=== PATIENT | male | born 1990 | race Caucasian/White ===

== ENCOUNTER 2020-09-28 12:54 | Outpatient (RCR) | payer MEDICAID, SELFPAY ==
--- NOTE | ~2020-09-28 | XR_ITS ---
EXAMINATION: XR CHEST CLINICAL INFORMATION: Preprocedure COMPARISON: Previous chest x-ray January 2021 TECHNIQUE: 2 views of the chest were obtained. FINDINGS: The cardiac and mediastinal contours are stable. There are median sternotomy wires. There are surgical clips in the left lower back/cervicothoracic inlet region. The lungs are clear. There is no pleural effusion or pneumothorax. There is a thoracic scoliosis convex to the left the upper thoracic spine convex to the right and lower thoracic spine. XR/XR chest 2V IMPRESSION: No evidence for acute disease in the chest. Scoliosis and postsurgical changes similar to previous exam.
[2021-06-29 10:41] LABS: MANUAL DIFF FLAG NO
[2021-06-29 10:48] LABS: Basophils Percent Auto 0.4 % (0-2); Eosinophils Absolute Auto 0.2 X10*3/uL (0.0-0.4); Eosinophils Percent Auto 3.9 % (0-4); Hematocrit 42.9 % (42-52); Hemoglobin 13.8 g/dl (14.0-18.0); Imm Gran Abs Auto 0.02 X10*3/uL (0.00-0.03); Imm Gran Pct Auto 0.4 % (0.0-0.4); Lymphocytes Absolute Auto 1.8 X10*3/uL (1.2-4.9); Lymphocytes Percent Auto 36.9 % (20-40); Mean Corpuscular HGB Conc 32.2 g/dl (31.0-36.0); Mean Corpuscular Hemoglobin 29.6 pg (27.0-33.0); Mean Corpuscular Volume 91.9 fL (80-98); Mean Platelet Volume 9.7 fL (9.4-12.4); Monocytes Absolute Auto 0.3 X10*3/uL (0.1-1.2); Monocytes Percent Auto 6.4 % (2-11); Neutrophils Absolute Auto 2.5 X10*3/uL (2.0-8.3); Platelet Count 247 X10*3/uL (160-400); Red Blood Count 4.67 X10*6/uL (4.60-5.80); Red Cell Distribution Width 14.6 % (11.0-16.0); White Blood Count 4.8 X10*3/uL (4.8-10.8)
[2021-06-29 11:09] LABS: Anion Gap 11 (12-20); Blood Urea Nitrogen 12 mg/dL (9-16); C Reactive Protein 0.95 mg/dL (< or = 0.50); Calcium 10.3 mg/dL (8.4-10.2); Carbon Dioxide 31 mmol/L (22-29); Chloride 103 mmol/L (96-108); Estimated Glomerular Filt Rate > 60; Glucose Random 87 mg/dL (60-115); Sodium 140 mmol/L (135-145)
[2021-06-29 11:31] LABS: Erythrocyte Sedimentation Rate 7 MM/HR (0-15)
== END 2021-09-12 15:00 | disposition home or self-care (01) ==
LOC: HO.WCC 12:54
PROVIDERS: PCP Family Medicine; Visit Provider Surgery
DX: L89.323 Pressure ulcer of left buttock, stage 3 (principal); M86.68 Other chronic osteomyelitis, other site; G82.22 Paraplegia, incomplete; I10 Essential (primary) hypertension; Z79.899 Other long term (current) drug therapy; Z87.891 Personal history of nicotine dependence
CPT/HCPCS: 11042; 11043; 17250; 36415; 71046; 80048; 84134; 85025; 85652; 86140; 97605; 99183; 99211; 99212; 99213

== ENCOUNTER 2020-11-21 14:15 | Emergency (ER) | payer MEDICAID, SELFPAY ==
[2020-11-21 14:19] VITALS: BP 191/94; BP 222/128; PULSE 55; PULSE 74; RESP 18; TEMP 36.6; O2SAT 100; O2SAT 98; BMI 55.2
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
[2020-11-21 15:21] LABS: Basophils Percent Auto 0.4 % (0-2); Eosinophils Absolute Auto 0.1 X10*3/uL (0.0-0.4); Eosinophils Percent Auto 1.9 % (0-4); Hematocrit 44.7 % (42-52); Hemoglobin 14.4 g/dl (14.0-18.0); Imm Gran Abs Auto 0.03 X10*3/uL (0.00-0.03); Imm Gran Pct Auto 0.4 % (0.0-0.4); Lymphocytes Absolute Auto 1.6 X10*3/uL (1.2-4.9); Lymphocytes Percent Auto 23.4 % (20-40); MANUAL DIFF FLAG NO; Mean Corpuscular HGB Conc 32.2 g/dl (31.0-36.0); Mean Corpuscular Hemoglobin 30.3 pg (27.0-33.0); Mean Corpuscular Volume 94.1 fL (80-98); Mean Platelet Volume 9.3 fL (9.4-12.4); Monocytes Absolute Auto 0.3 X10*3/uL (0.1-1.2); Monocytes Percent Auto 4.7 % (2-11); Neutrophils Absolute Auto 4.8 X10*3/uL (2.0-8.3); Neutrophils Percent Auto 69.2 % (45-73); Platelet Count 290 X10*3/uL (160-400); Red Blood Count 4.75 X10*6/uL (4.60-5.80); Red Cell Distribution Width 12.6 % (11.0-16.0); White Blood Count 6.9 X10*3/uL (4.8-10.8)
[2020-11-21 15:27] LABS: INTERNATIONAL NORM RATIO 1.2 (0.9-1.1); Prothrombin Time 13.7 SEC (10.8-13.0)
[2020-11-21 15:47] LABS: Anion Gap 16 (12-20); Blood Urea Nitrogen 11 mg/dL (9-16); Calcium 9.6 mg/dL (8.4-10.2); Carbon Dioxide 29 mmol/L (22-29); Chloride 101 mmol/L (96-108); Creatinine Clr Calc Pharmacy 199.3; Estimated Glomerular Filt Rate > 60; Glucose Random 112 mg/dL (60-115); Sodium 142 mmol/L (135-145)
[2020-11-21 16:14] VITALS: BP 142/76; PULSE 48; RESP 17; TEMP 36.9; O2SAT 100
--- NOTE | 2020-11-21 17:16 | PC.NURSE ---
4000 ml of serous sang urine emptied
--- NOTE | 2020-11-21 18:30 | PC.NURSE ---
4000ml urinary output of serous sang urine
[2020-11-21 18:59] VITALS: BP 133/80; PULSE 56
--- NOTE | 2020-11-21 22:07 | PC.NURSE ---
patient to be discharged after last urinary output of 3750ml clear. upon switching to leg bag noticed blood in urine again. Provider made aware. cbi to continue
[2020-11-22] VITALS: BP 154/78; PULSE 58; RESP 16; O2SAT 98
== END 2020-11-22 01:28 | disposition home or self-care (01) ==
PROVIDERS: Nurse Practitioner Family; Emergency Provider Emergency Medicine; PCP Family Medicine
DX: R31.0 Gross hematuria (principal)
CPT/HCPCS: 36415; 80048; 85025; 85610; 99284

== ENCOUNTER 2021-01-19 17:28 | Inpatient (IN) | payer MEDICAID, SELFPAY ==
[2021-01-19] VITALS (7 sets, daily range): BP systolic 89–206; BP diastolic 50–131; PULSE 60–119; RESP 16–18; TEMP 36.6–37.1; O2SAT 94–100; BMI 27.8
--- NOTE | ~2021-01-19 | NM_ITS ---
Lexiscan Myocardial perfusion study Indication: NSTEMI, assess for coronary disease and ischemia Technique: The patient was brought in for a Lexiscan perfusion study on 01/22/2021 and was injected 0.4 mg of Lexiscan intravenously. Within a minute of this injection 25 mCi of sestamibi was given intravenously. Images were obtained using the SPECT gamma camera interlaced with the gating device. Images were obtained in supine position. Resting perfusion study was performed on 01/23/2021. Patient was administered 25 mCi of sestamibi intravenously at rest. Images were then obtained in supine position. Total DLP 76mGy-cm. Images were processed with the software and compared side to side in short axis, horizontal long axis and vertical long axis views. Findings: Raw acquisition was reviewed. The stress perfusion study showed mildly diminished tracer uptake in the mid anterior wall. There is also diminished tracer uptake in the basal to mid inferior wall. With CT attenuation correction, the anterior wall uptake appears significantly worse than the uncorrected acquisition. Inferior wall uptake appears slightly better but there is still a residual deficit in the basal inferior wall. The gated study shows normal LV systolic function with calculated LVEF of 59%. LV cavity is normal in size. The gated study shows diminished contractility in the basal inferior wall. Resting study shows no significant perfusion abnormality. Gating at rest reveals normal wall motion with ejection fraction at 56%. The findings are consistent with reversible perfusion defects in the basal to mid inferior wall; reversible perfusion defect in the mid anterior wall. NM/NM caitlyn perf SPECT rest & str Impression: 1. Myocardial perfusion imaging study shows ischemia in the basal to mid inferior wall and mid anterior wall. 2. Gated LVEF is 59% during stress and 56% during rest. 3. Transient ischemic dilatation not present. EKG component of the test reported separately.
--- NOTE | ~2021-01-19 | CT_ITS ---
EXAMINATION: CT HEAD WITHOUT CONTRAST CLINICAL INFORMATION: Headache. Hypertensive COMPARISON: Brain MRI 07/28/2018 TECHNIQUE: Contiguous axial imaging was performed from the skull base to vertex without intravenous administration of contrast. This CT examination was performed using dose optimization techniques as appropriate, variously including the following: *Automated exposure control *Adjustment of mA and/or kV according to patient size (this includes techniques or standardized protocols for targeted exams where dose is matched to indication/reason for exam; i.e. extremities or head) *Use of iterative reconstruction technique DLP: 699 mGy-cm FINDINGS: Chronic encephalomalacia of the left frontal operculum and left posterior parietal lobe. Asymmetric left-sided volume loss with prominence of the sulci and ex vacuo dilatation of the left lateral ventricle, also unchanged. No evidence of acute intracranial hemorrhage or extra-axial fluid collection. No acute territorial infarction. No evidence of mass lesion, mass effect or midline shift. The basal cisterns are patent. The calvarium is intact. Partial opacification of the left frontal sinus. Fluid within the sphenoid sinus with an air-fluid level. Mastoid air cells are well aerated as far as they are visualized. Middle ear cavities are clear. CT/CT head/brain wo con IMPRESSION: 1. No evidence of acute intracranial abnormality. 2. Paranasal sinus disease.
--- NOTE | ~2021-01-19 | CT_ITS ---
EXAMINATION: CT ABDOMEN AND PELVIS WITHOUT CONTRAST CLINICAL INFORMATION: Hematuria COMPARISON: 03/11/2020 TECHNIQUE: Multidetector volumetric imaging was performed from the superior aspect of the liver through the pubic symphysis. Sagittal and coronal reformatted images were obtained on the technologist's workstation. This CT examination was performed using dose optimization techniques as appropriate, variously including the following: *Automated exposure control *Adjustment of mA and/or kV according to patient size (this includes techniques or standardized protocols for targeted exams where dose is matched to indication/reason for exam; i.e. extremities or head) *Use of iterative reconstruction technique DLP: 603 mGy-cm FINDINGS: LUNG BASES: Groundglass opacities are seen in the right middle lobe. The visualized cardiac structures are unremarkable. LIVER, GALLBLADDER, AND BILIARY TREE: The liver is normal in size, shape, and attenuation. No focal hepatic lesion or biliary ductal dilatation is present. The gallbladder is unremarkable with no evidence of radiopaque gallstones, gallbladder wall thickening, or obvious pericholecystic inflammatory changes. PANCREAS: Unremarkable. SPLEEN: Unremarkable. ADRENAL GLANDS: Unremarkable. KIDNEYS AND URETERS: The kidneys are normal in size, shape, and attenuation. No hydronephrosis, hydroureter, or calculi seen. No perinephric stranding. BLADDER: There is a Alas catheter in the bladder lumen. The bladder is decompressed. There is the appearance of wall thickening of the bladder with adjacent inflammation. GASTROINTESTINAL TRACT: The small and large bowel are unremarkable. The appendix is unremarkable. ABDOMINAL WALL: No significant hernia is appreciated. LYMPH NODES: Normal. VASCULAR: Unremarkable. PELVIC VISCERA: The prostate and seminal vesicles are unremarkable. OSSEOUS STRUCTURES: No acute or suspicious osseous abnormality. Endplate osteophytes are seen at L4 and L5. There are advanced degenerative changes of both hips with significant joint space narrowing with osteophyte formation. Likely chronic healed fractures of the proximal femora. CT/CT abdomen pelvis wo con IMPRESSION: 1. Alas catheter in the bladder. Circumferential wall thickening with adjacent inflammation. Correlate for cystitis. 2. Groundglass opacities are seen in the right middle lobe. This could be infectious or inflammatory. Aspiration possible. 3. Advanced degenerative changes of both hips.
--- NOTE | ~2021-01-19 | XR_ITS ---
EXAMINATION: XR CHEST CLINICAL INFORMATION: CHF COMPARISON: 03/11/2020 TECHNIQUE: Frontal view of the chest was obtained. FINDINGS: Aside from scoliosis and median sternotomy and surgical clips at the base of the left neck, no significant abnormality is noted involving the heart, lungs, mediastinum, bony thorax or soft tissues. Some minimal atelectasis is present at the right lung base. XR/XR chest 1V IMPRESSION: No acute intrathoracic disease.
--- NOTE | 2021-01-19 17:56 | ECG_ITS ---
Test Reason : CHEST FLOYD Blood Pressure : / mmHG Vent. Rate : 108 BPM Atrial Rate : 108 BPM P-R Int : 126 ms QRS Dur : 080 ms QT Int : 300 ms P-R-T Axes : 066 087 065 degrees QTc Int : 402 ms Sinus tachycardia Left atrial enlargement Nonspecific ST-T changes Abnormal ECG When compared with ECG of 11-MAR-2020 21:25, Vent. rate has increased BY [address]-T changes are present. Referred By: Boyd Chiu Electronically Signed By:Jayson Wiseman
[2021-01-19] MEDS: Nitroglycerin 2 % Oint 1 GM Packet 1 INCH TRANSDERMA (18:13)
[2021-01-19] MEDS: LORazepam 2 MG/ML VIAL 1 MG IVPUSH (18:13)
[2021-01-19] MEDS: Lidocaine HCl 2 % Urojet 10 ML JEL.PF.APP TOPICAL (18:14)
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
[2021-01-19] MEDS: Morphine Sulfate 4 MG/ML CARTRIDGE IVPUSH (19:20)
--- NOTE | 2021-01-19 19:21 | ED.GENADULT ---
HPI - General Adult General Chief complaint: General Medical Stated complaint: blood catheter Time Seen by Provider: 01/19/21 17:53 Source: patient and EMS Mode of arrival: EMS History of Present Illness Onset (ago): hour(s) Related Data Allergies Allergy/AdvReac Type Severity Reaction Status Date / Time peanut [PEANUT] Allergy Severe ANAPHYLAXIS Unverified 08/17/20 15:52 latex [LATEX] Allergy Unknown HIVES Unverified 08/17/20 15:52 sulfamethoxazole Allergy Unknown HIVES Unverified 08/17/20 15:52 [From BACTRIM] trimethoprim [From BACTRIM] Allergy Unknown HIVES Unverified 08/17/20 15:52 SEAFOOD Allergy Unknown HIVES Uncoded 08/17/20 15:52 Review of Systems Review of Systems: Constitutional: No Fever, No Chills Eyes: No Eye Pain, No Vision Changes or loss Cardiovascular: +Chest Pain, + SOB, + Palpitations Respiratory: No Cough, No Sputum Gastrointestinal: + Nausea, No Vomiting, No Diarrhea, No Constipation, + Abdominal pain Genitourinary: No Dysuria, + Gross Hematuria, No Urinary Incontinence, No Urgency, No Flank Pain, No Urinary Flow Changes, No Hesitancy Musculoskeletal: No joint pain, No Myalgias, No Joint Swelling Skin: No Skin Lesions, No rash Neuro: No Weakness, No Numbness, No Paresthesias, +Headache Yes all other systems are reviewed and are negative [facility] Past Medical History Attestation statement: The following information was validated with the patient. Medical History Seizure UTI (urinary tract infection) Social History Social History Alcohol intake: never Advance Directives: No Advance Directives Information Provided: Yes Physical Exam Vital Signs: Vital Signs: Last Vital Signs Temp 98.6 F 01/19/21 18:06 Pulse 105 H 01/19/21 19:00 Resp 18 01/19/21 19:00 BP 191/127 H 01/19/21 19:00 Pulse Ox 100 01/19/21 19:00 Body Mass Index 27.8 Const: General: cooperative and healthy appearing Orientation/consciousness: patient oriented x3 Limitations: no limitations HENMT: Head: Yes normal to inspection Ears: hearing grossly normal bilaterally General nose exam: Normal external nose present Face and sinus: Yes normal facial exam Eyes: General: appearance normal, both eyes and all related structures EOM: EOMs intact bilaterally Neck: Neck: Yes normal visual inspection Resp: Effort & Inspection: normal respiratory effort Auscultation: clear to auscultation bilaterally Cardio: Rate: regular rate Heart sounds: S1 normal heart sound present and S2 normal heart sound present GI: Inspection: Yes normal to inspection Palpation (GI): Soft to palpation, nontender, no guarding and not rigid : General: Yes no CVA tenderness Back/Spine/Pelvis: Back: no CVA tenderness Skin: Rashes: no rashes Wounds: no wounds Neuro: General: patient oriented x3 Gait exam (Neuro): Normal gait present Extrem: General: Yes normal to inspection Medical Decision Making Lab Data Result diagrams: 01/19/21 19:06 01/19/21 19:06
[2021-01-19 19:22] LABS: Hematocrit 47.8 % (42-52); Mean Corpuscular HGB Conc 31.4 g/dl (31.0-36.0); Mean Corpuscular Hemoglobin 29.4 pg (27.0-33.0); Mean Corpuscular Volume 93.7 fL (80-98); Mean Platelet Volume 11.2 fL (9.4-12.4); Platelet Count 413 X10*3/uL (160-400); Red Cell Distribution Width 13.2 % (11.0-16.0); White Blood Count 16.4 X10*3/uL (4.8-10.8)
[2021-01-19] MEDS: Labetalol HCL 100 MG/20 ML VIAL 10 MG IVPUSH (19:22)
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
[2021-01-19 19:30] LABS: Prothrombin Time 12.3 SEC (10.8-13.0)
[2021-01-19 19:33] LABS: Partial Thromboplastin Time 28.8 SEC (24.1-38.0)
[2021-01-19 19:39] LABS: COVID-19 Test Negative (Negative)
[2021-01-19 19:56] LABS: Alanine Aminotransferase 35 U/L (0-40); Albumin Level 4.3 g/dL (3.5-5.0); Alkaline Phosphatase 116 U/L (39-117); Anion Gap 23 (12-20); Aspartate Amino Transferase 48 U/L (5-37); Bilirubin Direct 0.2 mg/dL (0.0-0.5); Bilirubin Total 0.5 mg/dL (0.0-1.0); Blood Urea Nitrogen 13 mg/dL (9-16); Calcium 9.4 mg/dL (8.4-10.2); Carbon Dioxide 18 mmol/L (22-29); Chloride 104 mmol/L (96-108); Creatinine Clr Calc Pharmacy 115.9; Estimated Glomerular Filt Rate > 60; Glucose Random 152 mg/dL (60-115); Magnesium 1.9 mg/dL (1.6-2.6); Potassium 3.9 mmol/L (3.3-5.1); Sodium 141 mmol/L (135-145); Total Protein 8.5 g/dL (6.5-8.0)
[2021-01-19 19:59] LABS: Atypical Lymph Absolute Manual 2.1 x10*3/uL; Atypical Lymphs Percent Manual 13 % (0-6); Eosinophils Absolute Manual 0.3 X10*3/UL (0.0-0.8); Eosinophils Percent Manual 2 % (0-4); Lymphocytes Absolute Manual 3.4 X10*3/uL (0.6-4.8); Lymphocytes Percent Manual 21 % (20-40); Monocytes Absolute Manual 0.3 X10*3/uL (0.0-1.2); Monocytes Percent Manual 2 % (2-11); Neutrophils Percent Manual 62 % (45-73)
[2021-01-19 20:00] LABS: Large Platelet PRESENT; Platelet Estimate SLIGHTLY INCREASED (NORMAL); Platelet Morphology Comment NOTED; RBC Morphology NORMAL
[2021-01-19 20:01] LABS: Band Neutrophils Percent 0 % (3-5); Neutrophils Absolute Manual 10.2 X10*3/uL (2.2-7.9)
[2021-01-19 20:15] LABS: Troponin-I High Sensitivity 48.2 ng/L (<3.5-35.0)
[2021-01-19 21:10] LABS: Glucose Urine UA 100 MG/DL (NEG); Leukocyte Esterase Urine 2+ (NEG); Nitrite Urine POS (NEG); UACC Culture Trigger YES; Urine Blood 3+ (NEG); Urine Ketones 15 MG/DL (NEG); Urine Protein 3+ MG/DL (NEG-TRACE)
[2021-01-19 21:22] LABS: Appearance Urine TURBID; Color Urine RED
[2021-01-19 21:23] LABS: Bacteria Urine TRACE /LPF; RBC Urine TNTC /HPF (0)
[2021-01-19] MEDS: Albuterol Sulfate 90 MCG 8 GM INHALER 4 PUFF INHALE (21:28)
--- NOTE | 2021-01-19 23:22 | PC.NURSE ---
Patient having s/s of autonomic dysreflexia estevez catheter had to be flushed several times in order to alleviate clots. flushing light pink at this time bp is soft but stable patient is tachycardic denies any pain or discomfort awaiting bed placement. lung sounds are clear skin ispink warm and dry.
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
[2021-01-20] VITALS (8 sets, daily range): BP systolic 78–99; BP diastolic 38–61; PULSE 85–110; RESP 15–19; TEMP 36.4; O2SAT 99–100
--- NOTE | 2021-01-20 | ECG_ITS ---
Test Reason : REPEAT Blood Pressure : / mmHG Vent. Rate : 104 BPM Atrial Rate : 104 BPM P-R Int : 130 ms QRS Dur : 090 ms QT Int : 352 ms P-R-T Axes : 056 085 088 degrees QTc Int : 462 ms Sinus tachycardia Early repolarization Borderline ECG When compared with ECG of 19-JAN-2021 19:03, ST elevation now present in Inferior leads QT has lengthened Referred By: Yaya Negron Electronically Signed By:Jayson Wiseman
[2021-01-20] MEDS: cefTRIAXone sodium 1 GM in 0.9 % Sodium Chloride 50 ML IV ×2 (00:15→22:11)
[2021-01-20] MEDS: 0.9 % Sodium Chloride 1,000 ML 999 ML IVCONT (00:17)
[2021-01-20 01:42] LABS: Lactic Acid 2.3 mmol/L (0.5-2.0)
[2021-01-20 01:53] LABS: Troponin-I High Sensitivity 1105.2 ng/L (<3.5-35.0)
[2021-01-20 03:21] LABS: Reflex Lactate? Lactic Acid Added
[2021-01-20] MEDS: 0.9 % Sodium Chloride 1,000 ML 50 ML IVCONT (03:54)
[2021-01-20] MEDS: 0.9 % Sodium Chloride Flush 3 ML SYRINGE IVFLUSH ×2 (04:04→07:30)
--- NOTE | 2021-01-20 04:06 | PC.NURSE ---
PT HAS WOUND VAC TO LEFT BUTTOCK, NEEDED ROUND ADHESIVE PAS WITH TUBING REPLACED, CAME OFF DURING EMS TRANSFER. PT'S OWN WOUND VAC NOW ATTACHED AND OPERATING. COLLECTION CONTAINER HAS SOLID MATERIAL, NEEDS TO BE LOOKED AT ONCE ON FLOOR.
[2021-01-20 04:37] LABS: ~Lactic Acid-LAB USE ONLY 2.6 mmol/L (0.5-2.0)
[2021-01-20 05:53] LABS: Reflex Lactate? 2 Y
[2021-01-20 06:48] LABS: ~Lactic Acid-LAB USE ONLY 2.9 mmol/L (0.5-2.0)
[2021-01-20 07:13] LABS: MANUAL DIFF FLAG NO
[2021-01-20 07:25] LABS: Basophils Absolute Auto 0.1 X10*3/uL (0.0-0.2); Basophils Percent Auto 0.4 % (0-2); Eosinophils Absolute Auto 0.1 X10*3/uL (0.0-0.4); Eosinophils Percent Auto 0.6 % (0-4); Hematocrit 40.4 % (42-52); Hemoglobin 12.8 g/dl (14.0-18.0); Imm Gran Abs Auto 0.04 X10*3/uL (0.00-0.03); Imm Gran Pct Auto 0.3 % (0.0-0.4); Lymphocytes Absolute Auto 2.4 X10*3/uL (1.2-4.9); Lymphocytes Percent Auto 17.3 % (20-40); Mean Corpuscular HGB Conc 31.7 g/dl (31.0-36.0); Mean Corpuscular Hemoglobin 29.2 pg (27.0-33.0); Mean Corpuscular Volume 92.2 fL (80-98); Mean Platelet Volume 10.6 fL (9.4-12.4); Monocytes Absolute Auto 0.9 X10*3/uL (0.1-1.2); Monocytes Percent Auto 6.4 % (2-11); Neutrophils Absolute Auto 10.2 X10*3/uL (2.0-8.3); Platelet Count 296 X10*3/uL (160-400); Red Blood Count 4.38 X10*6/uL (4.60-5.80); Red Cell Distribution Width 13.4 % (11.0-16.0); White Blood Count 13.6 X10*3/uL (4.8-10.8)
--- NOTE | 2021-01-20 07:30 | PC.NURSE ---
pt resting comfortably in bed on cellphone. no distress noted. vss. ivf infusing. cbi continues- light pink urine noted.
[2021-01-20 07:49] LABS: Anion Gap 16 (12-20); Blood Urea Nitrogen 14 mg/dL (9-16); Calcium 8.7 mg/dL (8.4-10.2); Carbon Dioxide 24 mmol/L (22-29); Chloride 103 mmol/L (96-108); Creatinine Clr Calc Pharmacy 151.8; Estimated Glomerular Filt Rate > 60; Glucose Random 94 mg/dL (60-115); Potassium 5.2 mmol/L (3.3-5.1); Sodium 138 mmol/L (135-145)
[2021-01-20] MEDS: Omeprazole 20 MG CAPSULE.DR PO (08:26)
[2021-01-20] MEDS: Gabapentin 600 MG TABLET PO ×3 (08:26→20:53)
[2021-01-20] MEDS: Baclofen 20 MG TABLET PO ×3 (08:26→20:57)
[2021-01-20] MEDS: Multivitamin TABLET 1 TAB PO (08:26)
[2021-01-20] MEDS: Docusate Sodium 100 MG CAPSULE PO ×2 (08:26→20:53)
[2021-01-20] MEDS: Gabapentin 100 MG CAPSULE PO ×3 (08:27→20:53)
--- NOTE | 2021-01-20 10:00 | CA_ITS ---
Transthoracic Echocardiogram Patient (Last, First, Middle): Anatoly Corbett, Gender: Male Date of : 1990 Age: 30 Procedure Date: 01/20/2021 Procedure Type: Transthoracic Echocardiogram Location: ER Height: 170.18 cm Weight: 80.29 kg BSA: 1.92 m2 Heart Rate: bpm BP: 117 / 75 mmHg Geophysical Party Chief: Referring MD: Yaya Negron MD Symptoms: high trop Study Quality: Fair ECG Rhythm: Sinus Conclusions: - Limited echo. Normal LVEF. - The inferoseptal wall, the basal anteroseptal, and mid anteroseptal segments are hypokinetic. - The basal inferior segment is akinetic. Findings Left Ventricle Normal left ventricular size, thickness, and systolic function. The visually estimated ejection fraction is between 55-60%. There is evidence of regional wall motion abnormalities. Diastolic function is indeterminate on the basis of available data. Wall Motion Rest Echo Findings The inferoseptal wall, the basal anteroseptal, and mid anteroseptal segments are hypokinetic. The basal inferior segment is akinetic. Right Ventricle Normal right ventricular cavity size and systolic function. Great Vessels All visible segments of the aorta are normal in size. Venous The inferior vena cava is collapsed, consistent with reduced intravascular volume. Pericardium/Pleural There is no evidence of pericardial effusion. Measurements 2D Systolic Function EF 4C: 69.50 >55% EF 2C: 60.60 >55% EF BiP: 64.50 >55% Updated in Other Vendor System with Status of Final Jayson Wiseman MD electronically signed on 01/20/2021 1:30:01 PM with status of Final
--- NOTE | 2021-01-20 10:11 | PC.NURSE ---
echo at bedside
--- NOTE | 2021-01-20 10:38 | HO.PM.IMPN ---
Subjective Subjective Date of Service: 01/20/21 Interval History: seen and examined htis AM in the ED reports no complaints -- no abdominal pain ROS General - no fevers or chills Cardiovascular - no chest pain Respiratory - no shortness of breath or cough Abdominal- no abdominal pain, nausea, vomiting, diarrhea - no hematuria Physical Exam Vital Signs: Vital Signs: Last Vital Signs Temp 97.9 F 01/19/21 20:06 Pulse 98 01/20/21 07:23 Resp 18 01/20/21 07:23 BP 84/43 L 01/20/21 05:55 Pulse Ox 100 01/20/21 07:23 Body Mass Index 27.8 Const: Other: General - no acute distress, appears comfortable Cardiovascular - regular rate and rhythm, S1-S2 Lungs - normal respiratory effort, clear to auscultation bilaterally, no wheezing Abdomen - soft, nontender, no rebound or guarding Extremities - no edema bilaterally Neuro - awake and alert - estevez with clear urine Objective Data Current Medications Generic Name Dose Route Start Last Admin Trade Name Huy PRN Reason Stop Dose Admin Acetaminophen 650 mg 01/19/21 23:43 Acetaminophen 325 Mg Tablet PO Q6H PRN Pain, Mild (Pain Scale 1-3) Baclofen 20 mg 01/20/21 09:00 01/20/21 08:26 Baclofen 20 Mg Tablet PO 20 mg TID JCARLOS Administration Docusate Sodium 100 mg 01/20/21 09:00 01/20/21 08:26 Docusate Sodium 100 Mg Capsule PO 100 mg BID JCARLOS Administration Gabapentin 100 mg 01/20/21 09:00 01/20/21 08:27 Gabapentin 100 Mg Capsule PO 100 mg TID JCARLOS Administration Gabapentin 600 mg 01/20/21 09:00 01/20/21 08:26 Gabapentin 600 Mg Tablet PO 600 mg TID JCARLOS Administration Sodium Chloride 1,000 mls @ 50 mls/hr 01/19/21 23:45 01/20/21 03:54 Ns IVCONT 50 mls/hr .Q20H JCARLOS Administration Ceftriaxone Sodium 1 gm/ 50 mls @ 100 mls/hr 01/20/21 22:00 Sodium Chloride IV Q24H JCARLOS Multivitamins/Vitamin C 1 tab 01/20/21 09:00 01/20/21 08:26 Multivitamin Tablet PO 1 tab DAILY JCARLOS Administration Omeprazole 20 mg 01/20/21 09:00 01/20/21 08:26 Omeprazole 20 Mg Capsule. PO 20 mg DAILY JCARLOS Administration Senna 17.2 mg 01/19/21 23:43 Sennosides 8.6 Mg Tablet PO BEDTIME PRN Constipation Sodium Chloride 3 ml 01/20/21 00:00 01/20/21 07:30 0.9 % Sodium Chloride Flush 3 Ml Syringe IVFLUSH 3 ml QSHIFT JCARLOS Administration Labs CBC & Chem 7: 01/20/21 06:42 01/20/21 06:42 Assessment and Plan (1) Schuyler hematuria: Status: Acute Assessment and Plan: This is a 30 yo paraplegic male who presented to the hospital after schuyler hematuria after catheter change. He was noted to have significant HTN and subsequent profoundly hypotensive in the ED. He was also noted to have elevation in HS trop-I 1. Schuyler Hemturia after catheter change at home appears to be resolving turn CBI off and monitor Urology consulted 2. Possible UTI empiric rocephin f/u c&s 3. NSTEMI HS trop-I down trending suspected type 2 Cardiology consulted 4. Dysautonomia gentle hydration monitor Full Code DVT pptx, mechanical
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
--- NOTE | 2021-01-20 11:23 | PC.NURSE ---
nitropaste removed from ruq. site cleaned.
--- NOTE | 2021-01-20 13:54 | PC.NURSE ---
pt ate lunch, resting in bed. ivf changed from ns to lr per md request. urine remains clear yellow/pink. pt aware of plan of care and denied having any questions.
[2021-01-20] MEDS: Lactated Ringers 1,000 ML 999 ML IVCONT (13:55)
[2021-01-20] MEDS: Lactated Ringers 1,000 ML 100 ML IVCONT ×2 (15:19→23:56)
[2021-01-21] VITALS: BP 121/53; PULSE 97; RESP 18; TEMP 36.7; O2SAT 98
--- NOTE | 2021-01-21 | CA_ITS ---
Acquisition Time: 2021-01-22 11:41:00 Total Exercise Time: 00:02:00 Test Indications: HIGH TROPONINS Medications: SEE CHART Protocol: LEXISCAN Max HR: 141 BPM 75% of Pred: 188 BPM Max BP: 112/076 mmHG Max Work Load: 1.0 METS Pharm test using Lexiscan while lying and moving hi s L arm. Pt tolerated well. Denies any anginal sx. HR up to 130. Reversed with Aminophyline 75 mg IV. Nuclear images to follow. Normotensive response to follow. Test reviewed with Dr. Willett. Referred By: Boyd Chiu Overread By: Shalonda Malhotra
--- NOTE | 2021-01-21 | ECG_ITS ---
Test Reason : CHEST PAIN Blood Pressure : / mmHG Vent. Rate : 087 BPM Atrial Rate : 087 BPM P-R Int : 110 ms QRS Dur : 074 ms QT Int : 388 ms P-R-T Axes : 023 087 088 degrees QTc Int : 466 ms Sinus rhythm with short DC Nonspecific ST abnormality Abnormal ECG No previous ECGs available Referred By: Boyd Chiu Electronically Signed By:ANGEL DE LA CRUZ MD
[2021-01-21 03:47] VITALS: BP 129/52; PULSE 106; RESP 18; TEMP 37.1; O2SAT 100
--- NOTE | 2021-01-21 06:07 | ECG_ITS ---
Test Reason : chest pain Blood Pressure : / mmHG Vent. Rate : 093 BPM Atrial Rate : 093 BPM P-R Int : 128 ms QRS Dur : 072 ms QT Int : 374 ms P-R-T Axes : 051 089 089 degrees QTc Int : 465 ms Normal sinus rhythm T wave inversions in the V1 and V2. Abnormal ECG When compared to the previous EKG of T wave inversions in V1 and V2 are present. These are nonspecifc changes. Referred By: Boyd Chiu Electronically Signed By:Jayson Wiseman
--- NOTE | 2021-01-21 06:26 | PC.NURSE ---
Pt. c/o chest pain at 6:15, an EKG was performed with results of normal sinus rhythm/normal ECG. Dr. Negron was informed and he ordered Trops.
--- NOTE | 2021-01-21 06:26 | PM.EVENT ---
Event Note Date of Service: 01/21/21 Event Note: Chest pain: At around 6:30 a.m. patient complained of chest pain. EKG nonischemic. Sent troponins. Will pass on to the morning team for follow-up.
[2021-01-21 07:13] LABS: Hematocrit 33.7 % (42-52); Hemoglobin 10.6 g/dl (14.0-18.0); Mean Corpuscular HGB Conc 31.5 g/dl (31.0-36.0); Mean Corpuscular Hemoglobin 29.2 pg (27.0-33.0); Mean Corpuscular Volume 92.8 fL (80-98); Mean Platelet Volume 10.9 fL (9.4-12.4); Platelet Count 196 X10*3/uL (160-400); Red Blood Count 3.63 X10*6/uL (4.60-5.80); Red Cell Distribution Width 13.6 % (11.0-16.0); White Blood Count 5.3 X10*3/uL (4.8-10.8)
[2021-01-21 07:42] VITALS: BP 114/70; PULSE 95; RESP 18; TEMP 36.8; O2SAT 97
[2021-01-21 07:44] LABS: Anion Gap 10 (12-20); Blood Urea Nitrogen 11 mg/dL (9-16); Calcium 8.2 mg/dL (8.4-10.2); Carbon Dioxide 28 mmol/L (22-29); Chloride 109 mmol/L (96-108); Creatinine Clr Calc Pharmacy 151.8; Estimated Glomerular Filt Rate > 60; Glucose Random 112 mg/dL (60-115); Potassium 4.2 mmol/L (3.3-5.1); Sodium 143 mmol/L (135-145)
[2021-01-21] MEDS: Aspirin 81 MG TAB.CHEW PO (08:05)
[2021-01-21] MEDS: Gabapentin 600 MG TABLET PO ×3 (08:05→21:49)
[2021-01-21] MEDS: Gabapentin 100 MG CAPSULE PO ×3 (08:05→21:50)
[2021-01-21] MEDS: Omeprazole 20 MG CAPSULE.DR PO (08:06)
[2021-01-21] MEDS: Docusate Sodium 100 MG CAPSULE PO ×2 (08:06→21:49)
[2021-01-21] MEDS: Baclofen 20 MG TABLET PO ×3 (08:06→21:49)
[2021-01-21] MEDS: Multivitamin TABLET 1 TAB PO (08:06)
[2021-01-21 08:28] LABS: Troponin-I High Sensitivity 258.7 ng/L (<3.5-35.0)
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
--- NOTE | 2021-01-21 10:56 | P.PNIM_ITS ---
Subjective Subjective Date of Service: 01/21/21 Interval History: seen and examined this AM had a brief episode of CP this AM around 6-630; Reports only lasted a few seconds and felt like a pulled muscle. now back to baseline ROS General - no fevers or chills Cardiovascular - no chest pain Respiratory - no shortness of breath or cough Abdominal- no abdominal pain, nausea, vomiting, diarrhea - no hematuria Physical Exam Vital Signs: Vital Signs: Last Vital Signs Temp 98.3 F 01/21/21 07:42 Pulse 95 01/21/21 07:42 Resp 18 01/21/21 07:42 BP 114/70 01/21/21 07:42 Pulse Ox 97 01/21/21 07:42 Body Mass Index 27.8 Const: Other: General - no acute distress, appears comfortable Cardiovascular - regular rate and rhythm, S1-S2 Lungs - normal respiratory effort, clear to auscultation bilaterally, no wheezing Abdomen - soft, nontender, no rebound or guarding Extremities - no edema bilaterally Neuro - awake and alert - estevez with clear urine Objective Data Current Medications Generic Name Dose Route Start Last Admin Trade Name Freq PRN Reason Stop Dose Admin Acetaminophen 650 mg 01/19/21 23:43 Acetaminophen 325 Mg Tablet PO Q6H PRN Pain, Mild (Pain Scale 1-3) Aspirin 81 mg 01/21/21 09:00 01/21/21 08:05 Aspirin 81 Mg Tab.Chew PO 81 mg DAILY JCARLOS Administration Baclofen 20 mg 01/20/21 09:00 01/21/21 08:06 Baclofen 20 Mg Tablet PO 20 mg TID JCARLOS Administration Docusate Sodium 100 mg 01/20/21 09:00 01/21/21 08:06 Docusate Sodium 100 Mg Capsule PO 100 mg BID JCARLOS Administration Gabapentin 100 mg 01/20/21 09:00 01/21/21 08:05 Gabapentin 100 Mg Capsule PO 100 mg TID JCARLOS Administration Gabapentin 600 mg 01/20/21 09:00 01/21/21 08:05 Gabapentin 600 Mg Tablet PO 600 mg TID JCARLOS Administration Ceftriaxone Sodium 1 gm/ 50 mls @ 100 mls/hr 01/20/21 22:00 01/20/21 22:41 Sodium Chloride IV Infused Q24H JCARLOS Infusion Multivitamins/Vitamin C 1 tab 01/20/21 09:00 01/21/21 08:06 Multivitamin Tablet PO 1 tab DAILY JCARLOS Administration Omeprazole 20 mg 01/20/21 09:00 01/21/21 08:06 Omeprazole 20 Mg Capsule. PO 20 mg DAILY [facility] Administration Senna 17.2 mg 01/19/21 23:43 Sennosides 8.6 Mg Tablet PO BEDTIME PRN Constipation Sodium Chloride 3 ml 01/20/21 00:00 01/21/21 08:07 0.9 % Sodium Chloride Flush 3 Ml Syringe IVFLUSH Not Given QSHIFT [facility] Labs CBC & Chem 7: 01/21/21 05:44 01/21/21 05:44 Microbiology Microbiology Results: Microbiology 01/20/21 00:09 Blood - Venous Blood Culture - Preliminary No growth after 24 hours. 01/20/21 00:09 Blood - Venous Blood Culture - Preliminary No growth after 24 hours. 01/19/21 21:24 Urine clean catch - Clean Catch Midstream Urine Culture - Preliminary Culture too young to evaluate. Assessment and Plan (1) Schuyler hematuria: Status: Acute Assessment and Plan: This is a 30 yo paraplegic male who presented to the hospital after schuyler hematuria after catheter change. He was noted to have significant HTN and subsequent profoundly hypotensive in the ED. He was also noted to have elevation in HS trop-I 1. NSTEMI type 2 HS trop-I down trending Echo done -- see formal results plan for inpatient stress test Asa 81mg Cardiology on board 2. Schuyler Hemturia leading to acute blood loss anemia after catheter change at home resolved monitor h/h 3. Possible UTI rocephin day #3 c&s pending 4. Dysautonomia gentle hydration monitor Full Code DVT pptx, mechanical due to acute blood loss
[2021-01-21 12:00] VITALS: BP 89/48; PULSE 118; RESP 18; TEMP 37.2; O2SAT 99
--- NOTE | 2021-01-21 12:43 | P.PNCA_ITS ---
Subjective Subjective Date of Service: 01/21/21 Interval history: He had mild left-sided muscular chest pain which is reproducible. Troponin levels are coming down. Review of Systems Review of Systems Atypical chest pain Yes all other systems are reviewed and are negative Physical Exam Vital Signs: Last Vital Signs Temp 98.3 F 01/21/21 07:42 Pulse 95 01/21/21 07:42 Resp 18 01/21/21 07:42 BP 114/70 01/21/21 07:42 Pulse Ox 97 01/21/21 07:42 Body Mass Index 27.8 GENERAL APPEARANCE: in no acute distress, well developed, well nourished. HEENT: unremarkable. HEAD: normocephalic, atraumatic. NECK/THYROID: no carotid bruit, no jugular venous distention. SKIN: no suspicious lesions, warm and dry. HEART: no murmurs, regular rate, regular tachycardia. LUNGS: clear to auscultation bilaterally. ABDOMEN: normal, bowel sounds present, soft, nontender, nondistended. EXTREMITIES: no clubbing, cyanosis, or edema. PERIPHERAL PULSES: equal. NEUROLOGIC: paraplegic. PSYCH: mood/affect full range Results Labs and Meds Result diagrams: 01/21/21 05:44 01/21/21 05:44 Lab results: Laboratory Results - last 24 hr 01/21/21 01/21/21 01/21/21 05:44 05:44 05:44 WBC 5.3 RBC 3.63 L Hgb 10.6 L Hct 33.7 L MCV 92.8 MCH 29.2 MCHC 31.5 RDW 13.6 Plt Count 196 D MPV 10.9 Absolute Nucleated RBC 0.000 Nucleated RBC % (auto) 0.0 Sodium 143 Potassium 4.2 Chloride 109 H Carbon Dioxide 28 Anion Gap 10 L BUN 11 Creatinine 0.71 Estim Creat Clear Calc 151.8 Estimated GFR > 60 Random Glucose 112 Calcium 8.2 L Troponin I High Sens 258.7 H D Progress Note: A&P Assessment and plan (1) Elevated troponin: Status: Acute (2) Thee hematuria: Status: Acute Assessment and Plan: Pleasant 30 year gentleman with background history of paraplegia and dysautonomia. He presented with hematuria and urinary retention with significantly elevated blood pressures. He has lost couple of gm of hemoglobin and was significantly hypertensive when he was admitted. He ruled in for NSTEMI. EKG showed nonspecific changes initially but reverted back to early repolarization which is his baseline ECG change. His echocardiogram is showing some septal wall motion abnormality as well as some concern for basal inferior wall motion abnormality. I think we should pursue a Lexiscan on him tomorrow. Continue baby aspirin. If any concerns for hematuria again then we can discuss stopping aspirin. He was not given heparin because of significant hematuria. I think the troponin e levation is likely type 2 event but we need to understand the cause for wall motion abnormality on his echocardiography. Thank you for allowing me to participate in the care of your patient. Please f eel free to contact me if you have any questions. Fall Risk Details Current Medications: Current Medications Generic Name Dose Route Start Last Admin Trade Name Freq PRN Reason Stop Dose Admin Acetaminophen 650 mg 01/19/21 23:43 Acetaminophen 325 Mg Tablet PO Q6H PRN Pain, Mild (Pain Scale 1-3) Aspirin 81 mg 01/21/21 09:00 01/21/21 08:05 Aspirin 81 Mg Tab.Chew PO 81 mg DAILY JCARLOS Administration Baclofen 20 mg 01/20/21 09:00 01/21/21 08:06 Baclofen 20 Mg Tablet PO 20 mg TID JACRLOS Administration Docusate Sodium 100 mg 01/20/21 09:00 01/21/21 08:06 Docusate Sodium 100 Mg Capsule PO 100 mg BID JCARLOS Administration Gabapentin 100 mg 01/20/21 09:00 01/21/21 08:05 Gabapentin 100 Mg Capsule PO 100 mg TID JCARLOS Administration Gabapentin 600 mg 01/20/21 09:00 01/21/21 08:05 Gabapentin 600 Mg Tablet PO 600 mg TID JCARLOS Administration Ceftriaxone Sodium 1 gm/ 50 mls @ 100 mls/hr 01/20/21 22:00 01/20/21 22:41 Sodium Chloride IV Infused Q24H JCARLOS Infusion Multivitamins/Vitamin C 1 tab 01/20/21 09:00 01/21/21 08:06 Multivitamin Tablet PO 1 tab DAILY JCARLOS Administration Omeprazole 20 mg 01/20/21 09:00 01/21/21 08:06 Omeprazole 20 Mg Capsule.Dr PO 20 mg DAILY JCARLOS Administration Senna 17.2 mg 01/19/21 23:43 Sennosides 8.6 Mg Tablet PO BEDTIME PRN Constipation Sodium Chloride 3 ml 01/20/21 00:00 01/21/21 08:07 0.9 % Sodium Chloride Flush 3 Ml Syringe IVFLUSH Not Given QSHIFT JCARLOS Time Spent With Patient Time: Total time spent is greater than 50% in coordination of care (as documented) at patient's floor/unit and/or counseling patient: Time with patient: less than 15 minutes
--- NOTE | 2021-01-21 13:02 | PC.NURSE ---
pt reporting CP. Pt had episode of CP early this am that had subsided. described as soreness localized to front L chest. soreness is not worsened or lessened with movement or breath. BP 88/49, HR 110. Updated MD. Will cont to monitor and assess.
[2021-01-21] MEDS: 0.9 % Sodium Chloride Flush 3 ML SYRINGE IVFLUSH (15:23)
[2021-01-21 15:35] VITALS: BP 120/57; PULSE 85; RESP 14; TEMP 37; O2SAT 97
[2021-01-21 19:50] VITALS: BP 106/56; PULSE 90; RESP 16; TEMP 36.2; O2SAT 98
[2021-01-21] MEDS: cefTRIAXone sodium 1 GM in 0.9 % Sodium Chloride 50 ML IV (21:50)
[2021-01-22] VITALS (8 sets, daily range): BP systolic 90–113; BP diastolic 50–65; PULSE 71–95; RESP 16–20; TEMP 36.1–37.1; O2SAT 99–100; BMI 27.8
[2021-01-22] MEDS: 0.9 % Sodium Chloride Flush 3 ML SYRINGE IVFLUSH ×3 (00:30→16:10)
[2021-01-22] MEDS: Baclofen 20 MG TABLET PO ×3 (07:52→20:15)
[2021-01-22] MEDS: Omeprazole 20 MG CAPSULE.DR PO (07:52)
[2021-01-22] MEDS: Gabapentin 100 MG CAPSULE PO ×3 (07:52→20:15)
[2021-01-22] MEDS: Multivitamin TABLET 1 TAB PO (07:52)
[2021-01-22] MEDS: Docusate Sodium 100 MG CAPSULE PO ×2 (07:52→20:15)
[2021-01-22] MEDS: Aspirin 81 MG TAB.CHEW PO (07:52)
[2021-01-22] MEDS: Gabapentin 600 MG TABLET PO ×3 (07:53→20:15)
--- NOTE | 2021-01-22 11:15 | P.PNCA_ITS ---
Subjective Subjective Date of Service: 01/22/21 Principal diagnosis: Elevated troponin Interval history: Patient currently not having any chest pain or shortness of b reath. To undergo stress test today. Blood pressure is on the lower side today. He says that this is his usual. Review of Systems Cardiovascular: Denies chest pain, Denies lightheadedness and Denies dyspnea Respiratory: Denies dyspnea Gastrointestinal: Reports no additional gastrointestinal complaints Reports system reviewed and no additional complaints, except as documented Hematologic/Lymphatic: Reports no additional hematologic/lymphatic complaints Physical Exam Vital Signs: Last Vital Signs Temp 98 F 01/22/21 07:04 Pulse 95 01/22/21 07:04 Resp 18 01/22/21 07:04 BP 92/58 L 01/22/21 07:04 Pulse Ox 100 01/22/21 07:04 Body Mass Index 27.8 Const General: cooperative, comfortable, alert and awake Nutritional Appearance: thin Orientation/consciousness: patient oriented x3 Neck Neck: Yes trachea midline, Yes supple and Yes no JVD Chest Chest palpation & inspection: normal inspection of the chest Resp Effort & Inspection: normal respiratory effort Auscultation: clear to auscultation bilaterally Cardio Jugular venous distension: no JVD Palpation: normal PMI Rate: regular rate Rhythm: regular rhythm GI Auscultation: normal bowel sounds Neuro General: patient oriented x3 Psych Appearance: grossly normal Results Labs and Meds Result diagrams: 01/21/21 05:44 01/21/21 05:44 Progress Note: A&P Assessment and plan (1) NSTEMI (non-ST elevated myocardial infarction): Status: Acute Assessment and Plan: NSTEMI most likely related to acute hypertension. However he does have wall motion abnormality in deep T-wave inversion in septal leads. Septal ischemia needs to be ruled out. To undergo myocardial perfusion imaging today. Further treatment based on the findings of myocardial perfusion imaging. Continue low- dose aspirin therapy. Avoid IV heparin. Low blood pressure today would avoid beta-blockers. Consider statin therapy. (2) Dysautonomia: Status: Acute Assessment and Plan: Dysautonomia most likely due to spinal injury. Significantly elevated blood pressure is known to happen inpatient paraplegia with bladder distension. Blood pressure is now better controlled and on the lower side. Avoid any anti hypertensive medications. Increase fluid intake is recommended. Fall Risk Details Current Medications: Current Medications Generic Name Dose Route Start Last Admin Trade Name Freq PRN Reason Stop Dose Admin Acetaminophen 650 mg 01/19/21 23:43 Acetaminophen 325 Mg Tablet PO Q6H PRN Pain, Mild (Pain Scale 1-3) Aspirin 81 mg 01/21/21 09:00 01/22/21 07:52 Aspirin 81 Mg Tab.Chew PO 81 mg DAILY JCARLOS Administration Baclofen 20 mg 01/20/21 09:00 01/22/21 07:52 Baclofen 20 Mg Tablet PO 20 mg TID JCARLOS Administration Docusate Sodium 100 mg 01/20/21 09:00 01/22/21 07:52 Docusate Sodium 100 Mg Capsule PO 100 mg BID JCARLOS Administration Gabapentin 100 mg 01/20/21 09:00 01/22/21 07:52 Gabapentin 100 Mg Capsule PO 100 mg TID JCARLOS Administration Gabapentin 600 mg 01/20/21 09:00 01/22/21 07:53 Gabapentin 600 Mg Tablet PO 600 mg TID JCARLOS Administration Ceftriaxone Sodium 1 gm/ 50 mls @ 100 mls/hr 01/20/21 22:00 01/21/21 22:52 Sodium Chloride IV Infused Q24H JCARLOS Infusion Multivitamins/Vitamin C 1 tab 01/20/21 09:00 01/22/21 07:52 Multivitamin Tablet PO 1 tab DAILY JCARLOS Administration Omeprazole 20 mg 01/20/21 09:00 01/22/21 07:52 Omeprazole 20 Mg Capsule.Dr PO 20 mg DAILY JCARLOS Administration Senna 17.2 mg 01/19/21 23:43 Sennosides 8.6 Mg Tablet PO BEDTIME PRN Constipation Sodium Chloride 3 ml 01/20/21 00:00 01/22/21 07:52 0.9 % Sodium Chloride Flush 3 Ml Syringe IVFLUSH 3 ml QSHIFT JCARLOS Administration Time Spent With Patient Time: Total time spent is greater than 50% in coordination of care (as documented) at patient's floor/unit and/or counseling patient: Time with patient: 25 - 35 minutes
--- NOTE | 2021-01-22 11:57 | MHC.CM.PN ---
per multi dis rounds dc expected for pt on pt to resume pre exisiting servceis thru rehana
--- NOTE | 2021-01-22 12:00 | HO.PM.IMPN ---
Subjective Subjective Date of Service: 01/22/21 Interval History: seen and examined this AM no further cp ROS General - no fevers or chills Cardiovascular - no chest pain Respiratory - no shortness of breath or cough Abdominal- no abdominal pain, nausea, vomiting, diarrhea - no hematuria Physical Exam Vital Signs: Vital Signs: Last Vital Signs Temp 97 F 01/22/21 11:46 Pulse 84 01/22/21 11:46 Resp 20 01/22/21 11:46 BP 96/58 L 01/22/21 11:50 Pulse Ox 99 01/22/21 11:46 Body Mass Index 27.8 Const: Other: General - no acute distress, appears comfortable Cardiovascular - regular rate and rhythm, S1-S2 Lungs - normal respiratory effort, clear to auscultation bilaterally, no wheezing Abdomen - soft, nontender, no rebound or guarding Extremities - no edema bilaterally Neuro - awake and alert - estevez with clear urine Objective Data Current Medications Generic Name Dose Route Start Last Admin Trade Name Freq PRN Reason Stop Dose Admin Acetaminophen 650 mg 01/19/21 23:43 Acetaminophen 325 Mg Tablet PO Q6H PRN Pain, Mild (Pain Scale 1-3) Aspirin 81 mg 01/21/21 09:00 01/22/21 07:52 Aspirin 81 Mg Tab.Chew PO 81 mg DAILY JCARLOS Administration Baclofen 20 mg 01/20/21 09:00 01/22/21 07:52 Baclofen 20 Mg Tablet PO 20 mg TID JCARLOS Administration Docusate Sodium 100 mg 01/20/21 09:00 01/22/21 07:52 Docusate Sodium 100 Mg Capsule PO 100 mg BID JCARLOS Administration Gabapentin 100 mg 01/20/21 09:00 01/22/21 07:52 Gabapentin 100 Mg Capsule PO 100 mg TID JCARLOS Administration Gabapentin 600 mg 01/20/21 09:00 01/22/21 07:53 Gabapentin 600 Mg Tablet PO 600 mg TID JCARLOS Administration Ceftriaxone Sodium 1 gm/ 50 mls @ 100 mls/hr 01/20/21 22:00 01/21/21 22:52 Sodium Chloride IV Infused Q24H JCARLOS Infusion Multivitamins/Vitamin C 1 tab 01/20/21 09:00 01/22/21 07:52 Multivitamin Tablet PO 1 tab DAILY JCARLOS Administration Omeprazole 20 mg 01/20/21 09:00 01/22/21 07:52 Omeprazole 20 Mg Capsule. PO 20 mg DAILY [facility] Administration Senna 17.2 mg 01/19/21 23:43 Sennosides 8.6 Mg Tablet PO BEDTIME PRN Constipation Sodium Chloride 3 ml 01/20/21 00:00 01/22/21 07:52 0.9 % Sodium Chloride Flush 3 Ml Syringe IVFLUSH 3 ml QSHIFT [facility] Administration Labs CBC & Chem 7: 01/21/21 05:44 01/21/21 05:44 Microbiology Microbiology Results: Microbiology 01/20/21 00:09 Blood - Venous Blood Culture - Preliminary No growth after 48 hours. 01/20/21 00:09 Blood - Venous Blood Culture - Preliminary No growth after 48 hours. 01/19/21 21:24 Urine clean catch - Clean Catch Midstream Urine Culture - Final Assessment and Plan (1) Schuyler hematuria: Status: Acute Assessment and Plan: This is a 30 yo paraplegic male who presented to the hospital after schuyler hematuria after catheter change. He was noted to have significant HTN and subsequent profoundly hypotensive in the ED. He was also noted to have elevation in HS trop-I 1. NSTEMI type 2 HS trop-I down trending Echo done -- see formal results stress test today -- further mgmt pending results Asa 81mg Cardiology on board, recs appreciated 2. Schuyler Hemturia leading to acute blood loss anemia after catheter change at home resolved monitor h/h 3. UTI ruled out cultures contaminated d/c antibiotics and observe 4. Dysautonomia bp soft, but no symptoms oral hydration Full Code DVT pptx, mechanical due to acute blood loss
--- NOTE | 2021-01-22 12:15 | MHC.CLN ---
RE: CONSULT RECOMMEND ADDING JOON TO [facility]
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
[2021-01-23] MEDS: 0.9 % Sodium Chloride Flush 3 ML SYRINGE IVFLUSH ×2 (00:51→09:09)
[2021-01-23 03:44] VITALS: BP 117/66; PULSE 73; RESP 18; TEMP 36.1; O2SAT 100
[2021-01-23 07:10] VITALS: BP 110/54; PULSE 74; RESP 20; TEMP 36.1; O2SAT 100
[2021-01-23] MEDS: Gabapentin 600 MG TABLET PO ×2 (09:09→14:51)
[2021-01-23] MEDS: Docusate Sodium 100 MG CAPSULE PO (09:09)
[2021-01-23] MEDS: Gabapentin 100 MG CAPSULE PO ×2 (09:09→14:51)
[2021-01-23] MEDS: Aspirin 81 MG TAB.CHEW PO (09:09)
[2021-01-23] MEDS: Multivitamin TABLET 1 TAB PO (09:09)
[2021-01-23] MEDS: Baclofen 20 MG TABLET PO ×2 (09:09→14:51)
[2021-01-23] MEDS: Omeprazole 20 MG CAPSULE.DR PO (09:09)
--- NOTE | 2021-01-23 10:40 | P.PNCA_ITS ---
Subjective Subjective Date of Service: 01/23/21 Principal diagnosis: Elevated troponin Interval history: No chest pain. Blood pressure remains on the low side. No e levated blood pressure. Denies any other complaints. Underwent myocardial perfusion imaging with resting perfusion today, awaiting results Review of Systems Cardiovascular: Denies no additional cardiovascular complaints Respiratory: Denies no additional respiratory complaints Gastrointestinal: Denies no additional gastrointestinal complaints Denies system reviewed and no additional complaints, except as documented Endocrine: Denies no additional endocrine complaints Physical Exam Vital Signs: Last Vital Signs Temp 97 F 01/23/21 07:10 Pulse 74 01/23/21 07:10 Resp 20 01/23/21 07:10 BP 110/54 L 01/23/21 07:10 Pulse Ox 100 01/23/21 07:10 Body Mass Index 27.8 Const General: cooperative, comfortable, no acute distress, alert and awake Orientation/consciousness: patient oriented x3 Neck Neck: Yes trachea midline, Yes supple and Yes no JVD Resp Effort & Inspection: normal respiratory effort Auscultation: clear to auscultation bilaterally Cardio Jugular venous distension: no JVD Palpation: normal PMI Rate: regular rate Rhythm: regular rhythm Heart sounds: S1 normal heart sound present and S2 normal heart sound present Skin General skin exam: no rashes or lesions noted Neuro General: patient oriented x3 Extrem General: Yes no clubbing, cyanosis or edema Results Labs and Meds Result diagrams: 01/21/21 05:44 01/21/21 05:44 Progress Note: A&P Assessment and plan (1) NSTEMI (non-ST elevated myocardial infarction): Status: Acute Assessment and Plan: NSTEMI related to acute hypertension. Wall motion abnormality in EKG changes unusual. Continue aspirin therapy. Will await nuclear results to further guide treatment. If this is within normal limits, will pursue medical therapy. This may represents most likely a variant of takotsubo cardiomyopathy although extremely unusual. (2) Dysautonomia: Status: Acute Assessment and Plan: Dysautonomia related to paraplegia with acute hypertension related to bladder distention which is reported for patient's. Currently blood pressure mostly on the lower side with no labile blood pressure noted. Will continue to monitor. No antihypertensive therapy at this time. Increase fluid intake is recommended. Thank you for allowing us to partake in his care Fall Risk Details Current Medications: Current Medications Generic Name Dose Route Start Last Admin Trade Name Freq PRN Reason Stop Dose Admin Acetaminophen 650 mg 01/19/21 23:43 Acetaminophen 325 Mg Tablet PO Q6H PRN Pain, Mild (Pain Scale 1-3) Aspirin 81 mg 01/21/21 09:00 01/23/21 09:09 Aspirin 81 Mg Tab.Chew PO 81 mg DAILY JCARLOS Administration Baclofen 20 mg 01/20/21 09:00 01/23/21 09:09 Baclofen 20 Mg Tablet PO 20 mg TID JCARLOS Administration Docusate Sodium 100 mg 01/20/21 09:00 01/23/21 09:09 Docusate Sodium 100 Mg Capsule PO 100 mg BID JCARLOS Administration Gabapentin 100 mg 01/20/21 09:00 01/23/21 09:09 Gabapentin 100 Mg Capsule PO 100 mg TID JCARLOS Administration Gabapentin 600 mg 01/20/21 09:00 01/23/21 09:09 Gabapentin 600 Mg Tablet PO 600 mg TID JCARLOS Administration Multivitamins/Vitamin C 1 tab 01/20/21 09:00 01/23/21 09:09 Multivitamin Tablet PO 1 tab DAILY JCARLOS Administration Omeprazole 20 mg 01/20/21 09:00 01/23/21 09:09 Omeprazole 20 Mg Capsule.Dr PO 20 mg DAILY JCARLOS Administration Senna 17.2 mg 01/19/21 23:43 Sennosides 8.6 Mg Tablet PO BEDTIME PRN Constipation Sodium Chloride 3 ml 01/20/21 00:00 01/23/21 09:09 0.9 % Sodium Chloride Flush 3 Ml Syringe IVFLUSH 3 ml QSHIFT JCARLOS Administration Time Spent With Patient Time: Total time spent is greater than 50% in coordination of care (as documented) at patient's floor/unit and/or counseling patient: Time with patient: 25 - 35 minutes Procedures Date of Service Date of Service: 01/23/21
[2021-01-23 11:06] VITALS: BP 136/92; PULSE 62; RESP 20; TEMP 36.6; O2SAT 100
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
--- NOTE | 2021-01-23 13:42 | P.DS_ITS ---
DS: Providers Provider Date of Service: 01/23/21 Date of admission: 01/19/21 23:42 Primary care physician: [facility] Consults: 01/19/21 23:43 Consult to Urology Stat Consulting Provider: Yusuf Torres Reason for consultation: hematuria 01/19/21 23:58 Consult to Cardiology Stat Consulting Provider: Jayson Wiseman Reason for consultation: high troponin 01/22/21 09:32 Consult to Wound Care Provider Routine Consulting Provider: [facility] Reason for consultation: wound vac from home, needs change DS: Diagnosis Discharge Diagnosis (1) NSTEMI (non-ST elevated myocardial infarction): Status: Acute (2) Dysautonomia: Status: Acute DS: Medications Discharge Medications Home Medications: Home Medications Medication Instructions Recorded Confirmed baclofen 1 tab PO TID 01/20/21 01/20/21 docusate sodium [DOK] 1 cap PO BID 01/20/21 01/20/21 gabapentin 1 cap PO TID 01/20/21 01/20/21 gabapentin 1 tab PO TID 01/20/21 01/20/21 ibuprofen PRN 01/20/21 multivitamin 1 tab PO DAILY 01/20/21 01/20/21 omeprazole 1 cap PO DAILY 01/20/21 01/20/21 Previous Rx's Medication Instructions Recorded aspirin 81 mg PO DAILY 30 Days #30 tab 01/23/21 atorvastatin 80 mg PO DAILY 30 Days #30 tab 01/23/21 DS: Summary Hospital Course Hospital Course: Patient presented with schuyler hematuria and urinary retention after a Estevez catheter change. He was noted to have significantly elevated blood pressures with readings over 200. Workup in the emergency room revealed elevated high sensitivity troponin. The case was discussed with Cardiology at the time and this elevated troponin was felt to be secondary to uncontrolled blood pressure. His troponins were checked serially and were down trending. He also did have some EKG changes. But no active chest pain. He underwent further cardiac workup to include 2D echo which showed some regional wall motion abnormalities. Subsequently he underwent an inpatient stress test which was positive and so he will be transferred to [facility] for cardiac catheterization. No heparin gtt was recommended by cardiology. Cardiology was obviously on the case and recommended aspirin and statin. Beta- blockers were avoided as the patient had severe dysautonomia with his blood pressures down to the 80s. In regards to his hematuria, this was secondary to a traumatic Estevez catheter exchange and quickly resolved. He did have some drop in H&H but he has remained hemodynamically stable. 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 Wound Care saw the patient on 01/23/2021 and the VAC was changed. Recommendation is to change q72 hours (next due 01/24/2021) Time Spent with Patient Time attestation: Total time spent providing and/or coordinating discharge services: Discharge coordination time: Greater than 30 minutes Physical Exam Vital Signs: Vital Signs: Last Vital Signs Temp 97.9 F 01/23/21 11:06 Pulse 62 01/23/21 11:06 Resp 20 01/23/21 11:06 BP 136/92 H 01/23/21 11:06 Pulse Ox 100 01/23/21 11:06 Body Mass Index 27.8 Const: Other: General - no acute distress, appears comfortable Cardiovascular - regular rate and rhythm, S1-S2 Lungs - normal respiratory effort, clear to auscultation bilaterally, no wheezing Abdomen - soft, nontender, no rebound or guarding Extremities - no edema bilaterally Neuro - awake and alert - estevez with clear urine Skin: Other: DS: Data Data Completed and Pending Labs on day of discharge: Preliminary micro results at discharge 01/20/21 00:09 Blood Culture - Preliminary Blood - Venous No growth after 48 hours. 01/20/21 00:09 Blood Culture - Preliminary Blood - Venous No growth after 48 hours. Discharge Plan Discharge Patient Disposition: [facility] Referrals: [facility] [Outside] Center,[facility] [Primary Care Provider] - Discharge Medications: New atorvastatin 80 mg Tablet 80 mg PO DAILY 30 Days Qty: 30 RF: 0 aspirin 81 mg Tablet,Chewable 81 mg PO DAILY 30 Days Qty: 30 RF: 0 Continued multivitamin Tablet 1 tab PO DAILY RF: 0 gabapentin 600 mg tablet 1 tab PO TID RF: 0 baclofen 20 mg tablet 1 tab PO TID RF: 0 docusate sodium [DOK] 100 mg capsule 1 cap PO BID RF: 0 omeprazole 20 mg capsule,delayed release(DR/EC) 1 cap PO DAILY RF: 0 gabapentin 100 mg capsule 1 cap PO TID RF: 0 ibuprofen tablet PRN (Reason: Pain) RF: 0 Discharge Orders: Discharge Order (Routine); Ordered 01/23/21 Ordered By: Boyd Chiu Diet: advance to usual diet Activity on Discharge: As tolerated Stand Alone Forms: Patient Portal Discharge page Care Plan Goals: To stay healthy and out of the hospital. Health Concerns: NSTEMI Hematuria Plan of Treatment: You are being transferred to [facility] for further management for your heart condition.
[2021-01-23] MEDS: Atorvastatin Calcium 80 MG TABLET PO (14:51)
== END 2021-01-23 15:30 | disposition short-term general hospital (02) | DRG 199 ==
LOC: HO.ED 01-20 00:21 → HO.EDOVER 01-20 02:39 → HO.IMC 01-20 18:18
PROVIDERS: Emergency Medicine; Physician Assistant; Admitting Provider Hospitalist; Emergency Provider Internal Medicine; PCP Family Medicine; Visit Provider Family Medicine
DX: I16.0 Hypertensive urgency (principal); I21.A1 Myocardial infarction type 2; L89.323 Pressure ulcer of left buttock, stage 3; I95.9 Hypotension, unspecified; G82.20 Paraplegia, unspecified; D62 Acute posthemorrhagic anemia; G90.1 Familial dysautonomia [Riley-Day]; R31.0 Gross hematuria; T14.8XXS Other injury of unspecified body region, sequela; W34.00XS Accidental discharge from unspecified firearms or gun, sequela; I10 Essential (primary) hypertension; R33.9 Retention of urine, unspecified; Z87.891 Personal history of nicotine dependence; Z20.822 Contact with and (suspected) exposure to COVID-19; Z79.1 Long term (current) use of non-steroidal anti-inflammatories (NSAID); Z88.2 Allergy status to sulfonamides; Z79.82 Long term (current) use of aspirin; Z79.899 Other long term (current) drug therapy
CPT/HCPCS: 36415; 70450; 71045; 74176; 78452; 80048; 80076; 81001; 81003; 83605; 83735; 84484; 85007; 85025; 85027; 85610; 85730; 87040; 87086; 87635; 93005; 93017; 93308; 94640; 96361; 96365; 96375; 96376; 99285; 99291; A9500; J0280; J0696; J2060; J2270; J2785

== ENCOUNTER → 2021-02-13 12:59 | Outpatient (BNVA) | payer MEDICAID, SELFPAY | PROVIDERS: PCP Family Medicine; Visit Provider Nurse Practitioner Family | DX: I21.4 Non-ST elevation (NSTEMI) myocardial infarction (principal); G90.1 Familial dysautonomia [Riley-Day]; Z79.899 Other long term (current) drug therapy; Z87.891 Personal history of nicotine dependence | CPT/HCPCS: 99212 ==

== ENCOUNTER 2021-02-17 14:40 | Emergency (ER) | payer MEDICAID, SELFPAY ==
--- NOTE | ~2021-02-17 | CT_ITS ---
EXAMINATION: CT ABDOMEN AND PELVIS WITH CONTRAST CLINICAL INFORMATION: Left flank costovertebral angle tenderness. Chronic Alas catheter. COMPARISON: Most recent CT abdomen/pelvis dated 01/20/2021. TECHNIQUE: Multidetector volumetric images were obtained from the superior aspect of the liver through the pubic symphysis following administration 85 mL of Omnipaque 350 intravenous contrast. Sagittal and coronal reformatted images were obtained on the technologist's workstation. Oral Contrast: No This CT examination was performed using dose optimization techniques as appropriate, variously including the following: *Automated exposure control. *Adjustment of mA and/or kV according to patient size (this includes techniques or standardized protocols for targeted exams where dose is matched to indication/reason for exam; i.e. extremities or head). *Use of iterative reconstruction technique. DLP: 707 mGy-cm FINDINGS: LUNG BASES: The visualized lung bases are unremarkable. LIVER, GALLBLADDER, AND BILIARY TREE: The liver is normal in size, shape, and attenuation. No focal hepatic lesion or biliary ductal dilatation is present. The gallbladder is unremarkable with no evidence of radiopaque gallstones, gallbladder wall thickening, or obvious pericholecystic inflammatory changes. PANCREAS: Unremarkable. SPLEEN: Unremarkable. ADRENAL GLANDS: Unremarkable. KIDNEYS AND URETERS: The kidneys are normal in size, shape, and attenuation. No hydronephrosis, hydroureter, or calculi seen. Left upper pole renal hypodensity, unchanged and likely representing a cyst. Additional subcentimeter bilateral renal hypodensities likely represent tiny cysts. No enhancing renal parenchymal lesion. No perinephric stranding. BLADDER: Partially distended with a Alas catheter in place. Circumferential wall thickening is redemonstrated, which may be due to underdistention. Early cystitis could be considered in the appropriate clinical setting. GASTROINTESTINAL TRACT: No bowel wall thickening or associated inflammatory change. No small or large bowel obstruction. Unremarkable appendix. PERITONEAL CAVITY: No intra-abdominal free air or free fluid. No intra-abdominal mass or organized fluid collection/abscess formation. ABDOMINAL WALL: No significant abdominal wall hernia. Redemonstration of soft tissue ulceration within the left gluteal region with associated stranding and extension to the level of the left ischial tuberosity. Minimal adjacent cortical erosion is unchanged. Findings are consistent with a chronic pressure ulcer with possible associated osteomyelitis. No soft tissue fluid collection or abscess formation. LYMPH NODES: No significant lymphadenopathy. VASCULAR: Unremarkable. PELVIC VISCERA: The prostate and seminal vesicles are unremarkable. OSSEOUS STRUCTURES: Degenerative changes and dystrophic ossification redemonstrated at the hips. CT/CT abdomen pelvis w con IMPRESSION: 1. No hydronephrosis or nephrolithiasis. No perinephric stranding. Bilateral renal hypodensities, likely representing cysts. 2. Partially distended urinary bladder with a Alas catheter in place. Circumferential wall thickening is unchanged, which may be due to underdistention. Cystitis could be considered in the appropriate clinical setting. 3. No intra-abdominal mass, lymphadenopathy, or ascites. 4. Soft tissue ulceration with skin thickening and mild stranding redemonstrated within the left gluteal region extending to the level of the left ischial tuberosity where there is mild cortical erosion. Findings are similar when compared to the prior examination and likely represent a pressure ulcer with possible associated osteomyelitis.
[2021-02-17 14:49] VITALS: BP 100/67; PULSE 115; RESP 18; TEMP 37.2; O2SAT 100; BMI 25.0
[2021-02-17 15:06] LABS: Glucose Urine UA NEG (NEG); Leukocyte Esterase Urine 2+ (NEG); Nitrite Urine POS (NEG); Specific Gravity - Urine >= 1.030 (1.005-1.025); UACC Culture Trigger YES; Urine Blood 3+ (NEG); Urine Ketones 5 MG/DL (NEG); Urine Protein 2+ MG/DL (NEG-TRACE)
[2021-02-17 15:15] LABS: Appearance Urine CLOUDY; Color Urine YELLOW
[2021-02-17 15:25] LABS: Bacteria Urine 3+ /LPF
[2021-02-17] MEDS: 0.9 % Sodium Chloride 1,000 ML 999 ML IVCONT ×2 (16:26→18:23)
[2021-02-17 16:34] LABS: Basophils Percent Auto 0.4 % (0-2); Eosinophils Absolute Auto 0.2 X10*3/uL (0.0-0.4); Eosinophils Percent Auto 2.1 % (0-4); Hematocrit 42.7 % (42-52); Hemoglobin 13.6 g/dl (14.0-18.0); Imm Gran Abs Auto 0.02 X10*3/uL (0.00-0.03); Imm Gran Pct Auto 0.3 % (0.0-0.4); Lymphocytes Absolute Auto 1.7 X10*3/uL (1.2-4.9); Lymphocytes Percent Auto 24.3 % (20-40); MANUAL DIFF FLAG NO; Mean Corpuscular HGB Conc 31.9 g/dl (31.0-36.0); Mean Corpuscular Hemoglobin 29.3 pg (27.0-33.0); Monocytes Absolute Auto 0.5 X10*3/uL (0.1-1.2); Monocytes Percent Auto 7.6 % (2-11); Neutrophils Absolute Auto 4.6 X10*3/uL (2.0-8.3); Neutrophils Percent Auto 65.3 % (45-73); Platelet Count 251 X10*3/uL (160-400); Red Blood Count 4.64 X10*6/uL (4.60-5.80); Red Cell Distribution Width 13.5 % (11.0-16.0); White Blood Count 7.1 X10*3/uL (4.8-10.8)
[2021-02-17 16:54] LABS: Alanine Aminotransferase 18 U/L (0-40); Albumin Level 4.3 g/dL (3.5-5.0); Alkaline Phosphatase 108 U/L (39-117); Anion Gap 12 (12-20); Aspartate Amino Transferase 22 U/L (5-37); Bilirubin Direct 0.2 mg/dL (0.0-0.5); Bilirubin Total 0.5 mg/dL (0.0-1.0); Blood Urea Nitrogen 19 mg/dL (9-16); Calcium 9.4 mg/dL (8.4-10.2); Carbon Dioxide 29 mmol/L (22-29); Chloride 104 mmol/L (96-108); Creatinine Clr Calc Pharmacy 133.9; Estimated Glomerular Filt Rate > 60; Glucose Random 94 mg/dL (60-115); Magnesium 2.1 mg/dL (1.6-2.6); Potassium 4.7 mmol/L (3.3-5.1); Sodium 140 mmol/L (135-145); Total Protein 8.1 g/dL (6.5-8.0)
[2021-02-17 16:55] LABS: INTERNATIONAL NORM RATIO 1.1 (0.9-1.1); Prothrombin Time 13.4 SEC (10.8-13.0)
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
[2021-02-17 17:51] VITALS: BP 109/60; PULSE 99; RESP 18; TEMP 37.1; O2SAT 97
[2021-02-17] MEDS: cefTRIAXone sodium 1 GM in 0.9 % Sodium Chloride 50 ML IV (18:23)
[2021-02-17] MEDS: oxyCODONE HCl Immed Release 5 MG TABLET PO (19:56)
[2021-02-17 20:00] VITALS: BP 134/75; PULSE 81; RESP 16; TEMP 37.1; O2SAT 97
== END 2021-02-17 20:57 | disposition home or self-care (01) ==
PROVIDERS: Physician Assistant Medical; Emergency Provider Emergency Medicine; PCP Family Medicine
DX: N39.0 Urinary tract infection, site not specified (principal); R33.9 Retention of urine, unspecified; R10.32 Left lower quadrant pain; M54.5 Low back pain; Z79.899 Other long term (current) drug therapy
CPT/HCPCS: 36415; 74177; 80048; 80076; 81001; 81003; 83605; 83735; 85025; 85610; 87040; 87086; 87088; 87186; 96360; 96361; 99284; J0696; Q9967

== ENCOUNTER 2021-02-22 13:41 | Outpatient (REF) | payer MEDICAID, SELFPAY ==
--- NOTE | ~2021-02-22 | CT_ITS ---
EXAMINATION: CT CHEST WITHOUT CONTRAST CLINICAL INFORMATION: Ground-glass opacities in right middle lobe on CT abdomen and pelvis exam 01/20/2021 COMPARISON: CT abdomen 01/20/2021 and 02/17/2021 TECHNIQUE: Multidetector volumetric CT imaging of the chest was done. Axial MIP volume rendering provided. Sagittal and coronal reformatted images were obtained. This CT examination was performed using dose optimization techniques as appropriate, variously including the following: *Automated exposure control *Adjustment of mA and/or kV according to patient size (this includes techniques or standardized protocols for targeted exams where dose is matched to indication/reason for exam; i.e. extremities or head) *Use of iterative reconstruction technique DLP: 139 mGy-cm FINDINGS: PHARMACY CLERK: Well-expanded lungs. LUNGS: The lungs are well expanded and clear of acute pneumonic process. Ground-glass opacities seen in the right middle lobe have completely resolved. There are no pulmonary nodules, mass or consolidation. MEDIASTINUM: Thyroid lobes are symmetric and normal. The central trachea and the bronchi are widely patent. There is soft tissue density in the anterior mediastinum likely residual thymus. Heart size and the great vessels are normal caliber. No abnormal mediastinal or hilar lymph nodes seen. PLEURA: There is no pleural effusion. No pleural mass or thickening. AXILLA: No lymphadenopathy. UPPER ABDOMEN: Visualized liver, spleen, pancreas and bilateral adrenal glands are unremarkable. OSSEOUS STRUCTURES: No lytic or sclerotic process seen. There are median sternotomy sutures from previous intervention. CT/CT chest wo con IMPRESSION: No lung nodules are seen. Previous visualized ground-glass opacities on CT abdomen and pelvis exam 01/20/2021 have completely resolved.
== END 2021-02-22 13:42 | disposition home or self-care (01) ==
LOC: HO.CT 13:41
PROVIDERS: PCP Family Medicine; Visit Provider Family Medicine
DX: R91.8 Other nonspecific abnormal finding of lung field (principal)
CPT/HCPCS: 71250

== ENCOUNTER → 2021-02-23 13:52 | Outpatient (BNVA) | payer MEDICAID, SELFPAY | PROVIDERS: Visit Provider Internal Medicine | DX: L89.323 Pressure ulcer of left buttock, stage 3 (principal) | CPT/HCPCS: 99202 ==

== ENCOUNTER 2021-03-14 14:22 | Outpatient (REF) | payer MEDICAID, SELFPAY ==
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
== END 2021-03-14 14:23 | disposition home or self-care (01) ==
LOC: HO.MRI 14:22
PROVIDERS: Visit Provider Family Medicine
DX: L89.324 Pressure ulcer of left buttock, stage 4 (principal)
CPT/HCPCS: 72197; A9585

== ENCOUNTER 2021-03-18 12:32 | Emergency (ER) | payer MEDICAID, SELFPAY ==
--- NOTE | ~2021-03-18 | CT_ITS ---
EXAMINATION: CT ABDOMEN AND PELVIS WITHOUT CONTRAST CLINICAL INFORMATION: Left flank pain. Urinary tract infection. COMPARISON: 02/17/21. . TECHNIQUE: Multidetector volumetric imaging was performed from the superior aspect of the liver through the pubic symphysis. Sagittal and coronal reformatted images were obtained on the technologist's workstation. This CT examination was performed using dose optimization techniques as appropriate, variously including the following: *Automated exposure control *Adjustment of mA and/or kV according to patient size (this includes techniques or standardized protocols for targeted exams where dose is matched to indication/reason for exam; i.e. extremities or head) *Use of iterative reconstruction technique DLP: 507 mGy-cm FINDINGS: LUNG BASES: The visualized lung bases are unremarkable. LIVER, GALLBLADDER, AND BILIARY TREE: The liver is normal in size, shape, and attenuation. No focal hepatic lesion or biliary ductal dilatation is present. The gallbladder is completely contracted and not well assessed. No abnormality is seen. PANCREAS: Unremarkable. SPLEEN: Unremarkable. ADRENAL GLANDS: Unremarkable. KIDNEYS AND URETERS: Assessment of the kidneys was somewhat limited without intravenous contrast. Both kidneys are normal in size and appearance with normal attenuation. No focal abnormality is demonstrated. Small hypodense lesions seen on the prior contrast enhanced study are not visible. There is no hydronephrosis or calculi. No perinephric fat stranding is demonstrated. BLADDER: The bladder is empty with a Alas catheter in place. GASTROINTESTINAL TRACT: The stomach and duodenum are unremarkable. The small bowel mesentery are unremarkable. The colon is unremarkable. There is moderate retained stool. The appendix is normal. ABDOMINAL WALL: No significant hernia is appreciated. LYMPH NODES: Normal. VASCULAR: Unremarkable. PELVIC VISCERA: Unremarkable. OSSEOUS STRUCTURES: There is diffuse osteopenia the pelvis and hips. Severe degenerative changes in both hips with heterotopic soft tissue calcification. Soft tissue induration with mild cortical erosion at the left ischial tuberosity is again demonstrated. Mild degenerative changes in the lower lumbar spine. No suspicious abnormality. CT/CT abdomen pelvis wo con IMPRESSION: 1. Unremarkable appearance of the kidneys. No hydronephrosis or calculi. No focal lesion demonstrated. No perinephric stranding. Small hypoattenuating lesions seen previously on the contrast-enhanced scan are not visible. 2. Soft tissue induration at the left ischial tuberosity with cortical erosion unchanged from previous.
[2021-03-18 12:37] VITALS: BP 126/80; PULSE 85; RESP 16; TEMP 37.4; O2SAT 98; BMI 23.8
[2021-03-18 12:49] LABS: Glucose Urine UA NEG (NEG); Leukocyte Esterase Urine 3+ (NEG); Nitrite Urine POS (NEG); Specific Gravity - Urine 1.025 (1.005-1.025); UACC Culture Trigger YES; Urine Blood 1+ (NEG); Urine Ketones NEG (NEG); Urine Protein TRACE MG/DL (NEG-TRACE)
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
[2021-03-18 12:55] LABS: Appearance Urine HAZY; Color Urine YELLOW
[2021-03-18 13:00] LABS: Bacteria Urine 3+ /LPF
[2021-03-18] MEDS: levoFLOXacin/D5W 750 MG/150 ML PIGGYBACK 100 MG IV (13:50)
[2021-03-18] MEDS: oxyCODONE HCl Immed Release 5 MG TABLET PO (13:55)
[2021-03-18] MEDS: Phenazopyridine HCL 200 MG TABLET PO (13:55)
[2021-03-18 13:57] LABS: MANUAL DIFF FLAG NO
[2021-03-18 13:59] LABS: Basophils Percent Auto 0.6 % (0-2); Eosinophils Absolute Auto 0.1 X10*3/uL (0.0-0.4); Eosinophils Percent Auto 2.9 % (0-4); Hemoglobin 13.1 g/dl (14.0-18.0); Lymphocytes Absolute Auto 1.8 X10*3/uL (1.2-4.9); Lymphocytes Percent Auto 37.7 % (20-40); Mean Corpuscular Hemoglobin 28.9 pg (27.0-33.0); Mean Corpuscular Volume 90.3 fL (80-98); Mean Platelet Volume 10.1 fL (9.4-12.4); Monocytes Absolute Auto 0.4 X10*3/uL (0.1-1.2); Monocytes Percent Auto 7.6 % (2-11); Neutrophils Absolute Auto 2.5 X10*3/uL (2.0-8.3); Neutrophils Percent Auto 51.2 % (45-73); Platelet Count 209 X10*3/uL (160-400); Red Blood Count 4.54 X10*6/uL (4.60-5.80); Red Cell Distribution Width 13.8 % (11.0-16.0); White Blood Count 4.9 X10*3/uL (4.8-10.8)
[2021-03-18 14:16] LABS: Lactic Acid 0.8 mmol/L (0.5-2.0)
[2021-03-18 14:19] LABS: Anion Gap 13 (12-20); Blood Urea Nitrogen 19 mg/dL (9-16); Calcium 9.5 mg/dL (8.4-10.2); Carbon Dioxide 27 mmol/L (22-29); Chloride 106 mmol/L (96-108); Creatinine Clr Calc Pharmacy 133.9; Estimated Glomerular Filt Rate > 60; Glucose Random 88 mg/dL (60-115); Potassium 4.5 mmol/L (3.3-5.1); Sodium 141 mmol/L (135-145)
[2021-03-18 15:50] VITALS: BP 148/90; PULSE 69; RESP 18; TEMP 37.1; O2SAT 100
[2021-03-18 18:12] VITALS: BP 92/57; PULSE 99; RESP 18; TEMP 37.2; O2SAT 98
== END 2021-03-18 18:47 | disposition home or self-care (01) ==
PROVIDERS: Nurse Practitioner Family; Emergency Provider Emergency Medicine; PCP Family Medicine
DX: T83.511A Infection and inflammatory reaction due to indwelling urethral catheter, initial encounter (principal); N30.00 Acute cystitis without hematuria; X58.XXXA Exposure to other specified factors, initial encounter; Z46.6 Encounter for fitting and adjustment of urinary device; G82.20 Paraplegia, unspecified; J45.909 Unspecified asthma, uncomplicated; K21.9 Gastro-esophageal reflux disease without esophagitis; I10 Essential (primary) hypertension
CPT/HCPCS: 36415; 51702; 74176; 80048; 81001; 81003; 83605; 85025; 87040; 87086; 87088; 87186; 96365; 96366; 99284; J1956

== ENCOUNTER → 2021-03-28 14:56 | Outpatient (BNVA) | payer MEDICAID, SELFPAY | PROVIDERS: Visit Provider Internal Medicine | DX: L89.323 Pressure ulcer of left buttock, stage 3 (principal); M86.9 Osteomyelitis, unspecified | CPT/HCPCS: 99202 ==

== ENCOUNTER → 2021-04-11 09:59 | Outpatient (BNVA) | payer MEDICAID, SELFPAY | PROVIDERS: Visit Provider Internal Medicine | DX: M86.9 Osteomyelitis, unspecified (principal) | CPT/HCPCS: 99212 ==

== ENCOUNTER → 2021-05-02 10:08 | Outpatient (BNVA) | payer MEDICAID, SELFPAY | PROVIDERS: Visit Provider Internal Medicine ==

== ENCOUNTER 2021-05-20 14:32 | Emergency (ER) | payer MEDICAID, SELFPAY ==
[2021-05-20 14:44] VITALS: BP 116/70; PULSE 92; O2SAT 99
[2021-05-20 16:27] VITALS: BP 133/83; PULSE 74; RESP 18; TEMP 36.8; O2SAT 100; BMI 25.0
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
[2021-05-20 17:39] VITALS: BP 122/76; PULSE 88; RESP 20; TEMP 36.9; O2SAT 99
[2021-05-20 18:16] LABS: MANUAL DIFF FLAG NO
[2021-05-20 18:18] LABS: Glucose Urine UA NEG (NEG); Leukocyte Esterase Urine 2+ (NEG); Nitrite Urine POS (NEG); PH 6.5 (5.0-8.0); Specific Gravity - Urine 1.015 (1.005-1.025); UACC Culture Trigger YES; Urine Blood 2+ (NEG); Urine Ketones 5 MG/DL (NEG); Urine Protein TRACE MG/DL (NEG-TRACE)
[2021-05-20 18:19] LABS: Basophils Percent Auto 0.3 % (0-2); Eosinophils Absolute Auto 0.2 X10*3/uL (0.0-0.4); Hematocrit 43.1 % (42-52); Hemoglobin 14.4 g/dl (14.0-18.0); Imm Gran Abs Auto 0.02 X10*3/uL (0.00-0.03); Imm Gran Pct Auto 0.3 % (0.0-0.4); Lymphocytes Absolute Auto 1.8 X10*3/uL (1.2-4.9); Lymphocytes Percent Auto 28.7 % (20-40); Mean Corpuscular HGB Conc 33.4 g/dl (31.0-36.0); Mean Corpuscular Hemoglobin 29.1 pg (27.0-33.0); Mean Corpuscular Volume 87.2 fL (80-98); Mean Platelet Volume 9.9 fL (9.4-12.4); Monocytes Absolute Auto 0.4 X10*3/uL (0.1-1.2); Monocytes Percent Auto 6.6 % (2-11); Neutrophils Absolute Auto 3.9 X10*3/uL (2.0-8.3); Neutrophils Percent Auto 61.1 % (45-73); Platelet Count 253 X10*3/uL (160-400); Red Blood Count 4.94 X10*6/uL (4.60-5.80); Red Cell Distribution Width 14.6 % (11.0-16.0); White Blood Count 6.4 X10*3/uL (4.8-10.8)
[2021-05-20 18:20] LABS: Appearance Urine CLOUDY; Color Urine YELLOW
[2021-05-20 18:27] LABS: Bacteria Urine 4+ /LPF; Calcium Oxalate Crystals Urine 1+ /LPF
[2021-05-20 18:46] LABS: Lactic Acid 1.6 mmol/L (0.5-2.0)
[2021-05-20 18:47] LABS: Magnesium 2.1 mg/dL (1.6-2.6)
[2021-05-20 18:48] LABS: Alanine Aminotransferase 13 U/L (0-40); Albumin Level 4.4 g/dL (3.5-5.0); Alkaline Phosphatase 104 U/L (39-117); Anion Gap 15 (12-20); Aspartate Amino Transferase 21 U/L (5-37); Bilirubin Direct 0.2 mg/dL (0.0-0.5); Bilirubin Total 0.4 mg/dL (0.0-1.0); Blood Urea Nitrogen 23 mg/dL (9-16); Calcium 10.1 mg/dL (8.4-10.2); Carbon Dioxide 25 mmol/L (22-29); Chloride 106 mmol/L (96-108); Creatinine Clr Calc Pharmacy 135.8; Estimated Glomerular Filt Rate > 60; Glucose Random 95 mg/dL (60-115); Potassium 4.6 mmol/L (3.3-5.1); Sodium 141 mmol/L (135-145); Total Protein 8.1 g/dL (6.5-8.0)
[2021-05-20] MEDS: 0.9 % Sodium Chloride 1,000 ML 999 ML IVCONT (18:53)
--- NOTE | 2021-05-20 20:13 | PC.NURSE ---
Estevez catheter from home replaced with new 16 nepali estevez catheter. Urine draining into estevez bag. KEVEN Benavidez aware. Plan for IV antibiotics, then discharge home with oral antibiotics. Pt needs ambulance transportation to home due to baseline paralysis. States that he lives in an apartment with his father who helps care for him at home. Pt aware & agrees to plan. Provider notified of needs.
--- NOTE | 2021-05-20 20:15 | PC.NURSE ---
KEVEN Benavidez states that second UACC is not needed at this time.
[2021-05-20 20:25] VITALS: BP 124/67; PULSE 81; RESP 18; TEMP 36.8; O2SAT 99
[2021-05-20] MEDS: Phenazopyridine HCL 100 MG TABLET PO (20:30)
[2021-05-20] MEDS: levoFLOXacin/D5W 750 MG/150 ML PIGGYBACK 100 MG IV (20:30)
== END 2021-05-20 21:34 | disposition home or self-care (01) ==
PROVIDERS: Physician Assistant; Emergency Provider Emergency Medicine; PCP Family Medicine
DX: T83.511A Infection and inflammatory reaction due to indwelling urethral catheter, initial encounter (principal); Y73.1 Therapeutic (nonsurgical) and rehabilitative gastroenterology and urology devices associated with adverse incidents; Y92.9 Unspecified place or not applicable; R33.9 Retention of urine, unspecified; G82.20 Paraplegia, unspecified
CPT/HCPCS: 36415; 80048; 80076; 81001; 81003; 83605; 83735; 85025; 87040; 87086; 96361; 96365; 99284; 99285; J1956

== ENCOUNTER → 2021-06-07 12:56 | Outpatient (REF) | payer MEDICAID, SELFPAY ==
--- NOTE | ~2021-06-07 | XR_ITS ---
EXAMINATION: XR SHOULDER, RIGHT CLINICAL INFORMATION: Pain right AC joint. Paraplegic paraplegic COMPARISON: None TECHNIQUE: Three views of the right shoulder. FINDINGS: The bones and soft tissues are normal. No fracture. Glenohumeral and acromioclavicular alignment is anatomic with normal joint space. No abnormal soft tissue calcifications. XR/XR shoulder RT min 2V IMPRESSION: Unremarkable right shoulder exam.
--- NOTE | 2021-06-07 13:06 | CA_ITS ---
Transthoracic Echocardiogram Patient (Last, First, Middle): Anatoly Corbett, Gender: Male Date of : 1990 Age: 30 Procedure Date: 06/07/2021 Procedure Type: Transthoracic Echocardiogram Location: OP Height: 170.18 cm Weight: 74.84 kg BSA: 1.86 m2 Heart Rate: bpm BP: 106 / 76 mmHg Fishing Tool Operator: TEX Referring MD: Chiquita Hampton [employer] CLEANER[employer] Symptoms: I21.4 - Non-ST elevation (NSTEMI) myocardial infarction Study Quality: Good ECG Rhythm: Sinus tachycardia Conclusions: - LVEF is probably > 50%. Due to limited endocardial definition, difficult to access. - The basal inferior segment is akinetic. Findings Left Ventricle Normal left ventricular cavity size. There is normal left ventricular wall thickness. There is no evidence of regional wall motion abnormalities. Diastolic function is normal for age. LVEF is probably > 50%. Due to limited endocardial definition, difficult to access. Wall Motion Rest Echo Findings The basal inferior segment is akinetic. Prior Study Comparison Changes noted compared to prior study dated: 01/20/2021. Wall motion abnormalities possibly improved, but due to image quality, difficult to compare. Measurements 2D Linear Measurements LVIDd: 4.23 3.9-5.3/4.2-5.9 cm LVIDd Index: 2.27 2.4-3.2/2.2-3.1 cm/m2 LVIDs: 2.70 2.0-3.6 cm LVPWd: 0.60 0.7-1.1 cm 2D Systolic Function EF 4C: 35.70 >55% EF 2C: 55.60 >55% EF BiP: 46.90 >55% Mitral Valve MV Pk E: 0.53 MV PK A: 0.65 MV Decel Time: 141.00 E/A: 0.80 E'Lateral: 10.00 E'Medial: 7.62 E/E' Med: 6.90 E/E' Lat: 5.30 Diastolic Function MV Pk E: 0.53 MV Pk A: 0.65 E/A: 0.80 E'Medial: 7.62 E/E' Med: 6.90 E' Laterial: 10.00 E/E' Lat: 5.30 Updated in Other Vendor System with Status of Final Dereck Willett MD electronically signed on 06/08/2021 12:24:48 PM with status of Final
== END ==
LOC: HO.CARD 12:56
PROVIDERS: PCP Family Medicine; Referring Provider Family Medicine; Visit Provider Nurse Practitioner Family
DX: I21.4 Non-ST elevation (NSTEMI) myocardial infarction (principal); M25.511 Pain in right shoulder
CPT/HCPCS: 73030; 93308

== ENCOUNTER 2021-06-13 13:59 | Emergency (ER) | payer MEDICAID, SELFPAY ==
[2021-06-13 14:09] VITALS: BP 100/70; BP 113/68; PULSE 88; PULSE 91; RESP 16; TEMP 37.3; O2SAT 97; O2SAT 99; BMI 24.5
[2021-06-13 14:23] LABS: Glucose Urine UA NEG (NEG); Leukocyte Esterase Urine 3+ (NEG); Nitrite Urine NEG (NEG); Specific Gravity - Urine 1.025 (1.005-1.025); UACC Culture Trigger YES; Urine Blood 3+ (NEG); Urine Ketones NEG (NEG); Urine Protein 2+ MG/DL (NEG-TRACE)
[2021-06-13 14:24] LABS: Appearance Urine CLOUDY; Color Urine YELLOW
[2021-06-13 14:32] LABS: Amorphous Sediment Urine 1+ /LPF; Bacteria Urine 2+ /LPF; RBC Urine 30-49 /HPF (0); Squamous Epithelial Cell Urine TRACE /LPF; WBC Urine 50-75 /HPF (0-4)
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
[2021-06-13] MEDS: Acetaminophen 325 MG TABLET 650 MG PO (16:02)
[2021-06-13 16:04] VITALS: BP 136/87; PULSE 48; RESP 16; O2SAT 99
[2021-06-13 16:06] LABS: MANUAL DIFF FLAG NO
[2021-06-13 16:08] LABS: Basophils Percent Auto 0.5 % (0-2); Eosinophils Absolute Auto 0.3 X10*3/uL (0.0-0.4); Eosinophils Percent Auto 3.4 % (0-4); Hemoglobin 15.8 g/dl (14.0-18.0); Imm Gran Abs Auto 0.04 X10*3/uL (0.00-0.03); Imm Gran Pct Auto 0.5 % (0.0-0.4); Lymphocytes Absolute Auto 2.5 X10*3/uL (1.2-4.9); Lymphocytes Percent Auto 30.1 % (20-40); Mean Corpuscular HGB Conc 32.2 g/dl (31.0-36.0); Mean Corpuscular Hemoglobin 29.1 pg (27.0-33.0); Mean Corpuscular Volume 90.2 fL (80-98); Mean Platelet Volume 9.5 fL (9.4-12.4); Monocytes Absolute Auto 0.7 X10*3/uL (0.1-1.2); Monocytes Percent Auto 7.9 % (2-11); Neutrophils Absolute Auto 4.9 X10*3/uL (2.0-8.3); Neutrophils Percent Auto 57.6 % (45-73); Platelet Count 292 X10*3/uL (160-400); Red Blood Count 5.43 X10*6/uL (4.60-5.80); Red Cell Distribution Width 14.9 % (11.0-16.0); White Blood Count 8.5 X10*3/uL (4.8-10.8)
[2021-06-13 16:24] LABS: Lactic Acid 1.1 mmol/L (0.5-2.0)
[2021-06-13 16:30] LABS: Alanine Aminotransferase 14 U/L (0-40); Albumin Level 4.3 g/dL (3.5-5.0); Alkaline Phosphatase 98 U/L (39-117); Anion Gap 14 (12-20); Aspartate Amino Transferase 22 U/L (5-37); Bilirubin Direct 0.2 mg/dL (0.0-0.5); Bilirubin Total 0.6 mg/dL (0.0-1.0); Blood Urea Nitrogen 16 mg/dL (9-16); Calcium 10.2 mg/dL (8.4-10.2); Carbon Dioxide 27 mmol/L (22-29); Chloride 106 mmol/L (96-108); Creatinine Clr Calc Pharmacy 115.2; Estimated Glomerular Filt Rate > 60; Glucose Random 86 mg/dL (60-115); Lipase 46 U/L (8-78); Potassium 4.4 mmol/L (3.3-5.1); Sodium 143 mmol/L (135-145); Total Protein 8.2 g/dL (6.5-8.0)
[2021-06-13 17:59] VITALS: BP 95/59; PULSE 88; RESP 18; TEMP 36.7; O2SAT 97
--- NOTE | 2021-06-13 18:18 | PC.NURSE ---
WHITESIDE SUCCESSFULLY PLACED. WAITING ON TRANSPORT HOME VIA [facility].
== END 2021-06-13 18:38 | disposition home or self-care (01) ==
PROVIDERS: Emergency Provider Emergency Medicine; PCP Family Medicine
DX: T83.511A Infection and inflammatory reaction due to indwelling urethral catheter, initial encounter (principal); N34.2 Other urethritis; Y73.8 Miscellaneous gastroenterology and urology devices associated with adverse incidents, not elsewhere classified; Y92.9 Unspecified place or not applicable; Z87.891 Personal history of nicotine dependence; Z79.899 Other long term (current) drug therapy
CPT/HCPCS: 36415; 80048; 80076; 81001; 81003; 83605; 83690; 85025; 87040; 87086; 87088; 87186; 99284

== ENCOUNTER 2021-06-17 13:21 | Inpatient (IN) | payer MEDICAID, SELFPAY ==
[2021-06-17] VITALS (8 sets, daily range): BP systolic 85–110; BP diastolic 45–72; PULSE 65–120; RESP 14–18; TEMP 36.1–36.8; O2SAT 96–99; BMI 24.4
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
[2021-06-17 14:07] LABS: MANUAL DIFF FLAG NO
[2021-06-17 14:08] LABS: Basophils Percent Auto 0.3 % (0-2); Eosinophils Absolute Auto 0.1 X10*3/uL (0.0-0.4); Eosinophils Percent Auto 1.7 % (0-4); Hematocrit 40.4 % (42-52); Hemoglobin 13.1 g/dl (14.0-18.0); Imm Gran Abs Auto 0.02 X10*3/uL (0.00-0.03); Imm Gran Pct Auto 0.3 % (0.0-0.4); Lymphocytes Absolute Auto 1.7 X10*3/uL (1.2-4.9); Lymphocytes Percent Auto 26.3 % (20-40); Mean Corpuscular HGB Conc 32.4 g/dl (31.0-36.0); Mean Corpuscular Hemoglobin 29.2 pg (27.0-33.0); Monocytes Absolute Auto 0.4 X10*3/uL (0.1-1.2); Monocytes Percent Auto 5.5 % (2-11); Neutrophils Absolute Auto 4.3 X10*3/uL (2.0-8.3); Neutrophils Percent Auto 65.9 % (45-73); Platelet Count 256 X10*3/uL (160-400); Red Blood Count 4.49 X10*6/uL (4.60-5.80); Red Cell Distribution Width 14.6 % (11.0-16.0); White Blood Count 6.5 X10*3/uL (4.8-10.8)
[2021-06-17 14:12] LABS: Glucose Urine UA NEG (NEG); Leukocyte Esterase Urine NEG (NEG); Nitrite Urine NEG (NEG); Specific Gravity - Urine >= 1.030 (1.005-1.025); Urine Blood NEG (NEG); Urine Ketones NEG (NEG); Urine Protein 1+ MG/DL (NEG-TRACE)
[2021-06-17 14:16] LABS: Appearance Urine CLEAR; Color Urine DARK YELLOW
[2021-06-17 14:24] LABS: Mucus Urine TRACE /LPF; RBC Urine 0-2 /HPF (0); WBC Urine 0-2 /HPF (0-4)
[2021-06-17 14:25] LABS: Lactic Acid 1.3 mmol/L (0.5-2.0)
[2021-06-17] MEDS: Ertapenem Sodium 1 GM in 0.9 % Sodium Chloride 50 ML IV (14:25)
[2021-06-17] MEDS: 0.9 % Sodium Chloride 1,000 ML 999 ML IVCONT (14:26)
[2021-06-17 14:27] LABS: COVID-19 Test Negative (Negative); IDNOW Serial# 9DD0AD1C
[2021-06-17 14:34] LABS: Alanine Aminotransferase 13 U/L (0-40); Albumin Level 4.2 g/dL (3.5-5.0); Alkaline Phosphatase 83 U/L (39-117); Anion Gap 11 (12-20); Aspartate Amino Transferase 19 U/L (5-37); Bilirubin Direct 0.3 mg/dL (0.0-0.5); Bilirubin Total 0.7 mg/dL (0.0-1.0); Blood Urea Nitrogen 13 mg/dL (9-16); Calcium 9.5 mg/dL (8.4-10.2); Carbon Dioxide 27 mmol/L (22-29); Chloride 108 mmol/L (96-108); Creatinine Clr Calc Pharmacy 111.4; Estimated Glomerular Filt Rate > 60; Glucose Random 116 mg/dL (60-115); Lipase 48 U/L (8-78); Sodium 142 mmol/L (135-145); Total Protein 7.6 g/dL (6.5-8.0)
[2021-06-17] MEDS: Gabapentin 100 MG CAPSULE PO ×2 (14:57→20:51)
[2021-06-17] MEDS: Gabapentin 600 MG TABLET PO ×2 (14:57→20:51)
[2021-06-17] MEDS: Baclofen 20 MG TABLET PO ×2 (14:57→20:51)
[2021-06-17] MEDS: Enoxaparin Sodium 40 MG/0.4 ML SYRINGE SUBCUT (14:58)
[2021-06-17] MEDS: 0.9 % Sodium Chloride Flush 3 ML SYRINGE IVFLUSH ×2 (15:03→20:51)
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
[2021-06-17] MEDS: Lactated Ringers 1,000 ML 999 ML IV ×2 (19:49→21:00)
[2021-06-17] MEDS: Sennosides 8.6 MG TABLET PO (20:51)
[2021-06-17] MEDS: Docusate Sodium 100 MG CAPSULE PO (20:51)
--- NOTE | 2021-06-18 00:25 | PC.NURSE ---
06/17/211999 bp-85/45 p-67. notified.ordered 2 liter LR bolus.bp after boluses 104/68 p-65.pt was asymptomatic.
[2021-06-18 03:30] VITALS: BP 105/62; PULSE 74; RESP 18; TEMP 36.4; O2SAT 98
[2021-06-18] MEDS: Omeprazole 20 MG CAPSULE.DR PO (05:46)
[2021-06-18 07:24] VITALS: BP 105/64; PULSE 78; RESP 17; TEMP 36.1; O2SAT 98
[2021-06-18 07:49] LABS: Hematocrit 35.7 % (42-52); Hemoglobin 11.3 g/dl (14.0-18.0); Mean Corpuscular HGB Conc 31.7 g/dl (31.0-36.0); Mean Corpuscular Volume 91.5 fL (80-98); Mean Platelet Volume 10.2 fL (9.4-12.4); Platelet Count 218 X10*3/uL (160-400); White Blood Count 5.3 X10*3/uL (4.8-10.8)
[2021-06-18 08:11] LABS: Anion Gap 13 (12-20); Blood Urea Nitrogen 12 mg/dL (9-16); Calcium 9.1 mg/dL (8.4-10.2); Carbon Dioxide 25 mmol/L (22-29); Chloride 109 mmol/L (96-108); Creatinine Clr Calc Pharmacy 135.8; Estimated Glomerular Filt Rate > 60; Glucose Random 87 mg/dL (60-115); Potassium 4.4 mmol/L (3.3-5.1); Sodium 143 mmol/L (135-145)
[2021-06-18] MEDS: Baclofen 20 MG TABLET PO ×3 (09:15→20:51)
[2021-06-18] MEDS: Gabapentin 600 MG TABLET PO ×3 (09:15→20:51)
[2021-06-18] MEDS: Docusate Sodium 100 MG CAPSULE PO ×2 (09:15→20:51)
[2021-06-18] MEDS: 0.9 % Sodium Chloride Flush 3 ML SYRINGE IVFLUSH ×3 (09:15→20:52)
[2021-06-18] MEDS: Gabapentin 100 MG CAPSULE PO ×3 (09:16→20:51)
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
[2021-06-18 11:34] VITALS: BP 86/54; PULSE 83; RESP 18; TEMP 36.2; O2SAT 98
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
[2021-06-18] MEDS: Enoxaparin Sodium 40 MG/0.4 ML SYRINGE SUBCUT (14:53)
[2021-06-18 15:06] VITALS: BMI 24.4
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
[2021-06-18 15:35] VITALS: BP 91/64; PULSE 79; RESP 14; TEMP 36.1; O2SAT 98
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
--- NOTE | 2021-06-18 17:08 | PC.NURSE ---
Skin/wound assessment completed today. Patient has a deep stage 3 pressure ulcer on left buttock present on admission. Patient states that he goes to the [facility] wound clinic weekly and dressing is changed every other day. Dressing was changed today, silver alginate tucked into wound with tail left out, EPC cream on periwound covered with foam. No other skin issues found.
[2021-06-18 19:14] VITALS: BP 109/61; PULSE 71; RESP 12; TEMP 36.4; O2SAT 98
[2021-06-18] MEDS: Sennosides 8.6 MG TABLET PO (20:51)
[2021-06-19] VITALS: BP 96/55; PULSE 83; RESP 16; TEMP 36.6; O2SAT 99
[2021-06-19 04:00] VITALS: BP 116/65; PULSE 61; RESP 16; TEMP 36.9; O2SAT 95
[2021-06-19] MEDS: Omeprazole 20 MG CAPSULE.DR PO (05:30)
[2021-06-19 07:28] VITALS: BP 137/87; PULSE 61; RESP 18; TEMP 36.9; O2SAT 98
[2021-06-19] MEDS: Gabapentin 100 MG CAPSULE PO ×3 (09:13→21:39)
[2021-06-19] MEDS: Docusate Sodium 100 MG CAPSULE PO ×2 (09:13→21:39)
[2021-06-19] MEDS: 0.9 % Sodium Chloride Flush 3 ML SYRINGE IVFLUSH ×2 (09:13→15:05)
[2021-06-19] MEDS: Gabapentin 600 MG TABLET PO ×3 (09:13→21:39)
[2021-06-19] MEDS: Baclofen 20 MG TABLET PO ×3 (09:13→21:39)
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
[2021-06-19 11:47] VITALS: BP 96/57; PULSE 95; RESP 17; TEMP 36; O2SAT 99
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
[2021-06-19] MEDS: Enoxaparin Sodium 40 MG/0.4 ML SYRINGE SUBCUT (15:05)
[2021-06-19 15:22] VITALS: BP 123/71; PULSE 88; RESP 14; TEMP 36.1; O2SAT 98
--- NOTE | 2021-06-19 15:24 | MHC.CM.PN ---
CM CONTACTED MICRO D/T FINAL MICROBIOLOGY NOT BEING IN EXPANSE, PER LAB IT WILL BE A FEW MORE HOURS BEFORE FINAL RESULTS IN, CM CONTACTED IR AND FERNANDO REPORTED PT IS ON SCHEDULE FOR TOMORROW 06/20/2021 NICK, CM HAS NOTIFIED HOSPITALIST VIA [facility]. CM CONTACTED ID VIA [employer] AT 11:15AM TO VERIFY LOW LONG PT WILL NEED IV ABX AT HOME AND PER DR TAYLOR PT WILL NEED 10 DAYS OF IV ERTAPENEM AT HOME. PER [facility] THEY WILL NEED FACE TO FACE, WOUND CARE ORDERS AND CATHETER CARE IN D/C SUMMARY. PT'S UROLOGIST IS JIM NIEVES AND MANAGES PT'S CHRONIC WHITESIDE CATHETER.
[2021-06-19 19:20] VITALS: BP 105/62; PULSE 91; RESP 14; TEMP 35.9; O2SAT 98
[2021-06-19] MEDS: Sennosides 8.6 MG TABLET PO (21:39)
[2021-06-20] VITALS: BP 90/50; PULSE 83; RESP 16; TEMP 36.3; O2SAT 95
[2021-06-20] MEDS: 0.9 % Sodium Chloride Flush 3 ML SYRINGE IVFLUSH ×3 (01:19→15:12)
[2021-06-20 04:00] VITALS: BP 100/63; PULSE 77; RESP 16; TEMP 36.6; O2SAT 98
[2021-06-20] MEDS: Omeprazole 20 MG CAPSULE.DR PO (06:17)
[2021-06-20 07:42] VITALS: BP 108/65; PULSE 66; RESP 18; TEMP 36.1; O2SAT 98
[2021-06-20] MEDS: Docusate Sodium 100 MG CAPSULE PO (09:26)
[2021-06-20] MEDS: Gabapentin 100 MG CAPSULE PO ×2 (09:26→15:11)
[2021-06-20] MEDS: Baclofen 20 MG TABLET PO ×2 (09:26→15:11)
[2021-06-20] MEDS: Gabapentin 600 MG TABLET PO ×2 (09:26→15:11)
[2021-06-20 11:24] VITALS: BP 110/65; PULSE 69; RESP 16; TEMP 36.1; O2SAT 98
--- NOTE | 2021-06-20 13:19 | HO.MIDLINE ---
PICC Line Insertion MIDLINE INSERTION Diagnosis: UTI Indication: [facility] IV ANTIBIOTICS Pertinent Labs: REVIEWED Technique: Using sterile technique including cap and mask, glove and drape, the RIGHT arm was prepped and draped in the usual sterile fashion of full barrier technique with CHG. Using ultrasound guidance, BASILIC vein access was obtained IN SINGLE ATTEMPT BY THIS RN. A SINGLE LUMEN, NON-PASV, (20G x 8CM) MIDLINE was positioned. The procedure was performed in S-272. Ultrasound was used to document vein patency and for needle entry. A formal ultrasound picture was recorded. [facility] has released the line for use and it is currently dressed with a StatLock, Tegaderm, and CHG disc. Verification has been performed for blood return and line patency. Arm Circumference: 31 CM Equipment: [employer] POWERGLIDE PRO MIDLINE Catheter Type: SINGLE LUMEN, NON-PASV, (20G x 8CM) Lot #: [id number]
--- NOTE | 2021-06-20 13:41 | MHC.CLN ---
Addendum entered by Laura March, WILL 06/20/21 13:43: WOUND ON LEFT BUTTOCKS IS STAGE III. CONTINUE CURRENT DIET AND SUPPLEMENT. Original Note: FOLLOW UP PATIENT APPEARS TO BE EATING WELL. ORDER IN PLACE FOR JOON TO PROMOTE WOUND HEALING. CONTINUE TO FOLLOW.
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
[2021-06-20] MEDS: Ertapenem Sodium 1 GM in 0.9 % Sodium Chloride 50 ML IV (14:10)
--- NOTE | 2021-06-20 14:37 | MHC.CM.PN ---
PT DISCHARGING HOME W/[facility] AND [facility] FOR IV ABX TX, [facility] RO START CARE 06/21/2021, PER [facility] LIAISON IV MED WILL BE DELIVERED BY END OF DAY TODAY, PT'S TO TRANSPORT.
[2021-06-20 15:02] VITALS: BP 126/73; PULSE 94; RESP 17; TEMP 36.4; O2SAT 97
[2021-06-20] MEDS: Enoxaparin Sodium 40 MG/0.4 ML SYRINGE SUBCUT (15:11)
[2021-06-20] MEDS: Heparin Sodium,Porcine Flush 50 UNITS/5 ML SYRINGE IVFLUSH (15:12)
--- NOTE | 2021-06-22 15:08 | W.MHC.F2F ---
Service Date Service Date: 06/20/21 Encounter Date of encounter: 06/20/21 Reasons for Services Reason for shelter: administration of IV, SQ, or IM injection and medication management Homebound: Leaving the home is medically contraindicated at this time without the asist of a device and/or another person due th the listed conditions above and below. Homebound supporting statement: Homebound due to paraplegic state and therefore needs assistance of another person at all times Certification: Based on the above findings, I certify that this patient is confined to the home and needs intermittent shelter care, physical therapy and/or speech therapy, or continues to need occupational therapy. The patient is under my care, and I have initiated the establishment of the plan of care. The patient will be followed by a physician who will periodically review the plan of care.
== END 2021-06-20 16:38 | disposition home health service (06) | DRG 463 ==
LOC: HO.ED 13:44 → HO.EDOVER 14:37 → HO.S3 14:43
PROVIDERS: Admitting Provider Physician Assistant Medical; Emergency Provider Emergency Medicine; PCP Family Medicine; Visit Provider Internal Medicine
DX: N39.0 Urinary tract infection, site not specified (principal); L89.323 Pressure ulcer of left buttock, stage 3; G82.20 Paraplegia, unspecified; B96.1 Klebsiella pneumoniae [K. pneumoniae] as the cause of diseases classified elsewhere; G90.1 Familial dysautonomia [Riley-Day]; Z96.0 Presence of urogenital implants; Z16.12 Extended spectrum beta lactamase (ESBL) resistance; Z20.822 Contact with and (suspected) exposure to COVID-19; Z87.440 Personal history of urinary (tract) infections; Z88.2 Allergy status to sulfonamides; Z79.1 Long term (current) use of non-steroidal anti-inflammatories (NSAID); Z79.899 Other long term (current) drug therapy
CPT/HCPCS: 36410; 36415; 80048; 80076; 81001; 83605; 83690; 83735; 85025; 85027; 87040; 87635; 99285; J1335; J1642; J1650; J2185

== ENCOUNTER 2021-06-28 10:32 | Outpatient (REF) | payer MEDICAID, SELFPAY ==
[2021-06-28 10:35] LABS: MANUAL DIFF FLAG NO
[2021-06-28 10:41] LABS: Basophils Percent Auto 0.8 % (0-2); Eosinophils Absolute Auto 0.2 X10*3/uL (0.0-0.4); Eosinophils Percent Auto 4.2 % (0-4); Hematocrit 42.5 % (42-52); Hemoglobin 13.6 g/dl (14.0-18.0); Imm Gran Abs Auto 0.02 X10*3/uL (0.00-0.03); Imm Gran Pct Auto 0.4 % (0.0-0.4); Lymphocytes Absolute Auto 1.9 X10*3/uL (1.2-4.9); Lymphocytes Percent Auto 37.2 % (20-40); Mean Corpuscular Hemoglobin 29.2 pg (27.0-33.0); Mean Corpuscular Volume 91.2 fL (80-98); Mean Platelet Volume 9.9 fL (9.4-12.4); Monocytes Absolute Auto 0.4 X10*3/uL (0.1-1.2); Monocytes Percent Auto 7.2 % (2-11); Neutrophils Absolute Auto 2.5 X10*3/uL (2.0-8.3); Neutrophils Percent Auto 50.2 % (45-73); Platelet Count 241 X10*3/uL (160-400); Red Blood Count 4.66 X10*6/uL (4.60-5.80); Red Cell Distribution Width 14.6 % (11.0-16.0)
[2021-06-28 11:25] LABS: Alanine Aminotransferase 50 U/L (0-40); Albumin Level 4.1 g/dL (3.5-5.0); Alkaline Phosphatase 95 U/L (39-117); Anion Gap 15 (12-20); Aspartate Amino Transferase 31 U/L (5-37); Bilirubin Direct 0.3 mg/dL (0.0-0.5); Bilirubin Total 0.8 mg/dL (0.0-1.0); Blood Urea Nitrogen 9 mg/dL (9-16); Calcium 9.9 mg/dL (8.4-10.2); Carbon Dioxide 28 mmol/L (22-29); Chloride 104 mmol/L (96-108); Estimated Glomerular Filt Rate > 60; Glucose Random 79 mg/dL (60-115); Potassium 4.8 mmol/L (3.3-5.1); Sodium 142 mmol/L (135-145); Total Protein 7.6 g/dL (6.5-8.0)
== END 2021-06-28 10:33 | disposition home or self-care (01) ==
LOC: HO.HVNA 10:32
PROVIDERS: Visit Provider Internal Medicine
DX: N39.0 Urinary tract infection, site not specified (principal)
CPT/HCPCS: 36415; 80048; 80076; 85025

== ENCOUNTER → 2021-07-03 14:39 | Outpatient (BNVA) | payer MEDICAID, SELFPAY | PROVIDERS: Visit Provider Internal Medicine | DX: Z16.12 Extended spectrum beta lactamase (ESBL) resistance (principal); A49.8 Other bacterial infections of unspecified site | CPT/HCPCS: 99212 ==

== ENCOUNTER 2021-07-19 15:04 | Outpatient (REF) | payer MEDICAID, SELFPAY ==
[2021-07-19 15:46] LABS: Influenza A PCR NEGATIVE (Negative); Influenza B PCR NEGATIVE (Negative); Resp Syncy Virus RNA Qual PCR NEGATIVE (Negative); SARS COV2 PCR INHOUSE POSITIVE (Negative)
== END 2021-07-19 15:05 | disposition home or self-care (01) ==
LOC: HO.HVNA 15:04
PROVIDERS: Visit Provider Family Medicine
DX: Z20.822 Contact with and (suspected) exposure to COVID-19 (principal); Z16.12 Extended spectrum beta lactamase (ESBL) resistance
CPT/HCPCS: 0241U; 36415

== ENCOUNTER 2021-08-07 12:45 | Emergency (ER) | payer MEDICAID, SELFPAY ==
--- NOTE | ~2021-08-07 | CT_ITS ---
EXAMINATION: CT ABDOMEN AND PELVIS WITH CONTRAST CLINICAL INFORMATION: 30-year-old male with left lower quadrant pain. Question diverticulitis. COMPARISON: CT abdomen pelvis March 18, 2021 TECHNIQUE: Multidetector volumetric images were obtained from the superior aspect of the liver through the pubic symphysis following administration 85 mL of Omnipaque 350 intravenous contrast. Sagittal and coronal reformatted images were obtained on the technologist's workstation. This CT examination was performed using dose optimization techniques as appropriate, variously including the following: *Automated exposure control *Adjustment of mA and/or kV according to patient size (this includes techniques or standardized protocols for targeted exams where dose is matched to indication/reason for exam; i.e. extremities or head) *Use of iterative reconstruction technique DLP: 640 mGy-cm FINDINGS: Visualized lung bases demonstrate mild dependent atelectasis. The liver demonstrates normal size, contour and attenuation. The gallbladder is normal in appearance. The pancreas, spleen and adrenal glands are unremarkable. Symmetrically enhancing kidneys. No hydronephrosis bilaterally. A few subcentimeter hypodensities within the left kidney are too small to accurately characterize. Normal caliber loops of small and large bowel. Normal appendix. Normal caliber abdominal aorta. No retroperitoneal lymphadenopathy. The bladder is decompressed around a Alas catheter and therefore not accurately evaluated. The prostate gland is not enlarged. No gross free pelvic fluid. No inguinal lymphadenopathy. Diffuse osteopenia with degenerative changes and heterotopic soft tissue calcifications again noted. CT/CT abdomen pelvis w con IMPRESSION: No CT evidence for acute abnormality within the abdomen or pelvis.
[2021-08-07 13:09] VITALS: BP 91/56; BP 93/61; PULSE 100; PULSE 96; RESP 18; TEMP 37.2; O2SAT 96; O2SAT 98; BMI 25.0
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
[2021-08-07 14:00] VITALS: BP 97/62; PULSE 68; RESP 16; O2SAT 98
[2021-08-07] MEDS: Ketorolac Tromethamine 15 MG/ML VIAL 30 MG IVPUSH (15:00)
[2021-08-07 15:03] LABS: MANUAL DIFF FLAG NO
[2021-08-07 15:04] LABS: Basophils Percent Auto 0.5 % (0-2); Eosinophils Absolute Auto 0.1 X10*3/uL (0.0-0.4); Eosinophils Percent Auto 1.5 % (0-4); Hematocrit 38.7 % (42-52); Hemoglobin 12.9 g/dl (14.0-18.0); Imm Gran Abs Auto 0.02 X10*3/uL (0.00-0.03); Imm Gran Pct Auto 0.3 % (0.0-0.4); Lymphocytes Absolute Auto 2.1 X10*3/uL (1.2-4.9); Lymphocytes Percent Auto 33.4 % (20-40); Mean Corpuscular HGB Conc 33.3 g/dl (31.0-36.0); Mean Corpuscular Hemoglobin 30.2 pg (27.0-33.0); Mean Corpuscular Volume 90.6 fL (80-98); Monocytes Absolute Auto 0.5 X10*3/uL (0.1-1.2); Monocytes Percent Auto 8.3 % (2-11); Neutrophils Absolute Auto 3.4 X10*3/uL (2.0-8.3); Platelet Count 251 X10*3/uL (160-400); Red Blood Count 4.27 X10*6/uL (4.60-5.80); Red Cell Distribution Width 14.1 % (11.0-16.0); White Blood Count 6.1 X10*3/uL (4.8-10.8)
[2021-08-07 15:06] LABS: Glucose Urine UA NEG (NEG); Leukocyte Esterase Urine NEG (NEG); Nitrite Urine NEG (NEG); PH 6.5 (5.0-8.0); Urine Blood NEG (NEG); Urine Ketones NEG (NEG); Urine Protein TRACE MG/DL (NEG-TRACE)
[2021-08-07 15:07] LABS: Appearance Urine CLEAR; Color Urine YELLOW
[2021-08-07 15:09] LABS: INTERNATIONAL NORM RATIO 1.1 (0.9-1.1); Prothrombin Time 12.1 SEC (9.9-13.0)
[2021-08-07 15:12] LABS: Partial Thromboplastin Time 33.5 SEC (24.1-38.0)
[2021-08-07 15:27] LABS: Alanine Aminotransferase 25 U/L (0-40); Albumin Level 4.1 g/dL (3.5-5.0); Alkaline Phosphatase 72 U/L (39-117); Anion Gap 11 (12-20); Aspartate Amino Transferase 27 U/L (5-37); Bilirubin Total 0.5 mg/dL (0.0-1.0); Blood Urea Nitrogen 10 mg/dL (9-16); Calcium 9.3 mg/dL (8.4-10.2); Carbon Dioxide 26 mmol/L (22-29); Chloride 107 mmol/L (96-108); Creatinine Clr Calc Pharmacy 139.6; Estimated Glomerular Filt Rate > 60; Glucose Random 104 mg/dL (60-115); Potassium 4.4 mmol/L (3.3-5.1); Sodium 140 mmol/L (135-145); Total Protein 7.6 g/dL (6.5-8.0)
[2021-08-07 16:00] VITALS: BP 123/78; PULSE 72; RESP 16; TEMP 36.8; O2SAT 98
[2021-08-07] MEDS: iohexoL 350 MG/ML 100 ML INFUS..BTL IV (16:36)
[2021-08-07 18:33] VITALS: BP 112/70; PULSE 76; RESP 18; TEMP 37.1; O2SAT 98
--- NOTE | 2021-08-07 18:50 | PC.NURSE ---
estevez cath easily changed. pt awaits transport home.
[2021-08-07] MEDS: Ketorolac Tromethamine 15 MG/ML VIAL IVPUSH (20:06)
--- NOTE | 2021-08-07 20:08 | PC.NURSE ---
pt medicated as per emar for abd pain. iv removed. EMS here for transport home. pt denies any other complaints and left ED in NAD.
== END 2021-08-07 20:10 | disposition home or self-care (01) ==
PROVIDERS: Physician Assistant; Emergency Provider Emergency Medicine
DX: R10.9 Unspecified abdominal pain (principal); Z46.6 Encounter for fitting and adjustment of urinary device; G82.20 Paraplegia, unspecified; Z96.0 Presence of urogenital implants
CPT/HCPCS: 36415; 51702; 74177; 80053; 81003; 85025; 85610; 85730; 96374; 96376; 99284; 99285; J1885; Q9967

== ENCOUNTER 2021-08-31 10:12 | Observation (INO) | payer MEDICAID, SELFPAY ==
[2021-08-31 10:18] VITALS: BP 118/64; PULSE 60
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
[2021-08-31 10:20] VITALS: BP 95/49; PULSE 100; RESP 19; TEMP 36.6; O2SAT 98; BMI 24.4
[2021-08-31 10:51] LABS: MANUAL DIFF FLAG NO
[2021-08-31 10:53] LABS: Appearance Urine HAZY; Color Urine YELLOW; Glucose Urine UA NEG (NEG); Leukocyte Esterase Urine 1+ (NEG); Nitrite Urine POS (NEG); Specific Gravity - Urine 1.025 (1.005-1.025); UACC Culture Trigger YES; Urine Blood 1+ (NEG); Urine Ketones 5 MG/DL (NEG); Urine Protein 1+ MG/DL (NEG-TRACE)
[2021-08-31] MEDS: oxyCODONE HCl Immed Release 5 MG TABLET PO (10:53)
[2021-08-31] MEDS: Ertapenem Sodium 1 GM in 0.9 % Sodium Chloride 50 ML IV (10:53)
[2021-08-31 10:57] LABS: Basophils Percent Auto 0.5 % (0-2); Eosinophils Absolute Auto 0.1 X10*3/uL (0.0-0.4); Eosinophils Percent Auto 2.1 % (0-4); Hematocrit 40.8 % (42-52); Hemoglobin 13.3 g/dl (14.0-18.0); Imm Gran Abs Auto 0.02 X10*3/uL (0.00-0.03); Imm Gran Pct Auto 0.4 % (0.0-0.4); Lymphocytes Percent Auto 35.9 % (20-40); Mean Corpuscular HGB Conc 32.6 g/dl (31.0-36.0); Mean Corpuscular Hemoglobin 29.8 pg (27.0-33.0); Mean Corpuscular Volume 91.3 fL (80-98); Mean Platelet Volume 10.1 fL (9.4-12.4); Monocytes Absolute Auto 0.4 X10*3/uL (0.1-1.2); Monocytes Percent Auto 6.2 % (2-11); Neutrophils Absolute Auto 3.1 X10*3/uL (2.0-8.3); Neutrophils Percent Auto 54.9 % (45-73); Platelet Count 242 X10*3/uL (160-400); Red Blood Count 4.47 X10*6/uL (4.60-5.80); Red Cell Distribution Width 13.9 % (11.0-16.0); White Blood Count 5.7 X10*3/uL (4.8-10.8)
[2021-08-31] MEDS: 0.9 % Sodium Chloride 1,000 ML 999 ML IVCONT (10:57)
[2021-08-31] MEDS: 0.9 % Sodium Chloride 1,000 ML 999 ML IV (10:59)
[2021-08-31 11:00] LABS: Amorphous Sediment Urine 2+ /LPF; Bacteria Urine 2+ /LPF; Calcium Oxalate Crystals Urine 2+ /LPF; WBC Urine 30-49 /HPF (0-4)
[2021-08-31 11:10] LABS: Alanine Aminotransferase 35 U/L (0-40); Albumin Level 4.3 g/dL (3.5-5.0); Alkaline Phosphatase 88 U/L (39-117); Anion Gap 10 (12-20); Aspartate Amino Transferase 26 U/L (5-37); Bilirubin Direct 0.2 mg/dL (0.0-0.5); Bilirubin Total 0.6 mg/dL (0.0-1.0); Blood Urea Nitrogen 20 mg/dL (9-16); COVID-19 Test Negative (Negative); Calcium 9.7 mg/dL (8.4-10.2); Carbon Dioxide 28 mmol/L (22-29); Chloride 107 mmol/L (96-108); Creatinine Clr Calc Pharmacy 125.5; Estimated Glomerular Filt Rate > 60; Glucose Random 93 mg/dL (60-115); IDNOW Serial# 08D9AD1C; Potassium 4.4 mmol/L (3.3-5.1); Sodium 141 mmol/L (135-145); Total Protein 7.8 g/dL (6.5-8.0)
[2021-08-31 13:29] VITALS: BP 90/42; PULSE 74; RESP 17; TEMP 36.6; O2SAT 97
--- NOTE | 2021-08-31 13:32 | PC.NURSE ---
hospitalist at bedside, md aware of bp, pt denies dizziness
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
[2021-08-31] MEDS: Gabapentin 100 MG CAPSULE PO ×2 (14:50→19:51)
[2021-08-31] MEDS: Baclofen 20 MG TABLET PO ×2 (14:50→19:51)
[2021-08-31] MEDS: Gabapentin 600 MG TABLET PO ×2 (14:50→19:50)
[2021-08-31] MEDS: Enoxaparin Sodium 40 MG/0.4 ML SYRINGE SUBCUT (14:51)
[2021-08-31] MEDS: 0.9 % Sodium Chloride Flush 3 ML SYRINGE IVFLUSH ×2 (14:54→22:15)
[2021-08-31 16:00] VITALS: BP 109/59; PULSE 92; RESP 18; TEMP 36.4; O2SAT 98
[2021-08-31] MEDS: Docusate Sodium 100 MG CAPSULE PO (19:51)
[2021-08-31 20:00] VITALS: BP 109/61; PULSE 71; RESP 19; TEMP 37.2; O2SAT 98
[2021-09-01] VITALS: BP 120/59; PULSE 88; RESP 19; TEMP 36.3; O2SAT 99
[2021-09-01 04:00] VITALS: BP 120/60; PULSE 77; RESP 19; TEMP 36.5; O2SAT 99
[2021-09-01] MEDS: Omeprazole 20 MG CAPSULE.DR PO (05:42)
[2021-09-01] MEDS: oxyCODONE HCl Immed Release 5 MG TABLET PO (05:44)
[2021-09-01 06:08] LABS: Hematocrit 37.8 % (42-52); Hemoglobin 12.4 g/dl (14.0-18.0); Mean Corpuscular HGB Conc 32.8 g/dl (31.0-36.0); Mean Corpuscular Hemoglobin 30.4 pg (27.0-33.0); Mean Corpuscular Volume 92.6 fL (80-98); Mean Platelet Volume 9.9 fL (9.4-12.4); Platelet Count 217 X10*3/uL (160-400); Red Blood Count 4.08 X10*6/uL (4.60-5.80); White Blood Count 5.1 X10*3/uL (4.8-10.8)
[2021-09-01 06:40] LABS: Anion Gap 9 (12-20); Blood Urea Nitrogen 14 mg/dL (9-16); Calcium 9.2 mg/dL (8.4-10.2); Carbon Dioxide 30 mmol/L (22-29); Chloride 110 mmol/L (96-108); Creatinine Clr Calc Pharmacy 125.5; Estimated Glomerular Filt Rate > 60; Glucose Fasting 93 mg/dL (60-99); Potassium 4.8 mmol/L (3.3-5.1); Sodium 144 mmol/L (135-145)
[2021-09-01 08:00] VITALS: BP 126/71; PULSE 65; RESP 18; TEMP 36.3; O2SAT 97
--- NOTE | 2021-09-01 08:27 | P.PNIM_ITS ---
Subjective Subjective Date of Service: 09/01/21 Interval History: cc: dysuria dysuria improved, still with some leg burning Cardiovascular Cardiovascular: Reports no additional cardiovascular complaints Respiratory Respiratory: Reports no additional respiratory complaints Physical Exam Vital Signs: Vital Signs: Last Vital Signs Temp 97.4 F 09/01/21 08:00 Pulse 65 09/01/21 08:00 Resp 18 09/01/21 08:00 BP 126/71 09/01/21 08:00 Pulse Ox 97 09/01/21 08:00 Body Mass Index 24.4 General: AO X 3, no acute distress Resp: CTA bilateral, no accessory muscles used CVS: S1,S2,RRR GI: soft, non tender, non distended : estevez in place, urine clear-light yellow Neuro: paraplegia Psych: appropriate affect, appropriate insight Objective Data Active Medications Acetaminophen (Acetaminophen 325 Mg Tablet) 650 mg PO Q6H PRN PRN Reason: Pain, Mild (Pain Scale 1-3) Baclofen (Baclofen 20 Mg Tablet) 20 mg PO TID [facility] Last Admin: 08/31/21 19:51 Dose: 20 mg Documented by: MARTIN Docusate Sodium (Docusate Sodium 100 Mg Capsule) 100 mg PO BID [facility] Last Admin: 08/31/21 19:51 Dose: 100 mg Documented by: MARTIN Enoxaparin Sodium (Enoxaparin Sodium 40 Mg/0.4 Ml Syringe) 40 mg SUBCUT Q24H [facility] Last Admin: 08/31/21 14:51 Dose: 40 mg Documented by: TALI Gabapentin (Gabapentin 100 Mg Capsule) 100 mg PO TID [facility] Last Admin: 08/31/21 19:51 Dose: 100 mg Documented by: MARTIN Gabapentin (Gabapentin 600 Mg Tablet) 600 mg PO TID [facility] Last Admin: 08/31/21 19:50 Dose: 600 mg Documented by: MARTIN Meropenem 1 gm/ Sodium (Chloride) 100 mls @ 100 mls/hr IV Q8H [facility] Multivitamins/Vitamin C (Multivitamin Tablet) 1 tab PO DAILY [facility] Omeprazole (Omeprazole 20 Mg Capsule.) 20 mg PO DAILY@0630 [facility] Last Admin: 09/01/21 05:42 Dose: 20 mg Documented by: MARTIN Oxycodone HCl (Oxycodone Hcl Immed Release 5 Mg Tablet) 5 mg PO Q6H PRN PRN Reason: Pain, Moderate (Pain Scale 4-6 Last Admin: 09/01/21 05:44 Dose: 5 mg Documented by: MARTIN Pharmacy Consult (Consult Rx Perform Med Rec) 1 each MISCELLANE ONCE PRN PRN Reason: Consult order Sodium Chloride (0.9 % Sodium Chloride Flush 3 Ml Syringe) 3 ml IVFLUSH QSHIFT [facility] Last Admin: 08/31/21 22:15 Dose: 3 ml Documented by: MARTIN Labs CBC & Chem 7: 09/01/21 05:42 09/01/21 05:42 Labs: Laboratory Results - last 24 hr 08/31/21 08/31/21 08/31/21 10:45 10:45 10:45 MCV 91.3 MCH 29.8 MCHC 32.6 RDW 13.9 Plt Count 242 MPV 10.1 Immature Gran % (Auto) 0.4 Neut % (Auto) 54.9 Lymph % (Auto) 35.9 [place] % (Auto) 6.2 Eos % (Auto) 2.1 Baso % (Auto) 0.5 Lymph # (Auto) 2.0 [place] # (Auto) 0.4 Eos # (Auto) 0.1 Baso # (Auto) 0.0 Abs Immat Gran (auto) 0.02 Absolute Neuts (auto) 3.1 Absolute Nucleated RBC 0.000 Nucleated RBC % (auto) 0.0 Anion Gap 10 L Estim Creat Clear Calc 125.5 Estimated GFR > 60 Random Glucose 93 Fasting Glucose Lactic Acid 1.0 Calcium 9.7 Magnesium 2.0 Total Bilirubin 0.6 Direct Bilirubin 0.2 AST 26 ALT 35 Alkaline Phosphatase 88 D Total Protein 7.8 Albumin 4.3 Urine Color Urine Appearance Urine pH Ur Specific [place] Urine Protein Urine Glucose (UA) Urine Ketones Urine Blood Urine Nitrite Ur Leukocyte Esterase Urine RBC Urine WBC Ur Squamous Epith Cells Calcium Oxalate Crystal Amorphous Sediment Urine Bacteria COVID-19 (ELISABETH) COVID-19 Clin Com 08/31/21 08/31/21 09/01/21 10:45 10:45 05:42 MCV 92.6 MCH 30.4 MCHC 32.8 RDW 14.0 Plt Count 217 MPV 9.9 Immature Gran % (Auto) Neut % (Auto) Lymph % (Auto) [place] % (Auto) Eos % (Auto) Baso % (Auto) Lymph # (Auto) [place] # (Auto) Eos # (Auto) Baso # (Auto) Abs Immat Gran (auto) Absolute Neuts (auto) Absolute Nucleated RBC 0.000 Nucleated RBC % (auto) 0.0 Anion Gap Estim Creat Clear Calc Estimated GFR Random Glucose Fasting Glucose Lactic Acid Calcium Magnesium Total Bilirubin Direct Bilirubin AST ALT Alkaline Phosphatase Total Protein Albumin Urine Color YELLOW Urine Appearance HAZY Urine pH 6.0 Ur Specific [place] 1.025 Urine Protein 1+ H Urine Glucose (UA) NEG Urine Ketones 5 Urine Blood 1+ H Urine Nitrite POS H Ur Leukocyte Esterase 1+ H Urine RBC 1-4 Urine WBC 30-49 H Ur Squamous Epith Cells NONE Calcium Oxalate Crystal 2+ Amorphous Sediment 2+ Urine Bacteria 2+ COVID-19 (ELISABETH) Negative COVID-19 Clin Com See Note 09/01/21 05:42 MCV MCH MCHC RDW Plt Count MPV Immature Gran % (Auto) Neut % (Auto) Lymph % (Auto) [place] % (Auto) Eos % (Auto) Baso % (Auto) Lymph # (Auto) [place] # (Auto) Eos # (Auto) Baso # (Auto) Abs Immat Gran (auto) Absolute Neuts (auto) Absolute Nucleated RBC Nucleated RBC % (auto) Anion Gap 9 L Estim Creat Clear Calc 125.5 Estimated GFR > 60 Random Glucose Fasting Glucose 93 Lactic Acid Calcium 9.2 Magnesium Total Bilirubin Direct Bilirubin AST ALT Alkaline Phosphatase Total Protein Albumin Urine Color Urine Appearance Urine pH Ur Specific [place] Urine Protein Urine Glucose (UA) Urine Ketones Urine Blood Urine Nitrite Ur Leukocyte Esterase Urine RBC Urine WBC Ur Squamous Epith Cells Calcium Oxalate Crystal Amorphous Sediment Urine Bacteria COVID-19 (ELISABETH) COVID-19 Clin Com Assessment and Plan (1) Acute UTI: Status: Acute Assessment and Plan: 30M presented with dysuria and chills Dysuria and chills Concern for recurrent complicated ESBL urinary tract infection associated with chronic Estevez catheter continue Meropenem Id eval follow up urine culture and blood culture results History of seizure disorder Gabapentin Dysautonomia Blood pressure known to occasionally be on lower side, not due to sepsis, patient asymptomatic, monitor Paraplegia with urinary retention Continue Estevez catheter DVT prophylaxis with Lovenox Quality Stroke Does the patient have a stroke diagnosis?: No VTE Prior VTE?: No VTE Risk Level:: Medical - moderate - high VTE Device Contraindication: Treatment Not Indicated VTE Drug Contraindication: N/A - Med Ordered
[2021-09-01] MEDS: Gabapentin 600 MG TABLET PO ×3 (08:36→21:15)
[2021-09-01] MEDS: Baclofen 20 MG TABLET PO ×3 (08:36→21:15)
[2021-09-01] MEDS: Docusate Sodium 100 MG CAPSULE PO ×2 (08:36→21:15)
[2021-09-01] MEDS: Multivitamin TABLET 1 TAB PO (08:36)
[2021-09-01] MEDS: Gabapentin 100 MG CAPSULE PO ×3 (08:37→21:15)
[2021-09-01] MEDS: 0.9 % Sodium Chloride Flush 3 ML SYRINGE IVFLUSH ×2 (08:39→16:00)
[2021-09-01 12:00] VITALS: BP 114/63; PULSE 73; RESP 16; TEMP 36.4; O2SAT 98
[2021-09-01] MEDS: Enoxaparin Sodium 40 MG/0.4 ML SYRINGE SUBCUT (14:38)
[2021-09-01 15:20] VITALS: BP 143/87; PULSE 68; RESP 17; TEMP 36.4; O2SAT 98
--- NOTE | 2021-09-01 15:48 | MHC.CM.PN ---
CM MET WITH PT WHO REPORTS HE LIVES ALONE PT HAS MORNING AND EVENING RESPIRATORY THERAPIST SERVICES AND IS ACTIVE WITH [facility] PT USES A WHEELCHAIR FOR MOBILITY PT CONFIRMS HIS PCP IS RAMIREZ THURSTON PT DOES NOT HAVE A HCP AND DECLINES TO COMPLETE ONE CURRENT DC PLAN IS HOME WITH RESUMPTION OF SERVICES PT WILL NEED BLS TRANSPORT
[2021-09-01 20:00] VITALS: BP 107/59; PULSE 68; RESP 18; TEMP 36.5; O2SAT 98
[2021-09-02] VITALS: BP 98/64; PULSE 75; RESP 18; TEMP 36.3; O2SAT 98
[2021-09-02] MEDS: 0.9 % Sodium Chloride Flush 3 ML SYRINGE IVFLUSH ×4 (00:12→20:12)
[2021-09-02 04:00] VITALS: BP 131/76; PULSE 71; RESP 18; TEMP 36.3; O2SAT 98
[2021-09-02] MEDS: Omeprazole 20 MG CAPSULE.DR PO (06:09)
[2021-09-02] MEDS: Gabapentin 100 MG CAPSULE PO ×3 (07:42→20:12)
[2021-09-02] MEDS: Docusate Sodium 100 MG CAPSULE PO ×2 (07:42→20:11)
[2021-09-02] MEDS: Baclofen 20 MG TABLET PO ×3 (07:42→20:11)
[2021-09-02] MEDS: Multivitamin TABLET 1 TAB PO (07:42)
[2021-09-02] MEDS: Gabapentin 600 MG TABLET PO ×3 (07:42→20:12)
[2021-09-02 07:51] VITALS: BP 133/80; PULSE 68; RESP 18; TEMP 36.3; O2SAT 97
--- NOTE | 2021-09-02 10:08 | HO.PM.IMPN ---
Subjective Subjective Date of Service: 09/02/21 Interval History: cc: dysuria had some penile swelling yesterday, seems to have resolved Cardiovascular Cardiovascular: Reports no additional cardiovascular complaints Respiratory Respiratory: Reports no additional respiratory complaints Physical Exam Vital Signs: Vital Signs: Last Vital Signs Temp 97.4 F 09/02/21 07:51 Pulse 68 09/02/21 07:51 Resp 18 09/02/21 07:51 BP 133/80 09/02/21 07:51 Pulse Ox 97 09/02/21 07:51 Body Mass Index 24.4 General: AO X 3, no acute distress Resp:? CTA bilateral, no accessory muscles used CVS: S1,S2,RRR GI: soft, non tender, non distended : estevez in place, urine clear-light yellow Neuro:? paraplegia Psych: appropriate affect, appropriate insight? Objective Data Active Medications Acetaminophen (Acetaminophen 325 Mg Tablet) 650 mg PO Q6H PRN PRN Reason: Pain, Mild (Pain Scale 1-3) Baclofen (Baclofen 20 Mg Tablet) 20 mg PO TID [facility] Last Admin: 09/02/21 07:42 Dose: 20 mg Documented by: KLEVER Docusate Sodium (Docusate Sodium 100 Mg Capsule) 100 mg PO BID [facility] Last Admin: 09/02/21 07:42 Dose: 100 mg Documented by: KLEVER Enoxaparin Sodium (Enoxaparin Sodium 40 Mg/0.4 Ml Syringe) 40 mg SUBCUT Q24H [facility] Last Admin: 09/01/21 14:38 Dose: 40 mg Documented by: KLEVER Gabapentin (Gabapentin 100 Mg Capsule) 100 mg PO TID [facility] Last Admin: 09/02/21 07:42 Dose: 100 mg Documented by: KLEVER Gabapentin (Gabapentin 600 Mg Tablet) 600 mg PO TID [facility] Last Admin: 09/02/21 07:42 Dose: 600 mg Documented by: KLEVER Meropenem 1 gm/ Sodium (Chloride) 100 mls @ 100 mls/hr IV Q8H [facility] Last Infusion: 09/02/21 06:11 Dose: 0 mls/hr Documented by: JAIRO Multivitamins/Vitamin C (Multivitamin Tablet) 1 tab PO DAILY [facility] Last Admin: 09/02/21 07:42 Dose: 1 tab Documented by: KLEVER Omeprazole (Omeprazole 20 Mg Capsule.Dr) 20 mg PO DAILY@0630 [facility] Last Admin: 09/02/21 06:09 Dose: 20 mg Documented by: JAIRO Oxycodone HCl (Oxycodone Hcl Immed Release 5 Mg Tablet) 5 mg PO Q6H PRN PRN Reason: Pain, Moderate (Pain Scale 4-6 Last Admin: 09/01/21 05:44 Dose: 5 mg Documented by: MARTIN Pharmacy Consult (Consult Rx Perform Med Rec) 1 each MISCELLANE ONCE PRN PRN Reason: Consult order Sodium Chloride (0.9 % Sodium Chloride Flush 3 Ml Syringe) 3 ml IVFLUSH QSHIFT [facility] Last Admin: 09/02/21 06:10 Dose: 3 ml Documented by: JAIRO Labs CBC & Chem 7: 09/01/21 05:42 09/01/21 05:42 Microbiology Microbiology Results: Microbiology 08/31/21 Unknown Urine Culture - Final Urine Catheterized - Estevez Catheter 08/31/21 10:46 Blood Culture - Preliminary Blood - Venous No growth after 24 hours. 08/31/21 10:46 Blood Culture - Preliminary Blood - Venous No growth after 24 hours. 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
[2021-09-02 11:47] VITALS: BP 121/76; PULSE 70; RESP 18; TEMP 36.5; O2SAT 99
[2021-09-02] MEDS: Enoxaparin Sodium 40 MG/0.4 ML SYRINGE SUBCUT (12:36)
[2021-09-02 16:00] VITALS: BP 140/90; PULSE 70; RESP 18; TEMP 36.5; O2SAT 100
[2021-09-02 19:43] VITALS: BP 114/65; PULSE 68; RESP 18; TEMP 36.3; O2SAT 99
[2021-09-03] VITALS: BP 114/73; PULSE 70; RESP 16; TEMP 36.3; O2SAT 99
[2021-09-03 04:00] VITALS: BP 133/77; PULSE 62; RESP 16; TEMP 36.1; O2SAT 98
[2021-09-03] MEDS: Omeprazole 20 MG CAPSULE.DR PO (05:06)
[2021-09-03 07:59] VITALS: BP 123/69; PULSE 59; RESP 16; TEMP 36.3; O2SAT 98
[2021-09-03] MEDS: Docusate Sodium 100 MG CAPSULE PO (10:34)
[2021-09-03] MEDS: Multivitamin TABLET 1 TAB PO (10:34)
[2021-09-03] MEDS: Gabapentin 600 MG TABLET PO (10:34)
[2021-09-03] MEDS: Baclofen 20 MG TABLET PO (10:34)
[2021-09-03] MEDS: 0.9 % Sodium Chloride Flush 3 ML SYRINGE IVFLUSH (10:35)
[2021-09-03] MEDS: Gabapentin 100 MG CAPSULE PO (10:35)
--- NOTE | 2021-09-03 11:02 | PM.DS ---
DS: Providers Provider Date of Service: 09/03/21 Date of admission: 08/31/21 13:42 Primary care physician: Trudy Sams MD Consults: 08/31/21 10:39 Consult to Infectious Diseases Routine Consulting Provider: Lizeth Bains Reason for consultation: ESBL kleb oxytoca Has provider been notified: No 08/31/21 13:41 Consult to Infectious Diseases Routine Consulting Provider: Lizeth Bains Reason for consultation: dysuria, chronic estevez, history of esbl DS: Diagnosis Discharge Diagnosis (1) Acute UTI: Status: Acute DS: Summary Hospital Course Hospital Course: Patient was observed for treatment of presumed ESBL UTI. He was given IV meropenem. urine culture grew mixed francine. He was seen by infectious disease recommended fosfomycin 3 g x1. Patient did not develop any signs of sepsis and will be discharged home. Time Spent with Patient Time attestation: Total time spent providing and/or coordinating discharge services: Discharge coordination time: Greater than 30 minutes Quality: Stroke Does the patient have a stroke diagnosis?: No Physical Exam Vital Signs: Vital Signs: Last Vital Signs Temp 97.4 F 09/03/21 07:59 Pulse 59 09/03/21 07:59 Resp 16 09/03/21 07:59 BP 123/69 09/03/21 07:59 Pulse Ox 98 09/03/21 07:59 Body Mass Index 24.4 General: AO X 3, no acute distress Resp:? CTA bilateral, no accessory muscles used CVS: S1,S2,RRR GI: soft, non tender, non distended : estevez in place, urine clear-light yellow Neuro:? paraplegia Psych: appropriate affect, appropriate insight? DS: Data Data Completed and Pending Completed studies during hospitalization [Text1]: Procedures Change Pressure Dressing on Back (01/19/21) Insertion of Infusion Device into Right Basilic Vein, Percutaneous Approach (06/17/21) Labs on day of discharge: Preliminary micro results at discharge 08/31/21 10:46 Blood Culture - Preliminary Blood - Venous No growth after 48 hours. 08/31/21 10:46 Blood Culture - Preliminary Blood - Venous No growth after 48 hours. Discharge Plan Discharge Patient Disposition: Home, Self-Care Discharge Diagnosis: uti Referrals: Ramesh SCOTT [Outside] - 1 Week Trudy Sams MD [Primary Care Provider] - 1 Week Discharge Medications: New fosfomycin tromethamine 3 gram packet 1 packet PO ONCE 1 Days Qty: 1 RF: 0 Continued multivitamin Tablet 1 tab PO DAILY RF: 0 gabapentin 600 mg tablet 1 tab PO TID RF: 0 baclofen 20 mg tablet 1 tab PO TID RF: 0 docusate sodium [DOK] 100 mg capsule 1 cap PO BID RF: 0 omeprazole 20 mg capsule,delayed release(DR/EC) 1 cap PO DAILY RF: 0 gabapentin 100 mg capsule 1 cap PO TID RF: 0 Discharge Orders: Discharge Order (Routine); Ordered 09/03/21 Ordered By: Benedicto Childers Diet: advance to usual diet Activity on Discharge: As tolerated Stand Alone Forms: Patient Portal Discharge page Care Plan Goals: Recovery Health Concerns: UTI Plan of Treatment: One dose of fosfomycin Assessment: See above
[2021-09-03 11:10] VITALS: BMI 24.4
--- NOTE | 2021-09-03 11:38 | MHC.CLN ---
NUTRITION CONSULT PATIENT WITH STAGE II WOUND TO BUTTOCK. STATED THAT HAS HAD FOR ONE YEAR AND GOES TO WOUND CLINIC. TAKES JOON BID (160 KCAL, 5 GRAMS PROTEIN) AT HOME TO PROMOTE WOUND HEALING. EATS FOODS HIGHER IN PROTEIN AT HOME AND IS AWARE OF INCREASED PROTEIN NEEDS FOR WOUND HEALING. EATING WELL. CONTINUE REGULAR DIET WITH JOON BID.
[2021-09-03 11:54] VITALS: BP 141/77; PULSE 70; RESP 17; TEMP 36.4; O2SAT 98
--- NOTE | 2021-09-03 13:08 | MHC.CM.PN ---
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 CM CONTACTED PT'S PHARMACY ON FILE TO VERIFY THEY CAN GET MEDICATION DELIVERED FOR TOMORROW 09/04/21, PER [facility] PRESS OPERATOR THEY CAN ORDER AND HAVE MED DELIVERED, THEY ALSO REQUESTED NO SUBSTITUTIONS ALOWED TO SCRIPT WHICH WAS DONE BY HOSPITALIST AND REFAXED TO PHARMACY.
== END 2021-09-03 13:51 | disposition home or self-care (01) ==
LOC: HO.ED 12:30 → HO.EDOVER 15:35 → HO.S3 15:36
PROVIDERS: Admitting Provider Internal Medicine; Emergency Provider Emergency Medicine; PCP Family Medicine; Visit Provider Internal Medicine
DX: N39.0 Urinary tract infection, site not specified (principal); R30.0 Dysuria; B96.1 Klebsiella pneumoniae [K. pneumoniae] as the cause of diseases classified elsewhere; Z16.12 Extended spectrum beta lactamase (ESBL) resistance; G90.1 Familial dysautonomia [Riley-Day]; G82.20 Paraplegia, unspecified; R56.9 Unspecified convulsions; S30.850D Superficial foreign body of lower back and pelvis, subsequent encounter; W34.00XD Accidental discharge from unspecified firearms or gun, subsequent encounter; M86.9 Osteomyelitis, unspecified; Z87.891 Personal history of nicotine dependence; Z20.822 Contact with and (suspected) exposure to COVID-19; Z96.0 Presence of urogenital implants; Z95.828 Presence of other vascular implants and grafts; Z88.2 Allergy status to sulfonamides; Z88.1 Allergy status to other antibiotic agents; Z91.040 Latex allergy status; Z91.010 Allergy to peanuts; Z91.013 Allergy to seafood; Z79.899 Other long term (current) drug therapy
CPT/HCPCS: 36415; 80048; 80076; 81001; 83605; 83735; 85025; 85027; 87040; 87086; 87635; 96361; 96365; 96367; 96372; 99218; 99225; 99285; J1335; J1650; J2185

== ENCOUNTER 2021-09-06 15:25 | Emergency (ER) | payer MEDICAID, SELFPAY ==
[2021-09-06 15:35] VITALS: BP 112/55; BP 116/70; PULSE 98; RESP 16; TEMP 36.6; O2SAT 98; BMI 25.3
--- NOTE | 2021-09-06 16:16 | ECG_ITS ---
Test Reason : CHEST PAIN Blood Pressure : / mmHG Vent. Rate : 045 BPM Atrial Rate : 045 BPM P-R Int : 126 ms QRS Dur : 076 ms QT Int : 462 ms P-R-T Axes : 008 088 081 degrees QTc Int : [address] elevation, consider early repolarization, pericarditis, or injury Nonspecific ST abnormality Abnormal ECG When compared with ECG of 21-JAN-2021 19:36, Vent. rate has decreased BY 42 BPM QT has shortened Referred By: Bianca Gabriel Electronically Signed By:ALIA BLACKMON MD
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
[2021-09-06 18:00] VITALS: BP 131/81; PULSE 73; RESP 14; TEMP 35.9; O2SAT 99
[2021-09-06] MEDS: Ondansetron ODT 4 MG TAB.RAPDIS TRANSLINGU (20:35)
== END 2021-09-06 23:02 | disposition home or self-care (01) ==
PROVIDERS: Emergency Provider Emergency Medicine; PCP Family Medicine
DX: Z46.6 Encounter for fitting and adjustment of urinary device (principal); G82.20 Paraplegia, unspecified; I25.2 Old myocardial infarction
CPT/HCPCS: 51798; 93005; 99283; 99285

== ENCOUNTER → 2021-09-26 12:38 | Outpatient (BNVA) | payer MEDICAID, SELFPAY | PROVIDERS: PCP Family Medicine; Referring Provider Family Medicine; Visit Provider Nurse Practitioner Family | DX: I21.4 Non-ST elevation (NSTEMI) myocardial infarction (principal); G90.1 Familial dysautonomia [Riley-Day] | CPT/HCPCS: 93005; 99212 ==

== ENCOUNTER 2021-10-18 12:36 | Emergency (ER) | payer MEDICAID, SELFPAY ==
--- NOTE | ~2021-10-18 | XR_ITS ---
EXAMINATION: XR CHEST CLINICAL INFORMATION: Chest tightness. COMPARISON: Chest 06/29/2021 TECHNIQUE: 2 views of the chest were obtained. FINDINGS: The lungs are hyperinflated but clear of acute process. The heart size and pulmonary vascularity is normal. There is mild scoliosis upper dorsal spine. There are median sternotomy sutures from previous intervention. No bony abnormality seen XR/XR chest 2V IMPRESSION: Hyperinflated lungs without acute process.
--- NOTE | ~2021-10-18 | CT_ITS ---
EXAMINATION: CT CHEST WITH IV CONTRAST CT ABDOMEN AND PELVIS WITH IV CONTRAST CLINICAL INFORMATION: Chest tightness. Abdominal pain. COMPARISON: CT abdomen from 08/07/2021. Chest CT from 02/22/2021. TECHNIQUE: Multidetector CT imaging examination of the chest, abdomen and pelvis was performed with intravenous administration of 85 mL Omnipaque 350. Axial images are displayed at 0.6 mm and 5 mm slice thickness. Oral contrast was given. Coronal and sagittal reformatted images were generated at the technologist's workstation and submitted for review. This CT examination was performed using dose optimization techniques as appropriate, variously including the following: *Automated exposure control *Adjustment of mA and/or kV according to patient size (this includes techniques or standardized protocols for targeted exams where dose is matched to indication/reason for exam; i.e. extremities or head) *Use of iterative reconstruction technique DLP: 928 mGy-cm FINDINGS: CHEST - LUNGS AND PLEURA: Trachea and central airways are widely patent and normal in caliber. Bronchial paz are minimally thickened in both lungs. No bronchiectasis. No interstitial disease. No consolidation, pleural effusion or pneumothorax. An old 0.2 cm calcified nodule is present in the right lung apex. No suspicious lung nodule or mass. MEDIASTINUM/LOWER NECK: The heart size is normal. No pericardial effusion. Thoracic aorta is normal in caliber; no aneurysm or dissection. Pulmonary arteries are normal in size. No evidence of embolic filling defects in the central vessels. Note that the contrast bolus was not given to optimize opacification of the pulmonary arteries. The esophagus and thyroid gland are unremarkable. No mediastinal mass. LYMPHATICS: No pathologic sized axillary, hilar or mediastinal lymph nodes. CHEST WALL/BONES: No chest wall mass. Sternotomy is healed. There is levoscoliosis of the cervical and upper thoracic spine. Thoracic vertebra have well preserved height and alignment. No suspicious bone lesions. ABDOMEN AND PELVIS - HEPATOBILIARY: Liver has normal size, contour and attenuation. Gallbladder is unremarkable. No intrahepatic or extrahepatic bile duct dilatation. PANCREAS: No edema, mass or pancreatic ductal dilatation. SPLEEN: Normal size and attenuation. ADRENAL GLANDS: Normal. KIDNEYS AND URETERS: Kidneys are normal in size and enhance symmetrically. No nephrolithiasis, hydronephrosis or perinephric edema. There are a few simple renal cysts, largest of the left upper pole 0.9 cm. Renal imaging follow-up is not recommended for simple cysts. The ureters are unremarkable. BOWEL AND PERITONEUM: No dilated loops of bowel. The appendix is normal. No overt bowel wall thickening. No mesenteric fat stranding, ascites or pneumoperitoneum. ABDOMINAL WALL: Unremarkable. VESSELS: Abdominal aorta is normal in caliber and its branches are widely patent. LYMPH NODES: No pathologic sized lymph nodes in the abdomen or pelvis. No inguinal lymphadenopathy. BLADDER AND PELVIC VISCERA: Urinary bladder wall appears to be chronically, mildly thickened. Previously, the patient has had a Alas catheter on CT exams from 01/20/2021 and, 03/18/2021 and 08/07/2021. No bladder calculi. Prostate gland is grossly unremarkable. No pelvic free fluid. MUSCULOSKELETAL: No suspicious bone lesions. Chronic, severe osteoarthritis of the hips. There are old foci of heterotopic ossification at the left hip. CT/CT abdomen pelvis w con IMPRESSION: * Chest: No significant findings. No evidence of pneumonia, edema or pleural effusion. * Abdomen and pelvis: There appears to be chronic, mild thickening of the urinary bladder wall without bladder calculi. Previously, the patient has had a Alas catheter. No acute findings in the upper urinary tracts. No renal calculi.
[2021-10-18 13:44] VITALS: BP 109/64; BP 95/62; PULSE 102; PULSE 105; RESP 16; TEMP 36.8; O2SAT 100; O2SAT 97; BMI 25.0
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
--- NOTE | 2021-10-18 15:13 | ECG_ITS ---
Test Reason : GENERAL MED Blood Pressure : / mmHG Vent. Rate : 081 BPM Atrial Rate : 081 BPM P-R Int : 138 ms QRS Dur : 084 ms QT Int : 356 ms P-R-T Axes : 041 077 069 degrees QTc Int : 413 ms Normal sinus rhythm ST elevation, consider early repolarization Borderline ECG When compared with ECG of 06-SEP-2021 17:55, Vent. rate has increased BY 36 BPM T wave amplitude has decreased in Inferior leads T wave amplitude has decreased in Lateral leads Referred By: Marya Edmondson Electronically Signed By:ALIA BLACKMON MD
[2021-10-18 16:01] LABS: MANUAL DIFF FLAG NO
[2021-10-18 16:03] LABS: Basophils Percent Auto 0.5 % (0-2); Eosinophils Absolute Auto 0.2 X10*3/uL (0.0-0.4); Eosinophils Percent Auto 2.2 % (0-4); Hematocrit 40.1 % (42.0-52.0); Hemoglobin 13.3 g/dl (14.0-18.0); Imm Gran Abs Auto 0.02 X10*3/uL (0.00-0.03); Imm Gran Pct Auto 0.2 % (0.0-0.4); Lymphocytes Absolute Auto 1.8 X10*3/uL (1.2-4.9); Lymphocytes Percent Auto 21.9 % (20-40); Mean Corpuscular HGB Conc 33.2 g/dl (31.0-36.0); Mean Corpuscular Volume 90.3 fL (80.0-98.0); Monocytes Absolute Auto 0.5 X10*3/uL (0.1-1.2); Monocytes Percent Auto 5.5 % (2-11); Neutrophils Absolute Auto 5.7 x10*3/uL (2.0-8.3); Neutrophils Percent Auto 69.7 % (45-73); Platelet Count 203 X10*3/uL (160-400); Red Blood Count 4.44 X10*6/uL (4.60-5.80); Red Cell Distribution Width 13.7 % (11.0-16.0); White Blood Count 8.1 X10*3/uL (4.8-10.8)
[2021-10-18 16:16] LABS: Lipase 54 U/L (8-78)
[2021-10-18 16:18] LABS: Alanine Aminotransferase 22 U/L (0-40); Albumin Level 4.1 g/dL (3.5-5.0); Alkaline Phosphatase 86 U/L (39-117); Anion Gap 11 (12-20); Aspartate Amino Transferase 21 U/L (5-37); Bilirubin Total 0.7 mg/dL (0.0-1.0); Blood Urea Nitrogen 12 mg/dL (9-16); Calcium 9.3 mg/dL (8.4-10.2); Carbon Dioxide 26 mmol/L (22-29); Chloride 107 mmol/L (96-108); Creatinine Clr Calc Pharmacy 130.9; Estimated Glomerular Filt Rate > 60; Glucose Random 83 mg/dL (60-115); Potassium 4.2 mmol/L (3.3-5.1); Sodium 140 mmol/L (135-145); Total Protein 7.3 g/dL (6.5-8.0)
[2021-10-18 16:20] LABS: Appearance Urine CLEAR; Color Urine YELLOW; Glucose Urine UA NEG (NEG); Leukocyte Esterase Urine 1+ (NEG); Nitrite Urine NEG (NEG); UACC Culture Trigger YES; Urine Blood NEG (NEG); Urine Ketones NEG (NEG); Urine Protein NEG (NEG-TRACE)
[2021-10-18 16:22] LABS: Troponin-I High Sensitivity < 3.5 ng/L (<3.5-35.0)
[2021-10-18 16:32] LABS: RBC Urine 0 /HPF (0)
[2021-10-18] MEDS: iohexoL 350 MG/ML 100 ML INFUS..BTL IV (17:02)
[2021-10-18] MEDS: 0.9 % Sodium Chloride 500 ML IV (17:19)
[2021-10-18 17:21] VITALS: BP 107/62; PULSE 76; RESP 16; O2SAT 98
--- NOTE | 2021-10-18 17:49 | PC.NURSE ---
PT SELF CATHS EVERY 6 HOURS, HERE FOR LOWER LEFT ABD PAIN CT SCAN RESULT PENDING.
[2021-10-18 19:16] VITALS: BP 100/58; PULSE 75; RESP 16; TEMP 36.8; O2SAT 96
== END 2021-10-18 19:56 | disposition home or self-care (01) ==
PROVIDERS: Nurse Practitioner Family; Emergency Provider Emergency Medicine Emergency Medical Services
DX: R10.9 Unspecified abdominal pain (principal); R33.9 Retention of urine, unspecified; R07.89 Other chest pain; G82.20 Paraplegia, unspecified; R10.32 Left lower quadrant pain; Z87.440 Personal history of urinary (tract) infections
CPT/HCPCS: 36415; 51798; 71046; 71260; 74177; 80053; 81001; 83690; 84484; 85025; 87086; 93005; 96360; 99284; Q9967

== ENCOUNTER → 2021-11-28 13:05 | Outpatient (BNVA) | payer MEDICAID, SELFPAY | PROVIDERS: PCP Family Medicine; Referring Provider Family Medicine; Visit Provider Internal Medicine Cardiovascular Disease | DX: G90.1 Familial dysautonomia [Riley-Day] (principal) | CPT/HCPCS: 99212 ==

== ENCOUNTER 2021-12-26 13:41 | Inpatient (IN) | payer MEDICAID, SELFPAY ==
--- NOTE | ~2021-12-26 | XR_ITS ---
EXAMINATION: XR CHEST CLINICAL INFORMATION: Tachycardia COMPARISON: October 18, 2021 TECHNIQUE: AP portable view of the chest was obtained. FINDINGS: No significant abnormality is noted involving the heart, lungs, mediastinum, bony thorax or soft tissues. Status post median sternotomy. Vascular clips are seen about the left upper chest. XR/XR chest 1V IMPRESSION: No acute disease.
[2021-12-26 13:47] VITALS: BP 100/60; PULSE 60
[2021-12-26 13:54] VITALS: BP 72/28; PULSE 125; RESP 18; TEMP 37.2; O2SAT 97; BMI 24.5
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
[2021-12-26 14:23] LABS: Hematocrit 38.5 % (42.0-52.0); Hemoglobin 12.9 g/dl (14.0-18.0); Mean Corpuscular HGB Conc 33.5 g/dl (31.0-36.0); Mean Corpuscular Hemoglobin 30.8 pg (27.0-33.0); Mean Corpuscular Volume 91.9 fL (80.0-98.0); Mean Platelet Volume 9.5 fL (9.4-12.4); Platelet Count 205 X10*3/uL (160-400); Red Blood Count 4.19 X10*6/uL (4.60-5.80); Red Cell Distribution Width 13.4 % (11.0-16.0); White Blood Count 5.8 X10*3/uL (4.8-10.8)
[2021-12-26 14:35] LABS: Lactic Acid 1.9 mmol/L (0.5-2.0)
[2021-12-26 14:40] LABS: Alanine Aminotransferase 14 U/L (0-40); Albumin Level 3.8 g/dL (3.5-5.0); Alkaline Phosphatase 83 U/L (39-117); Anion Gap 10 (12-20); Aspartate Amino Transferase 16 U/L (5-37); Bilirubin Total 0.6 mg/dL (0.0-1.0); Blood Urea Nitrogen 11 mg/dL (9-16); Calcium 9.2 mg/dL (8.4-10.2); Carbon Dioxide 26 mmol/L (22-29); Chloride 107 mmol/L (96-108); Creatinine Clr Calc Pharmacy 80.5; Estimated Glomerular Filt Rate > 60; Glucose Random 102 mg/dL (60-115); Potassium 3.9 mmol/L (3.3-5.1); Sodium 139 mmol/L (135-145); Total Protein 7.1 g/dL (6.5-8.0)
[2021-12-26 14:41] LABS: COVID-19 Test Positive (Negative); IDNOW Serial# 9DD0AD1C
[2021-12-26 14:45] LABS: Troponin-I High Sensitivity 4.8 ng/L (<3.5-35.0)
[2021-12-26 16:24] LABS: Appearance Urine CLEAR; Color Urine STRAW; Glucose Urine UA NEG (NEG); Leukocyte Esterase Urine TRACE (NEG); Nitrite Urine NEG (NEG); PH 6.5 (5.0-8.0); Specific Gravity - Urine <= 1.005 (1.005-1.025); UACC Culture Trigger YES; Urine Blood NEG (NEG); Urine Ketones NEG (NEG); Urine Protein NEG (NEG-TRACE)
[2021-12-26 16:55] VITALS: BP 120/69; PULSE 99; RESP 18; O2SAT 97
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
[2021-12-26 17:09] LABS: Bacteria Urine 1+ /LPF; Squamous Epithelial Cell Urine 1+ /LPF
--- NOTE | 2021-12-26 17:32 | PHA.MEDREC ---
Pharmacy Consult ? Medication Reconciliation Pharmacy has completed the medication reconciliation.
[2021-12-26] MEDS: Heparin Sodium,Porcine 5,000 UNIT/ML VIAL 5000 UNIT SUBCUT (18:20)
[2021-12-26 21:23] VITALS: BP 128/74; PULSE 81; RESP 18; TEMP 37.1; O2SAT 98
[2021-12-26 21:24] VITALS: BP 128/74; PULSE 77; RESP 18; TEMP 37.1; O2SAT 97
[2021-12-26 22:30] VITALS: BMI 24.7
[2021-12-26] MEDS: Acetaminophen 325 MG TABLET 650 MG PO (22:43)
[2021-12-27] VITALS (10 sets, daily range): BP systolic 64–157; BP diastolic 40–93; PULSE 63–120; RESP 15–18; TEMP 36.6–37.6; O2SAT 96–98
[2021-12-27] MEDS: 0.9 % Sodium Chloride Flush 3 ML SYRINGE IVFLUSH ×6 (00:52→16:34)
[2021-12-27] MEDS: Heparin Sodium,Porcine 5,000 UNIT/ML VIAL 5000 UNIT SUBCUT ×2 (05:40→16:34)
[2021-12-27 06:37] LABS: MANUAL DIFF FLAG NO
[2021-12-27 06:46] LABS: Basophils Percent Auto 0.6 % (0-2); Eosinophils Absolute Auto 0.2 X10*3/uL (0.0-0.4); Eosinophils Percent Auto 4.3 % (0-4); Hemoglobin 12.7 g/dl (14.0-18.0); Imm Gran Abs Auto 0.02 X10*3/uL (0.00-0.03); Imm Gran Pct Auto 0.4 % (0.0-0.4); Lymphocytes Absolute Auto 1.3 X10*3/uL (1.2-4.9); Lymphocytes Percent Auto 26.4 % (20-40); Mean Corpuscular HGB Conc 32.6 g/dl (31.0-36.0); Mean Corpuscular Hemoglobin 30.1 pg (27.0-33.0); Mean Corpuscular Volume 92.4 fL (80.0-98.0); Monocytes Absolute Auto 0.6 X10*3/uL (0.1-1.2); Monocytes Percent Auto 11.2 % (2-11); Neutrophils Absolute Auto 2.8 x10*3/uL (2.0-8.3); Neutrophils Percent Auto 57.1 % (45-73); Platelet Count 171 X10*3/uL (160-400); Red Blood Count 4.22 X10*6/uL (4.60-5.80); Red Cell Distribution Width 13.3 % (11.0-16.0); White Blood Count 4.9 X10*3/uL (4.8-10.8)
[2021-12-27 07:02] LABS: Anion Gap 14 (12-20); Blood Urea Nitrogen 9 mg/dL (9-16); Calcium 9.2 mg/dL (8.4-10.2); Carbon Dioxide 22 mmol/L (22-29); Chloride 108 mmol/L (96-108); Creatinine Clr Calc Pharmacy 144.4; Estimated Glomerular Filt Rate > 60; Glucose Random 78 mg/dL (60-115); Potassium 4.1 mmol/L (3.3-5.1); Sodium 140 mmol/L (135-145)
[2021-12-27] MEDS: Multivitamin TABLET 1 TAB PO (08:16)
[2021-12-27] MEDS: Docusate Sodium 100 MG CAPSULE PO (08:17)
[2021-12-27] MEDS: Gabapentin 600 MG TABLET PO ×2 (08:17→16:34)
[2021-12-27] MEDS: Omeprazole 20 MG CAPSULE.DR PO (08:17)
[2021-12-27] MEDS: Gabapentin 100 MG CAPSULE PO ×2 (08:17→16:34)
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
[2021-12-27] MEDS: Baclofen 20 MG TABLET PO ×2 (09:15→16:34)
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
[2021-12-27] MEDS: traMADoL HCL 50 MG TABLET PO (16:41)
--- NOTE | 2021-12-27 21:30 | MHC.PIE ---
Addendum entered by Driss Livingston RN 12/28/21 02:52: Temp checked orally when attempting to recheck manual pressure at approx 2030 - 99.2. BP checked frequently during bolus administration - Patient incont of large amt of urine - full bed change done as well as linen change. external urinary catheter put on patient and secured. BP improved to 84/42 by 2220, then 84/46 @ 2321. Then @ 0130 - 106/62. Patient resting refusing to be placed on side with pillows. Original Note: LOW BP - manual 60's to 70's systolic. Patient asymptomatic. Here for UTI. Dr Sanders made aware - ordered sepsis bolus - order initiated - bolus hung.
[2021-12-27 21:56] LABS: MANUAL DIFF FLAG NO
[2021-12-27 21:58] LABS: Basophils Percent Auto 0.7 % (0-2); Eosinophils Absolute Auto 0.2 X10*3/uL (0.0-0.4); Hematocrit 35.8 % (42.0-52.0); Imm Gran Abs Auto 0.02 X10*3/uL (0.00-0.03); Imm Gran Pct Auto 0.4 % (0.0-0.4); Lymphocytes Absolute Auto 1.1 X10*3/uL (1.2-4.9); Lymphocytes Percent Auto 23.8 % (20-40); Mean Corpuscular HGB Conc 33.5 g/dl (31.0-36.0); Mean Corpuscular Hemoglobin 30.5 pg (27.0-33.0); Mean Corpuscular Volume 91.1 fL (80.0-98.0); Mean Platelet Volume 9.7 fL (9.4-12.4); Monocytes Absolute Auto 0.3 X10*3/uL (0.1-1.2); Monocytes Percent Auto 7.1 % (2-11); Neutrophils Absolute Auto 2.9 x10*3/uL (2.0-8.3); Platelet Count 178 X10*3/uL (160-400); Red Blood Count 3.93 X10*6/uL (4.60-5.80); Red Cell Distribution Width 13.2 % (11.0-16.0); White Blood Count 4.5 X10*3/uL (4.8-10.8)
[2021-12-27 22:13] LABS: Lactic Acid 2.1 mmol/L (0.5-2.0)
[2021-12-27 23:54] LABS: Reflex Lactate? Lactic Acid Added
[2021-12-28] VITALS (7 sets, daily range): BP systolic 85–173; BP diastolic 52–99; PULSE 55–96; RESP 16–18; TEMP 36.8–38.2; O2SAT 97–99
[2021-12-28 00:34] LABS: ~Lactic Acid-LAB USE ONLY 1.3 mmol/L (0.5-2.0)
[2021-12-28] MEDS: 0.9 % Sodium Chloride Flush 3 ML SYRINGE IVFLUSH ×7 (01:40→20:28)
[2021-12-28] MEDS: Omeprazole 20 MG CAPSULE.DR PO (05:54)
[2021-12-28] MEDS: Heparin Sodium,Porcine 5,000 UNIT/ML VIAL 5000 UNIT SUBCUT ×2 (05:54→16:12)
[2021-12-28] MEDS: Multivitamin TABLET 1 TAB PO (09:21)
[2021-12-28] MEDS: Docusate Sodium 100 MG CAPSULE PO ×2 (09:21→20:28)
[2021-12-28] MEDS: Gabapentin 100 MG CAPSULE PO ×3 (09:21→20:28)
[2021-12-28] MEDS: Gabapentin 600 MG TABLET PO ×3 (09:21→20:28)
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
[2021-12-28] MEDS: Baclofen 20 MG TABLET PO (13:07)
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
[2021-12-28] MEDS: Phenazopyridine HCL 100 MG TABLET PO ×2 (14:48→18:18)
--- NOTE | 2021-12-28 15:29 | MHC.CM.PN ---
Male 31 DX Covid No discharge today. Pt is not medically cleared. DP home with resumption of services. He is willing to accept VNA services if ordered.
[2021-12-28] MEDS: Ascorbic Acid 500 MG TABLET PO (16:10)
[2021-12-28] MEDS: bisacodyL 10 MG SUPP.RECT PR (20:28)
[2021-12-28] MEDS: Baclofen 10 MG TABLET PO (20:28)
[2021-12-29 04:00] VITALS: BP 121/65; PULSE 73; RESP 18; TEMP 37.5; O2SAT 98
[2021-12-29] MEDS: Heparin Sodium,Porcine 5,000 UNIT/ML VIAL 5000 UNIT SUBCUT ×2 (04:18→15:28)
[2021-12-29] MEDS: Omeprazole 20 MG CAPSULE.DR PO (05:51)
[2021-12-29 08:00] VITALS: BP 123/72; PULSE 73; RESP 20; TEMP 35.9; O2SAT 98
[2021-12-29] MEDS: 0.9 % Sodium Chloride Flush 3 ML SYRINGE IVFLUSH ×4 (11:04→16:13)
[2021-12-29] MEDS: Phenazopyridine HCL 100 MG TABLET PO ×3 (11:04→18:57)
[2021-12-29] MEDS: Ascorbic Acid 500 MG TABLET PO (11:05)
[2021-12-29] MEDS: Baclofen 10 MG TABLET PO ×3 (11:05→22:58)
[2021-12-29] MEDS: Gabapentin 600 MG TABLET PO ×3 (11:05→22:59)
[2021-12-29] MEDS: Docusate Sodium 100 MG CAPSULE PO ×2 (11:05→22:58)
[2021-12-29] MEDS: Multivitamin TABLET 1 TAB PO (11:05)
[2021-12-29] MEDS: Gabapentin 100 MG CAPSULE PO ×3 (11:05→22:58)
[2021-12-29] MEDS: bisacodyL 10 MG SUPP.RECT PR (11:06)
[2021-12-29 11:54] VITALS: BP 149/87; PULSE 65; RESP 18; TEMP 37.3; O2SAT 99
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
[2021-12-29 15:53] VITALS: BP 126/69; PULSE 93; RESP 18; TEMP 37.1; O2SAT 97
[2021-12-29 20:00] VITALS: BP 129/74; PULSE 72; RESP 18; TEMP 37.2; O2SAT 98
[2021-12-29 23:34] VITALS: BP 149/87; PULSE 80; RESP 20; TEMP 36.5; O2SAT 99
[2021-12-30 04:00] VITALS: BP 136/74; PULSE 73; RESP 20; TEMP 36.9; O2SAT 98
[2021-12-30] MEDS: Omeprazole 20 MG CAPSULE.DR PO (05:05)
[2021-12-30] MEDS: Heparin Sodium,Porcine 5,000 UNIT/ML VIAL 5000 UNIT SUBCUT (05:05)
[2021-12-30 08:00] VITALS: BP 105/65; PULSE 88; RESP 20; TEMP 37.1; O2SAT 97
[2021-12-30] MEDS: traMADoL HCL 50 MG TABLET PO (08:32)
[2021-12-30] MEDS: Baclofen 10 MG TABLET PO (08:33)
[2021-12-30] MEDS: Phenazopyridine HCL 100 MG TABLET PO (08:33)
[2021-12-30] MEDS: Docusate Sodium 100 MG CAPSULE PO (08:33)
[2021-12-30] MEDS: bisacodyL 10 MG SUPP.RECT PR (08:33)
[2021-12-30] MEDS: Ascorbic Acid 500 MG TABLET PO (08:33)
[2021-12-30] MEDS: Gabapentin 100 MG CAPSULE PO (08:33)
[2021-12-30] MEDS: Multivitamin TABLET 1 TAB PO (08:33)
[2021-12-30] MEDS: Gabapentin 600 MG TABLET PO (08:34)
[2021-12-30] MEDS: 0.9 % Sodium Chloride Flush 3 ML SYRINGE IVFLUSH ×2 (08:38)
--- NOTE | 2021-12-30 10:05 | P.DS_ITS ---
DS: Providers Provider Date of Service: 12/30/21 Date of admission: 12/26/21 17:45 Primary care physician: Trudy Sams MD Consults: 12/26/21 16:53 Consult to Infectious Diseases Routine Consulting Provider: Lizeth Bains Reason for consultation: hx esbl uti Has provider been notified: No DS: Diagnosis Discharge Diagnosis (1) Dizziness: Status: Acute (2) Acute UTI: Status: Acute (3) Dysautonomia: Status: Acute DS: Summary Hospital Course Hospital Course: 31-year-old man with a history of paraplegia, dysautonomia and ESBL UTI.? He reports tiredness, dizziness and weakness over the last several days.? He did see his primary care provider and was prescribed nitrofurantoin for UTI.? He reports that his symptoms persisted and decided to come to the ER for further evaluation.? He denied chest pain, shortness breath, nausea, vomiting, diarrhea.? He straight caths at home and has not had any issue although he did report a burning sensation.? He was noted to have tachycardia but no fever, leukocytosis or lactic acidosis.? He did have a blood pressure as low as 72/28 however he was given 30 mL/kg fluid bolus and his blood pressure did respond nicely.? He was also given a dose of meropenem in the ER.? He will be admitted for further management and treatment of urinary tract infection, COVID-19. Hospital course: Patient came to the hospital because of dizziness - which thought to be related to multifactorial issues including COVID, UTI concern and hypotension- patient seems to be improved with supportive care currently denies any dizziness. Further management outpatient . Hypotension: Thought to be related to dysautonomia, use of baclofen- baclofen doses adjusted And hypertension seems to be improved.further management outpatient. Patient also had Urinary infection concern, no sepsis - seen by infectious disease - recommended to continue doxycycline for 7 days. no fevers . patient hx od paraplegia , does self catheterization q.6 hours at home, here voiding? with external catheter??, further management outpatient as per PCP. COVID 19: Seems to be asymptomatic. continue supportive care with Tylenol/? vitamin-C, Further management outpatient. Above management discussed with the patient in detail length she understand and in agreement with the above plan, time spent 50 minutes and 50% time spent on counseling. Significant findings: As above. Procedures performed: None. Treatment and response: As above. Complications: None. Time Spent with Patient Time attestation: Total time spent providing and/or coordinating discharge services: Discharge coordination time: Greater than 30 minutes Quality: Stroke Does the patient have a stroke diagnosis?: No Physical Exam Verdana 4l Vital Signs: Verdana 4d Verdana 4d Vital Signs: Verdana 4d Verdana 4Bd Last Vital Signs Verdana 4d Patrol Agent New 4d Patrol Agent New 4d Temp 98.7 F 12/30/21 08:00 Patrol Agent New 4d Pulse 88 12/30/21 08:00 Patrol Agent New 4d Resp 20 12/30/21 08:00 BP 105/65 12/30/21 08:00 Pulse Ox 97 12/30/21 08:00 BMI result Body Mass Index 24.7 General? no acute distress.? Neck? no JVD. CVS? regular rate rhythm, Respiratory lungs clear to auscultation, no respiratory distress. Gastrointestinal abdomen soft, bowel sounds audible, no guarding , no rigidity. Extremities no edema. Neuro paraplegic, speech clear, alert oriented x3 Skin no rash ?Alas with clear urine DS: Data Data Completed and Pending Completed studies during hospitalization [Text1]: Procedures Change Pressure Dressing on Back (01/19/21) Insertion of Infusion Device into Right Basilic Vein, Percutaneous Approach (06/17/21) Labs on day of discharge: Preliminary micro results at discharge 12/27/21 21:36 Blood Culture - Preliminary Blood - Venous No growth after 48 hours. 12/27/21 21:36 Blood Culture - Preliminary Blood - Venous No growth after 48 hours. 12/26/21 14:26 Blood Culture - Preliminary Blood - Venous No growth after 48 hours. 12/26/21 14:15 Blood Culture - Preliminary Blood - Venous No growth after 48 hours. Discharge Plan Discharge Patient Disposition: Home, Self-Care Discharge Diagnosis: dizziness , urinary infection concern, covid 19. Referrals: Trudy Sams MD [Primary Care Provider] - 1 Week Discharge Medications: New doxycycline hyclate 100 mg Tablet 100 mg PO Q12H Qty: 12 0RF bisacodyl [Gentle Laxative (bisacodyl)] 10 mg Suppository 10 mg MN DAILY Qty: 12 0RF ascorbic acid (vitamin C) [Vitamin C] 500 mg Tablet 500 mg PO DAILY Qty: 30 0RF Continued multivitamin Tablet 1 tab PO DAILY 0RF gabapentin 600 mg tablet 1 tab PO TID 0RF omeprazole 20 mg capsule,delayed release(DR/EC) 1 cap PO DAILY 0RF gabapentin 100 mg capsule 1 cap PO TID 0RF docusate sodium 100 mg capsule 100 mg PO BID 0RF tramadol 50 mg tablet 50 mg PO Q6H PRN (Reason: Pain (Scale Score 4-6)) 0RF Changed baclofen 20 mg tablet 10 mg PO TID Qty: 0 0RF Discharge Orders: Discharge Order (Routine); Ordered 12/30/21 Ordered By: Ryan Urrutia Diet: advance to usual diet Activity on Discharge: As tolerated Stand Alone Forms: Patient Portal Discharge page Care Plan Goals: Patient came to the hospital because of dizziness - which thought to be related to multifactorial issues including COVID, UTI concern and hypotension- patient seems to be improved with supportive care currently denies any dizziness. Further management outpatient . Hypotension: Thought to be related to dysautonomia, use of baclofen- baclofen doses adjusted And hypertension seems to be improved.further management outpatient. Patient also had Urinary infectionconcern- seen by infectious disease - recommended to continue doxycycline for 7 days. does self catheterization q.6 hours at home, here voiding? with external catheter??, further management outpatient as per PCP. COVID 19: Seems to be asymptomatic. Further management outpatient. Health Concerns: as above. Plan of Treatment: as above. Assessment: as above.
--- NOTE | 2021-12-30 10:06 | MHC.CM.PN ---
Patient has been medically cleared for dc to home today, self care.
--- NOTE | 2021-12-30 10:19 | MHC.CM.PN ---
Patient will dc to home today at 1PM, via [facility]; CM has confirmed with Patient's Sister/HCP/HUMAN RESOURCES OPERATIONS DIRECTOR/Cecilia at [phone], that this time works for her.
[2021-12-30 12:00] VITALS: BP 129/76; PULSE 87; RESP 20; TEMP 36.9; O2SAT 96
== END 2021-12-30 14:08 | disposition home or self-care (01) | DRG 463 ==
LOC: HO.ED 14:40 → HO.EDOVER 18:00 → HO.IMC 18:43
PROVIDERS: Internal Medicine; Admitting Provider Nurse Practitioner Acute Care; Emergency Provider Emergency Medicine; PCP Family Medicine; Visit Provider Internal Medicine
DX: N39.0 Urinary tract infection, site not specified (principal); U07.1 COVID-19; G82.20 Paraplegia, unspecified; I95.9 Hypotension, unspecified; K21.9 Gastro-esophageal reflux disease without esophagitis; G90.1 Familial dysautonomia [Riley-Day]; N31.9 Neuromuscular dysfunction of bladder, unspecified; Z87.440 Personal history of urinary (tract) infections; Z79.899 Other long term (current) drug therapy
CPT/HCPCS: 36415; 71045; 80048; 80053; 81001; 83605; 84484; 85025; 85027; 87040; 87086; 87635; 96365; 99285; 99291; 99292; J2185

== ENCOUNTER 2022-01-04 17:09 | Observation (INO) | payer MEDICAID, SELFPAY ==
[2022-01-04] VITALS (8 sets, daily range): BP systolic 59–125; BP diastolic 32–81; PULSE 52–109; RESP 10–21; TEMP 35.9–36.8; O2SAT 95–100; BMI 24.5
--- NOTE | ~2022-01-04 | XR_ITS ---
EXAMINATION: XR CHEST CLINICAL INFORMATION: Shortness of breath. COMPARISON: Chest radiograph dated from 12/26/2021. TECHNIQUE: Frontal view of the chest was obtained. FINDINGS: Normal appearance of the cardiomediastinal silhouette. Sternotomy wires are intact. No focal airspace opacities, pleural effusions or pneumothorax. No acute osseous abnormalities. EKG wires overlie the patient. The visualized upper abdomen is within normal limits. XR/XR chest 1V IMPRESSION: No acute cardiopulmonary findings.
--- NOTE | 2022-01-04 17:38 | ECG_ITS ---
Test Reason : HYPOTENSION/SEPSIS Blood Pressure : / mmHG Vent. Rate : 066 BPM Atrial Rate : 066 BPM P-R Int : 144 ms QRS Dur : 092 ms QT Int : 424 ms P-R-T Axes : 041 085 075 degrees QTc Int : 444 ms Normal sinus rhythm Possible Left atrial enlargement Early repolarization Borderline ECG When compared with ECG of 18-OCT-2021 15:40, No significant change was found Referred By: Gwendolyn Turner Electronically Signed By:CHRISTINA OVERTON
[2022-01-04] MEDS: 0.9 % Sodium Chloride 1,000 ML 999 ML IV ×2 (17:45→18:38)
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
[2022-01-04 18:05] LABS: MANUAL DIFF FLAG NO
[2022-01-04 18:07] LABS: Basophils Absolute Auto 0.1 X10*3/uL (0.0-0.2); Basophils Percent Auto 0.7 % (0-2); Eosinophils Absolute Auto 0.3 X10*3/uL (0.0-0.4); Eosinophils Percent Auto 3.4 % (0-4); Hematocrit 41.3 % (42.0-52.0); Hemoglobin 13.7 g/dl (14.0-18.0); Imm Gran Abs Auto 0.04 X10*3/uL (0.00-0.03); Imm Gran Pct Auto 0.5 % (0.0-0.4); Lymphocytes Absolute Auto 2.3 X10*3/uL (1.2-4.9); Lymphocytes Percent Auto 30.8 % (20-40); Mean Corpuscular HGB Conc 33.2 g/dl (31.0-36.0); Mean Corpuscular Volume 90.6 fL (80.0-98.0); Mean Platelet Volume 9.7 fL (9.4-12.4); Monocytes Absolute Auto 0.5 X10*3/uL (0.1-1.2); Monocytes Percent Auto 6.9 % (2-11); Neutrophils Absolute Auto 4.3 x10*3/uL (2.0-8.3); Neutrophils Percent Auto 57.7 % (45-73); Platelet Count 307 X10*3/uL (160-400); Red Blood Count 4.56 X10*6/uL (4.60-5.80); Red Cell Distribution Width 13.4 % (11.0-16.0); White Blood Count 7.4 X10*3/uL (4.8-10.8)
[2022-01-04 18:16] LABS: Lactic Acid 1.3 mmol/L (0.5-2.0)
--- NOTE | 2022-01-04 18:18 | PC.NURSE ---
Patient A&O x 4,responds appropriately to commands. mm pink and moist, cap refill <3 seconds. Patient placed in trendelenburg.
[2022-01-04 18:26] LABS: Troponin-I High Sensitivity < 3.5 ng/L (<3.5-35.0)
[2022-01-04 18:49] LABS: Anion Gap 9 (12-20); Blood Urea Nitrogen 14 mg/dL (9-16); Calcium 8.9 mg/dL (8.4-10.2); Carbon Dioxide 26 mmol/L (22-29); Chloride 108 mmol/L (96-108); Creatinine Clr Calc Pharmacy 86.1; Estimated Glomerular Filt Rate > 60; Glucose Random 100 mg/dL (60-115); Sodium 139 mmol/L (135-145)
[2022-01-04] MEDS: Ertapenem Sodium 1 GM in 0.9 % Sodium Chloride 50 ML IV (18:53)
[2022-01-04 18:54] LABS: COVID-19 Test Negative (Negative)
--- NOTE | 2022-01-04 18:55 | PC.NURSE ---
pt continues to be axox3. reports feeling slightly better, less weak, HOB now at 15%
[2022-01-04 19:26] LABS: Appearance Urine CLEAR; Color Urine YELLOW; Glucose Urine UA NEG (NEG); Leukocyte Esterase Urine NEG (NEG); Nitrite Urine NEG (NEG); Specific Gravity - Urine <= 1.005 (1.005-1.025); Urine Blood NEG (NEG); Urine Ketones NEG (NEG); Urine Protein NEG (NEG-TRACE)
[2022-01-04 19:37] LABS: Mucus Urine TRACE /LPF; RBC Urine 0-2 /HPF (0); Squamous Epithelial Cell Urine 1+ /LPF; WBC Urine 0-2 /HPF (0-4)
--- NOTE | 2022-01-04 20:33 | PC.NURSE ---
Assumed care of pt at 1900. Pt resting in bed, call light at hand, in NAD, vitals as charted. Awaiting inpatient bed assignment
--- NOTE | 2022-01-04 21:11 | PHA.MEDREC ---
Pharmacy Consult ? Medication Reconciliation Pharmacy has completed the medication reconciliation.
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
[2022-01-05] MEDS: Gabapentin 100 MG CAPSULE PO ×2 (00:10→07:56)
[2022-01-05] MEDS: Gabapentin 600 MG TABLET PO ×2 (00:11→07:56)
[2022-01-05] MEDS: Baclofen 10 MG TABLET PO ×2 (00:11→07:56)
[2022-01-05] MEDS: Sennosides 8.6 MG TABLET 17.2 MG PO (00:11)
[2022-01-05] MEDS: Enoxaparin Sodium 40 MG/0.4 ML SYRINGE SUBCUT (00:12)
[2022-01-05] MEDS: 0.9 % Sodium Chloride 1,000 ML 100 ML IVCONT ×2 (01:35→11:39)
[2022-01-05 01:36] VITALS: BP 132/81; PULSE 61; RESP 12; O2SAT 99
--- NOTE | 2022-01-05 01:38 | PC.NURSE ---
Pt transferred to hospital bed for comfort, vitals as charted, remains attached to manager cardiac. MD Negron notified additional doses of PM meds were needed. Medications administered as charted. Pt denies needs, no pain, call light at hand, encouraged to call for assistance
--- NOTE | 2022-01-05 05:24 | PC.NURSE ---
Report called to tyree RN. Pt to floor in on hospital bed, sent in stable condition w/ all belongings, attached to portable monitor
[2022-01-05 05:46] VITALS: BP 116/58; PULSE 69; RESP 20; TEMP 36; O2SAT 99
[2022-01-05] MEDS: Omeprazole 20 MG CAPSULE.DR PO (06:03)
[2022-01-05 06:20] LABS: MANUAL DIFF FLAG NO
[2022-01-05 06:27] LABS: Basophils Percent Auto 0.4 % (0-2); Eosinophils Absolute Auto 0.3 X10*3/uL (0.0-0.4); Hematocrit 37.4 % (42.0-52.0); Hemoglobin 12.2 g/dl (14.0-18.0); Imm Gran Abs Auto 0.03 X10*3/uL (0.00-0.03); Imm Gran Pct Auto 0.4 % (0.0-0.4); Lymphocytes Percent Auto 44.8 % (20-40); Mean Corpuscular HGB Conc 32.6 g/dl (31.0-36.0); Mean Corpuscular Hemoglobin 30.5 pg (27.0-33.0); Mean Corpuscular Volume 93.5 fL (80.0-98.0); Mean Platelet Volume 9.7 fL (9.4-12.4); Monocytes Absolute Auto 0.5 X10*3/uL (0.1-1.2); Monocytes Percent Auto 6.9 % (2-11); Neutrophils Absolute Auto 2.9 x10*3/uL (2.0-8.3); Neutrophils Percent Auto 43.5 % (45-73); Platelet Count 251 X10*3/uL (160-400); Red Cell Distribution Width 13.4 % (11.0-16.0); White Blood Count 6.7 X10*3/uL (4.8-10.8)
[2022-01-05 06:43] LABS: Anion Gap 9 (12-20); Blood Urea Nitrogen 13 mg/dL (9-16); Calcium 9.3 mg/dL (8.4-10.2); Carbon Dioxide 28 mmol/L (22-29); Chloride 110 mmol/L (96-108); Creatinine Clr Calc Pharmacy 125.9; Estimated Glomerular Filt Rate > 60; Glucose Random 84 mg/dL (60-115); Potassium 4.7 mmol/L (3.3-5.1); Sodium 142 mmol/L (135-145)
[2022-01-05] MEDS: Docusate Sodium 100 MG CAPSULE PO (07:55)
[2022-01-05] MEDS: Ascorbic Acid 500 MG TABLET PO (07:55)
[2022-01-05] MEDS: Multivitamin TABLET 1 TAB PO (07:56)
--- NOTE | 2022-01-05 09:58 | MHC.CM.PN ---
Addendum entered by Eugenie Burch 01/05/22 10:08: HCP ON FILE AND VERIFIED Original Note: PATIENT LIVES ALONE HE RELIES ON A WHEEL CHAIR AND [employer] DAYTIME [id number] AND NIGHT TIME [id number] PATIENT IS NOT COVID-19 VACCINATED (REPORTS HAVING CONTRACTED COVID-19 2X) HIS PCP IS RAMIREZ THURSTON. INFORMATION UPDATED IN ALLSCRIPTS TO CM OFFICE
--- NOTE | 2022-01-05 11:05 | MHC.CM.PN ---
PATIENT TO RETURN HOME TODAY WITH RESUMPTION OF HIS INDEPENDENT [facility] [employer] REQUEST[facility] FOR 1400. RN AWARE OF PLAN.
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
== END 2022-01-05 14:32 | disposition home or self-care (01) ==
LOC: HO.ED 17:43 → HO.EDOVER 23:05 → HO.S3 01-05 04:32
PROVIDERS: Admitting Provider Hospitalist; Emergency Provider Emergency Medicine Emergency Medical Services; PCP Family Medicine; Visit Provider Nurse Practitioner Acute Care
DX: E86.0 Dehydration (principal); I95.9 Hypotension, unspecified; R53.1 Weakness; G82.21 Paraplegia, complete; T14.8XXS Other injury of unspecified body region, sequela; W34.00XS Accidental discharge from unspecified firearms or gun, sequela; G90.1 Familial dysautonomia [Riley-Day]; I21.4 Non-ST elevation (NSTEMI) myocardial infarction; R56.9 Unspecified convulsions; D64.9 Anemia, unspecified; M86.9 Osteomyelitis, unspecified; Z20.822 Contact with and (suspected) exposure to COVID-19; Z87.891 Personal history of nicotine dependence; Z16.12 Extended spectrum beta lactamase (ESBL) resistance; T83.518A Infection and inflammatory reaction due to other urinary catheter, initial encounter; Z96.0 Presence of urogenital implants; Z86.16 Personal history of COVID-19; Z88.2 Allergy status to sulfonamides; Z88.1 Allergy status to other antibiotic agents; Z91.040 Latex allergy status; Z91.010 Allergy to peanuts; Z91.013 Allergy to seafood; Z79.899 Other long term (current) drug therapy
CPT/HCPCS: 36415; 71045; 80048; 81001; 83605; 84484; 85025; 87040; 87635; 93005; 96361; 96365; 96372; 99218; 99285; 99291; J1335; J1650

== ENCOUNTER → 2022-01-15 11:07 | Outpatient (BNVA) | payer MEDICAID, SELFPAY | PROVIDERS: PCP Family Medicine; Referring Provider Family Medicine; Visit Provider Nurse Practitioner Family | DX: K59.09 Other constipation (principal) | CPT/HCPCS: 99202 ==

== ENCOUNTER 2022-01-18 12:20 | Observation (INO) | payer MEDICAID, SELFPAY ==
[2022-01-18] VITALS (13 sets, daily range): BP systolic 88–222; BP diastolic 47–119; PULSE 59–102; RESP 10–24; TEMP 36.4–37; O2SAT 93–99; BMI 26.5
--- NOTE | ~2022-01-18 | CT_ITS ---
EXAMINATION: CT ABDOMEN AND PELVIS WITH CONTRAST CLINICAL INFORMATION: Left lower quadrant abdominal pain. Chills. Dysuria. COMPARISON: 10/18/2021 TECHNIQUE: Multidetector volumetric images were obtained from the superior aspect of the liver through the pubic symphysis following administration 85 mL of Omnipaque 350 intravenous contrast. Sagittal and coronal reformatted images were obtained on the technologist's workstation. Oral contrast: No This CT examination was performed using dose optimization techniques as appropriate, variously including the following: *Automated exposure control *Adjustment of mA and/or kV according to patient size (this includes techniques or standardized protocols for targeted exams where dose is matched to indication/reason for exam; i.e. extremities or head) *Use of iterative reconstruction technique DLP: 564 mGy-cm FINDINGS: LUNG BASES: The visualized lung bases are unremarkable. LIVER, GALLBLADDER, AND BILIARY TREE: The liver is normal in size, shape, and attenuation. No focal hepatic lesion or biliary ductal dilatation is present. The gallbladder is unremarkable with no evidence of radiopaque gallstones, gallbladder wall thickening, or obvious pericholecystic inflammatory changes. PANCREAS: Unremarkable. SPLEEN: Unremarkable. ADRENAL GLANDS: Unremarkable. KIDNEYS AND URETERS: The kidneys are normal in size, shape, and attenuation. No hydronephrosis, hydroureter, or calculi seen. No perinephric stranding. There is a 0.9 cm hypoattenuating structure at the upper pole of the left kidney, too small to fully characterize. BLADDER: Catheter in place. Partially distended with circumferential wall thickening. GASTROINTESTINAL TRACT: The stomach is unremarkable. Normal caliber small bowel. No obstruction. Normal appendix. No colonic wall thickening or inflammatory change. No free air or free fluid. ABDOMINAL WALL: No significant hernia is appreciated. LYMPH NODES: Normal. VASCULAR: Unremarkable. PELVIC VISCERA: The prostate and seminal vesicles are unremarkable. OSSEOUS STRUCTURES: No acute or suspicious osseous abnormality. Degenerative changes of the lower lumbar spine. Advanced degenerative changes at both hips. CT/CT abdomen pelvis w con IMPRESSION: Circumferential bladder wall thickening noted. This could be in part secondary to underdistention, though cystitis is possible. Otherwise no acute findings of the abdomen or pelvis. Fleischner guidelines were followed.
[2022-01-18 13:22] LABS: MANUAL DIFF FLAG NO
[2022-01-18] MEDS: 0.9 % Sodium Chloride 1,000 ML 999 ML IV ×2 (13:22→15:56)
[2022-01-18 13:26] LABS: Basophils Percent Auto 0.5 % (0-2); Eosinophils Absolute Auto 0.1 X10*3/uL (0.0-0.4); Eosinophils Percent Auto 1.9 % (0-4); Hematocrit 40.1 % (42.0-52.0); Hemoglobin 13.4 g/dl (14.0-18.0); Imm Gran Abs Auto 0.02 X10*3/uL (0.00-0.03); Imm Gran Pct Auto 0.3 % (0.0-0.4); Lymphocytes Absolute Auto 1.5 X10*3/uL (1.2-4.9); Lymphocytes Percent Auto 20.5 % (20-40); Mean Corpuscular HGB Conc 33.4 g/dl (31.0-36.0); Mean Corpuscular Hemoglobin 30.6 pg (27.0-33.0); Mean Corpuscular Volume 91.6 fL (80.0-98.0); Mean Platelet Volume 9.8 fL (9.4-12.4); Monocytes Absolute Auto 0.5 X10*3/uL (0.1-1.2); Monocytes Percent Auto 7.2 % (2-11); Neutrophils Absolute Auto 5.2 x10*3/uL (2.0-8.3); Neutrophils Percent Auto 69.6 % (45-73); Platelet Count 271 X10*3/uL (160-400); Red Blood Count 4.38 X10*6/uL (4.60-5.80); Red Cell Distribution Width 13.1 % (11.0-16.0); White Blood Count 7.5 X10*3/uL (4.8-10.8)
--- NOTE | 2022-01-18 13:31 | PC.NURSE ---
when layed flat for straight cath patient began to state he started to get a headache, leg tremors also noted. BP increased to 222/119. Patient sat back up and headache and blood pressure improved.
[2022-01-18 13:38] LABS: COVID-19 Test Negative (Negative)
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
[2022-01-18 13:40] LABS: Alanine Aminotransferase 20 U/L (0-40); Albumin Level 4.2 g/dL (3.5-5.0); Alkaline Phosphatase 96 U/L (39-117); Anion Gap 11 (12-20); Aspartate Amino Transferase 19 U/L (5-37); Bilirubin Direct 0.2 mg/dL (0.0-0.5); Bilirubin Total 0.6 mg/dL (0.0-1.0); Blood Urea Nitrogen 11 mg/dL (9-16); Carbon Dioxide 29 mmol/L (22-29); Chloride 104 mmol/L (96-108); Creatinine Clr Calc Pharmacy 101.8; Estimated Glomerular Filt Rate > 60; Glucose Random 100 mg/dL (60-115); Lipase 41 U/L (8-78); Potassium 3.8 mmol/L (3.3-5.1); Sodium 140 mmol/L (135-145); Total Protein 7.9 g/dL (6.5-8.0)
[2022-01-18 13:53] LABS: Appearance Urine CLOUDY; Color Urine YELLOW; Glucose Urine UA NEG (NEG); Leukocyte Esterase Urine 2+ (NEG); Nitrite Urine POS (NEG); Specific Gravity - Urine 1.025 (1.005-1.025); UACC Culture Trigger YES; Urine Blood TRACE (NEG); Urine Ketones NEG (NEG); Urine Protein 2+ MG/DL (NEG-TRACE)
[2022-01-18 14:12] LABS: Bacteria Urine 2+ /LPF; Squamous Epithelial Cell Urine 2+ /LPF; WBC Urine TNTC /HPF (0-4)
[2022-01-18 14:13] LABS: WBC Clumps Urine NOTED
[2022-01-18] MEDS: iohexoL 350 MG/ML 100 ML INFUS..BTL IV (14:32)
--- NOTE | 2022-01-18 15:45 | PHA.MEDREC ---
Pharmacy Consult ? Medication Reconciliation Pharmacy has completed the medication reconciliation.
[2022-01-18] MEDS: Ertapenem Sodium 1 GM in 0.9 % Sodium Chloride 50 ML IV (15:51)
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
--- NOTE | 2022-01-18 20:54 | PC.NURSE ---
PT found to be wet with urine in bed. This RN noticed that PT was leaking urine around [place] cath. Cath replaced and linens changed prior to PT being transferred to med surg.
[2022-01-18] MEDS: Gabapentin 600 MG TABLET PO (21:20)
[2022-01-18] MEDS: 0.9 % Sodium Chloride Flush 3 ML SYRINGE IVFLUSH (21:20)
[2022-01-18] MEDS: Docusate Sodium 100 MG CAPSULE PO (21:20)
[2022-01-18] MEDS: Baclofen 10 MG TABLET PO (21:20)
[2022-01-18] MEDS: Gabapentin 100 MG CAPSULE PO (21:20)
[2022-01-19] MEDS: traMADoL HCL 50 MG TABLET PO (00:01)
[2022-01-19 03:44] VITALS: BP 113/69; PULSE 64; RESP 17; TEMP 36.9; O2SAT 98
[2022-01-19 05:49] LABS: Hematocrit 37.4 % (42.0-52.0); Hemoglobin 12.2 g/dl (14.0-18.0); Mean Corpuscular HGB Conc 32.6 g/dl (31.0-36.0); Mean Corpuscular Hemoglobin 30.2 pg (27.0-33.0); Mean Corpuscular Volume 92.6 fL (80.0-98.0); Mean Platelet Volume 10.1 fL (9.4-12.4); Platelet Count 201 X10*3/uL (160-400); Red Blood Count 4.04 X10*6/uL (4.60-5.80); Red Cell Distribution Width 13.2 % (11.0-16.0); White Blood Count 5.8 X10*3/uL (4.8-10.8)
[2022-01-19] MEDS: Omeprazole 20 MG CAPSULE.DR PO (05:57)
[2022-01-19 06:03] LABS: Anion Gap 11 (12-20); Blood Urea Nitrogen 7 mg/dL (9-16); Calcium 9.4 mg/dL (8.4-10.2); Carbon Dioxide 27 mmol/L (22-29); Chloride 107 mmol/L (96-108); Creatinine Clr Calc Pharmacy 122.5; Estimated Glomerular Filt Rate > 60; Glucose Fasting 74 mg/dL (60-99); Potassium 4.2 mmol/L (3.3-5.1); Sodium 141 mmol/L (135-145)
[2022-01-19] MEDS: Gabapentin 100 MG CAPSULE PO ×3 (07:29→20:11)
[2022-01-19] MEDS: Gabapentin 600 MG TABLET PO ×3 (07:29→20:11)
[2022-01-19] MEDS: Baclofen 10 MG TABLET PO ×3 (07:29→20:11)
[2022-01-19] MEDS: Docusate Sodium 100 MG CAPSULE PO ×2 (07:29→20:11)
[2022-01-19] MEDS: Multivitamin TABLET 1 TAB PO (07:30)
[2022-01-19] MEDS: 0.9 % Sodium Chloride Flush 3 ML SYRINGE IVFLUSH ×3 (07:30→20:12)
[2022-01-19] MEDS: Ascorbic Acid 500 MG TABLET PO (07:30)
[2022-01-19 07:50] VITALS: BP 130/70; PULSE 65; RESP 18; TEMP 36.4; O2SAT 98
[2022-01-19] MEDS: Enoxaparin Sodium 40 MG/0.4 ML SYRINGE SUBCUT (09:25)
[2022-01-19 11:29] VITALS: BP 93/55; PULSE 93; RESP 18; TEMP 36.4; O2SAT 95
--- NOTE | 2022-01-19 11:44 | HO.PM.IMPN ---
Subjective Subjective Date of Service: 01/19/22 Interval History: cc: leg burning interval history: improved Respiratory Respiratory: Reports no additional respiratory complaints Gastrointestinal Gastrointestinal: Reports no additional gastrointestinal complaints Physical Exam Vital Signs: Vital Signs: Last Vital Signs Temp 97.5 F 01/19/22 11:29 Pulse 93 01/19/22 11:29 Resp 18 01/19/22 11:29 BP 93/55 L 01/19/22 11:29 Pulse Ox 95 01/19/22 11:29 BMI result Body Mass Index 26.5 General: AO X 3, no acute distress Resp: CTA bilateral, no accessory muscles used CVS: S1,S2,RRR GI: soft, non tender, non distended Neuro: paraplegia Psych: appropriate affect, appropriate insight Objective Data Active Medications Ascorbic Acid (Ascorbic Acid 500 Mg Tablet) 500 mg PO DAILY [facility] Last Admin: 01/19/22 07:30 Dose: 500 mg Documented by: FRANSISCA Baclofen (Baclofen 10 Mg Tablet) 10 mg PO TID [facility] Last Admin: 01/19/22 07:29 Dose: 10 mg Documented by: FRANSISCA Docusate Sodium (Docusate Sodium 100 Mg Capsule) 100 mg PO BID [facility] Last Admin: 01/19/22 07:29 Dose: 100 mg Documented by: FRANSISCA Enoxaparin Sodium (Enoxaparin Sodium 40 Mg/0.4 Ml Syringe) 40 mg SUBCUT Q24H [facility] Last Admin: 01/19/22 09:25 Dose: 40 mg Documented by: FRANSISCA Gabapentin (Gabapentin 600 Mg Tablet) 600 mg PO TID [facility] Last Admin: 01/19/22 07:29 Dose: 600 mg Documented by: FRANSISCA Gabapentin (Gabapentin 100 Mg Capsule) 100 mg PO TID [facility] Last Admin: 01/19/22 07:29 Dose: 100 mg Documented by: FRANSISCA Meropenem 1 gm/ Sodium (Chloride) 100 mls @ 200 mls/hr IV Q8H [facility] Last Infusion: 01/19/22 08:11 Dose: 0 mls/hr Documented by: FRANSISCA Multivitamins/Vitamin C (Multivitamin Tablet) 1 tab PO DAILY [facility] Last Admin: 01/19/22 07:30 Dose: 1 tab Documented by: FRANSISCA Omeprazole (Omeprazole 20 Mg Capsule.) 20 mg PO DAILY@0630 [facility] Last Admin: 01/19/22 05:57 Dose: 20 mg Documented by: SUSANNA Pharmacy Consult (Consult Rx Perform Med Rec) 1 each MISCELLANE ONCE PRN PRN Reason: Consult order Sodium Chloride (0.9 % Sodium Chloride Flush 3 Ml Syringe) 3 ml IVFLUSH QSHIFT [facility] Last Admin: 01/19/22 07:30 Dose: 3 ml Documented by: FRANSISCA Tramadol HCl (Tramadol Hcl 50 Mg Tablet) 50 mg PO Q6H PRN PRN Reason: Breakthrough Pain Last Admin: 01/19/22 00:01 Dose: 50 mg Documented by: SUSANNA Labs CBC & Chem 7: 01/19/22 05:24 01/19/22 05:24 Labs: Laboratory Results - last 24 hr 01/18/22 01/18/22 01/18/22 13:15 13:16 13:16 MCV 91.6 MCH 30.6 MCHC 33.4 RDW 13.1 Plt Count 271 MPV 9.8 Immature Gran % (Auto) 0.3 Neut % (Auto) 69.6 Lymph % (Auto) 20.5 [place] % (Auto) 7.2 Eos % (Auto) 1.9 Baso % (Auto) 0.5 Lymph # (Auto) 1.5 [place] # (Auto) 0.5 Eos # (Auto) 0.1 Baso # (Auto) 0.0 Abs Immat Gran (auto) 0.02 Absolute Neuts (auto) 5.2 Absolute Nucleated RBC 0.000 Nucleated RBC % (auto) 0.0 Anion Gap 11 L Estim Creat Clear Calc 101.8 Estimated GFR > 60 Random Glucose 100 Fasting Glucose Lactic Acid 2.0 Calcium 10.0 D Total Bilirubin 0.6 Direct Bilirubin 0.2 AST 19 ALT 20 Alkaline Phosphatase 96 Total Protein 7.9 Albumin 4.2 Lipase 41 Urine Color Urine Appearance Urine pH Ur Specific [place] Urine Protein Urine Glucose (UA) Urine Ketones Urine Blood Urine Nitrite Ur Leukocyte Esterase Urine RBC Urine WBC Urine WBC Clumps Ur Squamous Epith Cells Urine Bacteria COVID-19 (ELISABETH) COVID-19 Clin Com 01/18/22 01/18/22 01/19/22 13:16 13:30 05:24 MCV 92.6 MCH 30.2 MCHC 32.6 RDW 13.2 Plt Count 201 D MPV 10.1 Immature Gran % (Auto) Neut % (Auto) Lymph % (Auto) [place] % (Auto) Eos % (Auto) Baso % (Auto) Lymph # (Auto) [place] # (Auto) Eos # (Auto) Baso # (Auto) Abs Immat Gran (auto) Absolute Neuts (auto) Absolute Nucleated RBC 0.000 Nucleated RBC % (auto) 0.0 Anion Gap Estim Creat Clear Calc Estimated GFR Random Glucose Fasting Glucose Lactic Acid Calcium Total Bilirubin Direct Bilirubin AST ALT Alkaline Phosphatase Total Protein Albumin Lipase Urine Color YELLOW Urine Appearance CLOUDY Urine pH 7.0 Ur Specific [place] 1.025 Urine Protein 2+ H Urine Glucose (UA) NEG Urine Ketones NEG Urine Blood TRACE Urine Nitrite POS H Ur Leukocyte Esterase 2+ H Urine RBC 5-9 H Urine WBC TNTC H Urine WBC Clumps NOTED Ur Squamous Epith Cells 2+ Urine Bacteria 2+ COVID-19 (ELISABETH) Negative COVID-19 Clin Com See Note 01/19/22 05:24 MCV MCH MCHC RDW Plt Count MPV Immature Gran % (Auto) Neut % (Auto) Lymph % (Auto) [place] % (Auto) Eos % (Auto) Baso % (Auto) Lymph # (Auto) [place] # (Auto) Eos # (Auto) Baso # (Auto) Abs Immat Gran (auto) Absolute Neuts (auto) Absolute Nucleated RBC Nucleated RBC % (auto) Anion Gap 11 L Estim Creat Clear Calc 122.5 Estimated GFR > 60 Random Glucose Fasting Glucose 74 Lactic Acid Calcium 9.4 Total Bilirubin Direct Bilirubin AST ALT Alkaline Phosphatase Total Protein Albumin Lipase Urine Color Urine Appearance Urine pH Ur Specific [place] Urine Protein Urine Glucose (UA) Urine Ketones Urine Blood Urine Nitrite Ur Leukocyte Esterase Urine RBC Urine WBC Urine WBC Clumps Ur Squamous Epith Cells Urine Bacteria COVID-19 (ELISABETH) COVID-19 Clin Com Assessment and Plan (1) Dizziness: Status: Acute (2) Acute UTI: Status: Acute (3) Dysautonomia: Status: Acute Plan 31-year-old male presented with leg burning, found to have positive UA UTI in patient with history of ESBL Klebsiella who self catheterizes IV meropenem Follow-up cultures follow up ID [place] fluctuating BPs monitor will tolerate higher BPs to avoid hypotension Paraplegia Self catheterization Baclofen Gabapentin Quality Stroke Does the patient have a stroke diagnosis?: No VTE Prior VTE?: No VTE Risk Level:: Medical - moderate - high VTE Device Contraindication: Treatment Not Indicated VTE Drug Contraindication: N/A - Med Ordered
--- NOTE | 2022-01-19 12:08 | MHC.CM.PN ---
PATIENT LIVES ALONE. HE RELIES ON HIS WHEEL CHAIR FOR MOBILIZATION PCP IS STILL RAMIREZ THURSTON. CASE MANAGEMENT FOLLOWING FOR DC NEEDS.
[2022-01-19 15:47] VITALS: BP 103/62; PULSE 73; RESP 16; TEMP 37; O2SAT 98
[2022-01-19 19:29] VITALS: BP 91/52; PULSE 97; RESP 16; TEMP 36.8; O2SAT 98
[2022-01-19 23:58] VITALS: BP 111/64; PULSE 78; RESP 16; TEMP 36.7; O2SAT 97
[2022-01-20] MEDS: traMADoL HCL 50 MG TABLET PO (00:13)
[2022-01-20 03:52] VITALS: BP 91/55; PULSE 81; RESP 16; TEMP 36.5; O2SAT 97
[2022-01-20] MEDS: Omeprazole 20 MG CAPSULE.DR PO (05:50)
[2022-01-20] MEDS: Multivitamin TABLET 1 TAB PO (07:16)
[2022-01-20] MEDS: Docusate Sodium 100 MG CAPSULE PO (07:16)
[2022-01-20] MEDS: Enoxaparin Sodium 40 MG/0.4 ML SYRINGE SUBCUT (07:16)
[2022-01-20] MEDS: Baclofen 10 MG TABLET PO (07:17)
[2022-01-20] MEDS: Gabapentin 600 MG TABLET PO (07:17)
[2022-01-20] MEDS: Gabapentin 100 MG CAPSULE PO (07:17)
[2022-01-20] MEDS: Ascorbic Acid 500 MG TABLET PO (07:17)
[2022-01-20] MEDS: 0.9 % Sodium Chloride Flush 3 ML SYRINGE IVFLUSH (07:21)
[2022-01-20 07:41] VITALS: BP 108/63; PULSE 74; RESP 17; TEMP 36.3; O2SAT 98
--- NOTE | 2022-01-20 09:28 | PM.DS ---
DS: Providers Provider Date of Service: 01/20/22 Date of admission: 01/18/22 16:34 Primary care physician: Trudy Sams MD Consults: 01/18/22 15:33 Consult to Infectious Diseases Routine Consulting Provider: Lizeth Bains Reason for consultation: MDR 01/18/22 16:33 Consult to Infectious Diseases Routine Consulting Provider: Lizeth Bains Reason for consultation: recurrent UTI, resistent organisms in past, self caths DS: Diagnosis Discharge Diagnosis (1) Dizziness: Status: Acute (2) Acute UTI: Status: Acute (3) Dysautonomia: Status: Acute DS: Summary Hospital Course Hospital Course: patient was amditted for UTI with concern for MDR organisms. he was empirically treated with meropenem. urince culture ended up growing klebsiella sensitive to cephalosporins. he will be discharged on 5 more days ceftin. Time Spent with Patient Time attestation: Total time spent providing and/or coordinating discharge services: Discharge coordination time: Greater than 30 minutes Quality: Stroke Does the patient have a stroke diagnosis?: No Physical Exam Vital Signs: Vital Signs: Last Vital Signs Temp 97.3 F 01/20/22 07:41 Pulse 74 01/20/22 07:41 Resp 17 01/20/22 07:41 BP 108/63 01/20/22 07:41 Pulse Ox 98 01/20/22 07:41 BMI result Body Mass Index 26.5 General: AO X 3, no acute distress Resp:? CTA bilateral, no accessory muscles used CVS: S1,S2,RRR GI: soft, non tender, non distended Neuro:? paraplegia Psych: appropriate affect, appropriate insight? DS: Data Data Completed and Pending Completed studies during hospitalization [Text1]: Procedures Change Pressure Dressing on Back (01/19/21) Insertion of Infusion Device into Right Basilic Vein, Percutaneous Approach (06/17/21) Labs on day of discharge: Preliminary micro results at discharge 01/18/22 14:07 Blood Culture - Preliminary Blood - Venous No growth after 24 hours. 01/18/22 13:15 Blood Culture - Preliminary Blood - Venous No growth after 24 hours. Discharge Plan Discharge Patient Disposition: Home, Self-Care Discharge Diagnosis: uti Referrals: Trudy Sams MD [Primary Care Provider] - 1 Week Discharge Medications: New cefuroxime axetil 500 mg tablet 500 mg PO BID Qty: 10 0RF Continued multivitamin Tablet 1 tab PO DAILY 0RF gabapentin 600 mg tablet 1 tab PO TID 0RF Rx Instructions: take with gabapentin 100 mg omeprazole 20 mg capsule,delayed release(DR/EC) 1 cap PO DAILY 0RF gabapentin 100 mg capsule 1 cap PO TID 0RF docusate sodium 100 mg capsule 100 mg PO BID 0RF ascorbic acid (vitamin C) [Vitamin C] 500 mg Tablet 500 mg PO DAILY Qty: 30 0RF baclofen 10 mg tablet 1 tab PO TID 0RF Discharge Orders: Discharge Order (Routine); Ordered 01/20/22 Ordered By: Benedicto Childers Diet: advance to usual diet Activity on Discharge: As tolerated Stand Alone Forms: Patient Portal Discharge page Care Plan Goals: recovery Health Concerns: uti Plan of Treatment: ceftin 5 more days Assessment: see above
--- NOTE | 2022-01-20 09:58 | MHC.CM.PN ---
Addendum entered by Preethi Singh 01/20/22 10:57: CORRECTION: PT WILL BE TRANSPORTED VIA BLS DUE TO PARAPLEGIA Original Note: PT TO DC HOME TODAY WITH NO SERVICES PT TO SELF ARRANGE TRANSPORT
== END 2022-01-20 11:56 | disposition home or self-care (01) ==
LOC: HO.ED 16:12 → HO.EDOVER 17:03 → HO.S3 19:40
PROVIDERS: Physician Assistant; Admitting Provider Internal Medicine; Emergency Provider Emergency Medicine; PCP Family Medicine; Visit Provider Internal Medicine
DX: E86.0 Dehydration (principal); I95.9 Hypotension, unspecified; N39.0 Urinary tract infection, site not specified; B96.1 Klebsiella pneumoniae [K. pneumoniae] as the cause of diseases classified elsewhere; T83.511A Infection and inflammatory reaction due to indwelling urethral catheter, initial encounter; R42 Dizziness and giddiness; G90.1 Familial dysautonomia [Riley-Day]; R51.9 Headache, unspecified; N48.89 Other specified disorders of penis; N31.2 Flaccid neuropathic bladder, not elsewhere classified; R10.32 Left lower quadrant pain; R68.83 Chills (without fever); R30.0 Dysuria; I21.4 Non-ST elevation (NSTEMI) myocardial infarction; J45.30 Mild persistent asthma, uncomplicated; G82.20 Paraplegia, unspecified; G40.409 Other generalized epilepsy and epileptic syndromes, not intractable, without status epilepticus; Z87.891 Personal history of nicotine dependence; Z20.822 Contact with and (suspected) exposure to COVID-19; Z96.0 Presence of urogenital implants; Z16.12 Extended spectrum beta lactamase (ESBL) resistance; Z91.040 Latex allergy status; Z91.010 Allergy to peanuts; Z91.013 Allergy to seafood; Z88.1 Allergy status to other antibiotic agents; Z88.2 Allergy status to sulfonamides; Z79.899 Other long term (current) drug therapy
CPT/HCPCS: 36415; 74177; 80048; 80076; 81001; 81003; 83605; 83690; 85025; 85027; 87040; 87086; 87088; 87186; 87635; 96361; 96365; 96372; 99218; 99285; J1335; J1650; J2185; Q9967

== ENCOUNTER 2022-03-01 15:31 | Inpatient (IN) | payer MEDICAID, SELFPAY ==
[2022-03-01] VITALS (7 sets, daily range): BP systolic 84–138; BP diastolic 50–87; PULSE 70–124; RESP 16–18; TEMP 36.7–37.1; O2SAT 96–98; BMI 24.5
--- NOTE | ~2022-03-01 | US_ITS ---
EXAMINATION: US RETROPERITONEAL LIMITED (RENAL ONLY) CLINICAL INFORMATION: Urinary tract infection. COMPARISON: CT 01/18/2022 TECHNIQUE: Real-time imaging of the kidneys. FINDINGS: RIGHT KIDNEY: 9.2 x 4.3 x 4.5 cm (SAG x AP x TRV). The kidney is normal in size, contour, and echogenicity. Renal cortical thickness is normal. No calculi or focal parenchymal lesions. No hydronephrosis. LEFT KIDNEY: 9.3 x 5.5 x 4.8 cm (SAG x AP x TRV). The kidney is normal in size, contour, and echogenicity. Renal cortical thickness is normal. Two 4 mm echogenic foci are seen in the left mid kidney although there were no calculi on the recent prior CT scan 01/18/2022. No parenchymal lesions. No hydronephrosis. US/US renal BI IMPRESSION: No hydronephrosis. Two 4 mm echogenic foci are seen in the left mid kidney although there were no calculi on the recent prior CT scan 01/18/2022.
--- NOTE | ~2022-03-01 | CT_ITS ---
EXAMINATION: CT ABDOMEN AND PELVIS WITHOUT CONTRAST CLINICAL INFORMATION: Abdominal pain. COMPARISON: Renal ultrasound done earlier today at 9:[address] abdomen/pelvis dated from 01/18/2022. TECHNIQUE: Multidetector volumetric imaging was performed from the superior aspect of the liver through the pubic symphysis. Sagittal and coronal reformatted images were obtained on the technologist's workstation. This CT examination was performed using dose optimization techniques as appropriate, variously including the following: *Automated exposure control. *Adjustment of mA and/or kV according to patient size (this includes techniques or standardized protocols for targeted exams where dose is matched to indication/reason for exam; i.e. extremities or head). *Use of iterative reconstruction technique. DLP: 75 mGy-cm FINDINGS: LUNG BASES: The visualized lung bases are unremarkable. LIVER, GALLBLADDER, AND BILIARY TREE: The liver is normal in size, shape, and attenuation. No focal hepatic lesion or biliary ductal dilatation is present. The gallbladder is unremarkable with no evidence of radiopaque gallstones, gallbladder wall thickening, or obvious pericholecystic inflammatory changes. PANCREAS: Unremarkable. SPLEEN: Unremarkable. 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 Normal appearance of the adrenal glands. KIDNEYS AND URETERS: The kidneys are normal in size, shape, and attenuation. Aside from a punctate calculus in the upper pole of the right kidney (17:52), no other renal calculi identified. No hydronephrosis or nephrolithiasis. No perinephric stranding. BLADDER: Chronic mild urinary bladder wall thickening. GASTROINTESTINAL TRACT: Nonspecific gastric distention with air-fluid levels and hyperattenuating debris. The small bowel is nondilated. There is a normal appendix. There are no pericolonic inflammatory changes or evidence of bowel obstruction. There is qyvyadui-fj-hjweo stool burden throughout the colon and rectum. ABDOMINAL WALL: No significant hernia. LYMPH NODES: No lymphadenopathy by size criteria. VASCULAR: Unremarkable. PELVIC VISCERA: Unremarkable. OSSEOUS STRUCTURES: No acute or aggressive-appearing osseous abnormalities. Thoracolumbar spondylosis. 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 CT/CT abdomen pelvis wo con IMPRESSION: 1. Large amount of stool burden in the colon and rectum suggesting constipation. 2. Punctate non-obstructive calculus in the upper pole of the right kidney. 3. Chronic mild urinary bladder wall thickening.
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
--- NOTE | 2022-03-01 17:51 | PC.NURSE ---
this nurse has attempted x2 to obtain iv access, charge nurse was notified and we are attempting to gain access. provider is aware pt has not had gotten access as of yet.
[2022-03-01 18:05] LABS: Appearance Urine HAZY; Color Urine DK YELLOW; Glucose Urine UA NEG (NEG); Leukocyte Esterase Urine 2+ (NEG); Nitrite Urine NEG (NEG); PH 6.5 (5.0-8.0); UACC Culture Trigger YES; Urine Blood NEG (NEG); Urine Ketones 15 MG/DL (NEG); Urine Protein 1+ MG/DL (NEG-TRACE)
[2022-03-01 18:08] LABS: MANUAL DIFF FLAG NO
[2022-03-01 18:10] LABS: Basophils Percent Auto 0.5 % (0-2); Eosinophils Absolute Auto 0.1 X10*3/uL (0.0-0.4); Eosinophils Percent Auto 1.9 % (0-4); Hematocrit 39.7 % (42.0-52.0); Hemoglobin 13.4 g/dl (14.0-18.0); Imm Gran Abs Auto 0.01 X10*3/uL (0.00-0.03); Imm Gran Pct Auto 0.2 % (0.0-0.4); Lymphocytes Absolute Auto 1.8 X10*3/uL (1.2-4.9); Lymphocytes Percent Auto 28.5 % (20-40); Mean Corpuscular HGB Conc 33.8 g/dl (31.0-36.0); Mean Corpuscular Hemoglobin 30.4 pg (27.0-33.0); Mean Platelet Volume 9.8 fL (9.4-12.4); Monocytes Absolute Auto 0.4 X10*3/uL (0.1-1.2); Monocytes Percent Auto 5.7 % (2-11); Neutrophils Percent Auto 63.2 % (45-73); Platelet Count 212 X10*3/uL (160-400); Red Blood Count 4.41 X10*6/uL (4.60-5.80); Red Cell Distribution Width 12.8 % (11.0-16.0); White Blood Count 6.3 X10*3/uL (4.8-10.8)
[2022-03-01 18:20] LABS: Lactic Acid 1.6 mmol/L (0.5-2.0)
[2022-03-01 18:24] LABS: Alanine Aminotransferase 18 U/L (0-40); Albumin Level 4.1 g/dL (3.5-5.0); Alkaline Phosphatase 86 U/L (39-117); Anion Gap 12 (12-20); Aspartate Amino Transferase 17 U/L (5-37); Bilirubin Direct 0.2 mg/dL (0.0-0.5); Bilirubin Total 0.4 mg/dL (0.0-1.0); Blood Urea Nitrogen 16 mg/dL (9-16); Calcium 9.6 mg/dL (8.4-10.2); Carbon Dioxide 23 mmol/L (22-29); Chloride 110 mmol/L (96-108); Creatinine Clr Calc Pharmacy 77.3; Estimated Glomerular Filt Rate > 60; Glucose Random 144 mg/dL (60-115); Magnesium 2.3 mg/dL (1.6-2.6); Potassium 4.3 mmol/L (3.3-5.1); Sodium 141 mmol/L (135-145); Total Protein 7.5 g/dL (6.5-8.0)
[2022-03-01 18:36] LABS: Bacteria Urine 3+ /LPF; Squamous Epithelial Cell Urine 1+ /LPF; WBC Urine 30-49 /HPF (0-4)
[2022-03-01] MEDS: Ertapenem Sodium 1 GM in 0.9 % Sodium Chloride 50 ML IV (19:06)
--- NOTE | 2022-03-01 20:11 | PC.NURSE ---
patient currently sleeping, compliance monitor nsr, pts ivf continue to run, call cm within reach, will continue to monitor
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
--- NOTE | 2022-03-01 22:06 | PHA.MEDREC ---
Pharmacy Consult ? Medication Reconciliation Pharmacy has completed the medication reconciliation.
[2022-03-01] MEDS: Dextrose 5 % and 0.9 % NaCl 1,000 ML 100 ML IVCONT (22:23)
[2022-03-01] MEDS: Enoxaparin Sodium 40 MG/0.4 ML SYRINGE SUBCUT (22:24)
[2022-03-01] MEDS: HYDROmorphone HCl 1 MG/ML SYRINGE 0.6 MG IVPUSH (22:45)
--- NOTE | 2022-03-01 22:46 | PC.NURSE ---
patient medicated for pain per order, taken to ct scan
--- NOTE | 2022-03-01 23:16 | PC.NURSE ---
pt to overflow, attempted to give report no answer on overflow
[2022-03-01 23:28] LABS: COVID-19 Test Negative (Negative); IDNOW Serial# 55D5AD1C
--- NOTE | 2022-03-01 23:44 | PC.NURSE ---
PATIENT CAME TO OVER TO ED OVER FLOW ,PATIENT WAS CHANGE INTO HOSPITAL ATTIRE ,VITALS WAS TAKEN AND PATIENT HOOKED UP TO LABORATORY GENETICIST ,PATIENT ON PHONE TALKING TO FAMILY .
[2022-03-02] VITALS (7 sets, daily range): BP systolic 105–137; BP diastolic 76–89; PULSE 44–100; RESP 11–20; TEMP 36.2–37.1; O2SAT 96–99
[2022-03-02] MEDS: Gabapentin 600 MG TABLET PO ×4 (01:15→20:22)
[2022-03-02] MEDS: Gabapentin 100 MG CAPSULE PO ×4 (01:15→20:21)
--- NOTE | 2022-03-02 01:22 | PC.NURSE ---
patient was inconient of large amount of urine ,care was given and bedding was change .
[2022-03-02] MEDS: Baclofen 10 MG TABLET PO ×4 (01:38→20:21)
[2022-03-02 04:35] LABS: CT PCR NOT DETECTED (Not Detect.); NG PCR NOT DETECTED (Not Detect.)
[2022-03-02] MEDS: Omeprazole 20 MG CAPSULE.DR PO (05:57)
[2022-03-02 07:51] LABS: MANUAL DIFF FLAG NO
[2022-03-02 07:54] LABS: Basophils Percent Auto 0.4 % (0-2); Eosinophils Absolute Auto 0.1 X10*3/uL (0.0-0.4); Eosinophils Percent Auto 2.4 % (0-4); Hemoglobin 11.7 g/dl (14.0-18.0); Imm Gran Abs Auto 0.01 X10*3/uL (0.00-0.03); Imm Gran Pct Auto 0.2 % (0.0-0.4); Lymphocytes Absolute Auto 2.1 X10*3/uL (1.2-4.9); Lymphocytes Percent Auto 37.4 % (20-40); Mean Corpuscular HGB Conc 32.5 g/dl (31.0-36.0); Mean Corpuscular Hemoglobin 30.2 pg (27.0-33.0); Mean Corpuscular Volume 92.8 fL (80.0-98.0); Mean Platelet Volume 9.5 fL (9.4-12.4); Monocytes Absolute Auto 0.4 X10*3/uL (0.1-1.2); Monocytes Percent Auto 7.8 % (2-11); Neutrophils Absolute Auto 2.9 x10*3/uL (2.0-8.3); Neutrophils Percent Auto 51.8 % (45-73); Platelet Count 168 X10*3/uL (160-400); Red Blood Count 3.88 X10*6/uL (4.60-5.80); White Blood Count 5.5 X10*3/uL (4.8-10.8)
[2022-03-02 08:27] LABS: Anion Gap 10 (12-20); Blood Urea Nitrogen 12 mg/dL (9-16); Calcium 8.8 mg/dL (8.4-10.2); Carbon Dioxide 25 mmol/L (22-29); Chloride 114 mmol/L (96-108); Creatinine Clr Calc Pharmacy 122.7; Estimated Glomerular Filt Rate > 60; Glucose Random 89 mg/dL (60-115); Potassium 4.5 mmol/L (3.3-5.1); Sodium 144 mmol/L (135-145)
--- NOTE | 2022-03-02 09:10 | P.PNIM_ITS ---
Subjective Subjective Date of Service: 03/02/22 Interval History: cc: dysuria interval history: abd discomfort Cardiovascular Cardiovascular: Reports no additional cardiovascular complaints Respiratory Respiratory: Reports no additional respiratory complaints Physical Exam Vital Signs: Vital Signs: Last Vital Signs Temp 97.1 F 03/02/22 08:20 Pulse 72 03/02/22 08:20 Resp 14 03/02/22 08:20 BP 121/89 03/02/22 08:20 Pulse Ox 97 03/02/22 08:20 BMI result Body Mass Index 24.5 General: AO X 3, no acute distress Resp: CTA bilateral, no accessory muscles used CVS: S1,S2,RRR GI: soft, non tender, non distended Neuro: paraplegia, alert Psych: appropriate affect, appropriate insight Objective Data Active Medications Acetaminophen (Acetaminophen 325 Mg Tablet) 650 mg PO Q6H PRN PRN Reason: Pain, Mild (Pain Scale 1-3) Ascorbic Acid (Ascorbic Acid 500 Mg Tablet) 500 mg PO DAILY [facility] Baclofen (Baclofen 10 Mg Tablet) 10 mg PO TID [facility] Last Admin: 03/02/22 01:38 Dose: 10 mg Documented by: JAIRO Benzonatate (Benzonatate 100 Mg Capsule) 100 mg PO TID PRN PRN Reason: Cough Docusate Sodium (Docusate Sodium 100 Mg Capsule) 100 mg PO BID [facility] Enoxaparin Sodium (Enoxaparin Sodium 40 Mg/0.4 Ml Syringe) 40 mg SUBCUT Q24H [facility] Last Admin: 03/01/22 22:24 Dose: 40 mg Documented by: SUDEEP Gabapentin (Gabapentin 100 Mg Capsule) 100 mg PO TID [facility] Last Admin: 03/02/22 01:15 Dose: 100 mg Documented by: JAIRO Gabapentin (Gabapentin 600 Mg Tablet) 600 mg PO TID [facility] Last Admin: 03/02/22 01:15 Dose: 600 mg Documented by: JAIRO Hydromorphone HCl (Hydromorphone Hcl 1 Mg/Ml Syringe) 0.6 mg IVPUSH Q4H PRN; Protocol PRN Reason: Breakthrough Pain Last Admin: 03/01/22 22:45 Dose: 0.6 mg Documented by: SUDEEP Levofloxacin (Levofloxacin 750 Mg Tablet) 750 mg PO Q24H [facility] Melatonin (Melatonin 3 Mg Tablet) 6 mg PO BEDTIME PRN PRN Reason: Insomnia Multivitamins/Vitamin C (Multivitamin Tablet) 1 tab PO DAILY [facility] Omeprazole (Omeprazole 20 Mg Capsule.Dr) 20 mg PO DAILY@0630 [facility] Last Admin: 03/02/22 05:57 Dose: 20 mg Documented by: JAIRO Senna (Sennosides 8.6 Mg Tablet) 17.2 mg PO BEDTIME PRN PRN Reason: Constipation Sodium Chloride (0.9 % Sodium Chloride Flush 3 Ml Syringe) 3 ml IVFLUSH QSHIFT [facility] Last Admin: 03/02/22 02:10 Dose: Not Given Documented by: JAIRO Non-Admin Reason: IV Running Labs CBC & Chem 7: 03/02/22 07:46 03/02/22 07:46 Labs: Laboratory Results - last 24 hr 03/01/22 03/01/22 03/01/22 17:40 17:40 18:01 MCV 90.0 MCH 30.4 MCHC 33.8 RDW 12.8 Plt Count 212 MPV 9.8 Immature Gran % (Auto) 0.2 Neut % (Auto) 63.2 Lymph % (Auto) 28.5 [place] % (Auto) 5.7 Eos % (Auto) 1.9 Baso % (Auto) 0.5 Lymph # (Auto) 1.8 [place] # (Auto) 0.4 Eos # (Auto) 0.1 Baso # (Auto) 0.0 Abs Immat Gran (auto) 0.01 Absolute Neuts (auto) 4.0 Absolute Nucleated RBC 0.000 Nucleated RBC % (auto) 0.0 Anion Gap Estim Creat Clear Calc Estimated GFR Random Glucose Lactic Acid Calcium Magnesium Total Bilirubin Direct Bilirubin AST ALT Alkaline Phosphatase Total Protein Albumin Urine Color DK YELLOW Urine Appearance HAZY Urine pH 6.5 Ur Specific Esmond 1.020 Urine Protein 1+ H Urine Glucose (UA) NEG Urine Ketones 15 Urine Blood NEG Urine Nitrite NEG Ur Leukocyte Esterase 2+ H Urine RBC 10-14 H Urine WBC 30-49 H Ur Squamous Epith Cells 1+ Urine Bacteria 3+ Hyaline Casts 5-9 Chlam trachomat DNA PCR NOT DETECTED COVID-19 ([facility]) COVID-19 Clin Com N.gonorrhoeae DNA (PCR) NOT DETECTED 03/01/22 03/01/22 03/01/22 18:01 18:02 23:03 MCV MCH MCHC RDW Plt Count MPV Immature Gran % (Auto) Neut % (Auto) Lymph % (Auto) [place] % (Auto) Eos % (Auto) Baso % (Auto) Lymph # (Auto) [place] # (Auto) Eos # (Auto) Baso # (Auto) Abs Immat Gran (auto) Absolute Neuts (auto) Absolute Nucleated RBC Nucleated RBC % (auto) Anion Gap 12 Estim Creat Clear Calc 77.3 Estimated GFR > 60 Random Glucose 144 H D Lactic Acid 1.6 Calcium 9.6 Magnesium 2.3 Total Bilirubin 0.4 Direct Bilirubin 0.2 AST 17 ALT 18 Alkaline Phosphatase 86 Total Protein 7.5 Albumin 4.1 Urine Color Urine Appearance Urine pH Ur Specific [place] Urine Protein Urine Glucose (UA) Urine Ketones Urine Blood Urine Nitrite Ur Leukocyte Esterase Urine RBC Urine WBC Ur Squamous Epith Cells Urine Bacteria Hyaline Casts Chlam trachomat DNA PCR COVID-19 ([facility]) Negative COVID-19 Clin Com See Note N.gonorrhoeae DNA (PCR) 03/02/22 03/02/22 07:46 07:46 MCV 92.8 MCH 30.2 MCHC 32.5 RDW 13.0 Plt Count 168 MPV 9.5 Immature Gran % (Auto) 0.2 Neut % (Auto) 51.8 Lymph % (Auto) 37.4 [place] % (Auto) 7.8 Eos % (Auto) 2.4 Baso % (Auto) 0.4 Lymph # (Auto) 2.1 [place] # (Auto) 0.4 Eos # (Auto) 0.1 Baso # (Auto) 0.0 Abs Immat Gran (auto) 0.01 Absolute Neuts (auto) 2.9 Absolute Nucleated RBC 0.000 Nucleated RBC % (auto) 0.0 Anion Gap 10 L Estim Creat Clear Calc 122.7 Estimated GFR > 60 Random Glucose 89 D Lactic Acid Calcium 8.8 D Magnesium Total Bilirubin Direct Bilirubin AST ALT Alkaline Phosphatase Total Protein Albumin Urine Color Urine Appearance Urine pH Ur Specific [place]ond Urine Protein Urine Glucose (UA) Urine Ketones Urine Blood Urine Nitrite Ur Leukocyte Esterase Urine RBC Urine WBC Ur Squamous Epith Cells Urine Bacteria Hyaline Casts Chlam trachomat DNA PCR COVID-19 ([facility]) COVID-19 Clin Com N.gonorrhoeae DNA (PCR) Assessment and Plan (1) Dizziness: Status: Acute (2) Acute UTI: Status: Acute (3) Dysautonomia: Status: Acute Plan 31-year-old male presented with leg burning, found to have positive UA UTI in patient with history of ESBL Klebsiella who self catheterizes was previously sensitive to levaquin, will continue that for now Follow-up cultures follow up ID dysautonia fluctuating BPs hypotension not due to sepsis monitor will tolerate higher BPs to avoid hypotension Paraplegia Self catheterization Baclofen Gabapentin abd pain due to contipation miralax reason for continued hospitalization: history of resistent organisms, awaiting cultures Quality Stroke Does the patient have a stroke diagnosis?: No VTE Prior VTE?: No VTE Risk Level:: Medical - moderate - high VTE Device Contraindication: Treatment Not Indicated VTE Drug Contraindication: N/A - Med Ordered
[2022-03-02] MEDS: Docusate Sodium 100 MG CAPSULE PO (09:24)
[2022-03-02] MEDS: Ascorbic Acid 500 MG TABLET PO (09:24)
[2022-03-02] MEDS: Multivitamin TABLET 1 TAB PO (09:24)
--- NOTE | 2022-03-02 12:33 | PC.NURSE ---
VSS, pt resting in hospital bed verbalizing some pain, but denying pain meds at this time. Pt with condom cath in place. appears to resting comfortably between care. A/O. callbell and belongings within reach.
[2022-03-02] MEDS: levoFLOXacin 750 MG TABLET PO (18:01)
[2022-03-02] MEDS: 0.9 % Sodium Chloride Flush 3 ML SYRINGE IVFLUSH (18:32)
[2022-03-02] MEDS: Enoxaparin Sodium 40 MG/0.4 ML SYRINGE SUBCUT (20:23)
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
[2022-03-03] MEDS: 0.9 % Sodium Chloride Flush 3 ML SYRINGE IVFLUSH (02:24)
[2022-03-03] MEDS: 0.9 % Sodium Chloride 500 ML IV (02:29)
[2022-03-03 06:28] VITALS: BP 115/78; PULSE 63; RESP 16; TEMP 37.1; O2SAT 98
[2022-03-03] MEDS: Omeprazole 20 MG CAPSULE.DR PO (06:34)
[2022-03-03] MEDS: Gabapentin 100 MG CAPSULE PO ×3 (08:32→20:06)
[2022-03-03] MEDS: polyethylene glycoL 3350 17 GM POWD.PACK PO (08:32)
[2022-03-03] MEDS: Multivitamin TABLET 1 TAB PO (08:33)
[2022-03-03] MEDS: Docusate Sodium 100 MG CAPSULE PO ×2 (08:33→20:06)
[2022-03-03] MEDS: Baclofen 10 MG TABLET PO ×3 (08:33→20:07)
[2022-03-03] MEDS: Gabapentin 600 MG TABLET PO ×3 (08:33→20:06)
[2022-03-03] MEDS: Ascorbic Acid 500 MG TABLET PO (08:33)
--- NOTE | 2022-03-03 09:33 | P.PNIM_ITS ---
Subjective Subjective Date of Service: 03/03/22 Interval History: cc: dysuria interval history:improved Cardiovascular Cardiovascular: Reports no additional cardiovascular complaints Respiratory Respiratory: Reports no additional respiratory complaints Physical Exam Vital Signs: Vital Signs: Last Vital Signs Temp 98.8 F 03/03/22 06:28 Pulse 63 03/03/22 06:28 Resp 16 03/03/22 06:28 BP 115/78 03/03/22 06:28 Pulse Ox 98 03/03/22 06:28 BMI result Body Mass Index 24.5 General: AO X 3, no acute distress Resp:? CTA bilateral, no accessory muscles used CVS: S1,S2,RRR GI: soft, non tender, non distended Neuro:? paraplegia, alert Psych: appropriate affect, appropriate insight? Objective Data Active Medications Acetaminophen (Acetaminophen 325 Mg Tablet) 650 mg PO Q6H PRN PRN Reason: Pain, Mild (Pain Scale 1-3) Ascorbic Acid (Ascorbic Acid 500 Mg Tablet) 500 mg PO DAILY [facility] Last Admin: 03/03/22 08:33 Dose: 500 mg Documented by: BRANT Baclofen (Baclofen 10 Mg Tablet) 10 mg PO TID [facility] Last Admin: 03/03/22 08:33 Dose: 10 mg Documented by: BRANT Docusate Sodium (Docusate Sodium 100 Mg Capsule) 100 mg PO BID [facility] Last Admin: 03/03/22 08:33 Dose: 100 mg Documented by: BRANT Enoxaparin Sodium (Enoxaparin Sodium 40 Mg/0.4 Ml Syringe) 40 mg SUBCUT Q24H [facility] Last Admin: 03/02/22 20:23 Dose: 40 mg Documented by: JV Gabapentin (Gabapentin 100 Mg Capsule) 100 mg PO TID [facility] Last Admin: 03/03/22 08:32 Dose: 100 mg Documented by: BRANT Gabapentin (Gabapentin 600 Mg Tablet) 600 mg PO TID [facility] Last Admin: 03/03/22 08:33 Dose: 600 mg Documented by: BRANT Hydromorphone HCl (Hydromorphone Hcl 1 Mg/Ml Syringe) 0.6 mg IVPUSH Q4H PRN; Protocol PRN Reason: Breakthrough Pain Last Admin: 03/01/22 22:45 Dose: 0.6 mg Documented by: SUDEEP Meropenem 1 gm/ Sodium (Chloride) 100 mls @ 200 mls/hr IV Q8H [facility] Last Infusion: 03/03/22 07:26 Dose: 0 mls/hr Documented by: BRANT Multivitamins/Vitamin C (Multivitamin Tablet) 1 tab PO DAILY [facility] Last Admin: 03/03/22 08:33 Dose: 1 tab Documented by: BRANT Omeprazole (Omeprazole 20 Mg Capsule.Dr) 20 mg PO DAILY@0630 [facility] Last Admin: 03/03/22 06:34 Dose: 20 mg Documented by: REJI Polyethylene Glycol (Polyethylene Glycol 3350 17 Gm Powd.Pack) 17 gm PO DAILY [facility] Last Admin: 03/03/22 08:32 Dose: 17 gm Documented by: BRANT Senna (Sennosides 8.6 Mg Tablet) 17.2 mg PO BEDTIME PRN PRN Reason: Constipation Sodium Chloride (0.9 % Sodium Chloride Flush 3 Ml Syringe) 3 ml IVFLUSH QSHIFT [facility] Last Admin: 03/03/22 08:36 Dose: Not Given Documented by: BRANT Non-Admin Reason: Med Not Available Labs CBC & Chem 7: 03/02/22 07:46 03/02/22 07:46 Microbiology Microbiology Results: Microbiology 03/01/22 18:31 Blood Culture - Preliminary Blood - Venous No growth after 24 hours. 03/01/22 18:01 Blood Culture - Preliminary Blood - Venous No growth after 24 hours. 03/01/22 Unknown Urine Culture - Preliminary Urine clean catch - Clean Catch Midstream Culture too young to evaluate. Assessment and Plan (1) Dizziness: Status: Acute (2) Acute UTI: Status: Acute (3) Dysautonomia: Status: Acute Plan 31-year-old male presented with leg burning, found to have positive UA UTI in patient with history of ESBL Klebsiella who self catheterizes ID appreciated, continue merem Follow-up cultures dysaut[place] fluctuating BPs hypotension not due to sepsis monitor will tolerate higher BPs to avoid hypotension Paraplegia Self catheterization Baclofen Gabapentin abd pain due to contipation miralax reason for continued hospitalization: history of resistant organisms, awaiting cultures Quality Stroke Does the patient have a stroke diagnosis?: No VTE Prior VTE?: No VTE Risk Level:: Medical - moderate - high VTE Device Contraindication: Treatment Not Indicated VTE Drug Contraindication: N/A - Med Ordered
[2022-03-03 10:34] VITALS: BP 121/82; PULSE 92; RESP 15; O2SAT 99
--- NOTE | 2022-03-03 10:59 | PC.NURSE ---
Pt resting in hospital bed offering no complaints. VSS. urine clear yellow. pt denies urinary symptoms. Pt with condom cath that is functional. Callbell and belongings within reach.
[2022-03-03 16:54] VITALS: BP 124/70; PULSE 74; RESP 12; TEMP 36.6; O2SAT 96
[2022-03-03 22:02] VITALS: BP 98/62; PULSE 69; RESP 15; TEMP 36.6; O2SAT 97
[2022-03-03] MEDS: Enoxaparin Sodium 40 MG/0.4 ML SYRINGE SUBCUT (22:06)
--- NOTE | 2022-03-03 22:44 | PC.NURSE ---
Pt had episode of incontinence Pt cleaned and condomn cath replaced with Rayray, cytopathology technologist Pt tolerated well
[2022-03-04 00:04] VITALS: BP 105/67; PULSE 72; RESP 13; TEMP 36.5; O2SAT 98
[2022-03-04] MEDS: 0.9 % Sodium Chloride Flush 3 ML SYRINGE IVFLUSH (01:12)
[2022-03-04 04:12] VITALS: BP 114/40; PULSE 83; RESP 18; O2SAT 96
[2022-03-04] MEDS: Omeprazole 20 MG CAPSULE.DR PO (06:09)
[2022-03-04 07:51] VITALS: BP 101/57; PULSE 68; RESP 12; TEMP 36.6; O2SAT 97
[2022-03-04] MEDS: Ascorbic Acid 500 MG TABLET PO (08:40)
[2022-03-04] MEDS: Multivitamin TABLET 1 TAB PO (08:40)
[2022-03-04] MEDS: Gabapentin 600 MG TABLET PO (08:40)
[2022-03-04] MEDS: Baclofen 10 MG TABLET PO (08:41)
[2022-03-04] MEDS: Gabapentin 100 MG CAPSULE PO (08:41)
[2022-03-04] MEDS: Docusate Sodium 100 MG CAPSULE PO (08:41)
--- NOTE | 2022-03-04 10:42 | PM.DS ---
DS: Providers Provider Date of Service: 03/04/22 Date of admission: 03/01/22 21:39 Primary care physician: Trudy Sams MD Consults: 03/01/22 16:33 Consult to Infectious Diseases Routine Consulting Provider: Lizeth Bains Reason for consultation: UTI with hx ESBL only sensitive to Ertapenum Has provider been notified: Yes 03/01/22 21:39 Consult to Infectious Diseases Routine Consulting Provider: Lizeth Bains Reason for consultation: Recurrent uti; HX ESBL DS: Diagnosis Discharge Diagnosis (1) Dizziness: Status: Acute (2) Acute UTI: Status: Acute (3) Dysautonomia: Status: Acute DS: Summary Hospital Course Hospital Course: from initial hpi: Chief Complaint: Urinary frequency urgency 31-year-old male with a past medical history of paraplegia, neurogenic bladder, disorder anemia, recurrent UTI, history of ESBL E coli; presented to the hospital today with a chief complaint of urinary urgency frequency and abdominal discomfort.? Patient reported that over the past 2 weeks he has been having urinary symptoms; denies any fevers and chills.? Has been seen PCP and was taking ciprofloxacin and safe denied with no significant improvement in his symptoms over the 2 weeks.? Hence presented to the ER for further evaluation.? Denies any chest pain or palpitations.? Denies any cough or sputum production.? Denies any nausea vomiting or diarrhea.? Review of all other systems is negative except mentioned above ER course: Per ER team patient noted to have abnormal urinalysis consistent with UTI; given prior history of ESBL-patient was given a ertapenem; abdominal exam was benign; also mentioned that patient labs were essentially benign at his baseline; patient on presentation noted to have blood pressure of 87/54, tachycardic to 111; given normal saline at 30 cc/kg; blood pressure improved to 138/87.? Admitted to the hospital for further management. hospital course: Patient was admitted for urinary tract infection in patient with history of ESBL Klebsiella and self catheterization. He was initially placed on carbapenem, urine cultures ended up being negative, infectious disease recommended 10 days of cefuroxime. Patient was noted to have hypotension but this is due to his chronic dysautonia, patient was not symptomatic and blood pressure is 101/57 at discharge. For his paraplegia he was continue self catheterization, baclofen, gabapentin. Patient did have some abdominal pain which was likely due to constipation improved with MiraLax. He will be discharged home. Time Spent with Patient Time attestation: Total time spent providing and/or coordinating discharge services: Discharge coordination time: Greater than 30 minutes Quality: Safe Use of Opioids Does Pt have an Active Cancer Diagnosis on the Problem List?: No Quality: Stroke Does the patient have a stroke diagnosis?: No Physical Exam Vital Signs: Vital Signs: Last Vital Signs Temp 97.9 F 03/04/22 07:51 Pulse 68 03/04/22 07:51 Resp 12 03/04/22 07:51 BP 101/57 L 03/04/22 07:51 Pulse Ox 97 03/04/22 07:51 BMI result Body Mass Index 24.5 General: AO X 3, no acute distress Resp:? CTA bilateral, no accessory muscles used CVS: S1,S2,RRR GI: soft, non tender, non distended Neuro:? paraplegia, alert Psych: appropriate affect, appropriate insight? DS: Data Data Completed and Pending Completed studies during hospitalization [Text1]: Procedures Change Pressure Dressing on Back (01/19/21) Insertion of Infusion Device into Right Basilic Vein, Percutaneous Approach (06/17/21) Labs on day of discharge: Preliminary micro results at discharge 03/01/22 18:31 Blood Culture - Preliminary Blood - Venous No growth after 48 hours. 03/01/22 18:01 Blood Culture - Preliminary Blood - Venous No growth after 48 hours. Discharge Plan Discharge Patient Disposition: Home, Self-Care Discharge Diagnosis: uti Referrals: Trudy Sams MD [Primary Care Provider] - 1 Week Discharge Medications: New cefuroxime axetil 250 mg tablet 250 mg PO Q12H Qty: 20 0RF Continued multivitamin Tablet 1 tab PO DAILY 0RF gabapentin 600 mg tablet 1 tab PO TID 0RF Rx Instructions: take with gabapentin 100 mg omeprazole 20 mg capsule,delayed release(DR/EC) 1 cap PO DAILY 0RF gabapentin 100 mg capsule 1 cap PO TID 0RF docusate sodium 100 mg capsule 100 mg PO BID 0RF ascorbic acid (vitamin C) [Vitamin C] 500 mg Tablet 500 mg PO DAILY Qty: 30 0RF baclofen 10 mg tablet 1 tab PO TID 0RF tramadol 50 mg tablet 1 tab PO DAILY PRN (Reason: pain) 0RF Discharge Orders: Discharge Order (Routine); Ordered 03/04/22 Ordered By: Benedicto Childers Diet: advance to usual diet Activity on Discharge: As tolerated Stand Alone Forms: Patient Portal Discharge page Care Plan Goals: recovery Health Concerns: uti Plan of Treatment: 10 days ceftin Assessment: see above
--- NOTE | 2022-03-04 11:14 | PC.NURSE ---
Pt resting in hospital bed. Pt requesting bed change, thinking he may be wet. [place] catheter had fallen out. Pt requesting his own [place] catheter to be placed. RN changed pts linens and placed new [place] cath per request. Pt offering no complaints. Urine is a clear yellow. pt denies any urinary symptoms at this time. Pt continues to reposition himself in the hospital bed. DC order is in. This RN called case management requesting them to book an ambulance for the pt. [place] and belongings within reach. will go over DC paperwork when ambulance time is close to arrival.
--- NOTE | 2022-03-04 11:34 | MHC.CM.PN ---
Patient's dc order was in prior to CM assessment. Patient has been medically cleared for dc to home today,self care. Patient will dc to home, self care, today via next available [facility].
[2022-03-04 12:27] VITALS: BP 114/67; PULSE 67; RESP 18; TEMP 36.6; O2SAT 99
== END 2022-03-04 12:30 | disposition home or self-care (01) | DRG 463 ==
LOC: HO.ED 21:39 → HO.EDOVER 21:42
PROVIDERS: Physician Assistant; Admitting Provider Hospitalist; Emergency Provider Emergency Medicine Emergency Medical Services; PCP Family Medicine; Visit Provider Internal Medicine
DX: N39.0 Urinary tract infection, site not specified (principal); G82.20 Paraplegia, unspecified; G90.1 Familial dysautonomia [Riley-Day]; N31.9 Neuromuscular dysfunction of bladder, unspecified; Z86.16 Personal history of COVID-19; Z87.891 Personal history of nicotine dependence; Z20.822 Contact with and (suspected) exposure to COVID-19; Z88.2 Allergy status to sulfonamides; Z87.440 Personal history of urinary (tract) infections; Z91.040 Latex allergy status; Z91.013 Allergy to seafood; Z91.010 Allergy to peanuts; Z79.899 Other long term (current) drug therapy
CPT/HCPCS: 36415; 74176; 76775; 80048; 80076; 81001; 83605; 83735; 85025; 87040; 87086; 87491; 87591; 87635; 96361; 96365; 99219; 99285; 99291; J1170; J1335; J1650; J2185

== ENCOUNTER 2022-04-18 14:59 | Emergency (ER) | payer MEDICAID, SELFPAY ==
[2022-04-18 15:04] VITALS: BP 102/54; BP 70/55; PULSE 100; PULSE 79; RESP 18; TEMP 36.9; O2SAT 97; O2SAT 98; BMI 26.3
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
--- NOTE | 2022-04-18 15:13 | ECG_ITS ---
Test Reason : WEAKNESS/PAIN Blood Pressure : / mmHG Vent. Rate : 082 BPM Atrial Rate : 082 BPM P-R Int : 140 ms QRS Dur : 088 ms QT Int : 372 ms P-R-T Axes : 034 072 063 degrees QTc Int : 434 ms Normal sinus rhythm Early repolarization Normal ECG When compared with ECG of 04-JAN-2022 18:28, No significant change was found Referred By: Brigitte Benavidez Electronically Signed By:CHRISTINA OVERTON
[2022-04-18 15:48] LABS: MANUAL DIFF FLAG NO
[2022-04-18 15:50] LABS: Basophils Percent Auto 0.4 % (0-2); Eosinophils Absolute Auto 0.1 X10*3/uL (0.0-0.4); Eosinophils Percent Auto 2.4 % (0-4); Hematocrit 38.3 % (42.0-52.0); Imm Gran Abs Auto 0.01 X10*3/uL (0.00-0.03); Imm Gran Pct Auto 0.2 % (0.0-0.4); Lymphocytes Absolute Auto 1.6 X10*3/uL (1.2-4.9); Lymphocytes Percent Auto 31.8 % (20-40); Mean Corpuscular HGB Conc 33.9 g/dl (31.0-36.0); Mean Corpuscular Hemoglobin 30.7 pg (27.0-33.0); Mean Corpuscular Volume 90.3 fL (80.0-98.0); Mean Platelet Volume 9.7 fL (9.4-12.4); Monocytes Absolute Auto 0.4 X10*3/uL (0.1-1.2); Monocytes Percent Auto 8.7 % (2-11); Neutrophils Absolute Auto 2.9 x10*3/uL (2.0-8.3); Neutrophils Percent Auto 56.5 % (45-73); Platelet Count 219 X10*3/uL (160-400); Red Blood Count 4.24 X10*6/uL (4.60-5.80); Red Cell Distribution Width 13.3 % (11.0-16.0); White Blood Count 5.1 X10*3/uL (4.8-10.8)
[2022-04-18 15:57] LABS: Lactic Acid 1.3 mmol/L (0.5-2.0)
[2022-04-18 16:02] LABS: Appearance Urine HAZY; Color Urine YELLOW; Glucose Urine UA NEG (NEG); Leukocyte Esterase Urine TRACE (NEG); Nitrite Urine NEG (NEG); Specific Gravity - Urine >= 1.030 (1.005-1.025); Urine Blood NEG (NEG); Urine Ketones 5 MG/DL (NEG); Urine Protein TRACE MG/DL (NEG-TRACE)
[2022-04-18 16:07] LABS: Alanine Aminotransferase 15 U/L (0-40); Albumin Level 3.9 g/dL (3.5-5.0); Alkaline Phosphatase 93 U/L (39-117); Anion Gap 10 (12-20); Aspartate Amino Transferase 15 U/L (5-37); Bilirubin Direct 0.2 mg/dL (0.0-0.5); Bilirubin Total 0.6 mg/dL (0.0-1.0); Blood Urea Nitrogen 12 mg/dL (9-16); Calcium 9.7 mg/dL (8.4-10.2); Carbon Dioxide 26 mmol/L (22-29); Chloride 109 mmol/L (96-108); Creatinine Clr Calc Pharmacy 100.2; Estimated Glomerular Filt Rate > 60; Glucose Random 111 mg/dL (60-115); Magnesium 2.2 mg/dL (1.6-2.6); Potassium 4.2 mmol/L (3.3-5.1); Sodium 141 mmol/L (135-145); Total Protein 7.3 g/dL (6.5-8.0)
[2022-04-18 16:16] LABS: COVID-19 Test Negative (Negative)
[2022-04-18 16:20] LABS: Bacteria Urine 1+ /LPF; Calcium Oxalate Crystals Urine 1+ /LPF; RBC Urine 0 /HPF (0); Squamous Epithelial Cell Urine 1+ /LPF; WBC Urine 0-2 /HPF (0-4)
== END 2022-04-18 17:37 | disposition home or self-care (01) ==
PROVIDERS: Physician Assistant; Emergency Provider Internal Medicine; PCP Family Medicine
DX: R10.30 Lower abdominal pain, unspecified (principal); M79.605 Pain in left leg; M79.604 Pain in right leg; Z20.822 Contact with and (suspected) exposure to COVID-19; Z87.891 Personal history of nicotine dependence; Z79.899 Other long term (current) drug therapy
CPT/HCPCS: 36415; 80048; 80076; 81001; 81003; 82550; 83605; 83735; 85025; 87040; 87635; 93005; 99282; 99284

== ENCOUNTER 2022-05-19 17:38 | Emergency (ER) | payer MEDICAID, SELFPAY ==
[2022-05-19 17:58] VITALS: BP 93/60; PULSE 88; RESP 18; TEMP 36.8; O2SAT 98; BMI 25.8
[2022-05-19 18:03] VITALS: BP 98/90; PULSE 88; O2SAT 98
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
[2022-05-19 19:03] VITALS: BP 88/49; PULSE 85; RESP 16; TEMP 36.7; O2SAT 97
[2022-05-19 19:35] LABS: Appearance Urine CLEAR; Color Urine YELLOW; Glucose Urine UA NEG (NEG); Leukocyte Esterase Urine NEG (NEG); Nitrite Urine NEG (NEG); Specific Gravity - Urine >= 1.030 (1.005-1.025); Urine Blood NEG (NEG); Urine Ketones 5 MG/DL (NEG); Urine Protein TRACE MG/DL (NEG-TRACE)
[2022-05-19 20:00] VITALS: BP 85/57; PULSE 75; RESP 16; TEMP 36.5; O2SAT 98
== END 2022-05-19 20:54 | disposition home or self-care (01) ==
PROVIDERS: Emergency Provider Internal Medicine; PCP Family Medicine
DX: R60.0 Localized edema (principal); Z79.899 Other long term (current) drug therapy; Z87.891 Personal history of nicotine dependence
CPT/HCPCS: 81003; 99284

== ENCOUNTER 2022-07-19 09:37 | Emergency (ER) | payer MEDICAID, SELFPAY ==
[2022-07-19 09:51] VITALS: BP 83/41; PULSE 94; RESP 16; TEMP 37.1; O2SAT 98
[2022-07-19 09:57] VITALS: BP 101/65; BP 128/68; PULSE 76; PULSE 85; RESP 18; O2SAT 98; BMI 24.5
[2022-07-19 10:33] LABS: MANUAL DIFF FLAG NO
[2022-07-19 10:37] LABS: Basophils Percent Auto 0.4 % (0-2); Eosinophils Absolute Auto 0.1 X10*3/uL (0.0-0.4); Eosinophils Percent Auto 1.5 % (0-4); Hematocrit 43.6 % (42.0-52.0); Hemoglobin 14.4 g/dl (14.0-18.0); Imm Gran Abs Auto 0.02 X10*3/uL (0.00-0.03); Imm Gran Pct Auto 0.3 % (0.0-0.4); Lymphocytes Absolute Auto 2.2 X10*3/uL (1.2-4.9); Lymphocytes Percent Auto 27.7 % (20-40); Mean Corpuscular Hemoglobin 30.4 pg (27.0-33.0); Mean Corpuscular Volume 92.2 fL (80.0-98.0); Mean Platelet Volume 10.3 fL (9.4-12.4); Monocytes Absolute Auto 0.5 X10*3/uL (0.1-1.2); Monocytes Percent Auto 6.4 % (2-11); Neutrophils Absolute Auto 5.1 x10*3/uL (2.0-8.3); Neutrophils Percent Auto 63.7 % (45-73); Platelet Count 254 X10*3/uL (160-400); Red Blood Count 4.73 X10*6/uL (4.60-5.80); Red Cell Distribution Width 12.8 % (11.0-16.0); White Blood Count 7.9 X10*3/uL (4.8-10.8)
[2022-07-19 10:38] LABS: Appearance Urine Cloudy; Color Urine Yellow; Glucose Urine UA Negative (Negative); Leukocyte Esterase Urine Small (1+) (Negative); Nitrite Urine Negative (Negative); PH 6.5 (5.0-8.0); Specific Gravity - Urine 1.025 (1.005-1.025); Urine Blood Large (3+) (Negative); Urine Ketones Negative (Negative); Urine Protein 300 (3+) mg/dL (Neg-Trace)
[2022-07-19 10:45] LABS: Prothrombin Time 11.7 SEC (10.0-13.1)
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
[2022-07-19 10:53] LABS: Bacteria Urine Trace (None Seen); Hyaline Casts Urine 0-2 /LPF (0-2); RBC Urine >20 /HPF (0-2); Squamous Epithelial Cell Urine 0-2 /HPF (0-2); UACC Culture Trigger YES; WBC Urine >50 /HPF (0-5)
[2022-07-19 10:56] LABS: Alanine Aminotransferase 12 U/L (0-40); Alkaline Phosphatase 95 U/L (39-117); Anion Gap 14 (12-20); Aspartate Amino Transferase 16 U/L (5-37); Bilirubin Total 0.7 mg/dL (0.0-1.0); Blood Urea Nitrogen 14 mg/dL (9-16); Calcium 9.4 mg/dL (8.4-10.2); Chloride 105 mmol/L (96-108); Creatinine Clr Calc Pharmacy 107.9; Estimated Glomerular Filt Rate > 60; Glucose Random 105 mg/dL (60-115); Potassium 3.8 mmol/L (3.3-5.1); Sodium 142 mmol/L (135-145); Total Protein 7.7 g/dL (6.5-8.0)
[2022-07-19 10:57] LABS: Carbon Dioxide 27 mmol/L (22-29)
[2022-07-19 11:19] LABS: Lactic Acid 1.3 mmol/L (0.5-2.0)
[2022-07-19] MEDS: levoFLOXacin/D5W 750 MG/150 ML PIGGYBACK 100 MG IV (11:53)
[2022-07-19] MEDS: 0.9 % Sodium Chloride 1,000 ML 999 ML IVCONT (11:54)
== END 2022-07-19 15:51 | disposition home or self-care (01) ==
PROVIDERS: Physician Assistant; Emergency Provider Student in an Organized Health Care Education/Training Program; PCP Family Medicine
DX: N39.0 Urinary tract infection, site not specified (principal); R31.9 Hematuria, unspecified; R30.0 Dysuria; Z79.899 Other long term (current) drug therapy; Z87.891 Personal history of nicotine dependence
CPT/HCPCS: 36415; 80053; 81001; 83605; 85025; 85610; 87040; 87086; 96365; 96366; 99284; J1956

== ENCOUNTER 2022-08-29 14:59 | Emergency (ER) | payer MEDICAID, SELFPAY ==
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
[2022-08-29 15:19] VITALS: BP 110/50; PULSE 96; O2SAT 98
[2022-08-29 15:21] VITALS: BP 103/65; PULSE 93; RESP 18; TEMP 37.3; O2SAT 98; BMI 24.5
--- OUTSIDE RECORDS SUMMARY | 2022-08-29 15:48 | XMS_ITS | Continuity of Care Document ---
:1990 Author Organization [facility] Address [address] [place] [id number]- Care Team Providers Name Role Phone Latrell HOWARD, Trudy Villatoro Primary Care Physician [phone] Encounter [facility] [place] Date(s): 04/03/20 - 06/04/[address] [address]- [facility] Attending Physician: Jeffrey Beaulieu MD Allergies, Adverse Reactions, Alerts Substance Reaction Severity Status Bactrim hives Active Latex Latex precautions Proposed Peanuts1 Active Seafood hives Persistent Moderate Active 1Peanut Butter Only Immunizations Given and Recorded Vaccine Date Status Refusal Reason influenza virus vaccine, inactivated 09/06/11 Given pneumococcal 23-valent vaccine1 09/06/11 Given 1Result Comment: given vis in macedonian Medications baclofen 20 mg oral tablet 20 mg, 1, tablet, By Mouth, 3 times a day, Maintenance, 03/07/17 22:41:36 Start Date: 03/07/17 Status: OrderedDoculase 50 mg oral capsule 1 capsule = 50 mg, By Mouth, 2 times a day, # 60 capsule, 0 Refills, Maintenance, 09/10/19 10:59:39 EDT, Capsule Start Date: 09/10/19 Status: Orderedgabapentin 100 mg oral capsule 100 mg, 1, capsule, By Mouth, 3 times a day, # 90 capsule, Refills 0, Maintenance, 09/10/19 10:57:52EDT Start Date: 09/10/19 Status: Orderedgabapentin 600 mg oral tablet 1 tablet = 600 mg, By Mouth, 3 times a day, # 90 tablet, 0 Refills, Maintenance, 09/10/19 10:57:34 EDT, Tablet Start Date: 09/10/19 Status: OrderedMultivitamin 1, tablet, By Mouth, Daily, 0, 0, 09/26/08 3:59:33, Print BHAVYA Number, [id number], Constant Indicator Start Date: 09/26/08 Status: Orderedomeprazole 20 mg oral delayed release tablet 1 tablet = 20 mg, By Mouth, Daily, # 30 tablet, 0 Refills, Maintenance, 05/20/16 10:46:02, EC Tablet Start Date: 05/20/16 Status: Ordered Problem List Condition Effective Dates Status Health Status Informant UTI (lower urinary tract Active infection)(Confirmed) Paralysis of lower limb(Confirmed) Active Pressure Ulcer Stage IV(Confirmed) Active Pressure Ulcer, Ankle(Confirmed) Active Social History Social History Type Response Smoking Status Never smoker entered on: 05/16/15 Sex
--- OUTSIDE RECORDS SUMMARY | 2022-08-29 15:48 | XMS_ITS | Continuity of Care Document ---
:1990 Author Organization [facility] Address [address] [place] [address]- Care Team Providers Name Role Phone Trudy Sams MD Primary Care Physician [phone] Encounter [facility] [place] Date(s): 01/29/22 - 02/28/22 [facility] [address] [place] [address] Attending Physician: Daphne Marcos Admitting Physician: Daphne Marcos Referring Physician: AdmtrDaphne Allergies, Adverse Reactions, Alerts Substance Reaction Severity Status Bactrim hives Active Latex Latex precautions Proposed Peanuts1 Active Seafood hives Persistent Moderate Active 1Peanut Butter Only Immunizations Given and Recorded Vaccine Date Status Refusal Reason influenza virus vaccine, inactivated 09/06/11 Given pneumococcal 23-valent vaccine1 09/06/11 Given Not Given Vaccine Date Status Refusal Reason influenza virus vaccine, inactivated 09/18/21 Not Given Patient Refuses influenza virus vaccine, inactivated 01/24/21 Not Given Patient Refuses 1Result Comment: given vis in yoruba Medications baclofen 20 mg oral tablet 20 mg, 1, tablet, By Mouth, 3 times a day, Maintenance, 03/07/17 22:41:36 Start Date: 03/07/17 Status: OrderedBedside commode Bedside commode, See Instructions, # 1 each, Refills 0, Tot. Refills 0, Maintenance, Bedside CommodeICD: G82.20 Duration: Lifetime, 09/19/21 10:07:00 EDT, Supply Start Date: 09/19/21 Status: Orderedgabapentin 600 mg oral tablet 1 tablet = 600 mg, By Mouth, 3 times a day, # 90 tablet, 0 Refills, Maintenance, 09/10/19 10:57:34 EDT, Tablet Start Date: 09/10/19 Status: OrderedMultivitamin 1, tablet, By Mouth, Daily, 0, 0, 09/26/08 3:59:33, Print BHAVYA Number, [id number], Constant Indicator Start Date: 09/26/08 Status: Orderedomeprazole 20 mg oral delayed release tablet 1 tablet = 20 mg, By Mouth, Daily, # 30 tablet, 0 Refills, Maintenance, 05/20/16 10:46:02, EC Tablet Start Date: 05/20/16 Status: Orderedoxybutynin 10 mg/24 hr oral tablet, extended release 1 tablet = 10 mg, By Mouth, Daily, # 30 tablet, 0 Refills, Maintenance, 09/19/21 9:43:00 EDT, ER Tablet, [facility] 3, Partial fill upon patient request if the prescription is for a schedule II opioid drug., 170, cm, 09/19/21 8:28:00 EDT,... Start Date: 09/19/21 Status: Orderedpolyethylene glycol 3350 oral powder for reconstitution DISSOLVE 1 CAPFUL IN 8 OZ WATER JUICE SODA COFFEE/TEASPOONFUL AND DRINK DAILY Start Date: 09/19/21 Status: OrderedSenna 8.6 mg oral tablet TAKE 2 TABLETS BY MOUTH AT BEDTIME Start Date: 09/19/21 Status: OrderedtraMADol 50 mg oral tablet TAKE 1 TABLET BY MOUTH DAILY NEEDED FOR PAIN Start Date: 09/19/21 Status: Ordered Problem List Condition Effective Dates Status Health Status Informant UTI (lower urinary tract Active infection)(Confirmed) Paralysis of lower limb(Confirmed) Active Pressure Ulcer Stage IV(Confirmed) Active Pressure Ulcer, Ankle(Confirmed) Active Social History Social History Type Response Smoking Status Never smoker entered on: 05/16/15 Sex
--- OUTSIDE RECORDS SUMMARY | 2022-08-29 15:48 | XMS_ITS | Continuity of Care Document ---
:1988 Author Organization [facility] Address [address] [place] [address]- Care Team Providers Name Role Phone Hendricks Trudy HOWARD Primary Care Physician Encounter [facility] [place] Date(s): 01/07/20 - 01/07/[address] [address]- [facility] Attending Physician: Not on Staff, Attending MD Allergies, Adverse Reactions, Alerts Substance Reaction Severity Status Bactrim hives Active Latex Latex precautions Proposed Peanuts1 Active Seafood hives Persistent Moderate Active 1Peanut Butter Only Immunizations Given and Recorded Vaccine Date Status Refusal Reason influenza virus vaccine, inactivated 09/06/11 Given pneumococcal 23-valent vaccine1 09/06/11 Given 1Result Comment: given vis in turkish Medications baclofen 20 mg oral tablet 20 [...] 0, 0, 09/26/08 3:59:33, Print BHAVYA Number, [id number], Constant Indicator Start Date: 09/26/08 Status: Orderedomeprazole [...]
--- OUTSIDE RECORDS SUMMARY | 2022-08-29 15:48 | XMS_ITS | Continuity of Care Document ---
:1990 Author Organization [facility] Address [address] [place] [address]- Care Team Providers Name Role Phone Trudy Sams MD Primary Care Physician [phone] Encounter [facility] Date(s): 11/29/19 - 11/29/[address] [address]- [facility] Attending Physician: Amadeo Mejia Allergies, Adverse Reactions, Alerts Substance Reaction Severity Status Bactrim hives Active Latex Latex precautions Proposed Peanuts1 Active Seafood hives Persistent Moderate Active 1Peanut Butter Only Immunizations Given and Recorded Vaccine Date Status Refusal Reason influenza virus vaccine, inactivated 09/06/11 Given pneumococcal 23-valent vaccine1 09/06/11 Given 1Result Comment: given vis in british Medications baclofen 20 mg oral tablet 20 [...] 0, 0, 09/26/08 3:59:33, Print BHAVYA Number, [id number], Constant Indicator Start Date: 09/26/08 Status: Orderedomeprazole [...]
--- OUTSIDE RECORDS SUMMARY | 2022-08-29 15:48 | XMS_ITS | Continuity of Care Document ---
:1988 Author Organization [facility] Address [address] [place] [address]- Care Team Providers Name Role Phone Latrell HOWARD, Trudy Villatoro Primary Care Physician Encounter [facility] Date(s): 12/16/19 - 12/23/[address] [address]- [facility] Attending Physician: Malik Joiner MD Allergies, Adverse Reactions, Alerts Substance Reaction Severity Status Bactrim hives Active Latex Latex precautions Proposed Peanuts1 Active Seafood hives Persistent Moderate Active 1Peanut Butter Only Immunizations Given and Recorded Vaccine Date Status Refusal Reason influenza virus vaccine, inactivated 09/06/11 Given pneumococcal 23-valent vaccine1 09/06/11 Given 1Result Comment: given vis in jamaican Medications baclofen 20 mg oral tablet 20 [...] 0, 0, 09/26/08 3:59:33, Print BHAVYA Number, [id number], Constant Indicator Start Date: 09/26/08 Status: Orderedomeprazole [...] Stage IV(Confirmed) Active Pressure Ulcer, Ankle(Confirmed) Active Results Microbiology Reports TEST:Urine Culture STATUS:Auth (Verified) BODY SITE: SOURCE:URINE COLLECTED DATE/TIME:12/16/19 1:25 PMUrine Culture SPECIMEN DESCRIPTION : URINE SPECIAL REQUESTS : NONE CULTURE : >100,000 COL/ML KLEBSIELLA OXYTOCA REPORT STATUS : FINAL 12/19/2019 ORGANISM >100,000 COL/ML KLEBSIELLA OXYTOCA METHOD MIN. INHIB. CONC. (MCG/ML) AMPICILLIN RESISTANT AMPICILLIN/SULBACTAM SUSCEPTIBLE AMOXICILLIN/CLAVULAN SUSCEPTIBLE CEFAZOLIN INTERMEDIATE CEFEPIME SUSCEPTIBLE CEFTRIAXONE SUSCEPTIBLE CIPROFLOXACIN SUSCEPTIBLE GENTAMICIN SUSCEPTIBLE LEVOFLOXACIN SUSCEPTIBLE MEROPENEM SUSCEPTIBLE NITROFURANTOIN INTERMEDIATE PIPERACILLIN/TAZOBAC SUSCEPTIBLE TRIMETH/SULFAMETHOX SUSCEPTIBLE TETRACYCLINE SUSCEPTIBLE Social History Social History Type Response Smoking Status Never smoker entered on: 05/16/15 Sex
--- OUTSIDE RECORDS SUMMARY | 2022-08-29 15:48 | XMS_ITS | Continuity of Care Document ---
:1990 Author Organization [address] [address]- Care Team Providers Name Role Phone Trudy Sams MD Primary Care Physician [phone] Encounter [facility] [place] Date(s): 02/09/20 - 03/15/20 [place] [address]- [facility] Attending Physician: Trudy Sams MD Admitting Physician: Trudy Sams MD Referring Physician: Trudy Sams MD Allergies, Adverse Reactions, Alerts Substance Reaction Severity Status Bactrim hives Active Latex Latex precautions Proposed Peanuts1 Active Seafood hives Persistent Moderate Active 1Peanut Butter Only Immunizations Given and Recorded Vaccine Date Status Refusal Reason influenza virus vaccine, inactivated 09/06/11 Given pneumococcal 23-valent vaccine1 09/06/11 Given 1Result Comment: given vis in haitian Medications baclofen 20 mg oral tablet 20 [...] 0, 0, 09/26/08 3:59:33, Print BHAVYA Number, [id number], Constant Indicator Start Date: 09/26/08 Status: Orderedomeprazole [...]
--- OUTSIDE RECORDS SUMMARY | 2022-08-29 15:48 | XMS_ITS | Continuity of Care Document ---
:1990 Author Organization [address] [address]- Care Team Providers Name Role Phone Trudy Sams MD Primary Care Physician [place] [facility] [place]/25/20 - 03/15/20 [place] [address]- [facility] Attending Physician: Trudy Sams MD Admitting Physician: [...] 09/06/11 Given 1Result Comment: given vis in panamanian Medications baclofen 20 mg oral tablet 20 [...] 0, 0, 09/26/08 3:59:33, Print BHAVYA Number, [id number], Constant Indicator Start Date: 09/26/08 Status: Orderedomeprazole [...]
--- OUTSIDE RECORDS SUMMARY | 2022-08-29 15:48 | XMS_ITS | Continuity of Care Document ---
:1990 Author Organization [facility] Address [address] [place] [address]- Care Team Providers Name Role Phone Trudy Sams MD Primary Care Physician Encounter [facility] [place] Date(s): 01/23/21 - 01/24/[address] [address] Discharge Disposition: A-D/C Home Attending Physician: Reece Garcia MD Admitting Physician: Rd Craft Sr, MD Referring Physician: Rd Craft Sr, MD Allergies, Adverse Reactions, Alerts Substance Reaction Severity Status Bactrim hives Active Latex Latex precautions Proposed Peanuts1 Active Seafood hives Persistent Moderate Active 1Peanut Butter Only Immunizations Given and Recorded Vaccine Date Status Refusal Reason influenza virus vaccine, inactivated 09/06/11 Given pneumococcal 23-valent vaccine1 09/06/11 Given Not Given Vaccine Date Status Refusal Reason influenza virus vaccine, inactivated 01/24/21 Not Given Patient Refuses 1Result Comment: given vis in kuwaiti Medications baclofen 20 mg oral tablet 20 [...] 09/10/19 10:57:52EDT Start Date: 09/10/19 Status: Orderedgabapentin 100 mg oral capsule 100 mg, Capsule, By Mouth, 01/24/21 16:00:00 EST Start Date: 01/24/21 Stop Date: 01/24/21 Status: Completedgabapentin 300 mg oral capsule 600 mg, Capsule, By Mouth, per pt, 01/24/21 15:00:00 EST Start Date: 01/24/21 Stop Date: 01/24/21 Status: Completedgabapentin 600 mg oral tablet 1 tablet = 600 mg, By Mouth, 3 times a day, # 90 tablet, 0 Refills, Maintenance, 09/10/19 10:57:34 EDT, Tablet Start Date: 09/10/19 Status: OrderedMultivitamin 1, tablet, By Mouth, Daily, 0, 0, 09/26/08 3:59:33, Print BHAVYA Number, [id number], Constant Indicator Start Date: 09/26/08 Status: Orderedomeprazole [...] Stage IV(Confirmed) Active Pressure Ulcer, Ankle(Confirmed) Active Vital Signs Most recent to oldest 1 2 3 [Reference Range]: Height 170 cm 170 cm 170 cm (01/24/21 2:44 PM) (01/24/21 8:21 AM) (01/24/21 2:4 3 AM) Weight 73.5 kg (01/23/21 5:35 PM) Oxygen Saturation [94-100 %] 99 % 100 % 98 % (01/24/21 2:44 PM) (01/24/21 8:21 AM) (01/24/21 2:4 3 AM) Pulse Rate [55-90 bpm] 78 bpm 59 bpm 84 bpm (01/24/21 2:44 PM) (01/24/21 8:21 AM) (01/24/21 2:4 3 AM) Body Mass Index [18.5-24.99] 25.43 *H* (01/23/21 5:35 PM) Blood Pressure [90-138/55-84 mm 109/50 mm Hg 113/66 mm Hg 79/39 mm Hg Hg] (01/24/21 2:44 PM) (01/24/21 8:21 AM) *L* (01/24/21 2:43 AM ) Respiratory Rate [16-30 br/min] 18 br/min 20 br/min 18 br/min (01/24/21 2:46 PM) (01/24/21 2:44 PM) (01/24/21 2:4 3 PM) Temperature [96.8-100.4 DegF] 97.9 DegF 97.6 DegF 97 .7 DegF (01/24/21 2:44 PM) (01/24/21 8:21 AM) (01/24/21 2:4 3 AM) Mode of Delivery (Oxygen) Room air Room air Room a ir (01/24/21 2:44 PM) (01/24/21 8:21 AM) (01/24/21 2:4 3 AM) Blood pressure sites Arm, left Arm, left Arm, left (01/24/21 2:44 PM) (01/24/21 8:21 AM) (01/24/21 2:4 3 AM) Temperature Route Temporal Temporal Temporal (01/24/21 2:44 PM) (01/24/21 8:21 AM) (01/24/21 2:4 3 AM) Dry Weight 73.5 kg (01/23/21 5:35 PM) Social History Social History Type Response Smoking Status Never smoker entered on: 05/16/15 Sex
--- OUTSIDE RECORDS SUMMARY | 2022-08-29 15:49 | XMS_ITS | Continuity of Care Document ---
:1990 Author Organization [facility] Address [address] [place] [address]- Care Team Providers Name Role Phone Trudy Sams MD Primary Care Physician Encounter [facility] [place] Date(s): 01/04/22 - 02/28/22 [facility] [address] [place] [address] Attending Physician: Lele Cash MD Admitting Physician: Lele Cash MD Referring Physician: Jeffrey Beaulieu MD Allergies, Adverse Reactions, [...] Patient Refuses 1Result Comment: given vis in serbian Medications baclofen 20 mg oral tablet 20 [...] 0, 0, 09/26/08 3:59:33, Print BHAVYA Number, [id number], Constant Indicator Start Date: 09/26/08 Status: Orderedomeprazole 20 mg oral delayed release tablet 1 tablet = 20 mg, By Mouth, Daily, # 30 tablet, 0 Refills, Maintenance, 05/20/16 10:46:02, EC Tablet Start Date: 05/20/16 Status: Orderedoxybutynin 10 mg/24 hr oral tablet, extended release 1 tablet = 10 mg, By Mouth, Daily, # 30 tablet, 0 Refills, Maintenance, 09/19/21 9:43:00 EDT, ER Tablet, [facility] 3, Partial fill upon patient request if [...]
--- OUTSIDE RECORDS SUMMARY | 2022-08-29 15:49 | XMS_ITS | Continuity of Care Document ---
:1988 Author Organization [facility] Address [address] [place] [address]- Care Team Providers Name Role Phone Trudy Sams MD Primary Care Physician Encounter [facility] [place] Date(s): 09/17/21 - 09/19/[address] [address] Discharge Disposition: A-D/C Home Attending Physician: Eli Johnson DO Admitting Physician: Renan HOWARD, Joel Referring Physician: Not on Staff, Referring MD Allergies, Adverse Reactions, Alerts Substance Reaction [...] Patient Refuses 1Result Comment: given vis in romanian Medications baclofen 10 mg oral tablet 20 mg, Tablet, By Mouth, 09/19/21 7:00:00 EDT Start Date: 09/19/21 Stop Date: 09/19/21 Status: Completedbaclofen 20 mg oral tablet 20 mg, 1, tablet, By Mouth, 3 times a day, Maintenance, 03/07/17 22:41:36 Start Date: 03/07/17 Status: OrderedBedside commode Bedside commode, See Instructions, # 1 each, Refills 0, Tot. Refills 0, Maintenance, Bedside CommodeICD: G82.20 Duration: Lifetime, 09/19/21 10:07:00 EDT, Supply Start Date: 09/19/21 Status: Orderedgabapentin 100 mg oral capsule 700 mg, Capsule, By Mouth, 09/19/21 7:00:00 EDT Start Date: 09/19/21 Stop Date: 09/19/21 Status: Completedgabapentin 600 mg oral tablet 1 tablet = 600 mg, By Mouth, 3 times a day, # 90 tablet, 0 Refills, Maintenance, 09/10/19 10:57:34 EDT, Tablet Start Date: 09/10/19 Status: OrderedMultivitamin 1, tablet, By Mouth, Daily, 0, 0, 09/26/08 3:59:33, Print BHAVYA Number, [id number], Constant Indicator Start Date: 09/26/08 Status: Orderedomeprazole 20 mg oral delayed release tablet 1 tablet = 20 mg, By Mouth, Daily, # 30 tablet, 0 Refills, Maintenance, 05/20/16 10:46:02, EC Tablet Start Date: 05/20/16 Status: Orderedoxybutynin 10 mg/24 hr oral tablet, extended release 1 tablet = 10 mg, By Mouth, Daily, # 30 tablet, 0 Refills, Maintenance, 09/19/21 9:43:00 EDT, ER Tablet, [facility] 3, Partial fill upon patient request if [...] IV(Confirmed) Active Pressure Ulcer, Ankle(Confirmed) Active Results Orders for Microbiology Reports Name Date Urine Culture (URINE CULTURE) 09/18/21 Urine Culture (URINE CULTURE) 09/17/21 Microbiology Reports TEST:Urine Culture STATUS:Auth (Verified) BODY SITE: SOURCE:URINE COLLECTED DATE/TIME:09/18/21 11:29 AMUrine Culture SPECIMEN DESCRIPTION : URINE SPECIAL REQUESTS : NONE Reflexed from [id number] CULTURE : NO GROWTH REPORT STATUS : FINAL 09/19/2021TEST:Urine Culture STATUS:Auth (Verified) BODY SITE: SOURCE:URINE COLLECTED DATE/TIME:09/17/21 12:40 PMUrine Culture SPECIMEN DESCRIPTION : URINE SPECIAL REQUESTS : NONE CULTURE : Mixed bacterial francine, indicative of urogenital contamination. REPORT STATUS : FINAL 09/19/2021adiology Reports Exam Date Time Procedure Performing Provider Status 09/17/21 12:05 PM Chest Portable Lilliana Del Angel; Auth (Verified ) Notes:(Chest Portable) Reason For Exam: Shortness of BreathRESULT: Chest Portable Chest Portable Reason: Shortness of Breath; Clinical Question(s): Pneumonia COMPARISON: Chest radiograph 07/20/2021 FINDINGS: LINES AND TUBES: None. LUNGS AND PLEURA: Clear lungs. Normal pulmonary vascularity. No pleural effusion. No pneumothorax. HEART, MEDIASTINUM AND UBALDO: Heart is normal in size. Normal upper mediastinal and hilar contour. BONES AND SOFT TISSUES: No acute abnormality. Status post median sternotomy. IMPRESSION: No acute abnormality. WSN: [id number] Ordering Physician: Tiera Deleon Dictated By: Blanca Cooper MD Dictated Date/Time: 09/17/21 12:21 p Reviewed By: Blanca Cooper MD Signed By: Blanca Cooper MD Signed Date/Time: 09/17/21 12:21 pm Transcribed By: AARON Transcribed Date/Time: 09/17/21 12:20 pm Vital Signs Most recent to oldest 1 2 3 [Reference Range]: Height 170 cm 170 cm 170 cm (09/19/21 8:28 AM) (09/18/21 11:59 PM) (09/18/21 10:00 PM) Weight 75.3 kg (09/17/21 5:49 PM) Oxygen Saturation [94-100 99 % 98 % 98 % %] (09/19/21 8:28 AM) (09/18/21 11:59 PM) (09/18/21 10:00 PM) Pulse Rate [55-90 bpm] 64 bpm 93 bpm 90 bpm (09/19/21 8:28 AM) *H* (09/18/21 10: 00 PM) (09/18/21 11:59 PM) Body Mass Index 26.06 [18.5-24.99] *H* (09/17/21 5:49 PM) Blood Pressure 111/66 mm Hg 98/58 mm Hg 94/54 mm Hg [90-138/55-84 mm Hg] (09/19/21 8:28 AM) (09/18/21 11:59 PM) ( 10:00 PM) Respiratory Rate [16-30 16 br/min 16 br/min 20 br/mi n br/min] (09/19/21 8:28 AM) (09/19/21 7:00 AM) (09/19/21 5:10 AM) Temperature [96.8-100.4 97.7 DegF 98.2 DegF 98.2 Deg F DegF] (09/19/21 8:28 AM) (09/18/21 11:59 PM) (09/18/21 10:00 PM) Mode of Delivery (Oxygen) Room air Room air Room a ir (09/19/21 8:28 AM) (09/18/21 11:59 PM) (09/18/21 10:00 PM) Blood pressure sites Arm, left Arm, left Arm, right (09/19/21 8:28 AM) (09/18/21 11:59 PM) (09/18/21 10:00 PM) Temperature Route Oral Oral Oral (09/19/21 8:28 AM) (09/18/21 11:59 PM) (09/18/21 10:00 PM) Dry Weight 75.3 kg (09/17/21 5:49 PM) Weight Obtained Via Bed scale (09/17/21 5:49 PM) Dry Weight Obtained Via Bed scale (09/17/21 5:49 PM) Social History Social History Type Response Smoking Status Never smoker entered on: 05/16/15 Sex
--- OUTSIDE RECORDS SUMMARY | 2022-08-29 15:49 | XMS_ITS | Continuity of Care Document ---
:1990 Author Organization [address] [address]- Care Team Providers Name Role Phone Trudy Sams MD Primary Care Physician Encounter [facility] [place] Date(s): 02/14/20 - 02/24/20 [place] [address]- [facility] Attending Physician: Daphne Marcos Admitting Physician: AdmDaphne ary Referring Physician: AdmtrDaphne Allergies, Adverse Reactions, Alerts Substance Reaction Severity Status Bactrim hives Active Latex Latex precautions Proposed Peanuts1 Active Seafood hives Persistent Moderate Active 1Peanut Butter Only Immunizations Given and Recorded Vaccine Date Status Refusal Reason influenza virus vaccine, inactivated 09/06/11 Given pneumococcal 23-valent vaccine1 09/06/11 Given 1Result Comment: given vis in kyrgyz Medications baclofen 20 mg oral tablet 20 [...] 0, 0, 09/26/08 3:59:33, Print BHAVYA Number, [id number], Constant Indicator Start Date: 09/26/08 Status: Orderedomeprazole [...]
--- OUTSIDE RECORDS SUMMARY | 2022-08-29 15:49 | XMS_ITS | Continuity of Care Document ---
:1990 Author Organization [facility] Address [address] [place] [address]- Care Team Providers Name Role Phone Trudy Sams MD Primary Care Physician [place] [facility] [place] Date(s): 03/07/22 - 04/06/22 [facility] [address] [place] [id number] Attending Physician: Daphne Marcos Admitting Physician: AdmtrDaphne Referring Physician: AdmtrDaphne Allergies, Adverse Reactions, Alerts [...] Patient Refuses 1Result Comment: given vis in tanzanian Medications baclofen 20 mg oral tablet 20 mg, 1, tablet, By Mouth, 3 times a day, Maintenance, 03/07/17 22:41:36 Start Date: 03/07/17 Status: OrderedBedside commode Bedside commode, See Instructions, # 1 each, Refills 0, Tot. Refills 0, Maintenance, Bedside CommodeICD: G82.20 Duration: Lifetime, 09/19/21 10:07:00 EDT, Supply Start Date: 09/19/21 Status: Orderedcefuroxime 250 mg oral tablet 1 tablet = 250 mg, By Mouth, 2 times a day, # 20 tablet, 0 Refills, Maintenance, 03/07/22 11:28:00 EDT, Tablet, Partial fill upon patient request if the prescription is for a schedule II opioid drug. Start Date: 03/07/22 Stop Date: 03/17/22 Status: Orderedgabapentin 600 mg oral tablet 1 tablet = 600 mg, By Mouth, 3 times a day, # 90 tablet, 0 Refills, Maintenance, 09/10/19 10:57:34 EDT, Tablet Start Date: 09/10/19 Status: OrderedMultivitamin 1, tablet, By Mouth, Daily, 0, 0, 09/26/08 3:59:33, Print BHAVYA Number, [id number], Constant Indicator Start Date: 09/26/08 Status: Orderedomeprazole 20 mg oral delayed release tablet 1 tablet = 20 mg, By Mouth, Daily, # 30 tablet, 0 Refills, Maintenance, 05/20/16 10:46:02, EC Tablet Start Date: 05/20/16 Status: Orderedoxybutynin 10 mg/24 hr oral tablet, extended release 1 tablet = 10 mg, By Mouth, Daily, # 30 tablet, 0 Refills, Maintenance, 09/19/21 9:43:00 EDT, ER Tablet, [facility] 3, Partial fill upon patient request if [...]
--- OUTSIDE RECORDS SUMMARY | 2022-08-29 15:49 | XMS_ITS | Continuity of Care Document ---
:1990 Author Organization [facility] Address [address] [place] [id number]- Care Team Providers Name Role Phone [place] Trudy HOWARD Primary Care Physician [place] [facility] [place]21 - 07/23/[address] [id number] Discharge Disposition: A-Transfer VNA/Home Health Attending Physician: Ran HOWARD, Agustin Admitting Physician: Stan HOWARD, Huey Referring Physician: Not on Staff, Referring MD Allergies, Adverse Reactions, Alerts Substance Reaction Severity Status Seafood hives Persistent Moderate Active Bactrim hives Active Latex Latex precautions Proposed Peanuts1 Active 1Peanut Butter Only Immunizations Given and Recorded Vaccine Date Status Refusal Reason influenza virus vaccine, inactivated 09/06/11 Given pneumococcal 23-valent vaccine1 09/06/11 Given Not Given Vaccine Date Status Refusal Reason influenza virus vaccine, inactivated 01/24/21 Not Given Patient Refuses 1Result Comment: given vis in upper sorbian Medications Acetaminophen Tablet 650 mg, Tablet, By Mouth, Every 4 hours, PRN for Pain , Mild, Temperature Greater than 100.5, Routine, 07/20/21 19:09:00 EDT Start Date: 07/20/21 Stop Date: 07/23/21 Status: DiscontinuedAugmentin 500 mg-125 mg oral tablet 1 tablet, By Mouth, Every 12 hours, for 5 days, # 10 tablet, 0 Refills, Acute 07/28/21 12:03:00 EDT,07/23/21 12:03:00 EDT, Tablet, [facility], Partial fill upon patient request if the prescription is for a schedule II opioid drug., 170,... Start Date: 07/23/21 Stop Date: 07/28/21 Status: Orderedbaclofen 20 mg oral tablet 20 mg, 1, tablet, By Mouth, 3 times a day, Maintenance, 03/07/17 22:41:36 Start Date: 03/07/17 Status: OrderedDoculase 50 mg oral capsule 1 capsule = 50 mg, By Mouth, 2 times a day, # 60 capsule, 0 Refills, Maintenance, 09/10/19 10:59:39 EDT, Capsule Start Date: 09/10/19 Status: Ordereddocusate-senna 50 mg-8.6 mg oral capsule 2 capsule, By Mouth, 2 times a day, PRN Constipation, for 5 days, # 10 capsule, 0 Refills, Acute 07/28/21 12:01:00 EDT, 07/23/21 12:01:00 EDT, Capsule, [facility], Partial fill upon patient request if the prescription is for a schedule I... Start Date: 07/23/21 Stop Date: 07/28/21 Status: Orderedgabapentin 100 mg oral capsule 100 mg, 1, capsule, By Mouth, 3 times a day, # 90 capsule, Refills 0, Maintenance, 09/10/19 10:57:52EDT Start Date: 09/10/19 Status: Orderedgabapentin 300 mg oral capsule 700 mg, Capsule, By Mouth, 07/23/21 9:00:00 EDT Start Date: 07/23/21 Stop Date: 07/23/21 Status: Completedgabapentin 600 mg oral tablet 1 tablet = 600 mg, By Mouth, 3 times a day, # 90 tablet, 0 Refills, Maintenance, 09/10/19 10:57:34 EDT, Tablet Start Date: 09/10/19 Status: OrderedMultivitamin 1, tablet, By Mouth, Daily, 0, 0, 09/26/08 3:59:33, Print BHAVYA Number, [id number], Constant Indicator Start Date: 09/26/08 Status: Orderedomeprazole [...] for Microbiology Reports Name Date Urine Culture 07/21/21 Urine Culture (URINE CULTURE) 07/20/21 Blood Culture 07/20/21 Blood Culture #2 07/20/21 Microbiology Reports TEST:Urine Culture STATUS:Unauthenticated BODY SITE: SOURCE:MISSAELDDE COLLECTED DATE/TIME:07/21/21 11:30 AMUrine Culture SPECIMEN DESCRIPTION : BLADDER SPECIAL REQUESTS : NONE CULTURE : NO GROWTH TO DATE REPORT STATUS : PRELIMINARY REPORT TEST:Urine Culture STATUS:Auth (Verified) BODY SITE: SOURCE:URINE COLLECTED DATE/TIME:07/20/21 12:55 PMUrine Culture SPECIMEN DESCRIPTION : URINE SPECIAL REQUESTS : NONE CULTURE : Mixed bacterial francine, indicative of urogenital contamination. REPORT STATUS : FINAL 07/21/2021TEST:Blood Culture STATUS:Unauthenticated BODY SITE: SOURCE:Blood COLLECTED DATE/TIME:07/20/21 12:45 PMBlood Culture SPECIMEN DESCRIPTION : BLOOD L SPECIAL REQUESTS : NONE CULTURE : NO GROWTH 3 DAYS REPORT STATUS : PRELIMINARY REPORT TEST:Blood Culture, Second Order STATUS:Unauthenticated BODY SITE: SOURCE:Blood COLLECTED DATE/TIME:07/20/21 12:41 PMBlood Culture, Second Order SPECIMEN DESCRIPTION : BLOOD L SPECIAL REQUESTS : NONE CULTURE : NO GROWTH 3 DAYS REPORT STATUS : PRELIMINARY REPORT Radiology Reports Exam Date Time Procedure Performing Provider Status 07/20/21 1:09 PM Chest Portable Carola Munoz; Auth (Verified ) Notes:(Chest Portable) Reason For Exam: cough, congestion, COVID positive;Other: RESULT: Chest Portable Chest Portable performed upright at 12:53 PM Reason: Other:; cough, congestion, COVID positive; Clinical Question(s): Pneumonia COMPARISON: Multiple prior chest x-rays, the most recent of which is dated 03/10/2019. FINDINGS: LINES AND TUBES: None. LUNGS AND PLEURA: Clear lungs. Normal pulmonary vascularity. No pleural effusion. No pneumothorax. HEART, MEDIASTINUM AND UBALDO: The patient is status post median sternotomy. The cardiac mediastinal contours appear normal. BONES AND SOFT TISSUES: No acute abnormality. IMPRESSION: No acute pulmonary process. WSN: [id number] Ordering Physician: Megha Grider Dictated By: April Grant MD Dictated Date/Time: 07/20/21 1:11 pm Reviewed By: April Grant MD Signed By: April Grant MD Signed Date/Time: 07/20/21 1:11 pm Transcribed By: AARON Transcribed Date/Time: 07/20/21 1:09 pm Vital Signs Most recent to oldest 1 2 3 [Reference Range]: Height 170 cm 170 cm 170 cm (07/23/21 11:53 AM) (07/23/21 8:21 AM) (07/22/21 12 :11 PM) Oxygen Saturation [94-100 %] 99 % 100 % 100 % (07/23/21 11:53 AM) (07/23/21 8:21 AM) (07/23/21 4: 00 AM) Pulse Rate [55-90 bpm] 80 bpm 85 bpm 75 bpm (07/23/21 11:53 AM) (07/23/21 8:21 AM) (07/23/21 4: 00 AM) Blood Pressure [90-138/55-84 95/52 mm Hg 104/61 mm Hg 105 /64 mm Hg mm Hg] (07/23/21 11:53 AM) (07/23/21 8:21 AM) (07/23/21 4: 00 AM) Respiratory Rate [16-30 19 br/min 18 br/min 18 br/mi n br/min] (07/23/21 11:53 AM) (07/23/21 10:48 AM) (07/23/21 1 0:48 AM) Temperature [96.8-100.4 98.0 DegF 97.5 DegF 98.4 Deg F DegF] (07/23/21 11:53 AM) (07/23/21 8:21 AM) (07/23/21 4: 00 AM) Mode of Delivery (Oxygen) Room air Room air Room a ir (07/23/21 11:53 AM) (07/23/21 8:21 AM) (07/23/21 4: 00 AM) Blood pressure sites Arm, right Arm, right Arm, left (07/23/21 11:53 AM) (07/23/21 8:21 AM) (07/23/21 4: 00 AM) Temperature Route Oral Oral Oral (07/23/21 11:53 AM) (07/23/21 8:21 AM) (07/23/21 4: 00 AM) Social History Social History Type Response Smoking Status Never smoker entered on: 05/16/15 Sex
--- OUTSIDE RECORDS SUMMARY | 2022-08-29 15:49 | XMS_ITS | Continuity of Care Document ---
:1990 Author Organization [facility] Address [address] [place] [address]- Care Team Providers Name Role Phone Trudy Sams MD Primary Care Physician Encounter [facility] [place] Date(s): 05/10/20 - 06/09/20 [facility] [address] [place] [address]- [facility] Attending Physician: Daphne Marcos Admitting Physician: AdmDaphne ray Referring Physician: AdmtrDaphne Allergies, Adverse Reactions, Alerts Substance Reaction Severity Status Bactrim hives Active Latex Latex precautions Proposed Peanuts1 Active Seafood hives Persistent Moderate Active 1Peanut Butter Only Immunizations Given and Recorded Vaccine Date Status Refusal Reason influenza virus vaccine, inactivated 09/06/11 Given pneumococcal 23-valent vaccine1 09/06/11 Given 1Result Comment: given vis in amharic Medications baclofen 20 mg oral tablet 20 [...] 0, 0, 09/26/08 3:59:33, Print BHAVYA Number, [id number], Constant Indicator Start Date: 09/26/08 Status: Orderedomeprazole [...]
--- OUTSIDE RECORDS SUMMARY | 2022-08-29 15:49 | XMS_ITS | Continuity of Care Document ---
:1990 Author Organization [facility] Address [address] [place] [id number]- Care Team Providers Name Role Phone Trudy Sams MD Primary Care Physician Encounter [facility] Date(s): 05/12/20 - 05/12/[address] [address]- [facility] Discharge Disposition: A-D/C Home Attending Physician: Jeffrey Beaulieu MD Admitting Physician: Jeffrey Beaulieu MD Referring Physician: Jeffrey Beaulieu MD Allergies, [...] 10:57:34 EDT, Tablet Start Date: 09/10/19 Status: OrderedLevaquin 500 mg oral tablet 1 tablet = 500 mg, By Mouth, Every 24 hours, for 3 days, # 3 tablet, 0 Refills, Acute 05/15/20 13:06:00 EDT, 05/12/20 13:06:00 EDT, Tablet, [id number], 170.18, cm, 09/10/19 11:15:00 EDT, Height, 74.55, kg, 09/10/19 11:15:00 EDT, Dry W... Start Date: 05/12/20 Stop Date: 05/15/20 Status: OrderedMultivitamin 1, tablet, By Mouth, Daily, 0, 0, 09/26/08 3:59:33, Print BHAVYA Number, [id number], Constant Indicator Start Date: 09/26/08 Status: Orderedomeprazole [...] to oldest 1 2 3 [Reference Range]: Oxygen Saturation [94-100 %] 99 % 99 % 100 % (05/12/20 12:30 PM) (05/12/20 12:15 PM) (05/12/20 1 1:11 AM) Pulse Rate [55-90 bpm] 82 bpm 84 bpm (05/12/20 12:15 PM) (05/12/20 11:11 AM) Blood Pressure [90-138/55-84 131/87 mm Hg 137/105 mm Hg 115 /63 mm Hg mm Hg] (05/12/20 12:30 PM) (05/12/20 12:15 PM) (05/12/20 1 1:11 AM) Respiratory Rate [16-30 16 br/min 16 br/min br/min] (05/12/20 12:15 PM) (05/12/20 11:11 AM) Temperature [96.8-100.4 97.3 DegF 98.2 DegF 98.5 Deg F DegF] (05/12/20 1:15 PM) (05/12/20 12:15 PM) (05/12/20 11 :11 AM) Mode of Delivery (Oxygen) Room air Room air Room a ir (05/12/20 12:30 PM) (05/12/20 12:15 PM) (05/12/20 1 1:11 AM) Blood pressure sites Arm, left (05/12/20 11:11 AM) Temperature Route Temporal Temporal Temporal (05/12/20 1:15 PM) (05/12/20 12:15 PM) (05/12/20 11 :11 AM) Social History Social History Type Response Smoking Status Never smoker entered on: 05/16/15 Sex
[2022-08-29 15:55] LABS: MANUAL DIFF FLAG NO
[2022-08-29 15:59] LABS: Basophils Percent Auto 0.6 % (0-2); Eosinophils Absolute Auto 0.1 X10*3/uL (0.0-0.4); Eosinophils Percent Auto 2.6 % (0-4); Hemoglobin 13.7 g/dl (14.0-18.0); Imm Gran Abs Auto 0.01 X10*3/uL (0.00-0.03); Imm Gran Pct Auto 0.2 % (0.0-0.4); Lymphocytes Absolute Auto 1.4 X10*3/uL (1.2-4.9); Lymphocytes Percent Auto 30.8 % (20-40); Mean Corpuscular HGB Conc 32.6 g/dl (31.0-36.0); Mean Corpuscular Volume 92.1 fL (80.0-98.0); Monocytes Absolute Auto 0.4 X10*3/uL (0.1-1.2); Monocytes Percent Auto 7.7 % (2-11); Neutrophils Absolute Auto 2.7 x10*3/uL (2.0-8.3); Neutrophils Percent Auto 58.1 % (45-73); Platelet Count 212 X10*3/uL (160-400); Red Blood Count 4.56 X10*6/uL (4.60-5.80); Red Cell Distribution Width 13.7 % (11.0-16.0); White Blood Count 4.7 X10*3/uL (4.8-10.8)
[2022-08-29 16:10] LABS: Lactic Acid 1.2 mmol/L (0.5-2.0)
[2022-08-29 16:12] LABS: COVID-19 Test Negative (Negative); IDNOW Serial# 16C4AD1C
[2022-08-29 16:16] LABS: Alanine Aminotransferase 15 U/L (0-40); Albumin Level 4.2 g/dL (3.5-5.0); Alkaline Phosphatase 95 U/L (39-117); Anion Gap 12 (12-20); Aspartate Amino Transferase 17 U/L (5-37); Bilirubin Direct 0.2 mg/dL (0.0-0.5); Bilirubin Total 0.6 mg/dL (0.0-1.0); Blood Urea Nitrogen 13 mg/dL (9-16); Calcium 9.4 mg/dL (8.4-10.2); Carbon Dioxide 29 mmol/L (22-29); Chloride 105 mmol/L (96-108); Creatinine Clr Calc Pharmacy 109.1; Estimated Glomerular Filt Rate > 60; Glucose Random 89 mg/dL (60-115); Potassium 4.3 mmol/L (3.3-5.1); Sodium 142 mmol/L (135-145); Total Protein 7.4 g/dL (6.5-8.0)
--- NOTE | 2022-08-29 17:06 | PC.NURSE ---
Aide was called for a ride home they stated they will picker/puller in 30 mins at 1647
== END 2022-08-29 17:07 | disposition home or self-care (01) ==
PROVIDERS: Physician Assistant; Emergency Provider Student in an Organized Health Care Education/Training Program; PCP Family Medicine
DX: N39.0 Urinary tract infection, site not specified (principal); Z20.822 Contact with and (suspected) exposure to COVID-19; G82.20 Paraplegia, unspecified; G90.9 Disorder of the autonomic nervous system, unspecified; Z79.899 Other long term (current) drug therapy
CPT/HCPCS: 80048; 80076; 83605; 83735; 85025; 87040; 87635; 99283; 99284

== ENCOUNTER 2022-12-23 12:09 | Emergency (ER) | payer MEDICAID, SELFPAY ==
--- NOTE | ~2022-12-23 | XR_ITS ---
EXAMINATION: XR CHEST CLINICAL INFORMATION: Cough and fever COMPARISON: Prior chest radiographs, most recently 01/04/2022 TECHNIQUE: 2 views of the chest were obtained. FINDINGS: Questionable mild airways inflammation, otherwise no significant abnormality is noted involving the heart, lungs, mediastinum, bony thorax or soft tissues. No is again made of overlying sternal wires and clips at the left apex. XR/XR chest 2V IMPRESSION: Questionable mild airways inflammation, no other acute process.
[2022-12-23 12:12] VITALS: BP 110/64; BP 118/60; PULSE 93; PULSE 99; RESP 18; TEMP 36.9; O2SAT 98; O2SAT 99; BMI 24.3
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
--- NOTE | 2022-12-23 13:00 | PC.NURSE ---
pt a+o x4, reports 8/10 groin pain, vss. pt c/o cough/fever/chills. he is paralyzed from the waist down and cath himself at home, he has hx of chronic uti and chronic indwelling estevez catheter. pt reports that his urine is cloudy and thinks he may have a uti. denies n/v/d.
[2022-12-23 13:03] LABS: MANUAL DIFF FLAG NO
[2022-12-23 13:05] LABS: Basophils Percent Auto 0.5 % (0-2); Eosinophils Absolute Auto 0.1 X10*3/uL (0.0-0.4); Eosinophils Percent Auto 1.9 % (0-4); Hematocrit 38.4 % (42.0-52.0); Hemoglobin 12.7 g/dl (14.0-18.0); Imm Gran Abs Auto 0.01 X10*3/uL (0.00-0.03); Imm Gran Pct Auto 0.2 % (0.0-0.4); Lymphocytes Absolute Auto 1.3 X10*3/uL (1.2-4.9); Lymphocytes Percent Auto 29.7 % (20-40); Mean Corpuscular HGB Conc 33.1 g/dl (31.0-36.0); Mean Corpuscular Hemoglobin 30.5 pg (27.0-33.0); Mean Corpuscular Volume 92.1 fL (80.0-98.0); Mean Platelet Volume 9.4 fL (9.4-12.4); Monocytes Absolute Auto 0.5 X10*3/uL (0.1-1.2); Monocytes Percent Auto 12.7 % (2-11); Neutrophils Absolute Auto 2.3 x10*3/uL (2.0-8.3); Platelet Count 176 X10*3/uL (160-400); Red Blood Count 4.17 X10*6/uL (4.60-5.80); Red Cell Distribution Width 13.4 % (11.0-16.0); White Blood Count 4.2 X10*3/uL (4.8-10.8)
[2022-12-23] MEDS: 0.9 % Sodium Chloride 500 ML IV (13:16)
--- NOTE | 2022-12-23 13:30 | PC.NURSE ---
20g iv inserted rac, fluid given as documented.
[2022-12-23 13:40] LABS: Anion Gap 12 (12-20); Blood Urea Nitrogen 12 mg/dL (9-16); Calcium 9.3 mg/dL (8.4-10.2); Carbon Dioxide 28 mmol/L (22-29); Chloride 106 mmol/L (96-108); Creatinine Clr Calc Pharmacy 115.8; Estimated Glomerular Filt Rate > 60; Glucose Random 101 mg/dL (60-115); Potassium 4.1 mmol/L (3.3-5.1); Sodium 142 mmol/L (135-145)
[2022-12-23 13:55] LABS: Influenza A PCR POSITIVE (Negative); Influenza B PCR NEGATIVE (Negative); Resp Syncy Virus RNA Qual PCR NEGATIVE (Negative); SARS COV2 PCR INHOUSE NEGATIVE (Negative)
[2022-12-23 14:41] LABS: Appearance Urine Clear; Color Urine Yellow; Glucose Urine UA Negative (Negative); Leukocyte Esterase Urine Negative (Negative); Nitrite Urine Negative (Negative); PH 6.5 (5.0-9.0); Specific Gravity - Urine 1.015 (1.005-1.025); Urine Blood Negative (Negative); Urine Ketones Negative (Negative); Urine Protein Trace mg/dL (Neg-Trace)
[2022-12-23 16:29] VITALS: BP 98/60; PULSE 84; RESP 18; TEMP 37.3; O2SAT 99
== END 2022-12-23 18:29 | disposition home or self-care (01) ==
PROVIDERS: Emergency Provider Emergency Medicine; PCP Family Medicine
DX: J11.1 Influenza due to unidentified influenza virus with other respiratory manifestations (principal); R50.9 Fever, unspecified; Z20.822 Contact with and (suspected) exposure to COVID-19
CPT/HCPCS: 0241U; 36415; 71046; 80048; 81003; 85025; 87040; 96360; 96361; 99284

== ENCOUNTER 2023-01-15 14:42 | Emergency (ER) | payer MEDICAID, SELFPAY ==
[2023-01-15 14:46] VITALS: BP 94/70; PULSE 80; O2SAT 96
[2023-01-15 14:52] VITALS: BP 91/64; PULSE 87; RESP 16; TEMP 36.8; O2SAT 97; BMI 31.3
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
[2023-01-15 17:22] LABS: MANUAL DIFF FLAG NO
[2023-01-15] MEDS: Ibuprofen 400 MG TABLET PO (17:24)
[2023-01-15] MEDS: Acetaminophen 325 MG TABLET 975 MG PO (17:24)
[2023-01-15 17:30] LABS: Basophils Absolute Auto 0.1 X10*3/uL (0.0-0.2); Basophils Percent Auto 0.8 % (0-2); Eosinophils Absolute Auto 0.2 X10*3/uL (0.0-0.4); Eosinophils Percent Auto 3.4 % (0-4); Hematocrit 40.7 % (42.0-52.0); Hemoglobin 13.4 g/dl (14.0-18.0); Imm Gran Abs Auto 0.01 X10*3/uL (0.00-0.03); Imm Gran Pct Auto 0.2 % (0.0-0.4); Lymphocytes Absolute Auto 2.2 X10*3/uL (1.2-4.9); Lymphocytes Percent Auto 37.3 % (20-40); Mean Corpuscular HGB Conc 32.9 g/dl (31.0-36.0); Mean Corpuscular Hemoglobin 30.7 pg (27.0-33.0); Mean Corpuscular Volume 93.1 fL (80.0-98.0); Mean Platelet Volume 9.7 fL (9.4-12.4); Monocytes Absolute Auto 0.4 X10*3/uL (0.1-1.2); Monocytes Percent Auto 7.4 % (2-11); Neutrophils Percent Auto 50.9 % (45-73); Platelet Count 224 X10*3/uL (160-400); Red Blood Count 4.37 X10*6/uL (4.60-5.80)
[2023-01-15 17:52] LABS: Alanine Aminotransferase 16 U/L (0-40); Albumin Level 3.9 g/dL (3.5-5.0); Alkaline Phosphatase 101 U/L (39-117); Anion Gap 15 (12-20); Aspartate Amino Transferase 17 U/L (5-37); Bilirubin Total 0.5 mg/dL (0.0-1.0); Blood Urea Nitrogen 14 mg/dL (9-16); Calcium 9.5 mg/dL (8.4-10.2); Carbon Dioxide 27 mmol/L (22-29); Chloride 106 mmol/L (96-108); Creatinine Clr Calc Pharmacy 147.1; Estimated Glomerular Filt Rate > 60; Glucose Random 87 mg/dL (60-115); Potassium 4.7 mmol/L (3.3-5.1); Sodium 143 mmol/L (135-145); Total Protein 7.1 g/dL (6.5-8.0)
--- NOTE | 2023-01-15 18:50 | PC.NURSE ---
Pt moved to bed 11 for straight cath, tolerated procedure well
[2023-01-15 18:51] LABS: Appearance Urine Cloudy; Color Urine Yellow; Glucose Urine UA Negative (Negative); Leukocyte Esterase Urine Large (3+) (Negative); Nitrite Urine Negative (Negative); PH 6.5 (5.0-9.0); UMIC TRIGGER UACC YES; Urine Blood Negative (Negative); Urine Ketones Negative (Negative); Urine Protein Negative (Neg-Trace)
[2023-01-15 18:53] LABS: Bacteria Urine 1+ (None Seen); Hyaline Casts Urine 0-2 /LPF (0-2); RBC Urine 0-2 /HPF (0-2); Squamous Epithelial Cell Urine 0-2 /HPF (0-2); UACC Culture Trigger YES; WBC Urine >50 /HPF (0-5)
[2023-01-15 19:12] VITALS: BP 105/65; PULSE 77; RESP 18; TEMP 36.6; O2SAT 95
--- NOTE | 2023-01-15 20:25 | MHC.EDTECH ---
Call out to [facility] @2021 to book bls transport back home [facility] gave an ETA of 45 mins
== END 2023-01-15 22:39 | disposition home or self-care (01) ==
PROVIDERS: Emergency Provider Student in an Organized Health Care Education/Training Program; PCP Family Medicine
DX: N39.0 Urinary tract infection, site not specified (principal); B96.89 Other specified bacterial agents as the cause of diseases classified elsewhere; M54.50 Low back pain, unspecified; G82.20 Paraplegia, unspecified; Z87.891 Personal history of nicotine dependence; Z79.899 Other long term (current) drug therapy; Z87.440 Personal history of urinary (tract) infections
CPT/HCPCS: 36415; 51701; 80053; 81001; 85025; 87086; 87088; 87186; 99284; 99285

== ENCOUNTER 2023-01-20 15:21 | Inpatient (IN) | payer MEDICAID, SELFPAY ==
--- NOTE | ~2023-01-20 | US_ITS ---
EXAMINATION: US SCROTUM CLINICAL INFORMATION: Scrotal pain. COMPARISON: None TECHNIQUE: A sonogram of the scrotum was performed assessing alvarez-scale appearance and color Doppler flow. Spectral Doppler analysis of the arterial and venous flow were performed in the testes bilaterally. FINDINGS: RIGHT: Right testicle measures 3.0 x 2.3 x 2.2 cm, volume 7.7 mL. No focal testicular parenchymal lesions are visualized. Spectral Doppler analysis of the arterial and venous flow is normal in the right testis. Right epididymal head is normal in size. No right hydrocele or varicocele is seen. Right epididymal Doppler flow is normal. LEFT: Left testicle measures 3.1 x 1.7 x 2.5 cm, volume 7.0 mL. No focal testicular parenchymal lesions are visualized. Spectral Doppler analysis of the arterial and venous flow is normal in the left testis. Left epididymal head is normal in size. No left hydrocele or varicocele is seen. Left epididymal Doppler flow is normal. US/US scrotum doppler IMPRESSION: Normal scrotal study without evidence of testicular torsion or epididymitis,
--- NOTE | ~2023-01-20 | US_ITS ---
EXAMINATION: US SCROTUM CLINICAL INFORMATION: Scrotal pain. COMPARISON: None TECHNIQUE: A sonogram of the scrotum was performed assessing alvarez-scale appearance and color Doppler flow. Spectral Doppler analysis of the arterial and venous flow were performed in the testes bilaterally. FINDINGS: RIGHT: Right testicle measures 3.0 x 2.3 x 2.2 cm, volume 7.7 mL. No focal testicular parenchymal lesions are visualized. Spectral Doppler analysis of the arterial and venous flow is normal in the right testis. Right epididymal head is normal in size. No right hydrocele or varicocele is seen. Right epididymal Doppler flow is normal. LEFT: Left testicle measures 3.1 x 1.7 x 2.5 cm, volume 7.0 mL. No focal testicular parenchymal lesions are visualized. Spectral Doppler analysis of the arterial and venous flow is normal in the left testis. Left epididymal head is normal in size. No left hydrocele or varicocele is seen. Left epididymal Doppler flow is normal. US/US scrotum IMPRESSION: Normal scrotal study without evidence of testicular torsion or epididymitis,
[2023-01-20 15:28] VITALS: BP 111/57; PULSE 77; RESP 18; TEMP 36.8; O2SAT 97; BMI 24.4
--- NOTE | 2023-01-20 16:02 | ECG_ITS ---
Test Reason : HTN Blood Pressure : / mmHG Vent. Rate : 069 BPM Atrial Rate : 069 BPM P-R Int : 138 ms QRS Dur : 086 ms QT Int : 376 ms P-R-T Axes : 040 078 076 degrees QTc Int : 402 ms Normal sinus rhythm ST elevation, consider early repolarization Borderline ECG When compared with ECG of 18-APR-2022 15:42, No significant change was found Referred By: Khurram Isbell Electronically Signed By:CHRISTINA OVERTON
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
[2023-01-20 17:45] LABS: MANUAL DIFF FLAG NO
[2023-01-20 17:47] LABS: Basophils Percent Auto 0.8 % (0-2); Eosinophils Absolute Auto 0.2 X10*3/uL (0.0-0.4); Eosinophils Percent Auto 4.4 % (0-4); Hematocrit 44.4 % (42.0-52.0); Hemoglobin 14.5 g/dl (14.0-18.0); Imm Gran Abs Auto 0.02 X10*3/uL (0.00-0.03); Imm Gran Pct Auto 0.4 % (0.0-0.4); Lymphocytes Absolute Auto 1.6 X10*3/uL (1.2-4.9); Lymphocytes Percent Auto 32.5 % (20-40); Mean Corpuscular HGB Conc 32.7 g/dl (31.0-36.0); Mean Corpuscular Hemoglobin 30.3 pg (27.0-33.0); Mean Corpuscular Volume 92.7 fL (80.0-98.0); Mean Platelet Volume 9.8 fL (9.4-12.4); Monocytes Absolute Auto 0.3 X10*3/uL (0.1-1.2); Monocytes Percent Auto 6.3 % (2-11); Neutrophils Absolute Auto 2.8 x10*3/uL (2.0-8.3); Neutrophils Percent Auto 55.6 % (45-73); Platelet Count 231 X10*3/uL (160-400); Red Blood Count 4.79 X10*6/uL (4.60-5.80); Red Cell Distribution Width 13.4 % (11.0-16.0)
--- NOTE | 2023-01-20 17:52 | PHA.MEDREC ---
MED REC COMPLETE, NO ISSUES Pharmacy Consult ? Medication Reconciliation Pharmacy has completed the medication reconciliation.
[2023-01-20 18:10] LABS: COVID-19 Test Negative (Negative); IDNOW Serial# BCCEAD1C; Lactic Acid 1.4 mmol/L (0.5-2.0)
[2023-01-20 18:16] LABS: Alanine Aminotransferase 26 U/L (0-40); Albumin Level 4.6 g/dL (3.5-5.0); Alkaline Phosphatase 108 U/L (39-117); Anion Gap 15 (12-20); Aspartate Amino Transferase 27 U/L (5-37); Bilirubin Total 0.5 mg/dL (0.0-1.0); Blood Urea Nitrogen 13 mg/dL (9-16); Carbon Dioxide 29 mmol/L (22-29); Chloride 105 mmol/L (96-108); Creatinine Clr Calc Pharmacy 115.8; Estimated Glomerular Filt Rate > 60; Glucose Random 86 mg/dL (60-115); Magnesium 2.2 mg/dL (1.6-2.6); Potassium 4.8 mmol/L (3.3-5.1); Sodium 144 mmol/L (135-145); Total Protein 8.4 g/dL (6.5-8.0)
[2023-01-20 18:48] VITALS: BP 122/77; PULSE 86; RESP 18; TEMP 37.1; O2SAT 97
[2023-01-20 20:00] VITALS: BP 121/70; PULSE 67; RESP 18; TEMP 36.4; O2SAT 97
--- NOTE | 2023-01-20 20:15 | PC.NURSE ---
iv line placed @1999 and first dose of meropenem iv given. pharmacy called to reschedule following doses for q8 hours. report called to Graciela ALLRED c[facility] surg. patient resting comfortably, no distress or current complaints. [facility] to transport patient to bed 372.
[2023-01-20] MEDS: Enoxaparin Sodium 40 MG/0.4 ML SYRINGE SUBCUT (21:24)
[2023-01-20 23:31] VITALS: BP 98/54; PULSE 70; RESP 18; TEMP 36.3; O2SAT 97
[2023-01-21] MEDS: 0.9 % Sodium Chloride Flush 3 ML SYRINGE IVFLUSH ×3 (00:44→16:24)
[2023-01-21] MEDS: Gabapentin 100 MG CAPSULE PO ×4 (03:42→20:03)
[2023-01-21] MEDS: Baclofen 10 MG TABLET PO ×4 (03:42→20:03)
[2023-01-21] MEDS: Gabapentin 600 MG TABLET PO ×4 (03:42→20:03)
[2023-01-21 03:53] VITALS: BP 114/69; PULSE 61; RESP 18; TEMP 36.2; O2SAT 98
[2023-01-21 07:20] VITALS: BP 121/64; PULSE 78; RESP 18; TEMP 36.6; O2SAT 98
[2023-01-21] MEDS: Omeprazole 20 MG CAPSULE.DR PO (08:47)
[2023-01-21] MEDS: Docusate Sodium 100 MG CAPSULE PO ×2 (08:47→20:03)
[2023-01-21] MEDS: Multivitamin TABLET 1 TAB PO (08:47)
--- NOTE | 2023-01-21 09:17 | MHC.CM.PN ---
CM met with Patient at bedside. Patient lives alone in an apartment and he uses a w/c to assist with mobility (Paraplegia). Patient received 49 [employer] hours/week and home/resume said services is the goal. CM has initiated and will follow for dc planning. Patient has received no Covid vax and his PCP is Dr. Trudy Sams.
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
[2023-01-21 15:21] VITALS: BP 112/70; PULSE 65; RESP 18; TEMP 36; O2SAT 97
[2023-01-21 15:23] VITALS: BP 112/70; PULSE 65; RESP 18; TEMP 36; O2SAT 97
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
[2023-01-21 19:53] VITALS: BP 120/62; PULSE 65; RESP 18; TEMP 36.4; O2SAT 98
[2023-01-21] MEDS: Enoxaparin Sodium 40 MG/0.4 ML SYRINGE SUBCUT (20:02)
[2023-01-21 23:49] VITALS: BP 116/69; PULSE 67; RESP 18; TEMP 36.6; O2SAT 97
[2023-01-22] MEDS: 0.9 % Sodium Chloride Flush 3 ML SYRINGE IVFLUSH ×3 (00:18→16:58)
[2023-01-22 03:12] VITALS: BP 120/60; PULSE 76; RESP 18; TEMP 36.5; O2SAT 97
[2023-01-22 08:00] VITALS: BP 124/68; PULSE 57; RESP 18; TEMP 36.9; O2SAT 98
[2023-01-22] MEDS: Omeprazole 20 MG CAPSULE.DR PO (09:22)
[2023-01-22] MEDS: Baclofen 10 MG TABLET PO ×3 (09:22→20:18)
[2023-01-22] MEDS: Multivitamin TABLET 1 TAB PO (09:22)
[2023-01-22] MEDS: Docusate Sodium 100 MG CAPSULE PO ×3 (09:22→20:18)
[2023-01-22] MEDS: Gabapentin 100 MG CAPSULE PO ×3 (09:22→20:18)
[2023-01-22] MEDS: Gabapentin 600 MG TABLET PO ×3 (09:22→20:18)
[2023-01-22] MEDS: Throat Lozenge, Medicated LOZENGE 1 LOZENGE MUCOUS MEM (09:48)
[2023-01-22 10:09] LABS: IDNOW Serial# 6674DD1D; Strep A Nucleic Acid Negative (Negative)
--- NOTE | 2023-01-22 10:17 | MHC.CM.PN ---
Per ROUNDS discussion, Patient is not yet medically cleared for dc but will need IV ABT at home at time of dc. A referral has been made to [facility] and CM awaits a VNA acceptance. CM will follow.
--- NOTE | 2023-01-22 10:44 | MHC.CM.PN ---
CM CONTACTED PT'S SISTER JASE AT 10:38AM, JASE CONFIRMS SHE HAS DONE IV ABX W/PT IN THE PAST W/[facility] AND AGREEABLE TO DO SO AGAIN, JASE AWARE PT WILL ONLY NEED IV ERTAPENEM X 10 DAYS, REFERRALS UPDATED, CM WILL CONT TO FOLLOW.
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
[2023-01-22 15:46] VITALS: BP 138/90; PULSE 67; RESP 18; TEMP 36.5; O2SAT 100
[2023-01-22 20:00] VITALS: BP 119/58; PULSE 77; RESP 18; TEMP 36.4; O2SAT 97
[2023-01-22] MEDS: Enoxaparin Sodium 40 MG/0.4 ML SYRINGE SUBCUT (20:23)
[2023-01-22 23:57] VITALS: BP 120/60; PULSE 60; RESP 18; TEMP 36.6; O2SAT 98
[2023-01-23] MEDS: 0.9 % Sodium Chloride Flush 3 ML SYRINGE IVFLUSH ×2 (00:03→08:56)
[2023-01-23 04:00] VITALS: BP 125/61; PULSE 75; RESP 18; TEMP 36.8; O2SAT 97
[2023-01-23 08:00] VITALS: BP 123/64; PULSE 72; RESP 18; TEMP 37.1; O2SAT 97
[2023-01-23] MEDS: Docusate Sodium 100 MG CAPSULE PO ×2 (08:56→20:50)
[2023-01-23] MEDS: Gabapentin 100 MG CAPSULE PO ×3 (08:56→20:51)
[2023-01-23] MEDS: Omeprazole 20 MG CAPSULE.DR PO (08:56)
[2023-01-23] MEDS: Multivitamin TABLET 1 TAB PO (08:56)
[2023-01-23] MEDS: Baclofen 10 MG TABLET PO ×3 (08:56→20:51)
[2023-01-23] MEDS: Acetaminophen 325 MG TABLET 650 MG PO (08:56)
[2023-01-23] MEDS: Gabapentin 600 MG TABLET PO ×3 (08:56→20:50)
--- NOTE | 2023-01-23 13:13 | HO.MIDLINE ---
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 Using ultrasound guidance, right basilic vein access was obtained twice by Caryl Cummins RN, but unable to pass guidewire. Right brachial vein was accessed twice by Kamlesh Owens RN and guidewire advanced easily on second attempt. A 20G X [address] Non-PASV Midline was positioned. The procedure was performed in [S272]. Ultrasound was used to document vein patency and for needle entry. A formal ultrasound picture was recorded. [employer] has released the line for use and it is currently dressed with a StatLock, Tegaderm, and CHG disc. Verification has been performed for blood return and line patency. Arm Circumference: 28 CM Equipment: BARD PowerGlide ST midline Catheter Type: 20 G X 8 CM Non PASV Midline Lot #: [id number]
[2023-01-23] MEDS: Loratadine 10 MG TABLET PO (13:15)
[2023-01-23] MEDS: Ertapenem Sodium 1 GM in 0.9 % Sodium Chloride 50 ML IV (14:10)
[2023-01-23] MEDS: traMADoL HCL 50 MG TABLET PO ×2 (14:57→21:54)
--- NOTE | 2023-01-23 15:11 | MHC.CM.PN ---
CM RECEIVED MESSAGE FROM [facility] THAT PHARMACIST HAD SPOKEN TO DR TAYLOR REGARDING ABX AND SENSITIVITY TO PT'S INFECTION, ABX WILL BE CHANGED TO MEROPENEM Q8HRS WHICH PT'S SISTER JASE AND VICKI ARE UNABLE TO ACCOMMODATE, CM WILL PLACE SNF REFERRAL HOWEVER NOT LIKELY PT WILL BE ACCEPTED D/T AGE, CM WILL CONT TO FOLLOW D/C NEEDS. PER PT'S SISTER JASE SHE WILL BE GUAM FROM JANUARY 29- HOWEVER CM SHOULD STILL CONTACT HER W/ANY NEEDS PT LIVES W/SSO FATHER. JASE HAS NO PREFERENCES OF SNF.
[2023-01-23] MEDS: Heparin Sodium,Porcine Flush 50 UNITS, 0.9 % Sodium Chloride Flush 5 ML IVFLUSH ×2 (15:27→20:51)
[2023-01-23 15:28] VITALS: BP 109/61; PULSE 83; RESP 18; TEMP 36.2; O2SAT 97
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
[2023-01-23 19:45] VITALS: BP 115/56; PULSE 69; RESP 18; TEMP 36.4; O2SAT 99
[2023-01-23 23:35] VITALS: BP 120/65; PULSE 65; RESP 18; TEMP 36.8; O2SAT 97
[2023-01-24] MEDS: 0.9 % Sodium Chloride Flush 3 ML SYRINGE IVFLUSH ×3 (00:10→20:36)
[2023-01-24 02:53] VITALS: BP 110/62; PULSE 60; RESP 18; TEMP 36.7; O2SAT 98
[2023-01-24 07:00] VITALS: BP 90/50; PULSE 88; RESP 16; TEMP 35.5; O2SAT 97
--- NOTE | 2023-01-24 08:07 | P.CDIC_ITS ---
CDI Concurrent Query Documentation Clarification: PHYSICIAN'S DOCUMENTATION REQUEST Date of Query: 01/24/23 0807 Patient Name: Anatoly Corbett Admit Date: 01/20/23 Dear Doctor, A review of the medical record indicates additional documentation may be needed. Please review below and update the documentation accordingly. Risk Factors/Clinical Indicators/Treatments Per MD progress note 01/23/23: UTI: ESBL Acinectobacter who self catheterizes continue iv Meropenem, blood cultures pending ID evaluation Please clarify the relationship between these conditions: * Yes, UTI is related to / associated with / due to self catheterization * No, UTI is not related to / associated with / due to self catheterization * Other * Unable to determine Use of terms such as suspected, likely, concern for, or probable (associated with a specific diagnosis that is being evaluated, monitored, or treated as if it exists) are acceptable and can be coded in the inpatient setting, when documented at the time of discharge. Thank you, Stephy Peterson RN Extension: [phone] Please use your independent medical judgment in providing your response. THIS QUERY IS PART OF THE PERMANENT MEDICAL RECORD Provider Response: Other Other Diagnosis: uti possible related to self catheterisation
[2023-01-24] MEDS: Gabapentin 600 MG TABLET PO ×3 (08:13→20:35)
[2023-01-24] MEDS: Docusate Sodium 100 MG CAPSULE PO ×2 (08:13→20:36)
[2023-01-24] MEDS: Multivitamin TABLET 1 TAB PO (08:13)
[2023-01-24] MEDS: Gabapentin 100 MG CAPSULE PO ×3 (08:13→20:36)
[2023-01-24] MEDS: Baclofen 10 MG TABLET PO ×3 (08:13→20:36)
[2023-01-24] MEDS: Loratadine 10 MG TABLET PO (08:13)
[2023-01-24] MEDS: Omeprazole 20 MG CAPSULE.DR PO (08:13)
[2023-01-24] MEDS: Heparin Sodium,Porcine Flush 50 UNITS, 0.9 % Sodium Chloride Flush 5 ML IVFLUSH ×3 (08:14→20:35)
[2023-01-24 15:14] VITALS: BP 107/58; PULSE 88; RESP 16; TEMP 36.1; O2SAT 97
[2023-01-24 20:00] VITALS: BP 106/59; PULSE 106; RESP 18; TEMP 36.7; O2SAT 100
[2023-01-24 23:47] VITALS: BP 104/51; PULSE 99; RESP 18; TEMP 37; O2SAT 99
[2023-01-25 04:00] VITALS: BP 140/75; PULSE 56; RESP 18; TEMP 37.2; O2SAT 96
[2023-01-25 06:57] VITALS: BP 100/59; PULSE 75; RESP 16; TEMP 36.1; O2SAT 98
[2023-01-25] MEDS: traMADoL HCL 50 MG TABLET PO ×2 (07:24→15:06)
[2023-01-25] MEDS: Baclofen 10 MG TABLET PO ×3 (07:24→21:22)
[2023-01-25] MEDS: Loratadine 10 MG TABLET PO (07:24)
[2023-01-25] MEDS: Docusate Sodium 100 MG CAPSULE PO ×2 (07:24→21:22)
[2023-01-25] MEDS: Gabapentin 600 MG TABLET PO ×3 (07:24→21:22)
[2023-01-25] MEDS: Gabapentin 100 MG CAPSULE PO ×3 (07:24→21:22)
[2023-01-25] MEDS: Heparin Sodium,Porcine Flush 50 UNITS, 0.9 % Sodium Chloride Flush 5 ML IVFLUSH ×2 (07:25→15:07)
[2023-01-25] MEDS: Multivitamin TABLET 1 TAB PO (07:25)
[2023-01-25] MEDS: 0.9 % Sodium Chloride Flush 3 ML SYRINGE IVFLUSH ×3 (07:34→21:23)
[2023-01-25] MEDS: diphenhydrAMINE HCL 25 MG CAPSULE PO ×2 (10:06→18:22)
[2023-01-25] MEDS: Omeprazole 20 MG CAPSULE.DR PO (10:10)
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
[2023-01-25] MEDS: Acetaminophen 325 MG TABLET 650 MG PO (12:54)
[2023-01-25] MEDS: bisacodyL 10 MG SUPP.RECT PR (15:05)
[2023-01-25 15:43] VITALS: BP 190/108; PULSE 60; RESP 18; TEMP 36.6; O2SAT 100
[2023-01-25 16:15] VITALS: BP 140/100
--- NOTE | 2023-01-25 16:29 | PC.NURSE ---
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
--- NOTE | 2023-01-25 16:33 | PC.NURSE ---
Rectal suppository given at approximately 1400 with no results, MD razo made aware.
--- NOTE | 2023-01-25 16:34 | PC.NURSE ---
Pt midline flushed this am with saline and heparin as ordered, no issues. At approximately 1450 attempted to flush midline, line resistant to flush, made aware Altaplase ordered pending administration.
[2023-01-25 16:44] LABS: Glucose, Whole Blood 93 mg/dL (60-115)
[2023-01-25] MEDS: Alteplase Cath Clear 2 MG/2 ML VIAL INTRAARTER (18:22)
[2023-01-25] MEDS: polyethylene glycoL 3350 17 GM POWD.PACK PO (18:22)
[2023-01-25 19:58] VITALS: BP 159/69; PULSE 78; RESP 18; TEMP 37.1; O2SAT 98
[2023-01-25 23:43] VITALS: BP 97/57; PULSE 91; RESP 18; TEMP 36.4; O2SAT 96
--- NOTE | 2023-01-26 06:30 | MHC.PIE ---
late entry 01/25 2100 p; pt midline attempted pulling back post cathflow by previous shift at 1830 with no result i; dr bedoya notified e; will cont to the [facility]
[2023-01-26 07:09] VITALS: BP 90/50; PULSE 72; RESP 18; TEMP 36.6; O2SAT 98
[2023-01-26] MEDS: Gabapentin 100 MG CAPSULE PO ×3 (09:45→20:23)
[2023-01-26] MEDS: Loratadine 10 MG TABLET PO (09:45)
[2023-01-26] MEDS: Multivitamin TABLET 1 TAB PO (09:45)
[2023-01-26] MEDS: Gabapentin 600 MG TABLET PO ×3 (09:45→20:22)
[2023-01-26] MEDS: Docusate Sodium 100 MG CAPSULE PO ×2 (09:45→20:23)
[2023-01-26] MEDS: 0.9 % Sodium Chloride Flush 3 ML SYRINGE IVFLUSH ×2 (09:45→21:03)
[2023-01-26] MEDS: Omeprazole 20 MG CAPSULE.DR PO (09:45)
[2023-01-26] MEDS: Baclofen 10 MG TABLET PO ×3 (09:45→20:23)
[2023-01-26] MEDS: polyethylene glycoL 3350 17 GM POWD.PACK PO (09:46)
[2023-01-26] MEDS: Heparin Sodium,Porcine Flush 50 UNITS, 0.9 % Sodium Chloride Flush 5 ML IVFLUSH ×3 (09:46→20:36)
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
[2023-01-26] MEDS: Alteplase Cath Clear 2 MG/2 ML VIAL INTRAARTER (14:31)
[2023-01-26 15:53] VITALS: BP 137/84; PULSE 56; RESP 18; TEMP 36.6; O2SAT 98
[2023-01-26 20:00] VITALS: BP 127/61; PULSE 79; RESP 18; TEMP 36.4; O2SAT 99
[2023-01-27 08:00] VITALS: BP 101/58; PULSE 83; RESP 18; TEMP 36.5; O2SAT 98
[2023-01-27] MEDS: Gabapentin 600 MG TABLET PO ×3 (09:36→20:42)
[2023-01-27] MEDS: Omeprazole 20 MG CAPSULE.DR PO (09:36)
[2023-01-27] MEDS: Gabapentin 100 MG CAPSULE PO ×3 (09:36→20:42)
[2023-01-27] MEDS: Baclofen 10 MG TABLET PO ×3 (09:36→20:42)
[2023-01-27] MEDS: polyethylene glycoL 3350 17 GM POWD.PACK PO (09:37)
[2023-01-27] MEDS: Heparin Sodium,Porcine Flush 50 UNITS, 0.9 % Sodium Chloride Flush 5 ML IVFLUSH (09:37)
[2023-01-27] MEDS: Multivitamin TABLET 1 TAB PO (09:37)
[2023-01-27] MEDS: Docusate Sodium 100 MG CAPSULE PO ×2 (09:37→20:42)
[2023-01-27] MEDS: Loratadine 10 MG TABLET PO (09:37)
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
[2023-01-27] MEDS: traMADoL HCL 50 MG TABLET 25 MG PO (13:38)
[2023-01-27 16:00] VITALS: BP 114/62; PULSE 89; RESP 14; TEMP 36.5; O2SAT 96
[2023-01-27] MEDS: 0.9 % Sodium Chloride Flush 3 ML SYRINGE IVFLUSH (16:11)
[2023-01-27 19:26] VITALS: BP 99/58; PULSE 95; RESP 18; TEMP 36.2; O2SAT 98
[2023-01-28 03:32] VITALS: BP 90/57; PULSE 92; RESP 18; TEMP 36.3; O2SAT 98
[2023-01-28 05:31] LABS: CT PCR NOT DETECTED (Not Detect.); NG PCR NOT DETECTED (Not Detect.)
[2023-01-28] MEDS: traMADoL HCL 50 MG TABLET PO (07:00)
[2023-01-28 07:59] VITALS: BP 109/51; PULSE 76; RESP 18; TEMP 36.6; O2SAT 99
[2023-01-28] MEDS: Omeprazole 20 MG CAPSULE.DR PO (08:24)
[2023-01-28] MEDS: Docusate Sodium 100 MG CAPSULE PO ×2 (08:24→21:12)
[2023-01-28] MEDS: Gabapentin 600 MG TABLET PO ×3 (08:24→21:12)
[2023-01-28] MEDS: Loratadine 10 MG TABLET PO (08:24)
[2023-01-28] MEDS: Gabapentin 100 MG CAPSULE PO ×3 (08:24→21:12)
[2023-01-28] MEDS: bisacodyL 10 MG SUPP.RECT PR (08:24)
[2023-01-28] MEDS: Multivitamin TABLET 1 TAB PO (08:24)
[2023-01-28] MEDS: Baclofen 10 MG TABLET PO ×3 (08:24→21:12)
[2023-01-28] MEDS: 0.9 % Sodium Chloride Flush 3 ML SYRINGE IVFLUSH ×3 (08:25→21:12)
[2023-01-28] MEDS: polyethylene glycoL 3350 17 GM POWD.PACK PO (08:25)
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
[2023-01-28 15:33] VITALS: BP 96/53; PULSE 82; RESP 18; TEMP 36.3; O2SAT 98
[2023-01-28 19:51] VITALS: BP 94/53; PULSE 88; RESP 18; TEMP 36.4; O2SAT 98
[2023-01-29 03:21] VITALS: BP 97/55; PULSE 75; RESP 18; TEMP 36.3; O2SAT 98
[2023-01-29 07:13] VITALS: BP 108/57; PULSE 69; RESP 16; TEMP 35.5; O2SAT 98
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
[2023-01-29] MEDS: bisacodyL 10 MG SUPP.RECT PR (09:57)
[2023-01-29] MEDS: Gabapentin 600 MG TABLET PO ×3 (09:57→21:20)
[2023-01-29] MEDS: Gabapentin 100 MG CAPSULE PO ×3 (09:58→21:20)
[2023-01-29] MEDS: Omeprazole 20 MG CAPSULE.DR PO (09:58)
[2023-01-29] MEDS: polyethylene glycoL 3350 17 GM POWD.PACK PO (09:58)
[2023-01-29] MEDS: Docusate Sodium 100 MG CAPSULE PO ×2 (09:58→21:20)
[2023-01-29] MEDS: Loratadine 10 MG TABLET PO (09:58)
[2023-01-29] MEDS: Multivitamin TABLET 1 TAB PO (09:58)
[2023-01-29] MEDS: Baclofen 10 MG TABLET PO ×3 (09:58→21:20)
[2023-01-29] MEDS: 0.9 % Sodium Chloride Flush 3 ML SYRINGE IVFLUSH ×2 (10:16→21:20)
--- NOTE | 2023-01-29 10:43 | MHC.CM.PN ---
Patient is medically cleared for dc. Plan is SNF for Q8 hours IV ABT and IV ABT are completed 02/02/2023. SNF referrals have been updated and CM will continue to follow.
[2023-01-29 15:34] VITALS: BP 105/55; PULSE 98; RESP 15; TEMP 36.6; O2SAT 98
[2023-01-29 19:41] VITALS: BP 131/79; PULSE 81; RESP 16; TEMP 36.3; O2SAT 98
[2023-01-29] MEDS: traMADoL HCL 50 MG TABLET PO (19:43)
[2023-01-30 03:08] VITALS: BP 105/65; PULSE 86; RESP 16; TEMP 36.4; O2SAT 98
[2023-01-30] MEDS: diphenhydrAMINE HCL 25 MG CAPSULE 50 MG PO (03:32)
[2023-01-30] MEDS: bisacodyL 10 MG SUPP.RECT PR (03:56)
[2023-01-30 07:56] VITALS: BP 109/65; PULSE 94; RESP 18; TEMP 36.6; O2SAT 98
[2023-01-30] MEDS: Loratadine 10 MG TABLET PO (08:48)
[2023-01-30] MEDS: Gabapentin 100 MG CAPSULE PO ×3 (08:48→20:07)
[2023-01-30] MEDS: Gabapentin 600 MG TABLET PO ×3 (08:48→20:07)
[2023-01-30] MEDS: Omeprazole 20 MG CAPSULE.DR PO (08:48)
[2023-01-30] MEDS: Baclofen 10 MG TABLET PO ×3 (08:48→20:07)
[2023-01-30] MEDS: 0.9 % Sodium Chloride Flush 3 ML SYRINGE IVFLUSH ×3 (08:49→22:28)
[2023-01-30] MEDS: Multivitamin TABLET 1 TAB PO (08:49)
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
[2023-01-30 15:36] VITALS: BP 111/58; RESP 16; TEMP 37.1; O2SAT 98
[2023-01-30 19:37] VITALS: BP 110/59; PULSE 100; RESP 16; TEMP 36.8; O2SAT 99
[2023-01-30] MEDS: Docusate Sodium 100 MG CAPSULE PO (20:07)
[2023-01-31 04:00] VITALS: BP 106/57; PULSE 95; RESP 18; TEMP 36.1; O2SAT 99
[2023-01-31 08:00] VITALS: BP 101/65; PULSE 91; RESP 18; TEMP 36.3; O2SAT 97
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
[2023-01-31] MEDS: Gabapentin 600 MG TABLET PO ×3 (09:47→20:35)
[2023-01-31] MEDS: Omeprazole 20 MG CAPSULE.DR PO (09:47)
[2023-01-31] MEDS: Loratadine 10 MG TABLET PO (09:47)
[2023-01-31] MEDS: traMADoL HCL 50 MG TABLET PO (09:47)
[2023-01-31] MEDS: Docusate Sodium 100 MG CAPSULE PO ×2 (09:47→20:35)
[2023-01-31] MEDS: bisacodyL 10 MG SUPP.RECT PR (09:47)
[2023-01-31] MEDS: Multivitamin TABLET 1 TAB PO (09:47)
[2023-01-31] MEDS: 0.9 % Sodium Chloride Flush 3 ML SYRINGE IVFLUSH ×3 (09:48→20:35)
[2023-01-31] MEDS: polyethylene glycoL 3350 17 GM POWD.PACK PO (09:48)
[2023-01-31] MEDS: Gabapentin 100 MG CAPSULE PO ×3 (09:48→20:35)
[2023-01-31] MEDS: diphenhydrAMINE HCl 2 % Cream 28 GM TUBE 1 APPL TOPICAL (09:48)
[2023-01-31] MEDS: Baclofen 10 MG TABLET PO ×3 (09:48→20:35)
[2023-01-31 10:42] LABS: Appearance Urine Clear; Color Urine Yellow; Glucose Urine UA Negative (Negative); Leukocyte Esterase Urine Negative (Negative); Nitrite Urine Negative (Negative); PH 6.5 (5.0-9.0); Specific Gravity - Urine 1.015 (1.005-1.025); Urine Blood Negative (Negative); Urine Ketones Negative (Negative); Urine Protein Negative (Neg-Trace)
[2023-01-31 10:45] LABS: Bacteria Urine None Seen (None Seen); Hyaline Casts Urine 0-2 /LPF (0-2); RBC Urine 0-2 /HPF (0-2); Squamous Epithelial Cell Urine 0-2 /HPF (0-2); WBC Urine 0-5 /HPF (0-5)
[2023-01-31 15:39] VITALS: BP 103/58; PULSE 92; RESP 18; TEMP 36.6; O2SAT 99
--- NOTE | 2023-01-31 15:48 | MHC.CM.PN ---
LAST DOSE OF Q8H ABX IS Friday02/02/23 AT NIGHT PLAN IS DC HOME Friday02/03/23
[2023-01-31 20:00] VITALS: BP 95/51; PULSE 100; RESP 18; TEMP 36.3; O2SAT 98
[2023-02-01 03:45] VITALS: BP 166/92; PULSE 65; RESP 18; TEMP 36.3; O2SAT 98
[2023-02-01 07:54] VITALS: BP 106/61; PULSE 81; RESP 17; TEMP 36.2; O2SAT 97
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
[2023-02-01] MEDS: Omeprazole 20 MG CAPSULE.DR PO (09:40)
[2023-02-01] MEDS: Multivitamin TABLET 1 TAB PO (09:40)
[2023-02-01] MEDS: Docusate Sodium 100 MG CAPSULE PO ×2 (09:40→20:23)
[2023-02-01] MEDS: Gabapentin 600 MG TABLET PO ×3 (09:40→20:23)
[2023-02-01] MEDS: Gabapentin 100 MG CAPSULE PO ×3 (09:40→20:23)
[2023-02-01] MEDS: Baclofen 10 MG TABLET PO ×3 (09:40→20:23)
[2023-02-01] MEDS: Loratadine 10 MG TABLET PO (09:40)
[2023-02-01] MEDS: 0.9 % Sodium Chloride Flush 3 ML SYRINGE IVFLUSH ×3 (09:42→20:23)
[2023-02-01] MEDS: traMADoL HCL 50 MG TABLET PO (09:58)
[2023-02-01 15:23] VITALS: BP 109/58; PULSE 84; RESP 18; TEMP 36.8; O2SAT 97
[2023-02-01] MEDS: diphenhydrAMINE HCl 2 % Cream 28 GM TUBE 1 APPL TOPICAL (19:23)
[2023-02-01 20:01] VITALS: BP 90/51; PULSE 87; RESP 18; TEMP 36.1; O2SAT 97
[2023-02-01 23:17] VITALS: BP 102/50; PULSE 75; RESP 18; TEMP 36.2; O2SAT 99
[2023-02-01] MEDS: Morphine Sulfate 2 MG/ML CARTRIDGE IVPUSH (23:23)
[2023-02-02 03:02] VITALS: BP 97/54; PULSE 81; RESP 18; TEMP 36.4; O2SAT 98
[2023-02-02 07:55] VITALS: BP 137/87; PULSE 55; RESP 17; TEMP 36.6; O2SAT 99
[2023-02-02] MEDS: Baclofen 10 MG TABLET PO ×2 (08:00→14:17)
[2023-02-02] MEDS: Multivitamin TABLET 1 TAB PO (08:00)
[2023-02-02] MEDS: Gabapentin 600 MG TABLET PO ×2 (08:00→14:17)
[2023-02-02] MEDS: Loratadine 10 MG TABLET PO (08:00)
[2023-02-02] MEDS: Omeprazole 20 MG CAPSULE.DR PO (08:00)
[2023-02-02] MEDS: Docusate Sodium 100 MG CAPSULE PO (08:01)
[2023-02-02] MEDS: Gabapentin 100 MG CAPSULE PO ×2 (08:01→14:17)
[2023-02-02] MEDS: bisacodyL 10 MG SUPP.RECT PR (08:01)
[2023-02-02] MEDS: polyethylene glycoL 3350 17 GM POWD.PACK PO (08:01)
[2023-02-02] MEDS: 0.9 % Sodium Chloride Flush 3 ML SYRINGE IVFLUSH (08:02)
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
[2023-02-02 09:29] LABS: Hematocrit 44.4 % (42.0-52.0); Hemoglobin 14.6 g/dl (14.0-18.0); Mean Corpuscular HGB Conc 32.9 g/dl (31.0-36.0); Mean Corpuscular Hemoglobin 30.3 pg (27.0-33.0); Mean Corpuscular Volume 92.1 fL (80.0-98.0); Mean Platelet Volume 9.8 fL (9.4-12.4); Platelet Count 269 X10*3/uL (160-400); Red Blood Count 4.82 X10*6/uL (4.60-5.80); Red Cell Distribution Width 13.1 % (11.0-16.0); White Blood Count 5.4 X10*3/uL (4.8-10.8)
[2023-02-02 09:56] LABS: Anion Gap 15 (12-20); Blood Urea Nitrogen 15 mg/dL (9-16); Calcium 9.9 mg/dL (8.4-10.2); Carbon Dioxide 28 mmol/L (22-29); Chloride 102 mmol/L (96-108); Creatinine Clr Calc Pharmacy 149.7; Estimated Glomerular Filt Rate > 60; Glucose Random 87 mg/dL (60-115); Potassium 4.9 mmol/L (3.3-5.1); Sodium 140 mmol/L (135-145)
--- NOTE | 2023-02-02 12:48 | MHC.CM.PN ---
PT WILL DC HOME TODAY WITH NO NEW SERVICES FOLLOWING THE LAST DOSE OF HIS IV ABX BLS TRANSPORT ARRANGED VIA [facility] FOR 1500 HOURS
== END 2023-02-02 15:26 | disposition home or self-care (01) | DRG 466 ==
LOC: HO.ED 16:11 → HO.EDOVER 17:49 → HO.S3 19:05
PROVIDERS: Internal Medicine; Physician Assistant; Admitting Provider Internal Medicine; Emergency Provider Emergency Medicine; PCP Family Medicine; Visit Provider Internal Medicine
DX: T83.518A Infection and inflammatory reaction due to other urinary catheter, initial encounter (principal); G82.20 Paraplegia, unspecified; N39.0 Urinary tract infection, site not specified; N31.2 Flaccid neuropathic bladder, not elsewhere classified; B96.89 Other specified bacterial agents as the cause of diseases classified elsewhere; Z16.12 Extended spectrum beta lactamase (ESBL) resistance; Z16.24 Resistance to multiple antibiotics; I25.2 Old myocardial infarction; Z87.440 Personal history of urinary (tract) infections; Z87.891 Personal history of nicotine dependence; Z91.040 Latex allergy status; Z88.2 Allergy status to sulfonamides; Z79.899 Other long term (current) drug therapy
CPT/HCPCS: 0353U; 36410; 36415; 76870; 80048; 80053; 81001; 82947; 83605; 83735; 85025; 85027; 87040; 87070; 87635; 87651; 93005; 93975; 99284; J1335; J1642; J1650; J2185; J2270; J2997

== ENCOUNTER 2023-02-09 01:58 | Emergency (ER) | payer MEDICAID, SELFPAY ==
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
[2023-02-09 03:08] VITALS: BP 128/70; PULSE 85; O2SAT 97; BMI 25.1
[2023-02-09 03:17] VITALS: BP 114/64; PULSE 56; RESP 16; TEMP 36.6; O2SAT 96
[2023-02-09 03:46] LABS: MANUAL DIFF FLAG NO
[2023-02-09 03:48] LABS: Basophils Percent Auto 0.3 % (0-2); Eosinophils Absolute Auto 0.1 X10*3/uL (0.0-0.4); Eosinophils Percent Auto 0.5 % (0-4); Hematocrit 46.5 % (42.0-52.0); Hemoglobin 15.5 g/dl (14.0-18.0); Imm Gran Abs Auto 0.04 X10*3/uL (0.00-0.03); Imm Gran Pct Auto 0.3 % (0.0-0.4); Lymphocytes Percent Auto 24.4 % (20-40); Mean Corpuscular HGB Conc 33.3 g/dl (31.0-36.0); Mean Corpuscular Hemoglobin 30.3 pg (27.0-33.0); Mean Corpuscular Volume 90.8 fL (80.0-98.0); Mean Platelet Volume 9.3 fL (9.4-12.4); Monocytes Absolute Auto 0.9 X10*3/uL (0.1-1.2); Monocytes Percent Auto 7.5 % (2-11); Neutrophils Absolute Auto 8.1 x10*3/uL (2.0-8.3); Platelet Count 329 X10*3/uL (160-400); Red Blood Count 5.12 X10*6/uL (4.60-5.80); Red Cell Distribution Width 12.9 % (11.0-16.0); White Blood Count 12.1 X10*3/uL (4.8-10.8)
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
[2023-02-09 04:06] LABS: Anion Gap 18 (12-20)
[2023-02-09 04:10] LABS: Color Urine Red; Glucose Urine UA 100 mg/dL (Negative); Leukocyte Esterase Urine Small (1+) (Negative); Nitrite Urine Positive (Negative); PH 6.5 (5.0-9.0); Specific Gravity - Urine >= 1.030 (1.005-1.025); UMIC TRIGGER UACC YES; Urine Blood Large (3+) (Negative); Urine Ketones Negative (Negative); Urine Protein >=1000 (4+) mg/dL (Neg-Trace)
[2023-02-09 04:11] LABS: Appearance Urine Cloudy
[2023-02-09 04:13] LABS: Alanine Aminotransferase 40 U/L (0-40); Albumin Level 4.6 g/dL (3.5-5.0); Alkaline Phosphatase 113 U/L (39-117); Aspartate Amino Transferase 37 U/L (5-37); Bilirubin Total 0.8 mg/dL (0.0-1.0); Blood Urea Nitrogen 14 mg/dL (9-16); Calcium 9.9 mg/dL (8.4-10.2); Carbon Dioxide 26 mmol/L (22-29); Chloride 103 mmol/L (96-108); Creatinine Clr Calc Pharmacy 141.4; Estimated Glomerular Filt Rate > 60; Glucose Random 107 mg/dL (60-115); Potassium 4.3 mmol/L (3.3-5.1); Sodium 143 mmol/L (135-145); Total Protein 8.6 g/dL (6.5-8.0)
[2023-02-09 04:22] LABS: Bacteria Urine None Seen (None Seen); Hyaline Casts Urine 0-2 /LPF (0-2); RBC Urine >20 /HPF (0-2); Squamous Epithelial Cell Urine 0-2 /HPF (0-2); UACC Culture Trigger YES
[2023-02-09] MEDS: traMADoL HCL 50 MG TABLET PO (04:31)
[2023-02-09 05:15] VITALS: BP 138/87; PULSE 49; RESP 20; O2SAT 98
[2023-02-09] MEDS: oxyCODONE HCl Immed Release 5 MG TABLET PO (06:13)
== END 2023-02-09 07:27 | disposition home or self-care (01) ==
PROVIDERS: Emergency Provider Internal Medicine
DX: S09.90XA Unspecified injury of head, initial encounter (principal); R51.9 Headache, unspecified; M54.2 Cervicalgia; N39.0 Urinary tract infection, site not specified; X58.XXXA Exposure to other specified factors, initial encounter; Y93.9 Activity, unspecified; Y92.9 Unspecified place or not applicable; Y99.9 Unspecified external cause status; Z79.899 Other long term (current) drug therapy
CPT/HCPCS: 36415; 70450; 72125; 80053; 81001; 85025; 87086; 99284

== ENCOUNTER → 2023-02-24 11:17 | Outpatient (BNVA) | payer MEDICAID, SELFPAY | PROVIDERS: PCP Family Medicine; Visit Provider Anesthesiology | DX: G90.9 Disorder of the autonomic nervous system, unspecified (principal); G90.1 Familial dysautonomia [Riley-Day]; M79.2 Neuralgia and neuritis, unspecified; G82.20 Paraplegia, unspecified; G89.4 Chronic pain syndrome | CPT/HCPCS: 99202 ==

== ENCOUNTER 2023-02-28 12:40 | Emergency (ER) | payer MEDICAID, SELFPAY ==
--- NOTE | ~2023-02-28 | CT_ITS ---
EXAMINATION: CT ABDOMEN AND PELVIS WITH CONTRAST CLINICAL INFORMATION: New suprapubic catheter. Postdrainage. COMPARISON: CT scans dating between March 01, 2022 and May 25, 2019. TECHNIQUE: Multidetector volumetric images were obtained from the superior aspect of the liver through the pubic symphysis following administration 85 mL of Omnipaque 350 intravenous contrast. Sagittal and coronal reformatted images were obtained on the technologist's workstation. Oral contrast: No This CT examination was performed using dose optimization techniques as appropriate, variously including the following: *Automated exposure control *Adjustment of mA and/or kV according to patient size (this includes techniques or standardized protocols for targeted exams where dose is matched to indication/reason for exam; i.e. extremities or head) *Use of iterative reconstruction technique DLP: 814 mGy-cm FINDINGS: LUNG BASES: The lung bases appear clear, with no evidence of inflammation or nodules. LIVER, GALLBLADDER, AND BILIARY TREE: The liver appears unremarkable in size, shape, and attenuation. No focal hepatic lesion or biliary ductal dilatation is appreciated. Unremarkable appearance of the gallbladder. PANCREAS: Unremarkable SPLEEN: Unremarkable ADRENAL GLANDS: Unremarkable KIDNEYS AND URETERS: Subcentimeter benign left upper pole simple renal cyst for which no further dedicated follow up imaging is indicated. The kidneys otherwise appear unremarkable in size, shape, and attenuation. No hydronephrosis, hydroureter, or calculi seen. BLADDER: Balloon and tip of a suprapubic tube catheter within urinary bladder lumen, which is collapsed, therefore suboptimally evaluated. Suspect diffuse bladder wall thickening. GASTROINTESTINAL TRACT: The small and large bowel appear unremarkable. ABDOMINAL WALL: No significant hernia is appreciated. LYMPH NODES: No evidence of adenopathy by size criteria. VASCULAR: Unremarkable PELVIC VISCERA: Unremarkable OSSEOUS STRUCTURES: Osteoarthritis of the hips. CT/CT abdomen pelvis w IV con IMPRESSION: Balloon and tip of a suprapubic tube catheter within urinary bladder lumen, which is collapsed, therefore suboptimally evaluated. Suspect diffuse bladder wall thickening.
[2023-02-28 13:00] VITALS: BP 102/56; BP 118/72; PULSE 70; PULSE 76; RESP 17; TEMP 36.4; O2SAT 95; O2SAT 99; BMI 22.8
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
[2023-02-28 13:35] LABS: MANUAL DIFF FLAG NO
[2023-02-28 13:46] LABS: Basophils Percent Auto 0.7 % (0-2); Eosinophils Absolute Auto 0.2 X10*3/uL (0.0-0.4); Eosinophils Percent Auto 3.4 % (0-4); Hematocrit 39.5 % (42.0-52.0); Imm Gran Abs Auto 0.01 X10*3/uL (0.00-0.03); Imm Gran Pct Auto 0.2 % (0.0-0.4); Lymphocytes Absolute Auto 1.8 X10*3/uL (1.2-4.9); Lymphocytes Percent Auto 32.6 % (20-40); Mean Corpuscular HGB Conc 32.9 g/dl (31.0-36.0); Mean Corpuscular Hemoglobin 30.7 pg (27.0-33.0); Mean Corpuscular Volume 93.4 fL (80.0-98.0); Mean Platelet Volume 9.4 fL (9.4-12.4); Monocytes Absolute Auto 0.4 X10*3/uL (0.1-1.2); Monocytes Percent Auto 6.8 % (2-11); Neutrophils Absolute Auto 3.1 x10*3/uL (2.0-8.3); Neutrophils Percent Auto 56.3 % (45-73); Platelet Count 295 X10*3/uL (160-400); Red Blood Count 4.23 X10*6/uL (4.60-5.80); Red Cell Distribution Width 13.4 % (11.0-16.0); White Blood Count 5.6 X10*3/uL (4.8-10.8)
[2023-02-28] MEDS: 0.9 % Sodium Chloride 1,000 ML 999 ML IV (13:49)
[2023-02-28 14:14] LABS: Alanine Aminotransferase 58 U/L (0-40); Albumin Level 3.8 g/dL (3.5-5.0); Alkaline Phosphatase 91 U/L (39-117); Anion Gap 9 (12-20); Aspartate Amino Transferase 28 U/L (5-37); Bilirubin Direct < 0.2 mg/dL (0.0-0.5); Bilirubin Total 0.5 mg/dL (0.0-1.0); Blood Urea Nitrogen 10 mg/dL (9-16); Calcium 9.4 mg/dL (8.4-10.2); Carbon Dioxide 28 mmol/L (22-29); Chloride 107 mmol/L (96-108); Estimated Glomerular Filt Rate > 60; Glucose Random 91 mg/dL (60-115); Lipase 25 U/L (8-78); Potassium 4.4 mmol/L (3.3-5.1); Sodium 140 mmol/L (135-145); Total Protein 6.8 g/dL (6.5-8.0)
[2023-02-28] MEDS: Ketorolac Tromethamine 15 MG/ML VIAL IVPUSH (14:55)
[2023-02-28] MEDS: iohexoL 350 MG/ML 100 ML INFUS..BTL IV (15:15)
[2023-02-28 16:00] VITALS: BP 125/75; PULSE 76; RESP 16; TEMP 36.6; O2SAT 98
[2023-02-28 16:37] LABS: Appearance Urine Clear; Color Urine Yellow; Glucose Urine UA Negative (Negative); Leukocyte Esterase Urine Small (1+) (Negative); Nitrite Urine Negative (Negative); PH 7.5 (5.0-9.0); Specific Gravity - Urine >= 1.030 (1.005-1.025); UMIC TRIGGER UACC YES; Urine Blood Small (1+) (Negative); Urine Ketones Negative (Negative); Urine Protein Negative (Neg-Trace)
[2023-02-28 16:42] LABS: Bacteria Urine None Seen (None Seen); Hyaline Casts Urine 0-2 /LPF (0-2); Squamous Epithelial Cell Urine 0-2 /HPF (0-2); UACC Culture Trigger YES
[2023-02-28 18:30] VITALS: BP 118/67; PULSE 71; RESP 16; O2SAT 99
== END 2023-02-28 18:52 | disposition home or self-care (01) ==
PROVIDERS: Physician Assistant; Emergency Provider Emergency Medicine Emergency Medical Services; PCP Family Medicine
DX: N39.0 Urinary tract infection, site not specified (principal); B95.7 Other staphylococcus as the cause of diseases classified elsewhere; Z96.0 Presence of urogenital implants
CPT/HCPCS: 36415; 74177; 80048; 80076; 81001; 83690; 85025; 87086; 87088; 87186; 96361; 96374; 99284; 99285; J1885; Q9967

== ENCOUNTER 2023-03-13 14:33 | Emergency (ER) | payer MEDICAID, SELFPAY ==
[2023-03-13 14:41] VITALS: BP 125/81; PULSE 81; RESP 16; TEMP 36.8; O2SAT 97; BMI 25.2
[2023-03-13 15:04] LABS: MANUAL DIFF FLAG NO
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
[2023-03-13 15:13] LABS: Appearance Urine Turbid; Color Urine Dark Yellow; Glucose Urine UA Negative (Negative); Leukocyte Esterase Urine Large (3+) (Negative); Nitrite Urine Negative (Negative); PH 8.5 (5.0-9.0); UMIC TRIGGER UACC YES; Urine Blood Moderate (2+) (Negative); Urine Ketones Negative (Negative); Urine Protein 100 (2+) mg/dL (Neg-Trace)
[2023-03-13 15:16] LABS: Basophils Percent Auto 0.8 % (0-2); Eosinophils Absolute Auto 0.2 X10*3/uL (0.0-0.4); Hemoglobin 13.6 g/dl (14.0-18.0); Imm Gran Abs Auto 0.02 X10*3/uL (0.00-0.03); Imm Gran Pct Auto 0.4 % (0.0-0.4); Lymphocytes Absolute Auto 1.8 X10*3/uL (1.2-4.9); Lymphocytes Percent Auto 35.5 % (20-40); Mean Corpuscular HGB Conc 33.2 g/dl (31.0-36.0); Mean Corpuscular Hemoglobin 30.3 pg (27.0-33.0); Mean Corpuscular Volume 91.3 fL (80.0-98.0); Mean Platelet Volume 9.8 fL (9.4-12.4); Monocytes Absolute Auto 0.4 X10*3/uL (0.1-1.2); Monocytes Percent Auto 7.7 % (2-11); Neutrophils Absolute Auto 2.6 x10*3/uL (2.0-8.3); Neutrophils Percent Auto 51.6 % (45-73); Platelet Count 218 X10*3/uL (160-400); Red Blood Count 4.49 X10*6/uL (4.60-5.80); Red Cell Distribution Width 13.1 % (11.0-16.0)
[2023-03-13] MEDS: Acetaminophen 325 MG TABLET 975 MG PO (15:23)
[2023-03-13 15:50] LABS: Anion Gap 14 (12-20); Blood Urea Nitrogen 13 mg/dL (9-16); Calcium 9.6 mg/dL (8.4-10.2); Carbon Dioxide 28 mmol/L (22-29); Chloride 106 mmol/L (96-108); Creatinine Clr Calc Pharmacy 114.5; Estimated Glomerular Filt Rate > 60; Glucose Random 88 mg/dL (60-115); Potassium 4.8 mmol/L (3.3-5.1); Sodium 143 mmol/L (135-145)
[2023-03-13 16:38] LABS: Bacteria Urine 3+ (None Seen); Calcium Oxalate Crystals Urine Present; Squamous Epithelial Cell Urine 0-2 /HPF (0-2); UACC Culture Trigger YES; WBC Urine >50 /HPF (0-5)
[2023-03-13] MEDS: Clindamycin HCL 300 MG CAPSULE PO (18:37)
--- NOTE | 2023-03-13 19:04 | PC.NURSE ---
Report received from Becca ALLRED. Awaiting transport back to facility.
[2023-03-13 19:15] VITALS: BP 125/76; PULSE 60; RESP 17; O2SAT 98
--- NOTE | 2023-03-13 20:06 | PC.NURSE ---
Pt with concerns of blood in catheter tubing. Advised that this is sometimes normal with urinary tract infections and catheter s/s to monitor for at home for possible return to ED if needed. Pt would like to speak with provider, Dr. Lambert made aware and states he will speak with pt shortly.
== END 2023-03-13 21:50 | disposition home or self-care (01) ==
PROVIDERS: Emergency Provider Emergency Medicine
DX: M54.50 Low back pain, unspecified (principal); N39.0 Urinary tract infection, site not specified; Z79.899 Other long term (current) drug therapy
CPT/HCPCS: 36415; 80048; 81001; 85025; 87086; 87088; 87186; 99283; 99284

== ENCOUNTER 2023-04-24 13:38 | Emergency (ER) | payer MEDICAID, SELFPAY ==
[2023-04-24 13:45] VITALS: BP 80/50; PULSE 108; O2SAT 98
[2023-04-24 13:47] VITALS: BP 102/57; PULSE 102; RESP 18; TEMP 36.6; O2SAT 96; BMI 25.2
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
--- NOTE | 2023-04-24 14:20 | MHC.EDTECH ---
[facility] - Dr. Bernabe for the urine culture per request of Dr. Gallegos
[2023-04-24 14:32] LABS: MANUAL DIFF FLAG NO
[2023-04-24] MEDS: Morphine Sulfate 4 MG/ML CARTRIDGE IVPUSH ×2 (14:34→16:19)
[2023-04-24 14:35] LABS: Basophils Percent Auto 0.4 % (0-2); Eosinophils Absolute Auto 0.3 X10*3/uL (0.0-0.4); Eosinophils Percent Auto 5.6 % (0-4); Hematocrit 40.1 % (42.0-52.0); Hemoglobin 13.4 g/dl (14.0-18.0); Imm Gran Abs Auto 0.03 X10*3/uL (0.00-0.03); Imm Gran Pct Auto 0.5 % (0.0-0.4); Lymphocytes Absolute Auto 1.7 X10*3/uL (1.2-4.9); Lymphocytes Percent Auto 30.6 % (20-40); Mean Corpuscular HGB Conc 33.4 g/dl (31.0-36.0); Mean Corpuscular Hemoglobin 30.2 pg (27.0-33.0); Mean Corpuscular Volume 90.5 fL (80.0-98.0); Mean Platelet Volume 9.3 fL (9.4-12.4); Monocytes Absolute Auto 0.3 X10*3/uL (0.1-1.2); Monocytes Percent Auto 5.8 % (2-11); Neutrophils Absolute Auto 3.2 x10*3/uL (2.0-8.3); Neutrophils Percent Auto 57.1 % (45-73); Platelet Count 216 X10*3/uL (160-400); Red Blood Count 4.43 X10*6/uL (4.60-5.80); Red Cell Distribution Width 12.9 % (11.0-16.0); White Blood Count 5.7 X10*3/uL (4.8-10.8)
--- NOTE | 2023-04-24 14:36 | PC.NURSE ---
iv inserted and labs drawn, tech drawing BCs now. medicated per JAN.
[2023-04-24 14:43] LABS: Lactic Acid 0.8 mmol/L (0.5-2.0)
[2023-04-24 14:50] LABS: Alanine Aminotransferase 12 U/L (0-40); Albumin Level 4.1 g/dL (3.5-5.0); Alkaline Phosphatase 89 U/L (39-117); Anion Gap 11 (12-20); Aspartate Amino Transferase 20 U/L (5-37); Bilirubin Total 0.6 mg/dL (0.0-1.0); Blood Urea Nitrogen 16 mg/dL (9-16); Calcium 9.7 mg/dL (8.4-10.2); Carbon Dioxide 29 mmol/L (22-29); Chloride 108 mmol/L (96-108); Creatinine Clr Calc Pharmacy 123.1; Estimated Glomerular Filt Rate > 60; Glucose Random 114 mg/dL (60-115); Lipase 40 U/L (8-78); Potassium 4.5 mmol/L (3.3-5.1); Sodium 143 mmol/L (135-145); Total Protein 7.7 g/dL (6.5-8.0)
[2023-04-24 16:00] VITALS: BP 102/60; PULSE 90; RESP 16; O2SAT 99
[2023-04-24] MEDS: levoFLOXacin 750 MG TABLET PO (16:18)
--- NOTE | 2023-04-24 16:19 | PC.NURSE ---
urine sample obtained and sent to lab
[2023-04-24 16:37] LABS: Appearance Urine Clear; Color Urine Yellow; Glucose Urine UA Negative (Negative); Leukocyte Esterase Urine Trace (Negative); Nitrite Urine Negative (Negative); PH 6.5 (5.0-9.0); UMIC TRIGGER UACC YES; Urine Blood Trace (Negative); Urine Ketones Negative (Negative); Urine Protein Negative (Neg-Trace)
[2023-04-24 16:39] LABS: Bacteria Urine None Seen (None Seen); Hyaline Casts Urine 0-2 /LPF (0-2); Squamous Epithelial Cell Urine 0-2 /HPF (0-2); WBC Urine 0-5 /HPF (0-5)
== END 2023-04-24 17:44 | disposition home or self-care (01) ==
PROVIDERS: Emergency Provider Emergency Medicine Emergency Medical Services
DX: R30.0 Dysuria (principal); R10.32 Left lower quadrant pain; Z79.899 Other long term (current) drug therapy; Z87.891 Personal history of nicotine dependence
CPT/HCPCS: 36415; 80053; 81001; 83605; 83690; 85025; 87040; 96374; 96376; 99284; J2270

== ENCOUNTER 2023-05-08 13:53 | Emergency (ER) | payer MEDICAID, SELFPAY ==
[2023-05-08 14:05] VITALS: BP 112/58; BP 125/80; PULSE 100; PULSE 78; RESP 18; TEMP 36.6; O2SAT 98; BMI 25.8
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
[2023-05-08 14:41] LABS: MANUAL DIFF FLAG NO
[2023-05-08 14:44] LABS: Basophils Percent Auto 0.6 % (0-2); Eosinophils Absolute Auto 0.1 X10*3/uL (0.0-0.4); Eosinophils Percent Auto 2.7 % (0-4); Hematocrit 37.3 % (42.0-52.0); Hemoglobin 12.5 g/dl (14.0-18.0); Imm Gran Abs Auto 0.01 X10*3/uL (0.00-0.03); Imm Gran Pct Auto 0.2 % (0.0-0.4); Lymphocytes Absolute Auto 1.7 X10*3/uL (1.2-4.9); Lymphocytes Percent Auto 36.1 % (20-40); Mean Corpuscular HGB Conc 33.5 g/dl (31.0-36.0); Mean Corpuscular Hemoglobin 30.6 pg (27.0-33.0); Mean Corpuscular Volume 91.2 fL (80.0-98.0); Mean Platelet Volume 9.7 fL (9.4-12.4); Monocytes Absolute Auto 0.4 X10*3/uL (0.1-1.2); Monocytes Percent Auto 7.8 % (2-11); Neutrophils Absolute Auto 2.5 x10*3/uL (2.0-8.3); Neutrophils Percent Auto 52.6 % (45-73); Platelet Count 217 X10*3/uL (160-400); Red Blood Count 4.09 X10*6/uL (4.60-5.80); Red Cell Distribution Width 13.2 % (11.0-16.0); White Blood Count 4.8 X10*3/uL (4.8-10.8)
[2023-05-08 14:48] LABS: Appearance Urine Clear; Color Urine Yellow; Glucose Urine UA Negative (Negative); Leukocyte Esterase Urine Moderate (2+) (Negative); Nitrite Urine Negative (Negative); UMIC TRIGGER UACC YES; Urine Blood Negative (Negative); Urine Ketones Negative (Negative); Urine Protein Trace mg/dL (Neg-Trace)
[2023-05-08 14:52] LABS: Bacteria Urine None Seen (None Seen); Hyaline Casts Urine 0-2 /LPF (0-2); RBC Urine 0-2 /HPF (0-2); Squamous Epithelial Cell Urine 0-2 /HPF (0-2); UACC Culture Trigger YES
[2023-05-08 14:54] LABS: Lactic Acid 1.1 mmol/L (0.5-2.0)
[2023-05-08 14:57] LABS: Anion Gap 10 (12-20); Blood Urea Nitrogen 16 mg/dL (9-16); Calcium 9.4 mg/dL (8.4-10.2); Carbon Dioxide 27 mmol/L (22-29); Chloride 108 mmol/L (96-108); Creatinine Clr Calc Pharmacy 123.5; Estimated Glomerular Filt Rate > 60; Glucose Random 116 mg/dL (60-115); Potassium 4.2 mmol/L (3.3-5.1); Sodium 141 mmol/L (135-145)
[2023-05-08 15:28] VITALS: BP 118/64; PULSE 64; RESP 16; TEMP 36.8; O2SAT 98
[2023-05-08] MEDS: Nitrofurantoin Monohyd/M-Cryst 100 MG CAPSULE PO (15:34)
== END 2023-05-08 18:07 | disposition home or self-care (01) ==
PROVIDERS: Emergency Provider Student in an Organized Health Care Education/Training Program; PCP Family Medicine
DX: L89.323 Pressure ulcer of left buttock, stage 3 (principal); N39.0 Urinary tract infection, site not specified; G82.20 Paraplegia, unspecified; Z79.899 Other long term (current) drug therapy
CPT/HCPCS: 36415; 80048; 81001; 83605; 85025; 87086; 99283; 99284

== ENCOUNTER 2023-06-10 11:59 | Emergency (ER) | payer MEDICAID, SELFPAY ==
--- NOTE | ~2023-06-10 | CT_ITS ---
EXAMINATION: CT ABDOMEN AND PELVIS WITH CONTRAST CLINICAL INFORMATION: Left lower quadrant abdominal pain and bilateral groin pain COMPARISON: CT abdomen pelvis 02/28/[address] abdomen pelvis 01/18/2022 TECHNIQUE: Multidetector volumetric images were obtained from the superior aspect of the liver through the pubic symphysis following administration 85 mL of Omnipaque 350 intravenous contrast. Sagittal and coronal reformatted images were obtained on the technologist's workstation. Oral contrast: No This CT examination was performed using dose optimization techniques as appropriate, variously including the following: *Automated exposure control *Adjustment of mA and/or kV according to patient size (this includes techniques or standardized protocols for targeted exams where dose is matched to indication/reason for exam; i.e. extremities or head) *Use of iterative reconstruction technique DLP: 449 mGy-cm FINDINGS: LUNG BASES: The visualized lung bases are unremarkable. LIVER, GALLBLADDER, AND BILIARY TREE: The liver is normal in size, shape, and attenuation. No focal hepatic lesion or biliary ductal dilatation is present. The gallbladder is unremarkable with no evidence of radiopaque gallstones, gallbladder wall thickening, or obvious pericholecystic inflammatory changes. PANCREAS: Unremarkable. SPLEEN: Spleen is mildly enlarged at 12.5 cm. ADRENAL GLANDS: Unremarkable. KIDNEYS AND URETERS: The kidneys are normal in size, shape, and attenuation. A 1 to 2 mm punctate nonobstructing left lower pole renal calculus is present (see fitzpatrick image) No hydronephrosis, hydroureter, or cysts are noted, the largest measuring 1.1 cm in the left upper pole which require no additional imaging or follow-up. At the time of the 01/18/2022 study this was the same size and measured water density (prior 5:62). No solid renal masses are seen. No perinephric stranding. BLADDER: Suprapubic cystostomy catheter remains in the bladder which is empty with a thickened wall. No bladder calculi seen. GASTROINTESTINAL TRACT: Moderate colonic diverticulosis is present in the rectosigmoid without diverticulitis. The small and large bowel are otherwise unremarkable. The appendix is unremarkable. ABDOMINAL WALL: No significant hernia is appreciated. Transabdominal suprapubic catheter as described above. LYMPH NODES: No retroperitoneal lymphadenopathy. VASCULAR: Unremarkable. PELVIC VISCERA: Unremarkable. Some penile calcifications are present which can be associated with Peyronie's disease. OSSEOUS STRUCTURES: Some minimal degenerative changes are present in the spine. Moderate to marked degenerative changes are present in both hips. CT/CT abdomen pelvis w IV con IMPRESSION: 1. A cause for the patient's abdominal pain and bilateral groin pain has not been found. 2. Incidental note made of mild splenomegaly, nonobstructing 1 to 2 mm left lower pole renal calculus, benign Bosniak class I and II renal cysts which need no additional imaging or follow-up, suprapubic cystostomy catheter, degenerative changes in both hips and colonic diverticulosis without diverticulitis and other findings described above. Fleischner guidelines were followed.
[2023-06-10 12:12] VITALS: BP 108/64; BP 134/64; PULSE 78; PULSE 80; RESP 16; TEMP 37.1; O2SAT 98; BMI 23.0
--- NOTE | 2023-06-10 12:21 | PC.NURSE ---
Addendum entered by Luigi Henson 06/10/23 12:24: per pt request, call made to emergency contact sister Cecilia to make aware of pt being in ED. Original Note: pt axox3, VSS, respirations even and unlabored, skin WPD. pt c/o bilat leg, groin, lower back pain x 1 wk. pt denies n/v/d/difficulty or pain with urination. pt resting in stretcher, call cm within reach, denies having questions/concerns at this time. awaiting primary eval.
[2023-06-10 16:00] VITALS: BP 110/63; PULSE 71; RESP 16; TEMP 36.9; O2SAT 97
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
[2023-06-10 17:02] LABS: MANUAL DIFF FLAG NO
[2023-06-10 17:03] LABS: Basophils Percent Auto 0.5 % (0-2); Eosinophils Absolute Auto 0.2 X10*3/uL (0.0-0.4); Eosinophils Percent Auto 2.4 % (0-4); Hematocrit 42.6 % (42.0-52.0); Hemoglobin 14.1 g/dl (14.0-18.0); Imm Gran Abs Auto 0.02 X10*3/uL (0.00-0.03); Imm Gran Pct Auto 0.3 % (0.0-0.4); Lymphocytes Percent Auto 31.3 % (20-40); Mean Corpuscular HGB Conc 33.1 g/dl (31.0-36.0); Mean Corpuscular Hemoglobin 30.6 pg (27.0-33.0); Mean Corpuscular Volume 92.4 fL (80.0-98.0); Mean Platelet Volume 9.2 fL (9.4-12.4); Monocytes Absolute Auto 0.4 X10*3/uL (0.1-1.2); Monocytes Percent Auto 5.8 % (2-11); Neutrophils Absolute Auto 3.8 x10*3/uL (2.0-8.3); Neutrophils Percent Auto 59.7 % (45-73); Platelet Count 235 X10*3/uL (160-400); Red Blood Count 4.61 X10*6/uL (4.60-5.80); White Blood Count 6.4 X10*3/uL (4.8-10.8)
[2023-06-10 17:16] LABS: Alanine Aminotransferase 15 U/L (0-40); Albumin Level 4.3 g/dL (3.5-5.0); Alkaline Phosphatase 85 U/L (39-117); Anion Gap 14 (12-20); Aspartate Amino Transferase 19 U/L (5-37); Bilirubin Total 0.6 mg/dL (0.0-1.0); Blood Urea Nitrogen 14 mg/dL (9-16); Calcium 10.1 mg/dL (8.4-10.2); Carbon Dioxide 23 mmol/L (22-29); Chloride 106 mmol/L (96-108); Creatinine Clr Calc Pharmacy 131.5; Estimated Glomerular Filt Rate > 60; Glucose Random 93 mg/dL (60-115); Lipase 42 U/L (8-78); Potassium 4.2 mmol/L (3.3-5.1); Sodium 139 mmol/L (135-145); Total Protein 8.1 g/dL (6.5-8.0)
[2023-06-10 17:37] VITALS: RESP 16
[2023-06-10] MEDS: Morphine Sulfate 4 MG/ML CARTRIDGE IVPUSH (17:37)
[2023-06-10] MEDS: iohexoL 350 MG/ML 100 ML INFUS..BTL IV (18:11)
[2023-06-10 18:20] VITALS: BP 111/67; PULSE 77; RESP 16; O2SAT 98
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
[2023-06-10 20:44] VITALS: BP 102/59; PULSE 67; RESP 16; TEMP 36.6; O2SAT 98
[2023-06-10 21:47] VITALS: BP 116/80; PULSE 81; RESP 16; TEMP 36.6; O2SAT 99
--- NOTE | 2023-06-10 21:50 | MHC.EDTECH ---
patient 2200 rounding done ,vitals sign taken ,urine sample collected and sent to lab .
[2023-06-10 22:10] LABS: Appearance Urine Clear; Color Urine Yellow; Glucose Urine UA Negative (Negative); Leukocyte Esterase Urine Moderate (2+) (Negative); Nitrite Urine Negative (Negative); Specific Gravity - Urine 1.015 (1.005-1.025); UMIC TRIGGER UACC YES; Urine Blood Negative (Negative); Urine Ketones Negative (Negative); Urine Protein Negative (Neg-Trace)
[2023-06-10 22:12] LABS: Bacteria Urine 1+ (None Seen); Hyaline Casts Urine 0-2 /LPF (0-2); RBC Urine 0-2 /HPF (0-2); Squamous Epithelial Cell Urine 0-2 /HPF (0-2); UACC Culture Trigger YES
[2023-06-11] VITALS: BP 114/57; PULSE 67; RESP 16; TEMP 37.1; O2SAT 98
[2023-06-11] MEDS: levoFLOXacin 750 MG TABLET PO (00:23)
[2023-06-11] MEDS: traMADoL HCL 50 MG TABLET PO (00:23)
--- NOTE | 2023-06-11 00:49 | MHC.EDTECH ---
Call out to [facility] @[id number] for BLS transport back home. ETA of 30 mins
== END 2023-06-11 01:49 | disposition home or self-care (01) ==
PROVIDERS: Nurse Practitioner Family; Emergency Provider Emergency Medicine; PCP Family Medicine
DX: N39.0 Urinary tract infection, site not specified (principal); B95.7 Other staphylococcus as the cause of diseases classified elsewhere; R10.32 Left lower quadrant pain; F17.200 Nicotine dependence, unspecified, uncomplicated; Z96.0 Presence of urogenital implants; Z79.899 Other long term (current) drug therapy
CPT/HCPCS: 36415; 74177; 80053; 81001; 83690; 85025; 87086; 87088; 87186; 96374; 99284; 99285; J2270; Q9967

== ENCOUNTER 2023-06-16 11:52 | Outpatient (REF) | payer MEDICAID, SELFPAY ==
[2023-06-16 14:35] LABS: Cholesterol 150 mg/dL; HDL Cholesterol 39 mg/dL; LDL Cholesterol Calculated 74 mg/dl; Triglycerides 186 mg/dL
[2023-06-17 05:35] LABS: ~HepC Num1 0.13 S/CO (0.00-0.79); ~Hepatitis C Antibody Nonreactive (Nonreactive)
== END 2023-06-16 11:53 | disposition home or self-care (01) ==
LOC: HO.HHCL 11:52
PROVIDERS: Visit Provider Family Medicine
DX: I10 Essential (primary) hypertension (principal)
CPT/HCPCS: 36415; 80061; 86803

== ENCOUNTER 2023-07-01 19:42 | Outpatient (REF) | payer MEDICAID, SELFPAY ==
[2023-07-01 20:11] LABS: Appearance Urine Clear; Color Urine Yellow; Glucose Urine UA Negative (Negative); Leukocyte Esterase Urine Trace (Negative); Nitrite Urine Negative (Negative); PH 6.5 (5.0-9.0); Specific Gravity - Urine <= 1.005 (1.005-1.025); UMIC TRIGGER UACC YES; Urine Blood Small (1+) (Negative); Urine Ketones Negative (Negative); Urine Protein Negative (Neg-Trace)
[2023-07-01 20:27] LABS: Bacteria Urine Trace (None Seen); Hyaline Casts Urine 0-2 /LPF (0-2); RBC Urine 0-2 /HPF (0-2); Squamous Epithelial Cell Urine 0-2 /HPF (0-2); WBC Urine 0-5 /HPF (0-5)
== END 2023-07-01 19:43 | disposition home or self-care (01) ==
LOC: HO.HHCL 19:42
PROVIDERS: Visit Provider Family Medicine
DX: N39.0 Urinary tract infection, site not specified (principal)
CPT/HCPCS: 81001; 81003

== ENCOUNTER 2023-07-24 16:33 | Outpatient (REF) | payer MEDICAID, SELFPAY ==
[2023-07-24 17:02] LABS: Appearance Urine Clear; Color Urine Dark Yellow; Glucose Urine UA Negative (Negative); Leukocyte Esterase Urine Moderate (2+) (Negative); Nitrite Urine Negative (Negative); PH 6.5 (5.0-9.0); Specific Gravity - Urine 1.015 (1.005-1.025); UMIC TRIGGER UACC YES; Urine Blood Negative (Negative); Urine Ketones Negative (Negative); Urine Protein 30 (1+) mg/dL (Neg-Trace)
[2023-07-24 17:05] LABS: Bacteria Urine 2+ (None Seen); RBC Urine 0-2 /HPF (0-2); Squamous Epithelial Cell Urine 0-2 /HPF (0-2); UACC Culture Trigger YES
== END 2023-07-24 16:34 | disposition home or self-care (01) ==
LOC: HO.HHCLNP 16:33
PROVIDERS: Visit Provider Family Medicine
DX: N39.0 Urinary tract infection, site not specified (principal)
CPT/HCPCS: 81001; 87086; 87088; 87186

== ENCOUNTER 2023-08-10 12:45 | Inpatient (IN) | payer MEDICAID, SELFPAY ==
--- NOTE | ~2023-08-10 | CT_ITS ---
EXAMINATION: CT ABDOMEN AND PELVIS WITHOUT CONTRAST CLINICAL INFORMATION: Abdominal pain COMPARISON: 06/10/2023 TECHNIQUE: Multidetector volumetric imaging was performed from the superior aspect of the liver through the pubic symphysis. Sagittal and coronal reformatted images were obtained on the technologist's workstation. This CT examination was performed using dose optimization techniques as appropriate, variously including the following: *Automated exposure control *Adjustment of mA and/or kV according to patient size (this includes techniques or standardized protocols for targeted exams where dose is matched to indication/reason for exam; i.e. extremities or head) *Use of iterative reconstruction technique DLP: 493 mGy-cm FINDINGS: LUNG BASES: The visualized lung bases are unremarkable. LIVER, GALLBLADDER, AND BILIARY TREE: The liver is normal in size, shape, and attenuation. No focal hepatic lesion or biliary ductal dilatation is identified on this noncontrast exam. Gallbladder is grossly unremarkable. PANCREAS: Unremarkable. SPLEEN: Unremarkable. ADRENAL GLANDS: Unremarkable. KIDNEYS AND URETERS: No hydronephrosis or obstructing calculus bilaterally. A couple tiny calculi are present in the lower left kidney. BLADDER: Mildly distended with diffuse mural prominence. Suprapubic catheter is present, and a small focus of gas is also noted in the bladder. GASTROINTESTINAL TRACT: Moderate to large amount of stool is present. No evidence of bowel obstruction or significant wall thickening. The appendix is unremarkable. No free fluid or free air is seen. ABDOMINAL WALL: No significant hernia is appreciated. LYMPH NODES: Normal. VASCULAR: Unremarkable. PELVIC VISCERA: Unremarkable. OSSEOUS STRUCTURES: Degenerative changes are noted in the hips. There are degenerative changes in the lower lumbar spine. CT/CT abdomen pelvis wo IV con IMPRESSION: 1. Mildly distended urinary bladder with diffuse mural prominence, which could be due to underdistention versus cystitis in the proper clinical setting. Suprapubic catheter in place. 2. Moderate to large volume of stool. No evidence of bowel obstruction. 3. Tiny left lower pole renal calculi without hydronephrosis.
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
[2023-08-10 12:51] VITALS: BP 108/80; PULSE 86; O2SAT 98
[2023-08-10 12:53] VITALS: BP 98/54; PULSE 79; RESP 18; TEMP 36.7; O2SAT 97; BMI 22.9
[2023-08-10 15:07] LABS: MANUAL DIFF FLAG NO
[2023-08-10 15:16] LABS: Basophils Percent Auto 0.6 % (0-2); Eosinophils Absolute Auto 0.2 X10*3/uL (0.0-0.4); Eosinophils Percent Auto 3.3 % (0-4); Hematocrit 38.7 % (42.0-52.0); Hemoglobin 12.9 g/dl (14.0-18.0); Imm Gran Abs Auto 0.02 X10*3/uL (0.00-0.03); Imm Gran Pct Auto 0.4 % (0.0-0.4); Lymphocytes Absolute Auto 1.6 X10*3/uL (1.2-4.9); Lymphocytes Percent Auto 30.5 % (20-40); Mean Corpuscular HGB Conc 33.3 g/dl (31.0-36.0); Mean Corpuscular Hemoglobin 29.9 pg (27.0-33.0); Mean Corpuscular Volume 89.8 fL (80.0-98.0); Mean Platelet Volume 9.2 fL (9.4-12.4); Monocytes Absolute Auto 0.4 X10*3/uL (0.1-1.2); Monocytes Percent Auto 7.2 % (2-11); Platelet Count 175 X10*3/uL (160-400); Red Blood Count 4.31 X10*6/uL (4.60-5.80); Red Cell Distribution Width 13.1 % (11.0-16.0); White Blood Count 5.1 X10*3/uL (4.8-10.8)
[2023-08-10 15:20] LABS: Lactic Acid 1.3 mmol/L (0.5-2.0)
[2023-08-10 15:23] LABS: Alanine Aminotransferase 19 U/L (0-40); Albumin Level 4.1 g/dL (3.5-5.0); Alkaline Phosphatase 79 U/L (39-117); Anion Gap 13 (12-20); Aspartate Amino Transferase 24 U/L (5-37); Bilirubin Total 0.4 mg/dL (0.0-1.0); Blood Urea Nitrogen 10 mg/dL (9-16); Calcium 9.8 mg/dL (8.4-10.2); Carbon Dioxide 24 mmol/L (22-29); Chloride 108 mmol/L (96-108); Creatinine Clr Calc Pharmacy 131.5; Estimated Glomerular Filt Rate > 60; Glucose Random 97 mg/dL (60-115); Potassium 4.2 mmol/L (3.3-5.1); Sodium 141 mmol/L (135-145); Total Protein 7.5 g/dL (6.5-8.0)
[2023-08-10 17:14] VITALS: BP 111/73; PULSE 75; RESP 18; TEMP 36.2; O2SAT 99
--- NOTE | 2023-08-10 17:44 | PC.NURSE ---
Alert and oriented, arrived from ems for complaints of 10/10 lower abdominal pain. Carlos finished taking abt about a week ago for uti and 2 days later symptoms started to return.
[2023-08-10 18:43] LABS: Appearance Urine Turbid; Color Urine Yellow; Glucose Urine UA Negative (Negative); Leukocyte Esterase Urine Large (3+) (Negative); Nitrite Urine Negative (Negative); PH 6.5 (5.0-9.0); Specific Gravity - Urine 1.015 (1.005-1.025); UMIC TRIGGER UACC YES; Urine Blood Small (1+) (Negative); Urine Ketones Negative (Negative); Urine Protein Trace mg/dL (Neg-Trace)
[2023-08-10 19:04] LABS: Bacteria Urine 4+ (None Seen); Hyaline Casts Urine 0-2 /LPF (0-2); Squamous Epithelial Cell Urine 0-2 /HPF (0-2); UACC Culture Trigger YES; WBC Urine >50 /HPF (0-5)
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
[2023-08-10 19:36] VITALS: BP 119/74; PULSE 69; RESP 18; TEMP 36.5; O2SAT 99
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
[2023-08-10 20:08] LABS: Lactic Acid 0.6 mmol/L (0.5-2.0)
--- NOTE | 2023-08-10 22:28 | PC.NURSE ---
This RN assumed care at 1930. No IV established upon assessment, this RN attempted line insertion without success. Another RN asked to insert line, unsuccessful. This RN requested MD to insert ultrasound guided IV line, currently awaiting. Medications late due to inability to obtain IV access.
[2023-08-10] MEDS: Linezolid/D5W 600 MG/300 ML PIGGYBACK 300 MG IV (23:35)
[2023-08-10] MEDS: Enoxaparin Sodium 40 MG/0.4 ML SYRINGE SUBCUT (23:36)
--- NOTE | 2023-08-10 23:44 | PC.NURSE ---
Ultrasound guided line placed at this time. Per MD, Linezolid started at this time as well. Patient given warm blanket at this time.
--- NOTE | 2023-08-10 23:51 | PC.NURSE ---
Report given to Shannen ALLRED at this time. Patient to be transported
[2023-08-11 00:34] VITALS: BMI 26.4
[2023-08-11 00:57] VITALS: BP 114/67; PULSE 66; RESP 18; TEMP 36.2; O2SAT 100
[2023-08-11] MEDS: 0.9 % Sodium Chloride Flush 3 ML SYRINGE IVFLUSH ×4 (01:23→20:40)
[2023-08-11] MEDS: Omeprazole 20 MG CAPSULE.DR PO (06:41)
--- NOTE | 2023-08-11 07:43 | PHA.MEDREC ---
Pharmacy Consult ? Medication Reconciliation Pharmacy has completed the medication reconciliation. Reviewed med rec done by nursing
[2023-08-11 07:44] VITALS: BP 137/71; PULSE 63; RESP 18; TEMP 36.6; O2SAT 99
[2023-08-11] MEDS: Linezolid/D5W 600 MG/300 ML PIGGYBACK 300 MG IV ×2 (09:21→21:23)
[2023-08-11] MEDS: Docusate Sodium 100 MG CAPSULE PO ×2 (09:22→20:39)
[2023-08-11] MEDS: Gabapentin 100 MG CAPSULE PO ×3 (09:22→20:39)
[2023-08-11] MEDS: Multivitamin TABLET 1 TAB PO (09:22)
[2023-08-11] MEDS: Gabapentin 600 MG TABLET PO ×3 (09:22→20:39)
[2023-08-11] MEDS: Baclofen 10 MG TABLET 5 MG PO ×3 (09:22→20:39)
--- NOTE | 2023-08-11 11:36 | MHC.CM.PN ---
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
[2023-08-11 16:00] VITALS: BP 115/55; PULSE 92; RESP 18; TEMP 36.3; O2SAT 98
[2023-08-11 19:54] VITALS: BP 94/51; PULSE 72; RESP 18; TEMP 36.9; O2SAT 100
[2023-08-11] MEDS: Enoxaparin Sodium 40 MG/0.4 ML SYRINGE SUBCUT (21:27)
[2023-08-12 03:22] VITALS: BP 94/52; PULSE 84; RESP 18; TEMP 36.2; O2SAT 99
[2023-08-12] MEDS: Omeprazole 20 MG CAPSULE.DR PO (06:01)
[2023-08-12 06:53] LABS: Anion Gap 10 (12-20); Blood Urea Nitrogen 9 mg/dL (9-16); Calcium 9.1 mg/dL (8.4-10.2); Carbon Dioxide 27 mmol/L (22-29); Chloride 108 mmol/L (96-108); Creatinine Clr Calc Pharmacy 126.3; Estimated Glomerular Filt Rate > 60; Glucose Random 86 mg/dL (60-115); Sodium 141 mmol/L (135-145)
[2023-08-12 07:57] VITALS: BP 132/62; PULSE 67; RESP 18; TEMP 36.3; O2SAT 96
[2023-08-12] MEDS: Gabapentin 100 MG CAPSULE PO ×3 (09:55→20:15)
[2023-08-12] MEDS: Gabapentin 600 MG TABLET PO ×3 (09:55→20:15)
[2023-08-12] MEDS: Multivitamin TABLET 1 TAB PO (09:55)
[2023-08-12] MEDS: 0.9 % Sodium Chloride Flush 3 ML SYRINGE IVFLUSH ×2 (09:55→20:32)
[2023-08-12] MEDS: Docusate Sodium 100 MG CAPSULE PO ×2 (09:55→20:15)
[2023-08-12] MEDS: Baclofen 10 MG TABLET 5 MG PO ×3 (09:55→20:15)
[2023-08-12] MEDS: Linezolid/D5W 600 MG/300 ML PIGGYBACK 300 MG IV ×2 (09:56→20:20)
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
[2023-08-12] MEDS: oxyCODONE HCl Immed Release 5 MG TABLET PO (15:16)
[2023-08-12 16:00] VITALS: BP 108/68; PULSE 100; RESP 18; TEMP 36.4; O2SAT 99
[2023-08-12 19:38] VITALS: BP 100/60; PULSE 89; RESP 18; TEMP 36.2; O2SAT 98
[2023-08-12] MEDS: Enoxaparin Sodium 40 MG/0.4 ML SYRINGE SUBCUT (20:16)
[2023-08-12] MEDS: Morphine Sulfate Immed Release 15 MG TABLET PO (20:23)
--- NOTE | 2023-08-12 20:30 | MHC.PIE ---
p; pt c/o feeling bloated, pt reports last bm Friday, pt asking for suppository. pt also reports taking baclofen 10 mg not 5mg at home i; dr lopez notified e; will cont to monitor
[2023-08-12] MEDS: bisacodyL 10 MG SUPP.RECT PR (21:28)
[2023-08-12] MEDS: Baclofen 10 MG TABLET PO (21:36)
[2023-08-13 03:11] VITALS: BP 96/64; PULSE 84; RESP 18; TEMP 36.4; O2SAT 99
[2023-08-13] MEDS: Omeprazole 20 MG CAPSULE.DR PO (05:11)
[2023-08-13 05:56] LABS: Hematocrit 40.9 % (42.0-52.0); Hemoglobin 13.3 g/dl (14.0-18.0); Mean Corpuscular HGB Conc 32.5 g/dl (31.0-36.0); Mean Corpuscular Hemoglobin 30.6 pg (27.0-33.0); Mean Corpuscular Volume 94.2 fL (80.0-98.0); Mean Platelet Volume 10.6 fL (9.4-12.4); Platelet Count 153 X10*3/uL (160-400); Red Blood Count 4.34 X10*6/uL (4.60-5.80); Red Cell Distribution Width 13.6 % (11.0-16.0); White Blood Count 6.5 X10*3/uL (4.8-10.8)
[2023-08-13 06:11] LABS: Anion Gap 13 (12-20); Blood Urea Nitrogen 8 mg/dL (9-16); Calcium 9.3 mg/dL (8.4-10.2); Carbon Dioxide 23 mmol/L (22-29); Chloride 109 mmol/L (96-108); Creatinine Clr Calc Pharmacy 124.7; Estimated Glomerular Filt Rate > 60; Glucose Fasting 96 mg/dL (60-99); Potassium 5.1 mmol/L (3.3-5.1); Sodium 140 mmol/L (135-145)
[2023-08-13 07:51] VITALS: BP 90/62; PULSE 72; RESP 18; O2SAT 96
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
--- NOTE | 2023-08-13 08:49 | P.CDIM_ITS ---
PROVIDER RESPONSE TEXT: To clarify, the appropriate diagnosis supported by the clinical indicators: Paraplegia: unspecified QUERY TEXT: PHYSICIAN'S DOCUMENTATION REQUEST Date of Query: 08/13/2023 08:38 AM EDT Patient Name: Anatoly Corbett Admit Date: 08/11/2023 Dear Benedicto Childers, A review of the medical record indicates additional documentation may be needed. Please review below and update the documentation accordingly. Clinical Indicators: Paraplegia Continue baclofen, gabapentin Which, if any, of the following is a likely etiology of the above abnormalities and treatment rendere d: Paraplegia Indicate if complete or incomplete Other (explain)Clinically unable to determine (explain)Thank you, Jennifer Smith, CCS, CDIS Use of terms such as suspected, likely, concern for, or probable (associated with a specific diagnosi s that is being evaluated, monitored, or treated as if it exists) are acceptable and can be coded in the inpatient se tting, when documented at the time of discharge. Please use your independent medical judgment in providing your response. THIS QUERY IS PART OF THE PERMANENT MEDICAL RECORD
[2023-08-13] MEDS: Docusate Sodium 100 MG CAPSULE PO (09:10)
[2023-08-13] MEDS: Baclofen 10 MG TABLET PO (09:10)
[2023-08-13] MEDS: Gabapentin 600 MG TABLET PO (09:10)
[2023-08-13] MEDS: Gabapentin 100 MG CAPSULE PO (09:10)
[2023-08-13] MEDS: Multivitamin TABLET 1 TAB PO (09:10)
[2023-08-13] MEDS: 0.9 % Sodium Chloride Flush 3 ML SYRINGE IVFLUSH (09:11)
[2023-08-13] MEDS: Linezolid/D5W 600 MG/300 ML PIGGYBACK 300 MG IV (10:46)
[2023-08-13] MEDS: Morphine Sulfate Immed Release 15 MG TABLET PO (10:52)
== END 2023-08-13 12:40 | disposition home health service (06) | DRG 466 ==
LOC: HO.ED 21:46 → HO.EDOVER 21:52 → HO.S3 22:46
PROVIDERS: Nurse Practitioner Family; Student in an Organized Health Care Education/Training Program; Admitting Provider Student in an Organized Health Care Education/Training Program; Emergency Provider Emergency Medicine Emergency Medical Services; PCP Family Medicine; Visit Provider Internal Medicine
DX: T83.518A Infection and inflammatory reaction due to other urinary catheter, initial encounter (principal); G82.20 Paraplegia, unspecified; N39.0 Urinary tract infection, site not specified; B96.89 Other specified bacterial agents as the cause of diseases classified elsewhere; S24.102S Unspecified injury at T2-T6 level of thoracic spinal cord, sequela; W34.00XS Accidental discharge from unspecified firearms or gun, sequela; Z87.891 Personal history of nicotine dependence; Z87.440 Personal history of urinary (tract) infections; Z91.040 Latex allergy status; Z79.899 Other long term (current) drug therapy
CPT/HCPCS: 36415; 74176; 80048; 80053; 81001; 83605; 85025; 85027; 87040; 87086; 87088; 87186; 99221; 99284; J1650; J2020; J2185

== ENCOUNTER → 2023-08-10 21:26 | Outpatient (BNV) | payer MEDICAID, SELFPAY | PROVIDERS: Admitting Provider Student in an Organized Health Care Education/Training Program; Emergency Provider Emergency Medicine Emergency Medical Services; PCP Family Medicine; Visit Provider Internal Medicine | DX: N39.0 Urinary tract infection, site not specified (principal); M79.2 Neuralgia and neuritis, unspecified; G82.20 Paraplegia, unspecified | CPT/HCPCS: 99222 ==

== ENCOUNTER → 2023-08-10 21:26 | Outpatient (BNV) | payer MEDICAID, SELFPAY | PROVIDERS: Admitting Provider Student in an Organized Health Care Education/Training Program; Emergency Provider Emergency Medicine Emergency Medical Services; Visit Provider Student in an Organized Health Care Education/Training Program | DX: N39.0 Urinary tract infection, site not specified (principal); G82.20 Paraplegia, unspecified | CPT/HCPCS: 99223; 99232; 99239 ==

== ENCOUNTER 2023-09-15 13:20 | Emergency (ER) | payer MEDICAID, SELFPAY ==
[2023-09-15 13:40] VITALS: BP 110/50; BP 140/68; PULSE 91; PULSE 94; RESP 16; TEMP 36.9; O2SAT 98; O2SAT 99; BMI 25.8
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
[2023-09-15 14:22] LABS: Appearance Urine Clear; Color Urine Yellow; Glucose Urine UA Negative (Negative); Leukocyte Esterase Urine Large (3+) (Negative); Nitrite Urine Positive (Negative); UMIC TRIGGER UACC YES; Urine Blood Negative (Negative); Urine Ketones Negative (Negative); Urine Protein Negative (Neg-Trace)
[2023-09-15 14:25] LABS: Bacteria Urine 4+ (None Seen); Hyaline Casts Urine 0-2 /LPF (0-2); RBC Urine 0-2 /HPF (0-2); UACC Culture Trigger YES; WBC Urine >50 /HPF (0-5)
[2023-09-15 15:07] VITALS: BP 109/64; PULSE 72; TEMP 37.1; O2SAT 98
[2023-09-15] MEDS: Lidocaine 4 % Patch ADH..PATCH 1 PATCH TRANSDERMA (15:12)
[2023-09-15 15:44] VITALS: BP 109/56; PULSE 74; RESP 16; TEMP 36.8; O2SAT 97
[2023-09-15 15:46] LABS: MANUAL DIFF FLAG NO
--- NOTE | 2023-09-15 15:47 | MHC.EDTECH ---
THIS PCT ASSUMED CARE OF PT AT 1500 ,BLOOD DRAWN AND SENT TO LAB ,VITALS TAKEN ,PT RESTING QUIETLY IN BED .
[2023-09-15 15:50] LABS: Basophils Percent Auto 0.4 % (0-2); Eosinophils Absolute Auto 0.1 X10*3/uL (0.0-0.4); Eosinophils Percent Auto 1.9 % (0-4); Hematocrit 40.2 % (42.0-52.0); Hemoglobin 13.2 g/dl (14.0-18.0); Imm Gran Abs Auto 0.02 X10*3/uL (0.00-0.03); Imm Gran Pct Auto 0.3 % (0.0-0.4); Mean Corpuscular HGB Conc 32.8 g/dl (31.0-36.0); Mean Corpuscular Hemoglobin 29.9 pg (27.0-33.0); Mean Platelet Volume 9.4 fL (9.4-12.4); Monocytes Absolute Auto 0.5 X10*3/uL (0.1-1.2); Monocytes Percent Auto 6.1 % (2-11); Neutrophils Absolute Auto 4.9 x10*3/uL (2.0-8.3); Neutrophils Percent Auto 64.3 % (45-73); Platelet Count 217 X10*3/uL (160-400); Red Blood Count 4.42 X10*6/uL (4.60-5.80); Red Cell Distribution Width 13.1 % (11.0-16.0); White Blood Count 7.6 X10*3/uL (4.8-10.8)
[2023-09-15 16:08] LABS: Alanine Aminotransferase 20 U/L (0-40); Albumin Level 4.1 g/dL (3.5-5.0); Alkaline Phosphatase 81 U/L (39-117); Anion Gap 15 (12-20); Aspartate Amino Transferase 23 U/L (5-37); Bilirubin Total 0.5 mg/dL (0.0-1.0); Blood Urea Nitrogen 11 mg/dL (9-16); Calcium 9.9 mg/dL (8.4-10.2); Carbon Dioxide 24 mmol/L (22-29); Chloride 105 mmol/L (96-108); Estimated Glomerular Filt Rate > 60; Glucose Random 82 mg/dL (60-115); Potassium 3.9 mmol/L (3.3-5.1); Sodium 140 mmol/L (135-145); Total Protein 7.6 g/dL (6.5-8.0)
[2023-09-15] MEDS: levoFLOXacin 500 MG TABLET PO (16:12)
[2023-09-15] MEDS: Linezolid 600 MG TABLET PO (16:12)
[2023-09-15] MEDS: Phenazopyridine HCL 200 MG TABLET PO (16:26)
--- NOTE | 2023-09-15 16:27 | PC.NURSE ---
pt medicated per JAN, reports 10/10 penis pain/pain w urination. pt resting quietly, vss, no new orders at this time.
[2023-09-15 16:46] VITALS: BP 102/69; PULSE 76; RESP 16; TEMP 36.6; O2SAT 98
== END 2023-09-15 17:58 | disposition home or self-care (01) ==
PROVIDERS: Emergency Provider Student in an Organized Health Care Education/Training Program; PCP Family Medicine
DX: N39.0 Urinary tract infection, site not specified (principal); T83.518A Infection and inflammatory reaction due to other urinary catheter, initial encounter; R10.30 Lower abdominal pain, unspecified; Z87.891 Personal history of nicotine dependence; Z79.899 Other long term (current) drug therapy
CPT/HCPCS: 36415; 80053; 81001; 85025; 87086; 99284

== ENCOUNTER 2023-09-30 12:45 | Emergency (ER) | payer MEDICAID, SELFPAY ==
[2023-09-30 13:04] VITALS: BP 116/75; BP 120/90; PULSE 85; PULSE 92; RESP 18; O2SAT 98; BMI 26.3
--- NOTE | 2023-09-30 13:18 | PC.NURSE ---
Patient arrived from home via ems with complaints of groin, leg, and buttock pain. Patient reports that he was seen here about 2 weeks ago and was treated for a uti but his symptoms never resolved. Patient reports that he has been trying to call infectiouc disease to set up and apt and they just called back yesterday, thinks his apt is next week. Denies chest pain or sob
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
[2023-09-30 13:47] LABS: MANUAL DIFF FLAG NO
[2023-09-30 13:51] LABS: Basophils Percent Auto 0.5 % (0-2); Eosinophils Absolute Auto 0.2 X10*3/uL (0.0-0.4); Eosinophils Percent Auto 3.7 % (0-4); Hematocrit 36.7 % (42.0-52.0); Hemoglobin 12.2 g/dl (14.0-18.0); Imm Gran Abs Auto 0.02 X10*3/uL (0.00-0.03); Imm Gran Pct Auto 0.3 % (0.0-0.4); Lymphocytes Absolute Auto 1.9 X10*3/uL (1.2-4.9); Lymphocytes Percent Auto 32.3 % (20-40); Mean Corpuscular HGB Conc 33.2 g/dl (31.0-36.0); Mean Corpuscular Hemoglobin 30.5 pg (27.0-33.0); Mean Corpuscular Volume 91.8 fL (80.0-98.0); Monocytes Absolute Auto 0.5 X10*3/uL (0.1-1.2); Monocytes Percent Auto 8.5 % (2-11); Neutrophils Absolute Auto 3.3 x10*3/uL (2.0-8.3); Neutrophils Percent Auto 54.7 % (45-73); Red Cell Distribution Width 13.2 % (11.0-16.0)
[2023-09-30 14:01] LABS: Anion Gap 11 (12-20); Blood Urea Nitrogen 7 mg/dL (9-16); C Reactive Protein 0.41 mg/dL (< or = 0.50); Calcium 9.5 mg/dL (8.4-10.2); Carbon Dioxide 26 mmol/L (22-29); Chloride 108 mmol/L (96-108); Creatinine Clr Calc Pharmacy 120.4; Estimated Glomerular Filt Rate > 60; Glucose Random 92 mg/dL (60-115); Potassium 4.7 mmol/L (3.3-5.1); Sodium 140 mmol/L (135-145)
[2023-09-30] MEDS: oxyCODONE HCl Immed Release 5 MG TABLET PO (14:02)
[2023-09-30] MEDS: Acetaminophen 325 MG TABLET 975 MG PO (14:04)
[2023-09-30 14:18] LABS: Appearance Urine Clear; Color Urine Yellow; Glucose Urine UA Negative (Negative); Leukocyte Esterase Urine Small (1+) (Negative); Nitrite Urine Negative (Negative); PH 7.5 (5.0-9.0); UMIC TRIGGER UACC YES; Urine Blood Trace (Negative); Urine Ketones Negative (Negative); Urine Protein Negative (Neg-Trace)
[2023-09-30 14:28] LABS: Bacteria Urine 1+ (None Seen); Hyaline Casts Urine 0-2 /LPF (0-2); RBC Urine 0-2 /HPF (0-2); Squamous Epithelial Cell Urine 0-2 /HPF (0-2); UACC Culture Trigger YES; WBC Urine 0-5 /HPF (0-5)
[2023-09-30 14:29] LABS: Erythrocyte Sedimentation Rate 5 MM/HR (0-15)
== END 2023-09-30 17:14 | disposition home or self-care (01) ==
PROVIDERS: Emergency Provider Student in an Organized Health Care Education/Training Program; PCP Family Medicine
DX: M79.2 Neuralgia and neuritis, unspecified (principal); G82.20 Paraplegia, unspecified; G89.4 Chronic pain syndrome; Z96.0 Presence of urogenital implants; Z87.440 Personal history of urinary (tract) infections; Z79.891 Long term (current) use of opiate analgesic; Z87.891 Personal history of nicotine dependence; Z79.899 Other long term (current) drug therapy
CPT/HCPCS: 36415; 80048; 81001; 85025; 85652; 86140; 87086; 87088; 87186; 99283; 99284

== ENCOUNTER 2023-10-22 14:00 | Inpatient (IN) | payer MEDICAID, SELFPAY ==
[2023-10-22 14:20] VITALS: BP 110/68; BP 128/87; PULSE 70; PULSE 86; RESP 18; TEMP 36.6; O2SAT 96; O2SAT 98; BMI 26.3
[2023-10-22 14:59] LABS: Appearance Urine Cloudy; Color Urine Yellow; Glucose Urine UA Negative (Negative); Leukocyte Esterase Urine Moderate (2+) (Negative); Nitrite Urine Positive (Negative); UMIC TRIGGER UACC YES; Urine Blood Trace (Negative); Urine Ketones Negative (Negative); Urine Protein Negative (Neg-Trace)
[2023-10-22 15:04] LABS: Bacteria Urine 4+ (None Seen); Hyaline Casts Urine 0-2 /LPF (0-2); RBC Urine 0-2 /HPF (0-2); Squamous Epithelial Cell Urine 0-2 /HPF (0-2); UACC Culture Trigger YES; WBC Urine 21-50 /HPF (0-5)
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
[2023-10-22 16:33] LABS: MANUAL DIFF FLAG NO
[2023-10-22 16:35] LABS: Basophils Percent Auto 0.5 % (0-2); Eosinophils Absolute Auto 0.1 X10*3/uL (0.0-0.4); Eosinophils Percent Auto 2.3 % (0-4); Hematocrit 41.5 % (42.0-52.0); Hemoglobin 13.8 g/dl (14.0-18.0); Imm Gran Abs Auto 0.01 X10*3/uL (0.00-0.03); Imm Gran Pct Auto 0.2 % (0.0-0.4); Lymphocytes Absolute Auto 1.7 X10*3/uL (1.2-4.9); Lymphocytes Percent Auto 29.2 % (20-40); Mean Corpuscular HGB Conc 33.3 g/dl (31.0-36.0); Mean Corpuscular Hemoglobin 29.8 pg (27.0-33.0); Mean Corpuscular Volume 89.6 fL (80.0-98.0); Monocytes Absolute Auto 0.4 X10*3/uL (0.1-1.2); Monocytes Percent Auto 6.3 % (2-11); Neutrophils Absolute Auto 3.6 x10*3/uL (2.0-8.3); Neutrophils Percent Auto 61.5 % (45-73); Platelet Count 211 X10*3/uL (160-400); Red Blood Count 4.63 X10*6/uL (4.60-5.80); Red Cell Distribution Width 13.8 % (11.0-16.0); White Blood Count 5.8 X10*3/uL (4.8-10.8)
[2023-10-22 16:43] LABS: Lactic Acid 0.7 mmol/L (0.5-2.0)
[2023-10-22] MEDS: Morphine Sulfate Immed Release 15 MG TABLET PO (16:47)
[2023-10-22 16:48] LABS: Alanine Aminotransferase 15 U/L (0-40); Albumin Level 4.4 g/dL (3.5-5.0); Alkaline Phosphatase 89 U/L (39-117); Anion Gap 10 (12-20); Aspartate Amino Transferase 21 U/L (5-37); Bilirubin Direct 0.3 mg/dL (0.0-0.5); Bilirubin Total 0.6 mg/dL (0.0-1.0); Blood Urea Nitrogen 13 mg/dL (9-16); Calcium 10.2 mg/dL (8.4-10.2); Carbon Dioxide 27 mmol/L (22-29); Chloride 107 mmol/L (96-108); Estimated Glomerular Filt Rate > 60; Glucose Random 88 mg/dL (60-115); Magnesium 2.1 mg/dL (1.6-2.6); Potassium 4.2 mmol/L (3.3-5.1); Sodium 140 mmol/L (135-145); Total Protein 7.9 g/dL (6.5-8.0)
[2023-10-22] MEDS: diphenhydrAMINE HCL 50 MG/ML VIAL IVPUSH (16:49)
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
--- NOTE | 2023-10-22 17:30 | PHA.MEDREC ---
Pharmacy Consult ? Medication Reconciliation Pharmacy has completed the medication reconciliation. PT is no longer on nitroglycerine ointment Manny
[2023-10-22] MEDS: Linezolid/D5W 600 MG/300 ML PIGGYBACK 300 MG IV (18:20)
--- NOTE | 2023-10-22 19:18 | PC.NURSE ---
This rewriter assumed care of this Pt at 1900. Pt A&Ox4, reports 4/10 ABD pain, reports effectiveness to med given by previous RN. ABX running per JAN. Pt has suprapubic cath in place, intact and draining. Report given to Jeannine, Pt will be transported to room 353, pt aware of plan.
[2023-10-22 19:23] VITALS: BP 162/96; PULSE 60; RESP 18; TEMP 36.9; O2SAT 98
[2023-10-22 20:16] VITALS: BP 104/72; PULSE 83; RESP 18; TEMP 36.6; O2SAT 96
[2023-10-22] MEDS: Gabapentin 100 MG CAPSULE PO (20:55)
[2023-10-22] MEDS: Docusate Sodium 100 MG CAPSULE PO (20:55)
[2023-10-22] MEDS: Baclofen 10 MG TABLET PO (20:55)
[2023-10-22] MEDS: Gabapentin 600 MG TABLET PO (20:55)
[2023-10-22] MEDS: 0.9 % Sodium Chloride Flush 3 ML SYRINGE IVFLUSH (20:56)
[2023-10-23] VITALS (8 sets, daily range): BP systolic 83–129; BP diastolic 48–68; PULSE 63–83; RESP 16–18; TEMP 36–36.6; O2SAT 95–99
[2023-10-23] MEDS: Omeprazole 20 MG CAPSULE.DR PO (05:24)
[2023-10-23] MEDS: Linezolid/D5W 600 MG/300 ML PIGGYBACK 300 MG IV ×2 (05:30→18:05)
[2023-10-23 06:25] LABS: Hematocrit 38.7 % (42.0-52.0); Hemoglobin 12.8 g/dl (14.0-18.0); Mean Corpuscular HGB Conc 33.1 g/dl (31.0-36.0); Mean Corpuscular Volume 90.8 fL (80.0-98.0); Mean Platelet Volume 10.2 fL (9.4-12.4); Platelet Count 207 X10*3/uL (160-400); Red Blood Count 4.26 X10*6/uL (4.60-5.80); Red Cell Distribution Width 14.2 % (11.0-16.0); White Blood Count 6.8 X10*3/uL (4.8-10.8)
[2023-10-23 06:40] LABS: Anion Gap 13 (12-20); Blood Urea Nitrogen 13 mg/dL (9-16); Calcium 9.4 mg/dL (8.4-10.2); Carbon Dioxide 27 mmol/L (22-29); Chloride 107 mmol/L (96-108); Estimated Glomerular Filt Rate > 60; Glucose Fasting 130 mg/dL (60-99); Potassium 3.7 mmol/L (3.3-5.1); Sodium 143 mmol/L (135-145)
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
[2023-10-23] MEDS: Baclofen 10 MG TABLET PO ×3 (08:58→20:03)
[2023-10-23] MEDS: Docusate Sodium 100 MG CAPSULE PO ×2 (08:58→20:02)
[2023-10-23] MEDS: Enoxaparin Sodium 40 MG/0.4 ML SYRINGE SUBCUT (08:58)
[2023-10-23] MEDS: Multivitamin TABLET 1 TAB PO (08:58)
[2023-10-23] MEDS: Gabapentin 100 MG CAPSULE PO ×3 (09:05→20:03)
[2023-10-23] MEDS: Gabapentin 600 MG TABLET PO ×3 (09:05→20:03)
[2023-10-23] MEDS: 0.9 % Sodium Chloride Flush 3 ML SYRINGE IVFLUSH ×2 (09:05→17:32)
--- NOTE | 2023-10-23 09:17 | PC.NURSE ---
Addendum entered by Gaye Kemp RN 10/23/23 10:59: BP recheck at 10:55 113/53 hr 78. Original Note: MD Childers made aware pt manual BP 83/48, pt states his BP runs low like this at home, and his PCP is aware. Pt appears otherwise asymptomatic. No new orders at this time. Other VS 97.4, 83, 18 RR, 99%RA.
--- NOTE | 2023-10-23 14:26 | MHC.CM.PN ---
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
[2023-10-24] MEDS: 0.9 % Sodium Chloride Flush 3 ML SYRINGE IVFLUSH (00:10)
[2023-10-24] MEDS: Linezolid/D5W 600 MG/300 ML PIGGYBACK 300 MG IV (06:28)
[2023-10-24] MEDS: Omeprazole 20 MG CAPSULE.DR PO (06:29)
[2023-10-24 07:43] VITALS: BP 133/82; PULSE 68; RESP 16; TEMP 36; O2SAT 99
[2023-10-24] MEDS: Gabapentin 100 MG CAPSULE PO (09:11)
[2023-10-24] MEDS: Baclofen 10 MG TABLET PO (09:11)
[2023-10-24] MEDS: Gabapentin 600 MG TABLET PO (09:11)
[2023-10-24] MEDS: Docusate Sodium 100 MG CAPSULE PO (09:11)
[2023-10-24] MEDS: Enoxaparin Sodium 40 MG/0.4 ML SYRINGE SUBCUT (09:12)
[2023-10-24] MEDS: Multivitamin TABLET 1 TAB PO (09:12)
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
[2023-10-24] MEDS: oxyCODONE HCl Immed Release 5 MG TABLET PO (11:35)
--- NOTE | 2023-10-24 13:18 | MHC.CM.PN ---
PT WILL DC HOME TODAY WITH RESUMPTION OF [employer] [facility] VIA [facility] TRANSPORT
== END 2023-10-24 14:15 | disposition home or self-care (01) | DRG 466 ==
LOC: HO.ED 16:44 → HO.EDOVER 17:45 → HO.S3 19:02
PROVIDERS: Admitting Provider Internal Medicine; Emergency Provider Emergency Medicine; PCP Family Medicine; Visit Provider Internal Medicine
DX: T83.511A Infection and inflammatory reaction due to indwelling urethral catheter, initial encounter (principal); I95.89 Other hypotension; G82.20 Paraplegia, unspecified; N31.8 Other neuromuscular dysfunction of bladder; N39.0 Urinary tract infection, site not specified; Z87.891 Personal history of nicotine dependence; S24.102S Unspecified injury at T2-T6 level of thoracic spinal cord, sequela; W34.00XS Accidental discharge from unspecified firearms or gun, sequela; Z91.040 Latex allergy status; Z87.440 Personal history of urinary (tract) infections; Z79.899 Other long term (current) drug therapy
CPT/HCPCS: 36415; 80048; 80076; 81001; 83605; 83735; 85025; 85027; 87040; 87086; 99221; 99285; J1200; J1650; J2020; J2185

== ENCOUNTER → 2023-10-22 14:34 | Outpatient (BNV) | payer MEDICAID, SELFPAY | PROVIDERS: Emergency Provider Emergency Medicine; PCP Family Medicine; Visit Provider Internal Medicine | DX: T83.511A Infection and inflammatory reaction due to indwelling urethral catheter, initial encounter (principal); N39.0 Urinary tract infection, site not specified | CPT/HCPCS: 99222; 99232; 99239 ==

== ENCOUNTER 2023-11-05 10:57 | Outpatient (AMB) | payer MEDICAID, SELFPAY ==
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
[2023-11-05 11:05] VITALS: BP 123/72; PULSE 74; TEMP 37.2; O2SAT 99
== END 2023-11-05 11:37 | disposition home or self-care (01) ==
PROVIDERS: PCP Family Medicine; Visit Provider Internal Medicine
DX: N39.0 Urinary tract infection, site not specified (principal)
CPT/HCPCS: 99213

== ENCOUNTER → 2023-11-05 10:57 | Outpatient (BNVA) | payer MEDICAID, SELFPAY | PROVIDERS: PCP Family Medicine; Visit Provider Internal Medicine | DX: N39.0 Urinary tract infection, site not specified (principal) | CPT/HCPCS: 99212 ==

== ENCOUNTER 2023-11-14 15:21 | Emergency (ER) | payer MEDICAID, SELFPAY ==
[2023-11-14 15:28] VITALS: BP 90/60; PULSE 98; O2SAT 98
[2023-11-14 15:33] VITALS: BP 131/80; PULSE 90; RESP 18; TEMP 36.9; O2SAT 97; BMI 26.4
[2023-11-14 16:16] LABS: MANUAL DIFF FLAG NO
[2023-11-14 16:17] LABS: Basophils Percent Auto 0.5 % (0-2); Eosinophils Absolute Auto 0.1 X10*3/uL (0.0-0.4); Eosinophils Percent Auto 2.2 % (0-4); Hematocrit 38.5 % (42.0-52.0); Hemoglobin 12.9 g/dl (14.0-18.0); Imm Gran Abs Auto 0.03 X10*3/uL (0.00-0.03); Imm Gran Pct Auto 0.5 % (0.0-0.4); Lymphocytes Absolute Auto 1.8 X10*3/uL (1.2-4.9); Lymphocytes Percent Auto 28.2 % (20-40); Mean Corpuscular HGB Conc 33.5 g/dl (31.0-36.0); Mean Corpuscular Hemoglobin 30.1 pg (27.0-33.0); Monocytes Absolute Auto 0.4 X10*3/uL (0.1-1.2); Monocytes Percent Auto 6.3 % (2-11); Neutrophils Percent Auto 62.3 % (45-73); Platelet Count 225 X10*3/uL (160-400); Red Blood Count 4.28 X10*6/uL (4.60-5.80); Red Cell Distribution Width 13.6 % (11.0-16.0); White Blood Count 6.4 X10*3/uL (4.8-10.8)
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
[2023-11-14 16:34] LABS: Alanine Aminotransferase 20 U/L (0-40); Albumin Level 4.1 g/dL (3.5-5.0); Alkaline Phosphatase 83 U/L (39-117); Anion Gap 17 (12-20); Aspartate Amino Transferase 22 U/L (5-37); Bilirubin Direct 0.2 mg/dL (0.0-0.5); Bilirubin Total 0.5 mg/dL (0.0-1.0); Blood Urea Nitrogen 13 mg/dL (9-16); Calcium 10.1 mg/dL (8.4-10.2); Carbon Dioxide 25 mmol/L (22-29); Chloride 105 mmol/L (96-108); Estimated Glomerular Filt Rate > 60; Glucose Random 86 mg/dL (60-115); Sodium 143 mmol/L (135-145); Total Protein 7.7 g/dL (6.5-8.0)
[2023-11-14 16:35] LABS: Lactic Acid 0.8 mmol/L (0.5-2.0)
[2023-11-14 17:21] LABS: Appearance Urine Turbid; Color Urine Yellow; Glucose Urine UA Negative (Negative); Leukocyte Esterase Urine Large (3+) (Negative); Nitrite Urine Negative (Negative); Specific Gravity - Urine 1.015 (1.005-1.025); UMIC TRIGGER UACC YES; Urine Blood Small (1+) (Negative); Urine Ketones 15 mg/dL (Negative); Urine Protein Negative (Neg-Trace)
[2023-11-14] MEDS: Morphine Sulfate Immed Release 15 MG TABLET PO (17:38)
[2023-11-14 17:47] LABS: Bacteria Urine 4+ (None Seen); Hyaline Casts Urine 0-2 /LPF (0-2); RBC Urine 0-2 /HPF (0-2); Squamous Epithelial Cell Urine 0-2 /HPF (0-2); UACC Culture Trigger YES; WBC Urine >50 /HPF (0-5)
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
== END 2023-11-14 18:50 | disposition home or self-care (01) ==
PROVIDERS: Emergency Medicine; Emergency Provider Internal Medicine
DX: N39.0 Urinary tract infection, site not specified (principal); T83.518A Infection and inflammatory reaction due to other urinary catheter, initial encounter; Y73.8 Miscellaneous gastroenterology and urology devices associated with adverse incidents, not elsewhere classified; Y92.9 Unspecified place or not applicable; Z79.899 Other long term (current) drug therapy; Z87.891 Personal history of nicotine dependence
CPT/HCPCS: 36415; 80048; 80076; 81001; 83605; 83735; 85025; 87086; 87088; 87186; 99283; 99284

== ENCOUNTER 2023-11-20 13:11 | Emergency (ER) | payer MEDICAID, SELFPAY ==
[2023-11-20 13:22] VITALS: BP 108/72; BP 112/64; PULSE 88; PULSE 90; RESP 18; TEMP 36.8; O2SAT 97; O2SAT 98; BMI 25.1
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
[2023-11-20 14:10] LABS: MANUAL DIFF FLAG NO
[2023-11-20 14:16] LABS: Basophils Percent Auto 0.6 % (0-2); Eosinophils Absolute Auto 0.2 X10*3/uL (0.0-0.4); Eosinophils Percent Auto 2.7 % (0-4); Hematocrit 41.8 % (42.0-52.0); Hemoglobin 13.8 g/dl (14.0-18.0); Imm Gran Abs Auto 0.03 X10*3/uL (0.00-0.03); Imm Gran Pct Auto 0.4 % (0.0-0.4); Lymphocytes Absolute Auto 1.7 X10*3/uL (1.2-4.9); Lymphocytes Percent Auto 24.3 % (20-40); Mean Corpuscular Hemoglobin 30.7 pg (27.0-33.0); Mean Corpuscular Volume 92.9 fL (80.0-98.0); Mean Platelet Volume 9.9 fL (9.4-12.4); Monocytes Absolute Auto 0.4 X10*3/uL (0.1-1.2); Monocytes Percent Auto 5.6 % (2-11); Neutrophils Absolute Auto 4.6 x10*3/uL (2.0-8.3); Neutrophils Percent Auto 66.4 % (45-73); Platelet Count 248 X10*3/uL (160-400); Red Cell Distribution Width 13.9 % (11.0-16.0)
[2023-11-20 14:22] LABS: Lactic Acid 1.1 mmol/L (0.5-2.0)
[2023-11-20 14:29] LABS: Alanine Aminotransferase 16 U/L (0-40); Albumin Level 4.1 g/dL (3.5-5.0); Alkaline Phosphatase 87 U/L (39-117); Anion Gap 9 (12-20); Aspartate Amino Transferase 24 U/L (5-37); Bilirubin Direct 0.1 mg/dL (0.0-0.5); Bilirubin Total 0.4 mg/dL (0.0-1.0); Blood Urea Nitrogen 9 mg/dL (9-16); Calcium 9.8 mg/dL (8.4-10.2); Carbon Dioxide 29 mmol/L (22-29); Chloride 108 mmol/L (96-108); Creatinine Clr Calc Pharmacy 117.5; Estimated Glomerular Filt Rate > 60; Glucose Random 92 mg/dL (60-115); Potassium 4.3 mmol/L (3.3-5.1); Sodium 142 mmol/L (135-145); Total Protein 7.8 g/dL (6.5-8.0)
[2023-11-20] MEDS: Linezolid 600 MG TABLET PO (15:50)
[2023-11-20] MEDS: traMADoL HCL 50 MG TABLET PO (15:50)
== END 2023-11-20 16:58 | disposition home or self-care (01) ==
PROVIDERS: Emergency Provider Emergency Medicine; PCP Family Medicine
DX: A49.01 Methicillin susceptible Staphylococcus aureus infection, unspecified site (principal); T83.518A Infection and inflammatory reaction due to other urinary catheter, initial encounter; N39.0 Urinary tract infection, site not specified; Y73.2 Prosthetic and other implants, materials and accessory gastroenterology and urology devices associated with adverse incidents; Y92.9 Unspecified place or not applicable; Z87.891 Personal history of nicotine dependence; Z79.899 Other long term (current) drug therapy
CPT/HCPCS: 36415; 80048; 80076; 83605; 85025; 87040; 99283; 99284

== ENCOUNTER 2023-12-05 14:30 | Inpatient (IN) | payer MEDICAID, SELFPAY ==
[2023-12-05 14:47] VITALS: BP 118/84; PULSE 104; O2SAT 98; BMI 23.0
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
[2023-12-05 14:51] VITALS: BP 90/56; PULSE 105; RESP 16; TEMP 35.9; O2SAT 97
--- NOTE | 2023-12-05 16:05 | PC.NURSE ---
assumed care of pt at 1600 - #20g iv LFA, normal saline liter bolus infusing. plan of care ongoing
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
--- NOTE | 2023-12-05 18:03 | PHA.MEDREC ---
Pharmacy Consult ? Medication Reconciliation Pharmacy has completed the medication reconciliation. Patient reported medicaitons. Valeria Mendez, RoslynD
[2023-12-05] MEDS: Enoxaparin Sodium 40 MG/0.4 ML SYRINGE SUBCUT (18:45)
--- NOTE | 2023-12-05 20:56 | PC.NURSE ---
pt transported upstairs by [facility].
[2023-12-05 21:10] VITALS: BP 139/92; PULSE 83; RESP 18; TEMP 36.4; O2SAT 99
[2023-12-05 21:23] VITALS: BMI 23.0
[2023-12-05] MEDS: Acetaminophen 325 MG TABLET 650 MG PO (22:37)
[2023-12-06 04:00] VITALS: BP 128/71; PULSE 70; RESP 16; TEMP 36.8; O2SAT 97
[2023-12-06 07:28] LABS: Anion Gap 11 (12-20); Blood Urea Nitrogen 11 mg/dL (9-16); Calcium 9.1 mg/dL (8.4-10.2); Carbon Dioxide 29 mmol/L (22-29); Chloride 106 mmol/L (96-108); Estimated Glomerular Filt Rate > 60; Glucose Fasting 80 mg/dL (60-99); Potassium 4.2 mmol/L (3.3-5.1); Sodium 142 mmol/L (135-145)
[2023-12-06 07:53] VITALS: BP 124/60; PULSE 91; RESP 18; TEMP 36.4; O2SAT 98
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
--- NOTE | 2023-12-06 14:24 | MHC.CM.PN ---
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
[2023-12-06 15:23] VITALS: BP 125/63; PULSE 90; RESP 18; TEMP 36.4; O2SAT 98
[2023-12-06 19:50] VITALS: BP 174/47; PULSE 115; RESP 18; TEMP 36.5; O2SAT 98
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
[2023-12-07 03:50] VITALS: BP 103/55; PULSE 91; RESP 16; TEMP 36.2; O2SAT 98
[2023-12-07 08:00] VITALS: BP 113/62; PULSE 69; RESP 18; TEMP 36.2; O2SAT 98
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
[2023-12-07 16:00] VITALS: BP 112/63; PULSE 72; RESP 18; TEMP 36.2; O2SAT 98
[2023-12-07 20:00] VITALS: BP 111/53; PULSE 85; RESP 20; TEMP 36.3; O2SAT 96
[2023-12-08 03:57] VITALS: BP 103/52; PULSE 100; RESP 16; TEMP 36.3; O2SAT 97
[2023-12-08 08:00] VITALS: BP 115/67; PULSE 95; RESP 18; TEMP 36.2; O2SAT 96
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
[2023-12-08 15:15] VITALS: BP 142/64; PULSE 103; RESP 16; TEMP 36.3; O2SAT 99
[2023-12-08] MEDS: Enoxaparin Sodium 40 MG/0.4 ML SYRINGE SUBCUT (17:17)
[2023-12-08 19:32] VITALS: BP 92/53; PULSE 95; RESP 18; TEMP 36.4; O2SAT 96
[2023-12-08] MEDS: Gabapentin 600 MG TABLET PO (19:48)
[2023-12-08] MEDS: Baclofen 10 MG TABLET PO (19:48)
[2023-12-08] MEDS: Gabapentin 100 MG CAPSULE PO (19:48)
[2023-12-09 03:21] VITALS: BP 112/59; PULSE 81; RESP 18; TEMP 36.1; O2SAT 98
[2023-12-09] MEDS: Acetaminophen 325 MG TABLET 650 MG PO ×2 (06:13→13:30)
[2023-12-09] MEDS: Omeprazole 20 MG CAPSULE.DR PO (06:14)
[2023-12-09 07:37] VITALS: BP 90/57; PULSE 95; RESP 18; TEMP 36; O2SAT 98
[2023-12-09] MEDS: Docusate Sodium 100 MG CAPSULE PO ×2 (08:50→22:15)
[2023-12-09] MEDS: Methenamine Hippurate 1 GM TABLET PO ×2 (08:50→22:16)
[2023-12-09] MEDS: Multivitamin TABLET 1 TAB PO (08:50)
[2023-12-09] MEDS: Gabapentin 100 MG CAPSULE PO ×3 (08:50→22:16)
[2023-12-09] MEDS: Baclofen 10 MG TABLET PO ×3 (08:50→22:16)
[2023-12-09] MEDS: Gabapentin 600 MG TABLET PO ×3 (08:50→22:16)
[2023-12-09 09:29] VITALS: BP 98/56
--- NOTE | 2023-12-09 12:27 | P.PICC_ITS ---
PICC Line Insertion NPICC Diagnosis: UTI Indication: mcc ABT Pertinent Labs: Reviewed Technique: Following informed consent including risks, benefits and alternatives and using sterile technique including cap and mask, sterile gown, glove and drape, the right arm was prepped and draped in the usual sterile fashion of full barrier technique with CHG. Following completion of [place] Protocol the skin and soft tissues were anesthetized with 1% Lidocaine plain. Using ultrasound guidance, right basilic vein access was obtained. Over an 0.018 wire through peel-away sheath, a 4fr single lumen PASV PICC line was positioned. Catheter length is 39cm internal length, 0cm external length, for a total trimmed length of 39cm. The procedure was performed in [facility]. Tip verification was performed by Loraine Posada with Sherlock 3CG. Tip located in SVC. Ultrasound was used to document vein patency and for needle entry. A formal ultrasound picture and cardiac rhythm strip was recorded. Vascular Field Operator has released the line for use and it is currently dressed with a StatLock, Tegaderm, and CHG disc. Verification has been performed for blood return and line patency. Arm Circumference: 29cm Equipment: [employer] PowerPICC SOLO catheter with Sherlock 3CG Catheter Type: 4fr single lumen PASV PICC line Catheter Lot #: [id number]
--- NOTE | 2023-12-09 13:59 | MHC.CM.PN ---
Addendum entered by Preethi Singh 12/09/23 15:19: [facility] CAN TRANSPORT AT 1830 HOURS Original Note: PT IS READY TO DC, HE WILL NEED 6 DAYS OF GENTAMYCIN IV [facility] HAS BEEN BEDSIDE TO COMPLETE TEACH AND COMPLETED A VIRTUAL TEACH WITH HIS SISTER WHO WILL ASSIST [facility] WILL DELIVER MED AND SUPPLIES TODAY [facility] PT WILL DC HOME TODAY VIA [facility] AND [facility]
[2023-12-09 15:08] VITALS: BP 106/52; PULSE 100; RESP 16; TEMP 36.8; O2SAT 97
[2023-12-09] MEDS: oxyCODONE HCl Immed Release 5 MG TABLET PO (15:46)
[2023-12-09] MEDS: Enoxaparin Sodium 40 MG/0.4 ML SYRINGE SUBCUT (17:37)
[2023-12-09 19:06] VITALS: BP 92/50; PULSE 98; RESP 16; TEMP 36.5; O2SAT 98
[2023-12-10 03:18] VITALS: BP 100/63; PULSE 91; RESP 16; TEMP 36.1; O2SAT 97
--- NOTE | 2023-12-10 04:30 | PC.NURSE ---
Assumed care of patient 12/09 at 19:15. Patient cleared for D/C and awaiting [facility] transport to home (hx paraplegia). Spoke with [facility] in the evening, they are unable to accomodate transport until estimated midnight 12/10. Spoke with patient about this; pt stated he wishes to wait until morning instead. [facility] notified and new transport time scheduled for 09:00 in the morning, discussed with patient. Pt denies acute complaints; scheduled evening meds given. Pt resting in bed appearing comfortable and in no distress overnight. See shift assessment and EMAR for full details.
[2023-12-10] MEDS: Omeprazole 20 MG CAPSULE.DR PO (06:08)
[2023-12-10 07:46] VITALS: BP 131/76; PULSE 75; RESP 18; TEMP 36.7; O2SAT 98
[2023-12-10] MEDS: Baclofen 10 MG TABLET PO (08:09)
[2023-12-10] MEDS: Gabapentin 100 MG CAPSULE PO (08:10)
[2023-12-10] MEDS: Gabapentin 600 MG TABLET PO (08:10)
[2023-12-10] MEDS: Docusate Sodium 100 MG CAPSULE PO (08:10)
[2023-12-10] MEDS: Methenamine Hippurate 1 GM TABLET PO (08:10)
[2023-12-10] MEDS: Multivitamin TABLET 1 TAB PO (08:10)
--- NOTE | 2023-12-10 08:55 | MHC.CM.PN ---
Addendum entered by Liza Carlos RN 12/10/23 08:58: [facility] aware of delayed dc. Original Note: Per RN [facility] was not able to accommodate transfer home last night. Patient was rescheduled to 0900 this morning. [facility] on site and patient will dc home.
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
--- NOTE | 2023-12-15 14:08 | P.F2F_ITS ---
Service Date Service Date: 12/15/23 Encounter Date of encounter: 12/15/23 Reasons for Services Signs and symptoms assessed: Needs of IV antibiotics Reason for shelter: administration of IV, SQ, or IM injection and central line care Homebound: Leaving the home is medically contraindicated at this time without the asist of a device and/or another person due th the listed conditions above and below. Reason homebound: other Certification: Based on the above findings, I certify that this patient is confined to the home and needs intermittent shelter care, physical therapy and/or speech therapy, or continues to need occupational therapy. The patient is under my care, and I have initiated the establishment of the plan of care. The patient will be followed by a physician who will periodically review the plan of care. Time Spent With Patient Time: Total time managing care of this patient today ____ minutes.
== END 2023-12-10 09:20 | disposition home health service (06) | DRG 466 ==
LOC: HO.ED 17:42 → HO.EDOVER 18:01 → HO.S3 19:52
PROVIDERS: Admitting Provider Internal Medicine; Emergency Provider Emergency Medicine; PCP Family Medicine; Visit Provider Student in an Organized Health Care Education/Training Program
PROC: 02HV33Z Insertion of Infusion Device into Superior Vena Cava, Percutaneous Approach (ICD-10-PCS; principal; 2023-12-09 12:00)
DX: T83.518A Infection and inflammatory reaction due to other urinary catheter, initial encounter (principal); G82.20 Paraplegia, unspecified; I95.9 Hypotension, unspecified; N31.9 Neuromuscular dysfunction of bladder, unspecified; B96.5 Pseudomonas (aeruginosa) (mallei) (pseudomallei) as the cause of diseases classified elsewhere; Z16.24 Resistance to multiple antibiotics; N30.00 Acute cystitis without hematuria; S24.102S Unspecified injury at T2-T6 level of thoracic spinal cord, sequela; Z91.040 Latex allergy status; W34.00XS Accidental discharge from unspecified firearms or gun, sequela; Z87.440 Personal history of urinary (tract) infections; Z87.891 Personal history of nicotine dependence; Z79.899 Other long term (current) drug therapy
CPT/HCPCS: 36415; 36573; 80048; 80076; 80170; 81001; 81003; 83605; 85025; 85027; 87040; 87086; 87088; 87186; 93005; 99285; C1751; J1580; J1650; J2185

== ENCOUNTER → 2023-12-05 15:09 | Outpatient (BNV) | payer MEDICAID, SELFPAY | PROVIDERS: Admitting Provider Internal Medicine; Emergency Provider Emergency Medicine; PCP Family Medicine; Visit Provider Internal Medicine Cardiovascular Disease | DX: I49.9 Cardiac arrhythmia, unspecified (principal) | CPT/HCPCS: 93010 ==

== ENCOUNTER → 2023-12-05 17:59 | Outpatient (BNV) | payer MEDICAID, SELFPAY | PROVIDERS: Admitting Provider Internal Medicine; Emergency Provider Emergency Medicine; PCP Family Medicine; Visit Provider Internal Medicine | DX: N39.0 Urinary tract infection, site not specified (principal); T83.511A Infection and inflammatory reaction due to indwelling urethral catheter, initial encounter; N30.90 Cystitis, unspecified without hematuria | CPT/HCPCS: 99222; 99232; 99239; G0180 ==

== ENCOUNTER → 2023-12-05 17:59 | Outpatient (BNV) | payer MEDICAID, SELFPAY | PROVIDERS: Admitting Provider Internal Medicine; Emergency Provider Emergency Medicine; PCP Family Medicine; Visit Provider Internal Medicine | DX: N30.90 Cystitis, unspecified without hematuria (principal); T83.511A Infection and inflammatory reaction due to indwelling urethral catheter, initial encounter; N39.0 Urinary tract infection, site not specified; G82.20 Paraplegia, unspecified | CPT/HCPCS: 99222 ==

== ENCOUNTER 2023-12-11 12:26 | Outpatient (REF) | payer MEDICAID, SELFPAY ==
[2023-12-12 07:24] LABS: Gentamicin Trough < 0.3 mcg/mL (0.3-1.9)
== END 2023-12-11 12:27 | disposition home or self-care (01) ==
LOC: HO.LNP 12:26
PROVIDERS: Visit Provider Internal Medicine
DX: N30.90 Cystitis, unspecified without hematuria (principal)
CPT/HCPCS: 80170

== ENCOUNTER 2023-12-15 16:47 | Emergency (ER) | payer MEDICAID, SELFPAY ==
[2023-12-15 17:21] VITALS: BP 152/80; PULSE 113; O2SAT 97
[2023-12-15 17:22] VITALS: BP 83/35; PULSE 115; RESP 16; TEMP 36.7; O2SAT 96; BMI 25.2
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
[2023-12-15 18:30] LABS: MANUAL DIFF FLAG NO
[2023-12-15 18:31] LABS: Basophils Percent Auto 0.4 % (0-2); Eosinophils Absolute Auto 0.3 X10*3/uL (0.0-0.4); Eosinophils Percent Auto 4.6 % (0-4); Hematocrit 35.2 % (42.0-52.0); Hemoglobin 11.7 g/dl (14.0-18.0); Imm Gran Abs Auto 0.02 X10*3/uL (0.00-0.03); Imm Gran Pct Auto 0.4 % (0.0-0.4); Lymphocytes Absolute Auto 1.6 X10*3/uL (1.2-4.9); Lymphocytes Percent Auto 30.1 % (20-40); Mean Corpuscular HGB Conc 33.2 g/dl (31.0-36.0); Mean Corpuscular Volume 90.3 fL (80.0-98.0); Mean Platelet Volume 9.5 fL (9.4-12.4); Monocytes Absolute Auto 0.4 X10*3/uL (0.1-1.2); Monocytes Percent Auto 6.5 % (2-11); Neutrophils Absolute Auto 3.1 x10*3/uL (2.0-8.3); Platelet Count 283 X10*3/uL (160-400); Red Cell Distribution Width 13.8 % (11.0-16.0); White Blood Count 5.4 X10*3/uL (4.8-10.8)
[2023-12-15 18:33] LABS: Appearance Urine Cloudy; Color Urine Yellow; Glucose Urine UA Negative (Negative); Leukocyte Esterase Urine Small (1+) (Negative); Nitrite Urine Negative (Negative); PH 6.5 (5.0-9.0); Specific Gravity - Urine 1.015 (1.005-1.025); UMIC TRIGGER UACC YES; Urine Blood Moderate (2+) (Negative); Urine Ketones Negative (Negative); Urine Protein 100 (2+) mg/dL (Neg-Trace)
[2023-12-15 18:42] LABS: Lactic Acid 1.2 mmol/L (0.5-2.0)
[2023-12-15 18:44] LABS: Bacteria Urine 1+ (None Seen); Hyaline Casts Urine >20 /LPF (0-2); RBC Urine >20 /HPF (0-2); Squamous Epithelial Cell Urine 0-2 /HPF (0-2); UACC Culture Trigger YES
[2023-12-15] MEDS: 0.9 % Sodium Chloride 1,000 ML 999 ML IV (18:45)
[2023-12-15 18:50] LABS: Alanine Aminotransferase 66 U/L (0-40); Alkaline Phosphatase 91 U/L (39-117); Anion Gap 11 (12-20); Aspartate Amino Transferase 34 U/L (5-37); Bilirubin Total 0.4 mg/dL (0.0-1.0); Blood Urea Nitrogen 12 mg/dL (9-16); Calcium 9.2 mg/dL (8.4-10.2); Carbon Dioxide 24 mmol/L (22-29); Chloride 108 mmol/L (96-108); Creatinine Clr Calc Pharmacy 104.7; Estimated Glomerular Filt Rate > 60; Glucose Random 128 mg/dL (60-115); Lipase 29 U/L (8-78); Potassium 4.1 mmol/L (3.3-5.1); Sodium 139 mmol/L (135-145); Total Protein 7.3 g/dL (6.5-8.0)
[2023-12-15 19:36] VITALS: BP 103/47; PULSE 84; RESP 16; TEMP 36.6; O2SAT 97
--- NOTE | 2023-12-15 21:56 | MHC.EDTECH ---
Called Aide to book at [phone].
== END 2023-12-15 22:26 | disposition home or self-care (01) ==
PROVIDERS: Physician Assistant; Emergency Provider Emergency Medicine; PCP Family Medicine
DX: N39.0 Urinary tract infection, site not specified (principal); R30.0 Dysuria; Z87.891 Personal history of nicotine dependence; Z79.899 Other long term (current) drug therapy
CPT/HCPCS: 36415; 80053; 81001; 83605; 83690; 85025; 87040; 87086; 87088; 87186; 99283; 99284

== ENCOUNTER 2024-01-07 11:54 | Outpatient (REF) | payer MEDICAID, SELFPAY ==
[2024-01-07 13:48] LABS: Appearance Urine Cloudy; Color Urine Yellow; Glucose Urine UA Negative (Negative); Leukocyte Esterase Urine Large (3+) (Negative); Nitrite Urine Negative (Negative); PH 7.5 (5.0-9.0); Specific Gravity - Urine <= 1.005 (1.005-1.025); UMIC TRIGGER UACC YES; Urine Blood Small (1+) (Negative); Urine Ketones Negative (Negative); Urine Protein Negative (Neg-Trace)
[2024-01-07 13:59] LABS: Bacteria Urine 4+ (None Seen); Hyaline Casts Urine 0-2 /LPF (0-2); RBC Urine 0-2 /HPF (0-2); Squamous Epithelial Cell Urine 0-2 /HPF (0-2); UACC Culture Trigger YES; WBC Urine 21-50 /HPF (0-5)
== END 2024-01-07 11:55 | disposition home or self-care (01) ==
LOC: HO.HHCL 11:54
PROVIDERS: Visit Provider Family Medicine
DX: N39.0 Urinary tract infection, site not specified (principal); T83.511D Infection and inflammatory reaction due to indwelling urethral catheter, subsequent encounter
CPT/HCPCS: 81001; 87086; 87088; 87186

== ENCOUNTER 2024-01-09 18:12 | Emergency (ER) | payer MEDICAID, SELFPAY ==
[2024-01-09 18:26] VITALS: BP 117/69; PULSE 106; O2SAT 100; BMI 25.4
[2024-01-09 19:01] VITALS: BP 89/51
[2024-01-09 19:19] VITALS: BP 102/62; PULSE 92; RESP 17; O2SAT 98
[2024-01-09 20:53] LABS: MANUAL DIFF FLAG NO
[2024-01-09 20:54] LABS: Basophils Percent Auto 0.5 % (0-2); Eosinophils Absolute Auto 0.3 X10*3/uL (0.0-0.4); Eosinophils Percent Auto 3.5 % (0-4); Hematocrit 40.9 % (42.0-52.0); Hemoglobin 13.5 g/dl (14.0-18.0); Imm Gran Abs Auto 0.02 X10*3/uL (0.00-0.03); Imm Gran Pct Auto 0.3 % (0.0-0.4); Lymphocytes Absolute Auto 2.1 X10*3/uL (1.2-4.9); Lymphocytes Percent Auto 27.8 % (20-40); Mean Corpuscular Volume 90.9 fL (80.0-98.0); Monocytes Absolute Auto 0.4 X10*3/uL (0.1-1.2); Monocytes Percent Auto 5.7 % (2-11); Neutrophils Absolute Auto 4.6 x10*3/uL (2.0-8.3); Neutrophils Percent Auto 62.2 % (45-73); Platelet Count 246 X10*3/uL (160-400); Red Cell Distribution Width 14.1 % (11.0-16.0); White Blood Count 7.4 X10*3/uL (4.8-10.8)
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
[2024-01-09 21:16] LABS: Lactic Acid 1.3 mmol/L (0.5-2.0)
[2024-01-09 21:21] LABS: Alanine Aminotransferase 21 U/L (0-40); Albumin Level 4.4 g/dL (3.5-5.0); Alkaline Phosphatase 103 U/L (39-117); Anion Gap 14 (12-20); Aspartate Amino Transferase 20 U/L (5-37); Bilirubin Total 0.3 mg/dL (0.0-1.0); Blood Urea Nitrogen 16 mg/dL (9-16); Calcium 9.9 mg/dL (8.4-10.2); Carbon Dioxide 23 mmol/L (22-29); Chloride 108 mmol/L (96-108); Creatinine Clr Calc Pharmacy 105.9; Estimated Glomerular Filt Rate > 60; Glucose Random 124 mg/dL (60-115); Potassium 4.2 mmol/L (3.3-5.1); Sodium 141 mmol/L (135-145); Total Protein 8.1 g/dL (6.5-8.0)
[2024-01-09 22:10] LABS: Appearance Urine Cloudy; Color Urine Yellow; Glucose Urine UA Negative (Negative); Leukocyte Esterase Urine Moderate (2+) (Negative); Nitrite Urine Positive (Negative); UMIC TRIGGER UACC YES; Urine Blood Trace (Negative); Urine Ketones Negative (Negative); Urine Protein Negative (Neg-Trace)
[2024-01-09 22:15] LABS: Bacteria Urine 4+ (None Seen); Hyaline Casts Urine 0-2 /LPF (0-2); RBC Urine 0-2 /HPF (0-2); UACC Culture Trigger YES; WBC Urine >50 /HPF (0-5)
--- NOTE | 2024-01-09 22:48 | PC.NURSE ---
ambulance ride booked by staff
== END 2024-01-09 23:29 | disposition home or self-care (01) ==
PROVIDERS: Emergency Provider Student in an Organized Health Care Education/Training Program; PCP Family Medicine
DX: T83.511A Infection and inflammatory reaction due to indwelling urethral catheter, initial encounter (principal); Y82.8 Other medical devices associated with adverse incidents; Y92.9 Unspecified place or not applicable
CPT/HCPCS: 36415; 80053; 81001; 83605; 85025; 87040; 87086; 87088; 87186; 99283; 99284

== ENCOUNTER 2024-02-15 15:46 | Emergency (ER) | payer MEDICAID, SELFPAY ==
[2024-02-15 15:54] VITALS: BP 119/64; PULSE 80; RESP 18; TEMP 36.7; O2SAT 98
[2024-02-15 15:59] VITALS: PULSE 98; RESP 16; O2SAT 98; BMI 26.3
[2024-02-15 16:03] VITALS: BP 110/68; PULSE 75; O2SAT 96
[2024-02-15 16:44] LABS: MANUAL DIFF FLAG NO
[2024-02-15 16:46] LABS: Basophils Percent Auto 0.5 % (0-2); Eosinophils Absolute Auto 0.1 X10*3/uL (0.0-0.4); Eosinophils Percent Auto 1.7 % (0-4); Hematocrit 39.3 % (42.0-52.0); Hemoglobin 13.1 g/dl (14.0-18.0); Imm Gran Abs Auto 0.01 X10*3/uL (0.00-0.03); Imm Gran Pct Auto 0.2 % (0.0-0.4); Lymphocytes Absolute Auto 1.7 X10*3/uL (1.2-4.9); Lymphocytes Percent Auto 27.2 % (20-40); Mean Corpuscular HGB Conc 33.3 g/dl (31.0-36.0); Mean Corpuscular Hemoglobin 29.8 pg (27.0-33.0); Mean Corpuscular Volume 89.3 fL (80.0-98.0); Monocytes Absolute Auto 0.4 X10*3/uL (0.1-1.2); Monocytes Percent Auto 6.8 % (2-11); Neutrophils Percent Auto 63.6 % (45-73); Platelet Count 205 X10*3/uL (160-400); Red Cell Distribution Width 13.4 % (11.0-16.0); White Blood Count 6.3 X10*3/uL (4.8-10.8)
[2024-02-15 16:59] LABS: Anion Gap 13 (12-20); Blood Urea Nitrogen 13 mg/dL (9-16); Calcium 9.3 mg/dL (8.4-10.2); Carbon Dioxide 25 mmol/L (22-29); Chloride 108 mmol/L (96-108); Creatinine Clr Calc Pharmacy 108.3; Estimated Glomerular Filt Rate > 60; Glucose Random 88 mg/dL (60-115); Potassium 4.2 mmol/L (3.3-5.1); Sodium 142 mmol/L (135-145)
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
--- NOTE | 2024-02-15 17:33 | PC.NURSE ---
collecting urine sample from suprapubic cath at this time.
[2024-02-15 18:15] LABS: Appearance Urine Cloudy; Color Urine Yellow; Glucose Urine UA Negative (Negative); Leukocyte Esterase Urine Moderate (2+) (Negative); Nitrite Urine Positive (Negative); UMIC TRIGGER UACC YES; Urine Blood Trace (Negative); Urine Ketones Negative (Negative); Urine Protein Negative (Neg-Trace)
[2024-02-15 18:20] LABS: Bacteria Urine 4+ (None Seen); Hyaline Casts Urine 0-2 /LPF (0-2); RBC Urine 0-2 /HPF (0-2); Squamous Epithelial Cell Urine 0-2 /HPF (0-2); UACC Culture Trigger YES; WBC Urine 21-50 /HPF (0-5)
--- NOTE | 2024-02-15 19:00 | PC.NURSE ---
Assumed care for pt. Pt aox4 resting at the bedside. No apparent distress noted. Urine bag emptied with 390cc of clear urine from suprapubic cath. Pt aware of plan of care.
[2024-02-15 19:15] VITALS: BP 111/73; PULSE 79; RESP 18; TEMP 36.8; O2SAT 98
--- NOTE | 2024-02-15 21:57 | PC.NURSE ---
Discharge instructions reviewed with pt. Pt verbalizes understanding. Ambulance scheduled for pt to return home. Pt aware.
[2024-02-16 00:52] VITALS: BP 129/75; PULSE 77; RESP 12; TEMP 36.4; O2SAT 98
== END 2024-02-16 00:52 | disposition home or self-care (01) ==
PROVIDERS: Emergency Provider Internal Medicine
DX: T83.510A Infection and inflammatory reaction due to cystostomy catheter, initial encounter (principal); N39.0 Urinary tract infection, site not specified; Y84.6 Urinary catheterization as the cause of abnormal reaction of the patient, or of later complication, without mention of misadventure at the time of the procedure; Y92.9 Unspecified place or not applicable; G82.20 Paraplegia, unspecified
CPT/HCPCS: 36415; 80048; 81001; 85025; 87086; 87088; 87186; 99283; 99284

== ENCOUNTER 2024-03-03 14:13 | Inpatient (IN) | payer MEDICAID, SELFPAY ==
[2024-03-03 14:20] VITALS: BP 130/72; PULSE 86; O2SAT 98
[2024-03-03 14:32] VITALS: BP 118/75; PULSE 80; RESP 16; TEMP 36.4; O2SAT 98; BMI 26.3
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
[2024-03-03 15:34] VITALS: BP 122/70; PULSE 73; RESP 16; TEMP 36.8; O2SAT 98
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
--- NOTE | 2024-03-03 17:24 | PHA.MEDREC ---
Pharmacy Consult ? Medication Reconciliation Pharmacy has completed the medication reconciliation. Patient reported medications. Report oxybutynin only when he changes his catheter. Valeria Mendez, PharmD
[2024-03-03 17:55] LABS: MANUAL DIFF FLAG NO
[2024-03-03 17:57] LABS: Basophils Absolute Auto 0.1 X10*3/uL (0.0-0.2); Basophils Percent Auto 0.9 % (0-2); Eosinophils Absolute Auto 0.2 X10*3/uL (0.0-0.4); Eosinophils Percent Auto 2.9 % (0-4); Hemoglobin 12.9 g/dl (14.0-18.0); Imm Gran Abs Auto 0.02 X10*3/uL (0.00-0.03); Imm Gran Pct Auto 0.3 % (0.0-0.4); Lymphocytes Absolute Auto 1.9 X10*3/uL (1.2-4.9); Lymphocytes Percent Auto 32.9 % (20-40); Mean Corpuscular HGB Conc 33.1 g/dl (31.0-36.0); Mean Corpuscular Hemoglobin 29.7 pg (27.0-33.0); Mean Corpuscular Volume 89.9 fL (80.0-98.0); Mean Platelet Volume 9.9 fL (9.4-12.4); Monocytes Absolute Auto 0.4 X10*3/uL (0.1-1.2); Monocytes Percent Auto 6.8 % (2-11); Neutrophils Absolute Auto 3.3 x10*3/uL (2.0-8.3); Neutrophils Percent Auto 56.2 % (45-73); Platelet Count 229 X10*3/uL (160-400); Red Blood Count 4.34 X10*6/uL (4.60-5.80); Red Cell Distribution Width 13.6 % (11.0-16.0); White Blood Count 5.9 X10*3/uL (4.8-10.8)
[2024-03-03 18:00] VITALS: BP 101/78; PULSE 65; RESP 16; TEMP 36.6; O2SAT 98
[2024-03-03 18:09] LABS: Anion Gap 11 (12-20); Blood Urea Nitrogen 10 mg/dL (9-16); Calcium 9.1 mg/dL (8.4-10.2); Carbon Dioxide 26 mmol/L (22-29); Chloride 111 mmol/L (96-108); Creatinine Clr Calc Pharmacy 117.5; Estimated Glomerular Filt Rate > 60; Glucose Random 103 mg/dL (60-115); Lactic Acid 1.3 mmol/L (0.5-2.0); Potassium 4.2 mmol/L (3.3-5.1); Sodium 144 mmol/L (135-145)
--- NOTE | 2024-03-03 18:15 | MHC.EDTECH ---
Patient blood drawn including both sets of blood culture and lactic acid ,Also urine sample collected and sent to lab ,Patient belonging list done and vitals taken .
[2024-03-03 18:21] LABS: Appearance Urine Turbid; Color Urine Yellow; Glucose Urine UA Negative (Negative); Leukocyte Esterase Urine Moderate (2+) (Negative); Nitrite Urine Negative (Negative); PH 6.5 (5.0-9.0); UMIC TRIGGER UACC YES; Urine Blood Moderate (2+) (Negative); Urine Ketones Negative (Negative); Urine Protein 30 (1+) mg/dL (Neg-Trace)
[2024-03-03 18:39] LABS: Bacteria Urine 4+ (None Seen); Granular Casts Urine Present; Hyaline Casts Urine >20 /LPF (0-2); RBC Urine 0-2 /HPF (0-2); UACC Culture Trigger YES; WBC Urine >50 /HPF (0-5)
[2024-03-03] MEDS: Enoxaparin Sodium 40 MG/0.4 ML SYRINGE SUBCUT (18:45)
[2024-03-03] MEDS: cefEPime HCl 2 GM in 0.9 % Sodium Chloride 50 ML IV (19:11)
[2024-03-03] MEDS: Docusate Sodium 100 MG CAPSULE PO (20:17)
[2024-03-03] MEDS: Gabapentin 600 MG TABLET PO (20:17)
[2024-03-03] MEDS: Baclofen 10 MG TABLET PO (20:17)
[2024-03-03] MEDS: Gabapentin 100 MG CAPSULE PO (20:17)
[2024-03-03 20:20] VITALS: BP 124/74; PULSE 62; RESP 16; TEMP 36.4; O2SAT 96
--- NOTE | 2024-03-03 20:28 | MHC.EDTECH ---
Patient 2000 vitals taken and estevez cathether bag empty .
[2024-03-03 21:27] VITALS: BP 139/76; PULSE 85; RESP 18; TEMP 36.2; O2SAT 98
[2024-03-03 22:16] VITALS: BMI 26.0
[2024-03-03] MEDS: 0.9 % Sodium Chloride Flush 3 ML SYRINGE IVFLUSH (22:53)
[2024-03-04 02:45] VITALS: BP 124/74; PULSE 69; RESP 18; TEMP 36.4; O2SAT 97
[2024-03-04] MEDS: Omeprazole 20 MG CAPSULE.DR PO (06:29)
[2024-03-04] MEDS: cefEPime HCl 2 GM in 0.9 % Sodium Chloride 50 ML IV ×2 (06:33→18:09)
[2024-03-04 07:19] VITALS: BP 138/68; PULSE 60; RESP 18; TEMP 36.3; O2SAT 97
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
[2024-03-04] MEDS: Baclofen 10 MG TABLET PO ×3 (08:33→20:42)
[2024-03-04] MEDS: Gabapentin 100 MG CAPSULE PO ×3 (08:33→20:43)
[2024-03-04] MEDS: Multivitamin TABLET 1 TAB PO (08:33)
[2024-03-04] MEDS: Gabapentin 600 MG TABLET PO ×3 (08:33→20:43)
[2024-03-04] MEDS: Docusate Sodium 100 MG CAPSULE PO ×2 (08:34→20:43)
[2024-03-04] MEDS: Acetaminophen 325 MG TABLET 650 MG PO (08:37)
[2024-03-04] MEDS: oxyCODONE HCl Immed Release 5 MG TABLET PO (12:21)
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
--- NOTE | 2024-03-04 12:54 | MHC.CM.PN ---
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
[2024-03-04 15:11] VITALS: BP 117/59; PULSE 60; RESP 18; TEMP 36.7; O2SAT 97
[2024-03-04] MEDS: Enoxaparin Sodium 40 MG/0.4 ML SYRINGE SUBCUT (18:09)
[2024-03-04 19:47] VITALS: BP 110/58; PULSE 75; RESP 16; TEMP 36.4; O2SAT 98
[2024-03-04] MEDS: 0.9 % Sodium Chloride Flush 3 ML SYRINGE IVFLUSH (20:44)
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
[2024-03-05 03:39] VITALS: BP 105/55; PULSE 77; RESP 17; TEMP 36.3; O2SAT 98
[2024-03-05] MEDS: Omeprazole 20 MG CAPSULE.DR PO (06:04)
[2024-03-05] MEDS: cefEPime HCl 2 GM in 0.9 % Sodium Chloride 50 ML IV ×2 (06:05→19:35)
[2024-03-05 07:11] VITALS: BP 124/61; PULSE 64; RESP 16; TEMP 36.6; O2SAT 97
[2024-03-05] MEDS: Docusate Sodium 100 MG CAPSULE PO ×2 (07:15→19:37)
[2024-03-05] MEDS: 0.9 % Sodium Chloride Flush 3 ML SYRINGE IVFLUSH ×3 (07:15→19:37)
[2024-03-05] MEDS: Gabapentin 100 MG CAPSULE PO ×3 (07:15→19:37)
[2024-03-05] MEDS: Multivitamin TABLET 1 TAB PO (07:15)
[2024-03-05] MEDS: Baclofen 10 MG TABLET PO ×3 (07:15→19:37)
[2024-03-05] MEDS: Gabapentin 600 MG TABLET PO ×3 (07:15→19:37)
[2024-03-05] MEDS: polyethylene glycoL 3350 17 GM POWD.PACK PO (08:01)
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
[2024-03-05 15:29] VITALS: BP 126/60; PULSE 85; RESP 18; TEMP 36.4; O2SAT 98
[2024-03-05] MEDS: Enoxaparin Sodium 40 MG/0.4 ML SYRINGE SUBCUT (16:43)
[2024-03-05 19:16] VITALS: BP 117/65; PULSE 104; RESP 16; TEMP 36.6; O2SAT 98
[2024-03-06 03:03] VITALS: BP 114/65; PULSE 70; RESP 16; TEMP 36.5; O2SAT 97
[2024-03-06] MEDS: Omeprazole 20 MG CAPSULE.DR PO (05:08)
[2024-03-06] MEDS: cefEPime HCl 2 GM in 0.9 % Sodium Chloride 50 ML IV (05:11)
[2024-03-06 07:35] VITALS: BP 155/90; PULSE 68; RESP 18; TEMP 36.3; O2SAT 98
[2024-03-06] MEDS: Baclofen 10 MG TABLET PO ×3 (07:51→19:34)
[2024-03-06] MEDS: polyethylene glycoL 3350 17 GM POWD.PACK PO (07:51)
[2024-03-06] MEDS: Multivitamin TABLET 1 TAB PO (07:51)
[2024-03-06] MEDS: 0.9 % Sodium Chloride Flush 3 ML SYRINGE IVFLUSH ×2 (07:51→19:34)
[2024-03-06] MEDS: Gabapentin 100 MG CAPSULE PO ×3 (07:51→19:34)
[2024-03-06] MEDS: Gabapentin 600 MG TABLET PO ×3 (07:51→19:33)
[2024-03-06] MEDS: Docusate Sodium 100 MG CAPSULE PO ×2 (07:51→19:34)
[2024-03-06] MEDS: Piperacillin Sodium/Tazobactam 3.375 GM in 0.9 % Sodium Chloride 50 ML IV (08:41)
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
[2024-03-06] MEDS: levoFLOXacin/D5W 750 MG/150 ML PIGGYBACK 100 MG IV (14:40)
[2024-03-06] MEDS: oxyCODONE HCl Immed Release 5 MG TABLET PO (15:02)
[2024-03-06 15:40] VITALS: BP 156/97; PULSE 67; RESP 12; TEMP 36.2; O2SAT 98
[2024-03-06] MEDS: Enoxaparin Sodium 40 MG/0.4 ML SYRINGE SUBCUT (17:40)
--- NOTE | 2024-03-06 18:12 | PC.NURSE ---
Foam dressing applied to coccyx and bilateral heels for preventative measures only.
[2024-03-06 19:32] VITALS: BP 115/60; PULSE 77; RESP 16; TEMP 36.4; O2SAT 97
[2024-03-07 03:18] VITALS: BP 99/56; PULSE 76; RESP 16; TEMP 36.1; O2SAT 95
[2024-03-07] MEDS: Omeprazole 20 MG CAPSULE.DR PO (06:12)
[2024-03-07 07:48] VITALS: BP 148/88; PULSE 66; RESP 18; TEMP 36.6; O2SAT 99
[2024-03-07] MEDS: Gabapentin 600 MG TABLET PO (07:51)
[2024-03-07] MEDS: 0.9 % Sodium Chloride Flush 3 ML SYRINGE IVFLUSH (07:51)
[2024-03-07] MEDS: Docusate Sodium 100 MG CAPSULE PO (07:51)
[2024-03-07] MEDS: Gabapentin 100 MG CAPSULE PO (07:51)
[2024-03-07] MEDS: Multivitamin TABLET 1 TAB PO (07:51)
[2024-03-07] MEDS: Baclofen 10 MG TABLET PO (07:51)
[2024-03-07] MEDS: polyethylene glycoL 3350 17 GM POWD.PACK PO (08:24)
[2024-03-07] MEDS: bisacodyL 10 MG SUPP.RECT PR (08:59)
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
[2024-03-07] MEDS: levoFLOXacin 750 MG TABLET PO (11:03)
[2024-03-07] MEDS: oxyCODONE HCl Immed Release 5 MG TABLET PO (11:06)
--- NOTE | 2024-03-07 11:09 | MHC.CM.PN ---
pt dcd home[facility] booked to transport pt at 12:00
== END 2024-03-07 12:47 | disposition home or self-care (01) | DRG 466 ==
LOC: HO.ED 16:39 → HO.EDOVER 17:38 → HO.S3 19:59
PROVIDERS: Internal Medicine; Admitting Provider Student in an Organized Health Care Education/Training Program; Emergency Provider Emergency Medicine; PCP Family Medicine; Referring Provider Family Medicine; Visit Provider Internal Medicine
DX: T83.518A Infection and inflammatory reaction due to other urinary catheter, initial encounter (principal); G82.20 Paraplegia, unspecified; S24.102S Unspecified injury at T2-T6 level of thoracic spinal cord, sequela; N39.0 Urinary tract infection, site not specified; B96.5 Pseudomonas (aeruginosa) (mallei) (pseudomallei) as the cause of diseases classified elsewhere; K21.9 Gastro-esophageal reflux disease without esophagitis; G89.29 Other chronic pain; N31.9 Neuromuscular dysfunction of bladder, unspecified; Z16.29 Resistance to other single specified antibiotic; Z16.24 Resistance to multiple antibiotics; W34.00XS Accidental discharge from unspecified firearms or gun, sequela; Z87.440 Personal history of urinary (tract) infections; Z79.899 Other long term (current) drug therapy
CPT/HCPCS: 36415; 80048; 81001; 83605; 85025; 87040; 87086; 87088; 87186; 99285; C1758; J0692; J1650; J1956; J2543

== ENCOUNTER → 2024-03-03 17:28 | Outpatient (BNV) | payer MEDICAID, SELFPAY | PROVIDERS: Admitting Provider Student in an Organized Health Care Education/Training Program; Emergency Provider Emergency Medicine; PCP Family Medicine; Visit Provider Urology | DX: T83.511A Infection and inflammatory reaction due to indwelling urethral catheter, initial encounter (principal); N39.0 Urinary tract infection, site not specified; N30.90 Cystitis, unspecified without hematuria | CPT/HCPCS: 99222 ==

== ENCOUNTER → 2024-03-03 17:28 | Outpatient (BNV) | payer MEDICAID, SELFPAY | PROVIDERS: Admitting Provider Student in an Organized Health Care Education/Training Program; Emergency Provider Emergency Medicine; PCP Family Medicine; Visit Provider Student in an Organized Health Care Education/Training Program | DX: R82.71 Bacteriuria (principal); R82.81 Pyuria | CPT/HCPCS: 99223; 99231; 99232; 99239 ==

== ENCOUNTER → 2024-03-03 17:28 | Outpatient (BNV) | payer MEDICAID, SELFPAY | PROVIDERS: Admitting Provider Student in an Organized Health Care Education/Training Program; Emergency Provider Emergency Medicine; PCP Family Medicine; Visit Provider Internal Medicine | DX: G82.20 Paraplegia, unspecified (principal); R82.71 Bacteriuria; R82.81 Pyuria | CPT/HCPCS: 99222 ==

== ENCOUNTER 2024-07-02 14:34 | Emergency (ER) | payer MEDICAID, SELFPAY ==
[2024-07-02 14:53] VITALS: BP 108/71; BP 95/56; PULSE 72; PULSE 76; RESP 18; TEMP 36.6; O2SAT 100; O2SAT 97; BMI 24.3
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
[2024-07-02 15:51] LABS: MANUAL DIFF FLAG NO
--- NOTE | 2024-07-02 15:51 | PC.NURSE ---
labs drawn, urine obtained
[2024-07-02 15:54] LABS: Appearance Urine Clear; Color Urine Yellow; Glucose Urine UA Negative (Negative); Leukocyte Esterase Urine Large (3+) (Negative); Nitrite Urine Negative (Negative); Specific Gravity - Urine 1.015 (1.005-1.025); UMIC TRIGGER UACC YES; Urine Blood Trace (Negative); Urine Ketones Negative (Negative); Urine Protein Trace mg/dL (Neg-Trace)
[2024-07-02 15:54] LABS: Basophils Percent Auto 0.7 % (0-2); Eosinophils Absolute Auto 0.1 X10*3/uL (0.0-0.4); Eosinophils Percent Auto 2.1 % (0-4); Hematocrit 38.8 % (42.0-52.0); Hemoglobin 13.3 g/dl (14.0-18.0); Imm Gran Abs Auto 0.01 X10*3/uL (0.00-0.03); Imm Gran Pct Auto 0.2 % (0.0-0.4); Lymphocytes Absolute Auto 1.6 X10*3/uL (1.2-4.9); Lymphocytes Percent Auto 27.9 % (20-40); Mean Corpuscular HGB Conc 34.3 g/dl (31.0-36.0); Mean Corpuscular Volume 90.4 fL (80.0-98.0); Mean Platelet Volume 9.9 fL (9.4-12.4); Monocytes Absolute Auto 0.4 X10*3/uL (0.1-1.2); Monocytes Percent Auto 6.2 % (2-11); Neutrophils Absolute Auto 3.7 x10*3/uL (2.0-8.3); Neutrophils Percent Auto 62.9 % (45-73); Platelet Count 215 X10*3/uL (160-400); Red Blood Count 4.29 X10*6/uL (4.60-5.80); Red Cell Distribution Width 13.4 % (11.0-16.0); White Blood Count 5.8 X10*3/uL (4.8-10.8)
[2024-07-02 16:00] VITALS: BP 139/91; PULSE 43; RESP 18; TEMP 36.4; O2SAT 99
[2024-07-02 16:04] LABS: Bacteria Urine 1+ (None Seen); Hyaline Casts Urine 0-2 /LPF (0-2); Squamous Epithelial Cell Urine 0-2 /HPF (0-2); UACC Culture Trigger YES; WBC Urine >50 /HPF (0-5)
[2024-07-02 16:05] LABS: Alanine Aminotransferase 15 U/L (0-40); Albumin Level 4.1 g/dL (3.5-5.0); Alkaline Phosphatase 89 U/L (39-117); Anion Gap 11 (12-20); Aspartate Amino Transferase 19 U/L (5-37); Bilirubin Total 0.4 mg/dL (0.0-1.0); Blood Urea Nitrogen 9 mg/dL (9-16); Calcium 9.6 mg/dL (8.4-10.2); Carbon Dioxide 27 mmol/L (22-29); Chloride 108 mmol/L (96-108); Creatinine Clr Calc Pharmacy 133.8; Estimated Glomerular Filt Rate > 60; Glucose Random 86 mg/dL (60-115); Potassium 4.1 mmol/L (3.3-5.1); Sodium 142 mmol/L (135-145); Total Protein 7.2 g/dL (6.5-8.0)
[2024-07-02] MEDS: Morphine Sulfate Immed Release 15 MG TABLET PO (17:00)
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
[2024-07-02 19:50] VITALS: BP 98/46; PULSE 94; RESP 20; TEMP 36.5; O2SAT 98
[2024-07-02 20:55] VITALS: BP 96/52; PULSE 82; RESP 18; TEMP 36.5; O2SAT 98
== END 2024-07-02 20:56 | disposition still patient (30) ==
PROVIDERS: Registered Nurse Emergency; Emergency Provider Student in an Organized Health Care Education/Training Program; PCP Family Medicine
DX: T83.511A Infection and inflammatory reaction due to indwelling urethral catheter, initial encounter (principal); N39.0 Urinary tract infection, site not specified; B96.5 Pseudomonas (aeruginosa) (mallei) (pseudomallei) as the cause of diseases classified elsewhere; Y82.8 Other medical devices associated with adverse incidents; G89.4 Chronic pain syndrome; G82.20 Paraplegia, unspecified; Z79.899 Other long term (current) drug therapy; Z79.891 Long term (current) use of opiate analgesic
CPT/HCPCS: 36415; 80053; 81001; 81003; 85025; 87086; 87088; 87186; 99283; 99284

== ENCOUNTER 2024-12-08 02:48 | Emergency (ER) | payer MEDICAID, SELFPAY ==
[2024-12-08] VITALS (14 sets, daily range): BP systolic 85–243; BP diastolic 43–145; PULSE 52–108; RESP 11–21; TEMP 36.5–36.8; O2SAT 15–100; BMI 23.1
--- NOTE | 2024-12-08 03:00 | PC.NURSE ---
Addendum entered by Jahaira Holt Zeynep 12/08/24 03:36: bladder scan completed- 142mls in bladder Original Note: Pt placed on cardiac technician.
--- NOTE | 2024-12-08 03:05 | PC.NURSE ---
Notified provider of PT BP 190s. No new orders placed
--- NOTE | 2024-12-08 03:26 | ECG_ITS ---
Test Reason : HTN Blood Pressure : */* mmHG Vent. Rate : 75 BPM Atrial Rate : 75 BPM P-R Int : 144 ms QRS Dur : 72 ms QT Int : 354 ms P-R-T Axes : 60 87 89 degrees QTcB Int : 395 ms Sinus rhythm with marked sinus arrhythmia Possible Left atrial enlargement Nonspecific ST and T wave abnormality Abnormal ECG When compared with ECG of 05-Dec-2023 16:55, Non-specific change in ST segment in Lateral leads Referred By: Generic ED Physician Electronically Signed By: CHRISTINA OVERTON
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
--- NOTE | 2024-12-08 03:31 | PC.NURSE ---
Notified provider of Pt's bp 215/122
[2024-12-08] MEDS: Morphine Sulfate 4 MG/ML CARTRIDGE IM (03:47)
[2024-12-08] MEDS: Ondansetron ODT 4 MG TAB.RAPDIS TRANSLINGU (03:48)
[2024-12-08 04:17] LABS: Basophils Percent Auto 0.4 % (0-2); Eosinophils Absolute Auto 0.1 X10*3/uL (0.0-0.4); Eosinophils Percent Auto 1.6 % (0-4); Hematocrit 42.7 % (42.0-52.0); Hemoglobin 14.5 g/dl (14.0-18.0); Imm Gran Abs Auto 0.04 X10*3/uL (0.00-0.03); Imm Gran Pct Auto 0.5 % (0.0-0.4); Lymphocytes Absolute Auto 1.6 X10*3/uL (1.2-4.9); Lymphocytes Percent Auto 21.9 % (20-40); MANUAL DIFF FLAG NO; Mean Corpuscular Hemoglobin 30.4 pg (27.0-33.0); Mean Corpuscular Volume 89.5 fL (80.0-98.0); Mean Platelet Volume 9.6 fL (9.4-12.4); Monocytes Absolute Auto 0.5 X10*3/uL (0.1-1.2); Monocytes Percent Auto 6.7 % (2-11); Neutrophils Absolute Auto 5.1 x10*3/uL (2.0-8.3); Neutrophils Percent Auto 68.9 % (45-73); Platelet Count 226 X10*3/uL (160-400); Red Blood Count 4.77 X10*6/uL (4.60-5.80); Red Cell Distribution Width 12.9 % (11.0-16.0); White Blood Count 7.4 X10*3/uL (4.8-10.8)
[2024-12-08 04:18] LABS: Appearance Urine Clear; Color Urine Yellow; Glucose Urine UA Negative (Negative); Leukocyte Esterase Urine Moderate (2+) (Negative); Nitrite Urine Negative (Negative); Specific Gravity - Urine <= 1.005 (1.005-1.025); UMIC TRIGGER UACC YES; Urine Blood Large (3+) (Negative); Urine Ketones Negative (Negative); Urine Protein 30 (1+) mg/dL (Neg-Trace)
[2024-12-08 04:21] LABS: Bacteria Urine None Seen (None Seen); Hyaline Casts Urine 0-2 /LPF (0-2); Squamous Epithelial Cell Urine 0-2 /HPF (0-2); UACC Culture Trigger YES; WBC Urine 21-50 /HPF (0-5)
[2024-12-08 04:33] LABS: Alanine Aminotransferase 18 U/L (0-40); Albumin Level 4.1 g/dL (3.5-5.0); Alkaline Phosphatase 103 U/L (39-117); Anion Gap 19 (12-20); Aspartate Amino Transferase 27 U/L (5-37); Bilirubin Total 0.6 mg/dL (0.0-1.0); Blood Urea Nitrogen 10 mg/dL (9-16); Calcium 9.2 mg/dL (8.4-10.2); Carbon Dioxide 17 mmol/L (22-29); Chloride 110 mmol/L (96-108); Creatinine Clr Calc Pharmacy 120.4; Estimated Glomerular Filt Rate > 60; Glucose Random 108 mg/dL (60-115); Potassium 3.8 mmol/L (3.3-5.1); Sodium 142 mmol/L (135-145); Total Protein 7.8 g/dL (6.5-8.0)
[2024-12-08 04:36] LABS: Troponin-I High Sensitivity 3.1 ng/L (<3.5-35.0)
[2024-12-08] MEDS: Midodrine HCl 10 MG TABLET PO (06:53)
--- NOTE | 2024-12-08 06:58 | PC.NURSE ---
Provider notified of pt low bp. New orders place. pt medicated as per JAN.
--- NOTE | 2024-12-08 08:04 | PC.NURSE ---
patient reporting improvement in overall pain. brief changed and patient repositioned in the bed. bp has improved at this time. currently awaiting EMS transport.
== END 2024-12-08 09:05 | disposition home or self-care (01) ==
PROVIDERS: Emergency Provider Internal Medicine
DX: R33.9 Retention of urine, unspecified (principal); N31.9 Neuromuscular dysfunction of bladder, unspecified; I49.8 Other specified cardiac arrhythmias; R94.31 Abnormal electrocardiogram [ECG] [EKG]; I10 Essential (primary) hypertension; Z79.899 Other long term (current) drug therapy
CPT/HCPCS: 36415; 80053; 81001; 84484; 85025; 87086; 93005; 96372; 99284; 99285; J2270

== ENCOUNTER → 2024-12-08 03:26 | Outpatient (BNV) | payer MEDICAID, SELFPAY | PROVIDERS: Emergency Provider Internal Medicine; Visit Provider Internal Medicine | DX: R94.31 Abnormal electrocardiogram [ECG] [EKG] (principal) | CPT/HCPCS: 93010 ==